=== PATIENT | female | born 1990 | race Caucasian/White ===

== ENCOUNTER 2023-03-25 03:28 | Day surgery (SDC) | payer OTHER, SELFPAY ==
--- NOTE | 2023-03-18 09:30 | PC.NURSE ---
Report to the Outpatient Waiting Room, entrance under the green pavilion located off [facility], at time 0600 on date 03/25/23. Planned Procedure Time: 0730. Time changes happen often and if your time is changed the preop area will call you the afternoon before. - You and your visitor will be asked to self-screen and do not enter if you have any COVID symptoms. - A mask is optional within the hospital at this time. Patients may have clear liquids (water, carbonated beverages, clear teas, apple juice) until 3 hours prior to surgery with a maximum of 20 ounces. 0430 - No food from midnight until time of surgery - Infants may have breast milk until 4 hours before surgery, formula 6 hours prior to surgery. - Children will be allowed to drink immediately following surgery. If applicable, please bring a bottle or sippy cup to assist with drinking. Juice, water, soda, and popsicles are readily available. For infants on formula, please bring formula the day of surgery. Pacifiers are allowed. Take the following medications with a SIP of water the morning of surgery: none DO NOT STOP ANY OF YOUR OTHER PRESCRIPTION MEDICATIONS PRIOR TO SURGERY ?EXCEPT THE FOLLOWING Medications to discontinue per physician vitamins & supplements, dexmethylphenidate, control, omeprazole Date to take last dose vitamins & supplements- 03/22/23, dexmethylphenidate, control, omeprazole- 03/24/23 Please no make-up, nail uzbek, hairspray, perfume, deodorant, or body powder the day of surgery. No jewelry (including any body piercings) or valuables the day of surgery, leave them at home. Please take a shower or bath the night before, or the morning of, surgery with an antibacterial soap. Wear comfortable, loose fitting clothing. Children are encouraged to wear pajamas. - Jewelry must be removed prior to entering the operating room. Rings and piercings that are not removed may be cut off. - The hospital will not accept responsibility for valuables. - Please leave all valuables, including medications, at home the day of surgery. If you are going home after surgery, a licensed courtesy bus driver must drive you home. - NO public transportation without another adult if you receive anesthesia. - We recommend that an adult stay with you for 24 hours following discharge. - We also recommend that you do not drive, make important decision, drink alcoholic beverages, or take any drugs that were not prescribed by your health care provider for at least 24 hours after your discharge time. For Pediatric surgeries, we recommend two adults accompany the child home. Follow any additional instructions given to you from your surgeon. If you or anyone in your household have experienced Covid symptoms in the past week, please notify your surgeon or the nurse liaison at the phone number below for possible testing. Telephone instructions given to Patient- Bethany Fowler and asked if any additional questions and then verbalized understanding. Patient advised to call surgeon office or pre surgery nurse liaison [phone] if any additional questions.
[2023-03-18 09:41] VITALS: BMI 26.2
[2023-03-25] VITALS (7 sets, daily range): BP systolic 100–132; BP diastolic 60–82; PULSE 56–75; RESP 12–20; TEMP 36.2–36.6; O2SAT 100
[2023-03-25] MEDS: LACTATED RINGERS 1,000 ML 30 ML IV CONT (06:35)
[2023-03-25] MEDS: ACETAMINOPHEN 500 MG TABLET 1000 MG PO (06:40)
[2023-03-25] MEDS: KETOROLAC 15 MG/ML VIAL (*BKC) IV PUSH (06:40)
[2023-03-25] MEDS: SCOPOLAMINE 1.5 MG PATCH TRANSDERM (06:42)
--- NOTE | 2023-03-25 06:44 | P.PNAN_ITS ---
Anes - Initial Pre Proc Eval Procedure: Operation Date: 03/25/23 07:30 Proposed Procedures p Laparoscopic Tubal Ligation with Fulguration - Ju Harris MD Date/Time: 03/25/23 06:44 Surgeon: Ju Harris MD Pre Op Diagnosis: desires female sterilization Patient Data Age: 33 Gender: F Height: 1.63 m Weight: 69.4 kg Allergies Allergy/AdvReac Type Severity Reaction Status Date / Time cat dander AdvReac Mild Itching Verified 03/25/23 06:20 pseudoephedrine AdvReac Unknown SYNCOPAL Verified 03/25/23 06:20 [From DayQuil Sinus EPISODE Pressure/Pain] Home Medications Medication Instructions Recorded Confirmed Type Green Tea Complex 1 tab-cap PO DAILY 03/18/23 03/18/23 History L norgest/E estradiol-E estrad 1 tablet PO DAILY 03/18/23 03/18/23 History 0.15 mg-30 mcg (84)/10 mcg(7) tabs,3mos (Jaimiess) ashwagandha extract 1 tab-cap PO DAILY 03/18/23 03/18/23 History dexmethylphenidate 20 mg 20 mg PO DAILY 03/18/23 03/18/23 History capsule,extended release [id number] omeprazole 40 mg capsule,delayed 40 mg PO DAILY 03/18/23 03/25/23 History release Patient hx anesthesia problems: none Family hx anesthesia problems: none Results Review: All pre-operative results and documents have been reviewed as part of the pre- operative evaluation. [facility] Past Medical History Medical History (Updated 03/25/23 @ 06:44 by Odell Cherry MD) ADHD Social History Social History Smoking status: Never smoker Alcohol intake: never Spiritual care concerns: No Anes - Eval Final PreProcedure Day of Procedure 03/25/23 06:44 Patient weight: overweight Heart: regular rate and rhythm Lungs: clear to auscultation Airway: Mallampati scale class II Neurological: alert and oriented Last oral intake: >/= 8 hours ASA classification: II Emergent: no Anesthetic plan: proceed Anesthesia type and monitoring: general ETT and standard monitoring Results Review: All pre-operative results and documents have been reviewed as part of the pre- operative evaluation. Informed Consent: The patient's anesthetic plan and its attendant risks and benefits were discussed with the patient/family/POA. Questions were solicited and answers provided to the satisfaction of the patient/family/POA.
--- NOTE | 2023-03-25 07:20 | WPDHPUPDATE1 ---
History and Physical Update Update Date/Time: 03/25/23 07:20 History and Physical has been reviewed, including an updated exam of the patient. There are NO changes in the patient's condition. Risks, benefits, and alternatives have been discussed and questions answered. Patient agrees to proceed with procedure.
--- NOTE | 2023-03-25 07:29 | PM.IMHP ---
H&P: HPI History of Present Illness Date/Time: 03/25/23 07:29 Chief Complaint: Female sterilization Narrative: this patient is a 33-year-old female who desires tubal ligation. We have agreed to perform laparoscopic bilateral tubal ligation. She understands risks, benefits, the. The procedure has been explained in detail. She understands injuries may occur that result in hospitalization, more surgery, and severe illness. She understands that there is risk of hemorrhage and infection. She denies any nausea, vomiting, fever, chills. She denies any chest pain or shortness of breath. Review of Systems Review of Systems: All systems reviewed & are unremarkable except as noted in HPI and below Constitutional: Constitutional: Denies chills, Denies fatigue, Denies fever(s) and Denies weakness Eyes: Eyes: Denies blurry vision, Denies change in vision, Denies loss of peripheral vision, Denies loss of vision, Denies other visual disturbances and Denies eye pain ENT: Denies vertigo, Denies dizziness, Denies hearing loss, Denies mouth pain, Denies nasal obstruction, Denies neck mass and Denies neck pain Cardiovascular: Cardiovascular: Denies chest pain, Denies diaphoresis, Denies syncope, Denies leg edema and Denies dyspnea Respiratory: Respiratory: Denies chest congestion, Denies cough, Denies hemoptysis, Denies dyspnea and Denies wheezing Gastrointestinal: Gastrointestinal: Denies abdominal pain, Denies constipation, Denies diarrhea, Denies nausea and Denies vomiting Genitourinary: Genitourinary: Denies hematuria, Denies change in libido, Denies nocturia, Denies genital lesions, Denies flank pain and Denies urinary urgency Musculoskeletal: Musculoskeletal: Denies abnormal gait, Denies back pain, Denies myalgias, Denies arthralgias, Denies joint swelling, Denies muscle weakness and Denies neck pain Integumentary/Breasts: Skin/Breast: Denies swelling, Denies breast pain, Denies breast mass, Denies dry skin, Denies nipple discharge, Denies unusual bruising and Denies jaundice Neurologic: Denies Neuro-related abnormal movements, Denies Abnormal speech present, Denies abnormal gait, Denies behavioral changes, Denies confusion, Denies vertigo, Denies dizziness, Denies syncope, Denies loss of vision, Denies memory loss, Denies convulsions and Denies weakness Psychiatric: Psychiatric: Denies abnormal sleep pattern, Denies behavioral changes, Denies change in libido, Denies confusion, Denies depression, Denies anhedonia and Denies memory loss Endocrine: Endocrine: Reports no additional endocrine complaints, Denies change in libido and Denies fatigue Hematologic/Lymphatic: Hematologic/Lymphatic: Reports no additional hematologic/lymphatic complaints Allergic/Immunologic: Allergic/Immunologic: Reports no additional allergic/immunologic complaints and Denies wheezing PMFSH Past Medical History Medical History (Updated 03/25/23 @ 07:31 by Ju Harris MD) ADHD Social History Social History Smoking status: Never smoker Alcohol intake: never Spiritual care concerns: No Meds Home Medications and Allergies Home Medications Medication Instructions Recorded Confirmed Type Green Tea Complex 1 tab-cap PO DAILY 03/18/23 03/18/23 History L norgest/E estradiol-E estrad 1 tablet PO DAILY 03/18/23 03/18/23 History 0.15 mg-30 mcg (84)/10 mcg(7) tabs,3mos (Jaimiess) ashwagandha extract 1 tab-cap PO DAILY 03/18/23 03/18/23 History dexmethylphenidate 20 mg 20 mg PO DAILY 03/18/23 03/18/23 History capsule,extended release [id number] omeprazole 40 mg capsule,delayed 40 mg PO DAILY 03/18/23 03/25/23 History release Allergies Allergy/AdvReac Type Severity Reaction Status Date / Time cat dander AdvReac Mild Itching Verified 03/25/23 06:20 pseudoephedrine AdvReac Unknown SYNCOPAL Verified 03/25/23 06:20 [From DayQuil Sinus EPISODE Pressure/Pain] Vital
--- NOTE | 2023-03-25 08:40 | P.OP_ITS ---
Procedure Note - Detailed Date of Procedure 03/25/23 Pre-op Diagnosis desires female sterilization Post-op Diagnosis Same Procedure Performed Laparoscopic bilateral tubal ligation Surgeon Ju Harris MD Digital Proofing And Platemaker none Anesthesia General Indications Unwanted fertility Findings Normal pelvic anatomy Description of Procedure The patient was taken the operating room. She has prepped draped in the dorsal lithotomy position after induction of general anesthesia. A 5 mm left upper quadrant incision was made with a scalpel on the abdominal skin. A 5 mm trocar was inserted intra-abdominal cavity. A pneumoperitoneum was achieved. This was done under direct visualization of the scope. An infraumbilical trocar was placed identical fashion. The fallopian tubes were grasped with bipolar cautery. They were completely cauterized. A 1.5 cm area of each fallopian tube was cauterized/desiccated. It was done bilaterally identical fashion. The pneumoperitoneum was reduced. The trocars removed. The skin was closed with subcuticular 4 Monocryl cover Dermabond. The patient tolerated the procedure well. She was taken to cover room stable condition. Sponge lap and needle counts were correct x2. Estimated Blood Loss 5 Drains No Packing No Pathology None sent Complications No immediate complications Condition Stable Disposition PACU
[2023-03-25] MEDS: oxyCODONE HCL (*CRX) 5 MG TAB IR PO (09:27)
--- NOTE | 2023-03-25 09:57 | SUR.PHASEII ---
RN forgot to stop fluids before discharging from the computer. There was 0 left to count.
== END 2023-03-25 09:55 | disposition home or self-care (01) ==
PROVIDERS: PCP Family Medicine Sports Medicine; Visit Provider Obstetrics & Gynecology
PROC: (CPT 58671; principal; 2023-03-25 07:30)
DX: Z30.2 Encounter for sterilization (principal); F90.9 Attention-deficit hyperactivity disorder, unspecified type
CPT/HCPCS: 58670; A9270; J1100; J1885; J2250; J2405; J2704; J3010; J7120

== ENCOUNTER 2024-07-02 01:26 | Emergency (ER) | payer OTHER, SELFPAY ==
[2024-07-02 01:27] VITALS: BP 129/79; PULSE 93; RESP 18; TEMP 36.4; O2SAT 100
--- NOTE | 2024-07-02 02:38 | PC.NURSE ---
Pt and spouse came up t triage deska dn state they are going to wait to go to urgent care in the morning. Pt left without being seen by provider.
--- OUTSIDE RECORDS SUMMARY | 2024-07-09 02:26 | XMS_ITS | Encounter Summary ---
Author Organization [facility] Address [address] [place] [address] Care Team Providers Care Wrapper Rewinder Name Role Phone Unavailable Primary Care Provider Unavailabl e Reason for Visit * Reason Comments URI Encounter Details Date Type Department Care Team (Late st Contact Info) Description 08/06/2017 11:40 AM CLINICAL DATA ASSISTANT Office Visit [facility] [address] [id number] [facility] [place] Influenza A (Primary Dx) Social History Tobacco Use Types Packs/Day Years Used Date Smoking Tobacco: Never Smokeless Tobacco: Never Sex and Gender Information Value Date Recorded Sex Assigned at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 Gender Identity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 Sexual Orientation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 documented as of this encounter Last Filed Vital Signs Vital Sign Reading Time Taken Comments Blood Pressure 122/80 08/06/2017 11:51 AM CLINICAL DATA ASSISTANT Pulse 112 08/06/2017 11:51 AM CLINICAL DATA ASSISTANT Temperature 37.7 ??C (99.8 ??F) 08/06/2017 11:[address] Respiratory Rate 16 08/06/2017 11:51 AM CLINICAL DATA ASSISTANT Oxygen Saturation 98% 08/06/2017 11:51 AM CLINICAL DATA ASSISTANT Inhaled Oxygen Concentration - - Weight 62.1 kg (137 lb) 08/06/2017 11:51 AM CLINICAL DATA ASSISTANT Height 162.6 cm (5' 4 ) 08/06/2017 11:51 AM CLINICAL DATA ASSISTANT Body Mass Index 23.52 08/06/2017 11:51 AM CLINICAL DATA ASSISTANT documented in this encounter Patient Instructions * Patient Instructions* Chester Kincaid APRN-MARI - 08/06/2017 12:08 PM CLINICAL DATA ASSISTANT Images from the original note were not included. Influenza REGULATORY MANAGER: Influenza (the flu) is an infection caused by the influenza virus. The flu is easily spread when aninfected person coughs, sneezes, or has close contact with others. You may be able to spread the flu to others for 1 week or longer after signs or symptoms appear. Common signs and symptoms include the following: ?? Fever and chills ?? Headaches, body aches, and muscle or joint pain ?? Cough, runny nose, and sore throat ?? Loss of appetite, nausea, vomiting, or diarrhea ?? Tiredness ?? Trouble breathing Call 911 for any of the following: ?? You have trouble breathing, and your lips look purple or blue. ?? You have a seizure. Seek care immediately if: ?? You are dizzy, or you are urinating less or not at all. ?? You have a headache with a stiff neck, and you feel tired or confused. ?? You have new pain or pressure in your chest. ?? Your symptoms, such as shortness of breath, vomiting, or diarrhea, get worse. ?? Your symptoms, such as fever and coughing, seem to get better, but then get worse. Contact your healthcare provider if: ?? You have new muscle pain or weakness. ?? You have questions or concerns about your condition or care. Treatment for influenza may include any of the following: ?? Acetaminophen decreases pain and fever. It is available without a doctor's order. Ask how much to take and how often to take it. Follow directions. Acetaminophen can cause liver damage if not taken correctly. ?? NSAIDs , such as ibuprofen, help decrease swelling, pain, and fever. This medicine is available with or without a doctor's order. NSAIDs can cause stomach bleeding or kidney problems in certain people. If you take blood thinner medicine, always ask your healthcare provider if NSAIDs are safe foryou. Always read the medicine label and follow directions. ?? Antivirals help fight a viral infection. Manage your symptoms: ?? Rest as much as you can to help you recover. ?? Drink liquids as directed to help prevent dehydration. Ask how much liquid to drink each day andwhich liquids are best for you. Prevent the spread of the flu: ?? Wash your hands often. Use soap and water. Wash your hands after you use the bathroom, change a child's diapers, or sneeze. Wash your hands before you prepare or eat food. Use gel hand cleanser that has 60% alcohol, when soap and water are not available. Do not touch your eyes, nose, or mouth unless you have washed your hands first. ?? Cover your mouth when you sneeze or cough. Cough into a tissue or the bend of your arm. If you use a tissue, throw it away immediately and wash your hands. ?? Clean shared items with a germ-killing distributor cleaner. Clean table surfaces, doorknobs, and light switches. Do not share towels, silverware, and dishes with people who are sick. Wash bed sheets, towels, silverware, and dishes with soap and water. ?? Wear a mask over your mouth and nose if you are sick. The face mask may help protect others frombecoming infected with the flu. Wear the mask when in common areas of your home or if you seek carewith a healthcare provider. ?? Stay away from others if you are sick. Stay at home until 24 hours after your fever and symptomsare gone. ?? Influenza vaccine helps prevent influenza (flu). Everyone older than 6 months should get a yearly influenza vaccine. Get the vaccine as soon as it is available, usually in March or April each year. Follow up with your healthcare provider as directed: Write down your questions so you remember to ask them during your visits. ?? 2017 [employer] Information is for End User's use only and may not be sold, redistributed or otherwise used for commercial purposes. All illustrations and images included in CareNotes?? are the copyrighted property of [employer] or [employer]. The above information is an in home aide only. It is not intended as medical advice for individual conditions or treatments. Talk to your doctor, nurse or pharmacist before following any medical regimen to see if it is safe and effective for you. ICAL DATA ASSISTANT documented in this encounter Progress Notes * Chester Kincaid APRN-CNP - 08/07/2017 10:16 AM CST Pt returned for work note. Note provided. ICAL DATA ASSISTANT * Chester Kincaid APRN-CNP - 08/06/2017 11:57 AM CST Subjective: Bethany Fowler is a 27 y.o. female who presents for evaluation: Chief Complaint Patient presents with ??? URI Primary Care Physician is No primary care provider on file.. Symptoms include: Pt started on Friday with scratchy throat then got worse as day went on, runny nose, fatigue, yesterday frequent stools, coughing, fever (has not taken temp), body aches, decreased appetite, nausea, Onset of symptoms was 2 days ago, Gradually worsened since that time. Fever started yesterday. She is drinking moderate amounts of fluids. Evaluation to date: none. Treatment to date: pt has taken ibuprofen and tylenol. Allergies Allergen Reactions ??? Dayquil [Day Time] Dizziness fainting Outpatient Prescriptions Marked as Taking for the 08/06/17 encounter (Office Visit) with Provider, [place] Boone Medication Sig ??? dexmethylphenidate (FOCALIN) 5 MG tablet Take 10 mg by mouth Every morning and lunchtime ??? Famotidine (PEPCID PO) ??? oseltamivir (TAMIFLU) 75 MG capsule Take 1 capsule by mouth once daily for 5 days Past Medical History: Diagnosis Date ??? ADHD Social History Social History ??? Marital status: Single Spouse name: N/A ??? Number of children: N/A ??? Years of education: N/A Occupational History ???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. Social History Main Topics ??? Smoking status: Never Smoker ??? Smokeless tobacco: Never Used ??? Alcohol use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 ??? Drug use: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 ??? Sexual activity: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 Other Topics Concern ???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 Social History Narrative ??? No narrative on file Medications reviewed. Review of Systems Pertinent items are noted in HPI Constitutional: Positive for fatigue, fevers, chills Eyes: Negative Ears, nose, mouth, and throat: scratchy throat, runny nose Respiratory: Positive for acute cough Cardiovascular: Negative Gastrointestinal: Positive for poor appetite, nausea Genitourinary:Negative Skin: Negative Musculoskeletal:Negative Neurological: Positive for headaches Objective: BP 122/80 (BP SITE: LEFT ARM, BP POSITION: SITTING, BP CUFF SIZE: Adult) Pulse 112 Temp 99.8 ??F (Oral) Resp 16 Ht 1.626 m (5' 4 ) Wt 62.1 kg (137 lb) SpO2 98% BMI 23.52 kg/m2 Skin: Physical Exam Exam General appearance: alert, cooperative, no distress, oriented to person, place, and time, wellappearing Head: normocephalic, without trauma Eyes: sclera and conjunctiva clear, EOMI and PERRLA, lids normal Ears: canals clear, tympanic membranes normal, hearing intact to voice Nose: nares open; no septal deviation is noted, nasal mucosa not inflamed, no maxillary tenderness Throat: no mucous membrane abnormalities, lips, mucosa, and tongue normal; teeth and gums normal Neck: range of motion is intact, no masses, Nodes: no cervical, adenopathy Lungs: breath sounds normal and symmetric; no rales or wheezes Heart: regular rhythm, normal S1 and S2, without murmurs, gallops or rubs Abdomen: soft without mass, non-tender, with normal bowel sounds Neurologic: mental status normal; alert and oriented X 3; Assessment: . Encounter Diagnoses Name Primary? Influenza A Yes Plan: Discussed dx and tx of URIs Discussed the importance of avoiding unnecessary abx therapy. Suggested symptomatic OTC remedies. RTC prn. Discussed with pt the possible risk and side effects of tamiflu, pt states understanding and requesting script Drink plenty of fluids and get plenty of rest If symptoms persist greater than 7-10 days or worsen at any time, follow up with a health care provider, clinic or emergency care Educational material given on influenza Work/School note offered Continue to follow up with No primary care provider on file. as directed. After Visit Summary reviewed with patient. The patient indicates understanding of these issues and agrees with the plan. Patient discharged to Home .Chester Kincaid APRN-MARI 08/06/2017 12:16 PM Orders Placed This Encounter ??? INFLUENZA A+B - POINT OF CARE (AMB) ??? oseltamivir (TAMIFLU) 75 MG capsule Sig: Take 1 capsule by mouth once daily for 5 days Dispense: 10 capsule Refill: 0 Recent Results (from the past 24 hour(s)) INFLUENZA A+B - POINT OF CARE (AMB) Collection Time: 08/06/17 11:58 AM Result Value Ref Range Influenza A Ag Positive (Abnormal) Negative Influenza B Ag Negative Negative Influenza Control present NEGATIVE - POSITIVE Influenza Lot# [id number] Influenza Expir Date 04 28 2019 ICAL DATA ASSISTANT documented in this encounter Plan of Treatment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 documented as of this encounter Procedures Procedure Name Priority Date/Time Associated Diagnosis Comments INFLUENZA A+B - POINT OF CARE (AMB) Routine 08/06/2017 11:58 AM CLINICAL DATA ASSISTANT Influenza A documented in this encounter Results * (ABNORMAL) INFLUENZA A+B - POINT OF CARE (AMB) (08/06/2017 11:58 AM CLINICAL DATA ASSISTANT) Influenza A Antigen Rapid Positive(A) Negative Influenza B Antigen Rapid Negative Negative Influenza Internal Control present NEGATIVE - POSITIVE Influenza Lot Number [id number] Influenza Expiration Date 04 28 2019 Other NASOPHARYNGEAL SWAB / Unknown 08/06/2017 11:58 AM CLINICAL DATA ASSISTANT [facility] - POINT OF CA RE ORDERABLES documented in this encounter Visit Diagnoses Diagnosis Influenza A- Primary documented in this encounter
--- OUTSIDE RECORDS SUMMARY | 2024-07-09 02:26 | XMS_ITS | Encounter Summary ---
Author Organization [facility] Address [address] [place] [address] Care Team Providers Care Commercial Real Estate Manager Name Role Phone Raymond Wolff MD Primary Care Provider Kathy Catherine MD Unavailable [phone] Doris Pruett MD Unavailable [phone] Mary Waters NP Unavailable [phone] Reason for Visit * Reason Comments Preventative Care Encounter Details Date Type Department Care Team (Late st Contact Info) Description 05/07/2024 11:00 AM CDT Office Visit [facility] [address] [phone] Raymond Wolff MD [address] [address] Preventative health care (Primary Dx); Class 1 obesity without serious comorbidity with body mass index (BMI) of 30.0 to 30.9 in adult, unspecified obesity type; Attention deficit hyperactivity disorder (ADHD), combined type; Gastroesophageal reflux disease without esophagitis; Screening for metabolic disorder; Screening for deficiency anemia; Screening for diabetes mellitus; Screening for viral disease Social History Tobacco Use Types Packs/Day Years Used Date Smoking Tobacco: Never Smokeless Tobacco: Never AUDIT-C Answer Date Recorded Q1: How often do you have a drink containing alc ohol? Monthly or less 11/12/2022 Q2: How many drinks containi ng alcohol do you have on a typical day when you are drinking? 1 or 2 11/12/2022 Q3: How often do you have si x or more drinks on one occasion? Never 11/12/2022 PHQ-2 Answer Date Recorded PHQ-2 Total Score (If total score is 3 or more points, staff should administer the PHQ-9) 0 05/07/2024 Personal Safety Answer Date Recorded Have you ever been in or are you currently in a harmful physical or emotional relationship or is someone making you feel afraid or unsafe? 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 N ot on file documented as of this encounter Last Filed Vital Signs Vital Sign Reading Time Taken Comments Blood Pressure 128/84 05/07/2024 10:52 AM CDT Pulse 80 05/07/2024 10:52 AM CDT Temperature 36.7 ??C (98.1 ??F) 05/07/2024 10:51 AM C DT Respiratory Rate - - Oxygen Saturation 99% 05/07/2024 10:52 AM CDT Inhaled Oxygen Concentration - - Weight 78.9 kg (174 lb) 05/07/2024 10:51 AM CDT Height 161 cm (5' 3.39 ) 05/07/2024 10:51 AM CDT Body Mass Index 30.45 05/07/2024 10:51 AM CDT documented in this encounter Ordered Prescriptions Prescription Sig Dispense Quantity Refills Last Filled Start Date End Date dexmethylphenidate XR (FOCALIN XR) 20 mg 24 hr capsuleIndications: Attention deficit hyperactivity disorder (ADHD), combined type Take 1 capsule (20 mg total) by mouth daily 30 capsule 05/07/2024 4 tirzepatide, weight loss, (Zepbound) 5 mg/0.5 mL pen injectorIndications :Class 1 obesity without serious comorbidity with body mass index (BMI) of 30.0 to 30.9 in adult, unspecified obesity type Inject 0.5 mL (5 mg total) under the skin every 7 days 2 mL 05/27/2024 4 tirzepatide, weight loss, (Zepbound) 2.5 mg/0.5 mL pen injectorIndications :Class 1 obesity without serious comorbidity with body mass index (BMI) of 30.0 to 30.9 in adult, unspecified obesity type Inject 0.5 mL (2.5 mg total) under the skin every 7 days 2 mL 05/07/2024 4 documented in this encounter Progress Notes * Raymond Wolff MD - 05/07/2024 11:00 AM CDT PREVENTATIVE VISIT/COMPLETE PHYSICAL EXAMINATION Subjective/Objective Patient ID: Bethany Fowler is a 34 y.o. female. CC: Well visit HPI Bethany Fowler was last seen 02/20/24. At that visit, we recommended establishing with weight management. Today she notes that she has been trying to lose weight. She has gained weight despite her efforts.She is walking her dog daily, she walks in and out of work, doing some arm workouts and drinking more water. She is making more food at home. She is tracking calories when she is cooking at home. Sheis around 1200 calories per day and does not go above 1300 calories. She is going to bed earlier tomake sure she gets enough sleep. She has cat allergies. She is trying to stick with her medication. She is taking xyzal and a nose spray (fluticasone) but she is not sure what it is. She feels like the treatment helps but she continues with symptoms. She knows shots are an option but she is not sure she wants to consider shots yet. She continues to take adderall XR daily and ends up taking this 6-7 times per week. This works wellfor her. She denies any side effects from this. Patient Active Problem List Diagnosis Date Noted ADHD 11/19/2023 Gastroesophageal reflux disease without esophagitis 11/19/2023 Allergy to cats 11/19/2023 Oropharyngeal dysphagia 09/27/2022 Past Medical History: Diagnosis Date ADHD (attention deficit hyperactivity disorder) dx by psychiatrist at age 10 Past Surgical History: Procedure Laterality Date DENTAL SURGERY Right front right tooth implant TUBAL LIGATION Bilateral 03/25/2023 Family History Problem Relation Age of Onset ADD / ADHD Mother Hyperlipidemia Father ADD / ADHD Sister Hypothyroidism Sister ADD / ADHD Sister Breast cancer Maternal Grandmother Vision loss Maternal Grandfather Breast cancer Mother's Sister Colon cancer Neg Hx Coronary artery disease Neg Hx Social History Tobacco Use Smoking status: Never Smokeless tobacco: Never Substance and Sexual Activity Drug use: Yes Types: Alcohol Comment: 1 drink per month Sexual activity: Yes Partners: Male control/protection: OCP, Tubal Ligation Comment: Taking simpesse to have less periods. 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, [employer] Exercise: walking, mild weights Owns dog Current Outpatient Medications: ASHWAGANDHA EXTRACT ORAL, Take by mouth, Disp: , Rfl: clindamycin (CLEOCIN T) 1 % gel, Apply topically 2 (two) times a day, Disp: 30 g, Rfl: 0 dexmethylphenidate XR (FOCALIN XR) 20 mg 24 hr capsule, Take 1 capsule (20 mg total) by mouth daily, Disp: 30 capsule, Rfl: 0 omeprazole (PriLOSEC) 20 mg capsule, Take 1 capsule (20 mg total) by mouth daily, Disp: 30 capsule,Rfl: 11 Simpesse 0.15 mg-30 mcg (84)/10 mcg (7) tablets,dose pack,3 month, Take 1 tablet by mouth daily, Disp: , Rfl: tretinoin (RETIN-A) 0.025 % cream, Apply topically nightly, Disp: 20 g, Rfl: 0 Allergies Allergen Reactions Vicks Dayquil Allergy Syncope Immunization History Administered Date(s) Administered COVID-19 mRNA (Sensus Experience) 0.3 mL (30 mcg) vaccine (12 years and up) 04/23/2024 Influenza, Trivalent, Cell Culture-based MDCK, Preservative Free, Antibiotic Free, Intramuscular 04/23/2024 [place] SARS-CoV-2 Monovalent Vaccination (12+ Yrs) PURPLE 08/01/2020, 08/18/2020 Td, adsorbed 04/26/2021 Review of Systems All other systems reviewed and are negative. Physical Exam BP 128/84 Pulse 80 Temp 36.7 ??C (98.1 ??F) (Temporal) Ht 161 cm (5' 3.39 ) Wt 78.9 kg (174lb) SpO2 99% BMI 30.45 kg/m?? Physical Exam Vitals reviewed. Constitutional: General: She is not in acute distress. Appearance: She is well-developed. She is not diaphoretic. HENT: Head: Normocephalic and atraumatic. Right Ear: External ear normal. Left Ear: External ear normal. Nose: Nose normal. Eyes: Conjunctiva/sclera: Conjunctivae normal. Pupils: Pupils are equal, round, and reactive to light. Neck: Thyroid: No thyromegaly. Cardiovascular: Rate and Rhythm: Normal rate and regular rhythm. Heart sounds: Normal heart sounds. No murmur heard. No friction rub. No gallop. Pulmonary: Effort: Pulmonary effort is normal. No respiratory distress. Breath sounds: Normal breath sounds. No wheezing or rales. Chest: Chest wall: No tenderness. Abdominal: General: Bowel sounds are normal. There is no distension. Palpations: Abdomen is soft. There is no mass. Tenderness: There is no abdominal tenderness. There is no guarding. Musculoskeletal: General: No swelling. Normal range of motion. Cervical back: Normal range of motion and neck supple. Lymphadenopathy: Cervical: No cervical adenopathy. Skin: General: Skin is warm and dry. Findings: No erythema or rash. Neurological: Mental Status: She is alert and oriented to person, place, and time. Cranial Nerves: No cranial nerve deficit. Sensory: No sensory deficit. Deep Tendon Reflexes: Reflexes normal. Psychiatric: Behavior: Behavior normal. Thought Content: Thought content normal. Judgment: Judgment normal. Patient Care Team: Raymond Wolff MD as PCP - General (Internal Medicine) HEALTH MAINTENANCE: Cervical Cancer Screening: discussed screening recommendations and up to date Vaccines: Influenza: discussed recommendations, up to date, and recommended annually Tdap: discussed recommendations and up to date HPV: discussed recommendations COVID: discussed recommendations Health Maintenance Topic Date Due Cervical Cancer Screening Never done Hepatitis C Screening Never done Varicella Vaccines (1 of 2 - 13+ 2-dose series) Never done Regular Well Visit/Exam 18-64 Never done Hepatitis B Screening Never done DTaP/Tdap/Td Vaccine (1 - Tdap) 04/27/2021 Depression Screening 04/26/2022 Covid-19 Vaccine Completed Influenza Vaccine Completed Pneumococcal vaccine <65 Aged Out HPV Vaccines Aged Out Lab/Radiology/Diagnostic Review: Lab Results Component Value Date CHOL 232 (H) 12/17/2023 HDL 72 12/17/2023 LDLCALC 148 (H) 12/17/2023 TRIG 62 12/17/2023 CHOLHDL 3 12/17/2023 Lab Results Component Value Date TSH 1.85 12/17/2023 Assessment/Plan Diagnoses and all orders for this visit: Preventative health care (Primary) Comments: discussed vaccinations, health screening and encouraged regular cardiovascular exercise. Orders: - Comprehensive metabolic panel; Future - CBC with auto differential; Future - Hemoglobin A1c; Future - Hepatitis B Surface Antigen Blood; Future - Hepatitis C antibody Blood; Future Class 1 obesity without serious comorbidity with body mass index (BMI) of 30.0 to 30.9 in adult, unspecified obesity type Comments: discussed treatment approaches and medications risks, benefits and side effects. continue lifestyleapproaches. start zebpound. Orders: - tirzepatide, weight loss, (Zepbound) 2.5 mg/0.5 mL pen injector; Inject 0.5 mL (2.5 mg total) under the skin every 7 days - tirzepatide, weight loss, (Zepbound) 5 mg/0.5 mL pen injector; Inject 0.5 mL (5 mg total) under the skin every 7 days Attention deficit hyperactivity disorder (ADHD), combined type Comments: doing well with current therapy, refilled. Orders: - dexmethylphenidate XR (FOCALIN XR) 20 mg 24 hr capsule; Take 1 capsule (20 mg total) by mouth daily Gastroesophageal reflux disease without esophagitis Comments: saw GI, told PPI fpc was ok by them. Discussed risks and benefits. Screening for metabolic disorder - Comprehensive metabolic panel; Future Screening for deficiency anemia - CBC with auto differential; Future Screening for diabetes mellitus - Hemoglobin A1c; Future Screening for viral disease - Hepatitis B Surface Antigen Blood; Future - Hepatitis C antibody Blood; Future Follow up in 6-7 weeks (weight) or sooner PRN Raymond Wolff MD documented in this encounter Plan of Treatment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 documented as of this encounter Results * Hepatitis C antibody Blood (05/07/2024 12:17 PM CDT) Hep C Ab Nonreactive Nonreactive Comment:Antibodies to HCV no t detected. Does NOT exclude the possibility of recent exposure to HCV. Current interpretive data was last revised on 22 Blood 05/07/2024 12:1 7 PM CDT 05/07/2024 12:50 PM CDT Result [facility] Raymond Wolff MD LAB MICROBIOLOGY - GEN ERAL ORDERABLES Final Result Performing Organization Address [facility] de Phone Number [facility] [place] [address] * Hepatitis B Surface Antigen Blood (05/07/2024 12:17 PM CDT) HepBsAg Nonreactive Nonreactive Blood 05/07/2024 12:1 7 PM CDT 05/07/2024 12:50 PM CDT Result [facility] Raymond Wolff MD LAB MICROBIOLOGY - GEN ERAL ORDERABLES Final Result Performing Organization Address [facility] de Phone Number [facility] [place] [address] * Hemoglobin A1c (05/07/2024 12:17 PM CDT) Pathologist [facility] Hgb A1C 5.2 4.0 - 5.6 % Estimated Average Glucose 103 mg/dL [facility] Comment: The ADA recommends reporting an estimated Average Glucose (eAG) with all Hemoglobin A1c results using the equation derived from a study of 507 normal and diabetic adults. ??Minority populations were underrepresented and children were not included. ?? (Diabetes Care 2020; 43(S1): S66-S76). ??The eAG is not equivalent to a fasting glucose. Blood 05/07/2024 12:1 7 PM CDT 05/07/2024 12:51 PM CDT Result [facility] Raymond Wolff MD LAB BLOOD ORDERABLES F inal Result Performing Organization Address [facility] Co de Phone Number [facility] [place] [address] * CBC with auto differential (05/07/2024 12:17 PM CDT) [facility] WBC 7.9 3.8 - 9.9 K/cumm Hgb 13.1 11.9 - 15.5 g/dL [facility] Hct 39.3 35.6 - 45.5 % [facility] Plt 311 150 - 400 K/cumm [facility] MPV 9.8 9.1 - 12.3 fL [facility] RBC 4.17 3.90 - 5.20 M/cumm [facility] MCV 94.2 81.3 - 96.4 fL [facility] MCH 31.4 27.1 - 33.3 pg [facility] MCHC 33.3 32.3 - 35.7 g/dL [facility] RDW CV 12.7 11.1 - 14.9 % [facility] RDW SD 43.9 35.7 - 48.1 fL [facility] NRBC abs 0.00 0.00 - 0.01 K/cumm [facility] Blood 05/07/2024 12:1 7 PM CDT 05/07/2024 12:50 PM CDT us Raymond Wolff MD LAB BLOOD ORDERABLES F inal Result [facility] Department [place] [address] * Comprehensive metabolic panel (05/07/2024 12:17 PM CDT) [facility] Sodium 140 135 - 145 mmol/L Potassium, pl 4.1 3.3 - 4.9 mmol/L [facility] Chloride 105 97 - 110 mmol/L [facility] CO2 27 22 - 32 mmol/L [facility] Anion gap 8 2 - 15 mmol/L [facility] BUN 10 6 - 25 mg/dL [facility] Creatinine 0.81 0.60 - 1.10 mg/dL [facility] Glucose 78 70 - 199 mg/dL [facility] Comment: Interpretive Data Fasting glucose >/= 126 mg/dl is diagnostic for diabetes. ?? Fasting is defined as no caloric intake for at least 8 hours. Fasting glucose between 100 mg/dl to 125 mg/dl is diagnostic of prediabetes. In a patient with classic symptoms of hyperglycemia or hyperglycemic crisis, a random glucose >/= 200 mg/dl is diagnostic for diabetes. In the absence of unequivocal hyperglycemia, results should be confirmed by repeat testing. The classification and Diagnosis of Diabetes Diabetes Care 2021; 46: S19-S40. Current interpretive data was last revised 2022. Calcium 9.2 8.5 - 10.3 mg/dL [facility] Bilirubin, total 0.4 0.1 - 1.2 mg/dL [facility] Protein, pl 7.6 6.5 - 8.5 g/dL [facility] Albumin 4.4 3.5 - 5.0 g/dL [facility] Alk phos 77 40 - 130 Units/L [facility] ALT 19 7 - 45 Units/L [facility] AST 26 10 - 45 Units/L [facility] Blood 05/07/2024 12:1 7 PM CDT 05/07/2024 12:50 PM CDT us Raymond Wolff MD LAB BLOOD ORDERABLES F inal Result [facility] Department [place] [address] documented in this encounter Visit Diagnoses Diagnosis Preventative health care- Primary Routine general medical examination at a health care facility Class 1 obesity without serious comorbidity with body mass index (BMI) of 30.0 to 30.9 in adult, unspecified obesity type Attention deficit hyperactivity disorder (ADHD), combined type Gastroesophageal reflux disease without esophagitis Esophageal reflux Screening for metabolic disorder Screening for deficiency anemia Screening for other and unspecified deficiency anemia Screening for diabetes mellitus Screening for viral disease Special screening examination for unspecified viral disease documented in this encounter Discontinued Medications Medication Sig Discontinue Reason Start Date End Da te dexmethylphenidate XR (FOCALIN XR) 20 mg 24 hr capsuleIndications:Attent ion deficit hyperactivity disorder (ADHD), combined type Take 1 capsule (20 mg total) by mouth daily Reorder 04/08/2024 05/07/2024 documented as of this encounter Care Teams Commercial Real Estate Manager Relationship Specialty Start Date End Date Raymond Wolff MD [address] [facility] [address] [place] [address] PCP - General Internal Medicine 11/21/23 Kathy Catherine MD [address] [place] [address] Consulting Physician Gastroenterology 05/07/24 Doris Pruett MD [address] [facility] [address] [place] [address] Consulting Physician Dermatology 05/07/24 Mary Waters NP [address] [place] [address] Nurse Practitioner Nurse Practitioner 05/07/24 documented as of this encounter
--- OUTSIDE RECORDS SUMMARY | 2024-07-09 02:26 | XMS_ITS | Encounter Summary ---
Author Organization [facility] Address [address] [place] [address] Care Team Providers Care Lay Out And Detail Drafter Name Role Phone Raymond Wolff MD Primary Care Provider Reason for Referral * Consultation (Routine) - Pending Review Specialty Diagnoses / Procedures Referred By Contac t Referred To Contact Weight Management Diagnoses Overweight Raymond Wolff MD [address] [address] Phone: tel: fax: [facility] (All Locations) Referral ID Status Reason Start Date Expiration Date Visits Requested Visits Authorized [id number] Pending Review Specialty Services Required 02/20/2024 03/21/2025 1 1 Question Answer Please select the performing region: [facility] (All Locations) [[id number]] # of visits: 1 Encounter Details Date Type Department Care Team (Late st Contact Info) Description 02/20/2024 9:45 AM CDT Office Visit [facility] [address] [place] [address] Raymond Wolff MD [address] [address] Overweight (Primary Dx); Fatigue, unspecified type Social History Tobacco Use Types Packs/Day Years Used Date Smoking Tobacco: Never Smokeless Tobacco: Never Tobacco Cessation:Counseling Given: Not Answered AUDIT-C Answer Date Recorded Q1: How often [...] points, staff should administer the PHQ-9) 0 04/26/2021 Personal Safety Answer Date Recorded Have you [...] AM CDT Sexual Orientation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 documented as of this encounter Last Filed Vital Signs Vital Sign Reading Time Taken Comments Blood Pressure 116/84 02/20/2024 10:38 AM CDT Pulse 76 02/20/2024 9:47 AM CDT Temperature 36.8 ??C (98.3 ??F) 02/20/2024 9:47 AM CD T Respiratory Rate - - Oxygen Saturation 99% 02/20/2024 9:47 AM CDT Inhaled Oxygen Concentration - - Weight 79.1 kg (174 lb 6.4 oz) 02/20/2024 9:47 A M CDT Height 162.6 cm (5' 4 ) 02/20/2024 9:47 AM CDT Body Mass Index 29.94 02/20/2024 9:47 AM CDT documented in this encounter Progress Notes * Raymond Wolff MD - 02/20/2024 9:45 AM CDT Subjective/Objective Patient ID: Bethany Fowler is a 34 y.o. female. Chief Complaint Questions about weight HPI Bethany Fowler was last seen 12/16/23 for telehealth visit for thyroid questions. Today she notes that she has always been cold and sleepy. She always get cold and finds that she gets sleepy around 7 pm. She finds that she is always cold. She does not use AC and finds that when itis 90+ degrees she is wearing long sleeves, no AC and trying to bring in the heat. This has been this way her entire life. She sweats normal amount when she is hot/active. She does not feel uncomfortable when it is hot for everyone else. She feel cold when it is 70 degrees. Her house is set at 70 degrees and she uses blankets all the time. She feels like after college she has noticed more tiredness. She finds that after eating dinner shetends to get tired. She can have this happen at home or out with friends. She tries to plan to go to bed at 10 pm but often falling asleep before then. She has not had issues with falling asleep spontaneously. She often starts to fall asleep around 7 pm but tries to stay awake up until 10 pm. She then get up at 5 am. She usually sleeps through the night typically. She can have disturbances nightterror . She will wake up from nightmare but still feel like she is in the dream temporarily. She used to sleep walk. She estimates that these night awakenings are maybe once per month. She wakes up in the Am feeling refreshed. She feels fine during the day expect if she goes to bed after 10 pm. Onweekends she tends to go to bed around 11-12 and wake up around 6-7. She has cats and they do not let her sleep in past that time. She does tend to nap on weekends, 1-2 times. She struggles less withsleep on weekends after dinner. She often skips breakfast and lunch. She will have a snack when she gets home. Dinner tends to be home cooked. She sometimes will have popsicle after dinner or another snack (sweets) or fruit. She isshooting for 1200 calories per day. She did weight loss program through [facility] last year and they recommended not going below this. She thinks she is at/just under 1200 calories about 100% of the time during the week. She is more like 9926-9825 calories on the weekends. She is more likely to eat breakfast and lunch on the weekends. She is using [employer]ave[employer] and uses a food scale she uses at home. She is struggling with weight loss. She is weighing herself at home. She has weighed herself twice per week. She saw that her weight is only going up. She is at her highest weight. She did the my wayto a healthy weight last year. She was given direction about making sure she gets enough protein. She continues to struggle with this now. She takes focalin on every week day but not always on the weekends. She estimates she probably takes it 80% of the time on the weekends. Current Outpatient Medications: ASHWAGANDHA EXTRACT ORAL, Take [...] Allergies Allergen Reactions Vicks Dayquil Allergy Syncope Review of Systems All other systems reviewed and are negative. BP 116/84 (BP Location: Left arm, Patient Position: Sitting) Pulse 76 Temp 36.8 ??C (98.3 ??F) (Temporal) Ht 162.6 cm (5' 4 ) Wt 79.1 kg (174 lb 6.4 oz) SpO2 99% BMI 29.94 kg/m?? Physical Exam Constitutional: General: She is not in acute distress. Appearance: Normal appearance. HENT: Head: Normocephalic and atraumatic. Nose: Nose normal. Eyes: Extraocular Movements: Extraocular movements intact. Pulmonary: Effort: Pulmonary effort is normal. Musculoskeletal: General: Normal range of motion. Cervical back: Normal range of motion. Neurological: General: No focal deficit present. Mental Status: She is alert and oriented to person, place, and time. Mental status is at baseline. Psychiatric: Mood and Affect: Mood normal. Behavior: Behavior normal. Thought Content: Thought content normal. Judgment: Judgment normal. Assessment/Plan Diagnoses and all orders for this visit: Overweight (Primary) - Ambulatory referral to Weight Management; Future Fatigue, unspecified type I think some of her issues may be from predominantly carbohydrate intake and concentrated in the evening only. Encouraged spreading intake throughout the day and increasing fat/protein to be around 50-60% of calorie intake. I hope this will boost metabolism and reduce any post prandial hypoglycemiafrom being insulin spikes and sensitivity. Lack of sleep time could be contributing (even sleep quality). Encouraged trying increasing sleep time for a week to see if this helps as well. She inquiredabout hormonal impact as well. I am not sure about her OCP and encouraged further discussion from RESPIRATORY CARE ASSISTANT. Reviewed thyroid levels and still think cortisol or other metabolic cause remains much less likel y. Discussed weight loss clinic as they is a long wait and if we do not have success that could be helpful for further metabolic evaluation and treatment. Discussed Focalin could be contributing to crash as well and to monitor how she feels on days without it. Report back in a few weeks Follow up TBD I spent 30 minutes with the patient during the visit and greater than 50% of that visit used for counseling and coordinating care. Time in 10:06 am, time out 10:49 am. I spent additional 10 minutes for documentation, chart review and preparation for the visit on same day of the visit. Raymond Wolff MD documented in this encounter Plan of Treatment Scheduled Referrals Name Type Priority Associated Diagnoses Order Schedule Ambulatory referral to Weight Management Outpatient Referral Routine Overweight Expected: 03/05/2024 (Approximate), Expires: 02/19/2025 documented as of this encounter Visit Diagnoses Diagnosis Overweight- Primary Fatigue, unspecified type documented in this encounter Care Teams Lay Out And Detail Drafter Relationship Specialty Start Date End Date Raymond Wolff MD [address] [address] PCP - General Internal Medicine 11/21/23 documented as of this encounter
--- OUTSIDE RECORDS SUMMARY | 2024-07-09 02:26 | XMS_ITS | Referral Summary ---
Author Organization [facility] [employer] Address [address] [place] [address] Care Team Providers Care Deputy County Attorney Name Role Phone Unavailable Primary Care Provider Unavailabl e Source Comments [facility] [employer],non-owned Affiliates and Associated Physician Practices is amultiple site organization consisting of ambulatory clinics and hospital sitesin [place], [place], [place] and [place]. This disclosure is being madepursuant to the Care Everywhere program and may not contain all information available regarding this patient. Last updated 18.[facility] [employer] Allergies Active Allergy Reactions Criticality Noted Date Comments Day Time Dizziness 08/06/2017 fainting Medications * Be aware that medications may not be up to date on this document. Alwaysverify current medications with the patient. Medication Sig Dispensed Refills Start Date End Date Status dexmethylphenidate (FOCALIN) 5 MG tablet Take 10 mg by mouth Every morning and lunchtime Active Famotidine (PEPCID PO) Active Social History Tobacco Use Types Packs/Day Years Used Date Smoking Tobacco: Never Smokeless Tobacco: Never Sex and Gender Information Value Date Recorded Sex Assigned at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 Gender Identity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 Sexual Orientation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 Last Filed Vital Signs Vital Sign Reading Time Taken Comments Blood Pressure 122/80 08/06/2017 11:51 AM PATROLLER Pulse 112 08/06/2017 11:51 AM PATROLLER Temperature 37.7 ??C (99.8 ??F) 08/06/2017 11:[address] Respiratory Rate 16 08/06/2017 11:51 AM PATROLLER Oxygen Saturation 98% 08/06/2017 11:51 AM PATROLLER Inhaled Oxygen Concentration - - Weight 62.1 kg (137 lb) 08/06/2017 11:51 AM PATROLLER Height 162.6 cm (5' 4 ) 08/06/2017 11:51 AM PATROLLER Body Mass Index 23.52 08/06/2017 11:51 AM PATROLLER Plan of Treatment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
--- OUTSIDE RECORDS SUMMARY | 2024-07-09 02:26 | XMS_ITS | Patient Health Summary ---
Author Organization [facility] Address [address] [place] [address] Care Team Providers Care Billposting Supervisor Name Role Phone Unavailable Primary Care Provider Unavailabl e Note from [facility],non-owned Affiliates and Associated Physician Practices is amultiple site organization consisting of ambulatory clinics and hospital sitesin [place], [place], [place] and [place]. This disclosure is being madepursuant to the Care Everywhere program and may not contain all information available regarding this patient. Last updated 18.[facility] Allergies * Day Time(Dizziness) Medications * Be aware that medications may not be up to date on this document. Alwaysverify current medications with the patient. * dexmethylphenidate (FOCALIN) 5 MG tablet Take 10 mg by mouth Every morning and lunchtime * Famotidine (PEPCID PO) Social History Tobacco Use Types Packs/Day Years Used Date Smoking Tobacco: Never Smokeless Tobacco: Never Sex and Gender Information Value Date Recorded Sex Assigned at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 Gender Identity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 Sexual Orientation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 Last Filed Vital Signs Vital Sign Reading Time Taken Comments Blood Pressure 122/80 08/06/2017 11:51 AM TELEPHONE MECHANIC Pulse 112 08/06/2017 11:51 AM TELEPHONE MECHANIC Temperature 37.7 ??C (99.8 ??F) 08/06/2017 11:[address] Respiratory Rate 16 08/06/2017 11:51 AM TELEPHONE MECHANIC Oxygen Saturation 98% 08/06/2017 11:51 AM TELEPHONE MECHANIC Inhaled Oxygen Concentration - - Weight 62.1 kg (137 lb) 08/06/2017 11:51 AM TELEPHONE MECHANIC Height 162.6 cm (5' 4 ) 08/06/2017 11:51 AM TELEPHONE MECHANIC Body Mass Index 23.52 08/06/2017 11:51 AM TELEPHONE MECHANIC Procedures * INFLUENZA A+B - POINT OF CARE (AMB)(Performed 08/06/2017) Performed for Influenza A Results * (ABNORMAL) INFLUENZA A+B - POINT OF CARE (AMB) (08/06/2017 11:58 AM TELEPHONE MECHANIC) Influenza A Antigen Rapid Positive(A) Negative Influenza B Antigen Rapid Negative Negative Influenza Internal Control present NEGATIVE - POSITIVE Influenza Lot Number [id number] Influenza Expiration Date 04 28 2019 Other NASOPHARYNGEAL SWAB / Unknown 08/06/2017 11:58 AM TELEPHONE MECHANIC Chester Kincaid SOUND ENGINEER AUDIO CONTROL-ASSOCIATE PROFESSOR OF THEOLOGY LAB - POINT OF [place] RE ORDERABLES
--- OUTSIDE RECORDS SUMMARY | 2024-07-09 02:26 | XMS_ITS | Referral Summary ---
Author Organization [facility] Virtual Care Address [address] [place] [phone] Phone Care Team Providers Care Business Office Assistant Name Role Phone Raymond Wolff MD Primary Care Provider Kathy Catherine MD Unavailable [phone] Doris Pruett MD Unavailable [phone] Mary Waters NP Unavailable [phone] Encounters Date Type Department Care Team Description 07/02/2024 10:30 AM E MAIL SYSTEM ADMINISTRATOR Telemedicine [facility] [address] [place] [phone] Raymond Wolff MD Nausea vomiting and diarrhea (Primary Dx); Gastroesophageal reflux disease without esophagitis 05/07/2024 1:10 PM CDT Lab [facility]) [address] [place] [phone] Preventative health care; Screening for viral disease; Screening for diabetes mellitus; Screening for deficiency anemia; Screening for metabolic disorder 05/07/2024 11:00 AM CDT Office Visit [place] [id number] [phone] Raymond Wolff MD Preventative health care (Primary Dx); Class 1 obesity without serious comorbidity with body mass index (BMI) of 30.0 to 30.9 in adult, unspecified obesity type; Attention deficit hyperactivity disorder (ADHD), combined type; Gastroesophageal reflux disease without esophagitis; Screening for metabolic disorder; Screening for deficiency anemia; Screening for diabetes mellitus; Screening for viral disease 04/23/[address] 5[address] [place] [address] Deb Cardenas Encounter for vaccination (Primary Dx) 04/23/[address] 5[address] [place] [address] Deb Cardenas from Last 3 Months Allergies Active Allergy Reactions Criticality Noted Date Comments Vicks Dayquil Allergy Syncope High 11/16/2020 Medications ASHESTUARDOA EXTRACT ORAL Take by mouth Active Simpesse 0.15 mg-30 mcg (84)/10 mcg (7) tablets,dose pack,3 month Take 1 tablet by mouth daily 09/12/19 24 Active clindamycin (CLEOCIN T) 1 % gel Apply topically 2 (two) times a day 30 g 01/30/20 24 Active tretinoin (RETIN-A) 0.025 % cream Apply topically nightly 20 g 01/30/20 24 Active dexmethylphenidat e XR (FOCALIN XR) 20 mg 24 hr capsuleIndication s:Attention deficit hyperactivity disorder (ADHD), combined type Take 1 capsule (20 mg total) by mouth daily 30 capsule 06/02/20 24 Active ondansetron ODT (ZOFRAN-ODT) 4 mg disintegrating tabletIndications :Nausea vomiting and diarrhea Take 1 tablet (4 mg total) by mouth every 8 (eight) hours as needed for nausea or vomiting 20 tablet 07/02/20 24 Active omeprazole (PriLOSEC) 20 mg capsuleIndication s:Gastroesophagea l reflux disease without esophagitis Take 1 capsule (20 mg total) by mouth daily 30 capsule 1 07/02/20 24 2024 Active tirzepatide, weight loss, (Zepbound) 5 mg/0.5 mL pen injectorIndicatio ns:Class 1 obesity without serious comorbidity with body mass index (BMI) of 30.0 to 30.9 in adult, unspecified obesity type Inject 0.5 mL (5 mg total) under the skin every 7 days 2 mL 07/05/20 Active tirzepatide, weight loss, (Zepbound) 2.5 mg/0.5 mL pen injectorIndicatio ns:Class 1 obesity without serious comorbidity with body mass index (BMI) of 30.0 to 30.9 in adult, unspecified obesity type Inject 0.5 mL (2.5 mg total) under the skin every 7 days 2 mL 05/10/20 24 2023 Discontinued tirzepatide, weight loss, (Zepbound) 5 mg/0.5 mL pen injectorIndicatio ns:Class 1 obesity without serious comorbidity with body mass index (BMI) of 30.0 to 30.9 in adult, unspecified obesity type Inject 0.5 mL (5 mg total) under the skin every 7 days 2 mL 05/31/20 24 2023 Discontinued(R eorder) omeprazole (PriLOSEC) 20 mg capsuleIndication s:Gastroesophagea l reflux disease without esophagitis Take 1 capsule (20 mg total) by mouth daily 30 capsule 11 05/31/20 24 2023 Discontinued(R eorder) omeprazole (PriLOSEC) 20 mg capsuleIndication s:Gastroesophagea l reflux disease without esophagitis Take 1 capsule (20 mg total) by mouth daily 30 capsule 11 06/28/20 24 2023 Discontinued(R eorder) Active Problems Problem Noted Date Diagnosed Date Class 1 obesity without seri ous comorbidity with body mass index (BMI) of 30.0 to 30.9 in adult 05/07/2024 ADHD 11/19/2023 Gastroesophageal reflux disease without esophagi tis 11/19/2023 Allergy to cats 11/19/2023 Oropharyngeal dysphagia 09/27/2022 Immunizations Name Administration Dates Next Due COVID-19 mRNA (Pluromed) 0.3 m L (30 mcg) vaccine (12 years and up) 04/23/2024 Influenza, Trivalent, Cell C ulture-based MDCK, Preservative Free, Antibiotic Free, Intramuscular 04/23/2024 Td, adsorbed 04/26/2021 Social History Tobacco Use Types Packs/Day Years [...] 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, 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 N ot on file Last Filed Vital Signs Vital Sign Reading Time Taken Comments Blood Pressure 128/84 05/07/2024 10:52 AM CDT Pulse 80 05/07/2024 10:52 AM CDT Temperature 36.7 ??C (98.1 ??F) 05/07/2024 10:51 AM C DT Respiratory Rate 19 11/12/2022 10:22 AM CDT Oxygen Saturation 99% 05/07/2024 10:52 AM CDT Inhaled Oxygen Concentration - - Weight 78.9 kg (174 lb) 05/07/2024 10:51 AM CDT Height 161 cm (5' 3.39 ) 05/07/2024 10:51 AM CDT Body Mass Index 30.45 05/07/2024 10:51 AM CDT Plan of Treatment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 Procedures Procedure Name Priority Date/Time Associated Diagnosis Comments EGFR Routine 05/07/2024 12:17 PM CDT Preventative health care Screening for metabolic disorder DIFFERENTIAL AUTO Routine 05/07/2024 12: 17 PM CDT Preventative health care Screening for deficiency anemia COMPREHENSIVE METABOLIC PANEL Routine 05/07/2024 12:17 PM CDT Preventative health care Screening for metabolic disorder CBC WITH AUTO DIFFERENTIAL Routine 05/07/2024 12:17 PM CDT Preventative health care Screening for deficiency anemia HEMOGLOBIN A1C Routine 05/07/2024 12:17 PM CDT Preventative health care Screening for diabetes mellitus HEPATITIS B SURFACE ANTIGEN Routine 05/07/2024 12:17 PM CDT Preventative health care Screening for viral disease HEPATITIS C ANTIBODY Routine 05/07/2024 12:17 PM CDT Preventative health care Screening for viral disease from Last 3 Months Results * eGFR (05/07/2024 12:17 PM CDT) eGFR >90 >=60 mL/min/1. 73 m2 Comment: Interpretive Data Reference Interval Normal ?>/= 90 mL/min/1.73m2 Mildly decreased* ? 60 - 89 mL/min/1.73m2 Mildly to moderately decreased ?45 - 59 mL/min/1.73m2 Moderately to severely decreased ??30 - 44 mL/min/1.73m2 Severely decreased ?15 - 29 mL/min/1.73m2 Kidney Failure ?< 15 ??mL/min/1.73m2 *Relative to young adult level Estimated glomerular filtration rate is determined by the 2020 CKD-EPI equation recommended by the National Kidney Foundation (A Unifying Approach to GFR Estimation: Recommendations of the NKF-ASK Task Force on Reassessing the Inclusion of Race in Diagnosing Kidney Disease, JASN 2020). The CKD-EPI equation should not be used for patients with unstable renal function and has not been validated in children and those over 70. Current interpretive data was last reviewed 2021. Blood 05/07/2024 12:1 7 PM CDT 05/07/2024 12:50 PM CDT us Raymnod Wolff MD LAB BLOOD ORDERABLES F inal Result [facility] [place] [address] * Differential, auto (05/07/2024 12:17 PM CDT) Neutrophil abs 4.1 1.5 - 6.5 K/cumm Imm gran abs 0.0 0.0 - 0.1 K/cumm [facility] Lymphocyte abs 3.0 0.8 - 3.3 K/cumm [facility] Monocyte abs 0.5 0.2 - 0.8 K/cumm [facility] Eosinophil abs 0.3 0.0 - 0.5 K/cumm [facility] Basophil abs 0.0 0.0 - 0.1 K/cumm [facility] Neutrophil pct 52.2 % [facility] Comment: Interpretive Data Percent cell count reference ranges are not reported, since discordance with absolute values may lead to misinterpretation of CBC data. Current Interpretive Data was last revised on 2017. Imm gran pct 0.1 % [facility] Comment: Interpretive Data Percent cell count reference ranges are not reported, since discordance with absolute values may lead to misinterpretation of CBC data. Current Interpretive Data was last revised on 2017. Lymphocyte pct 37.4 % [facility] Comment: Interpretive Data Percent cell count reference ranges are not reported, since discordance with absolute values may lead to misinterpretation of CBC data. Current Interpretive Data was last revised on 2017. Monocyte pct 5.7 % [facility] Comment: Interpretive Data Percent cell count reference ranges are not reported, since discordance with absolute values may lead to misinterpretation of CBC data. Current Interpretive Data was last revised on 2017. Eosinophil pct 4.2 % [facility] Comment: Interpretive Data Percent cell count reference ranges are not reported, since discordance with absolute values may lead to misinterpretation of CBC data. Current Interpretive Data was last revised on 2017. Basophil pct 0.4 % [facility] Comment: Interpretive Data Percent cell count reference ranges are not reported, since discordance with absolute values may lead to misinterpretation of CBC data. Current Interpretive Data was last revised on 2017. Blood 05/07/2024 12:1 7 PM CDT 05/07/2024 12:50 PM CDT Raymond Wolff MD LAB BLOOD ORDERABLES F inal Result [facility] [place] [employer] [place] [address] * CBC with auto differential (05/07/2024 12:17 PM CDT) [facility] WBC 7.9 3.8 - 9.9 K/cumm Hgb 13.1 11.9 - 15.5 g/dL [facility] Hct 39.3 35.6 - 45.5 % [facility] Plt 311 150 - 400 K/cumm [facility] MPV 9.8 9.1 - 12.3 fL [facility] RBC 4.17 3.90 - 5.20 M/cumm [facility] MCV 94.2 81.3 - 96.4 fL [facility] MCH 31.4 27.1 - 33.3 pg [facility] MCHC 33.3 32.3 - 35.7 g/dL [facility] RDW CV 12.7 11.1 - 14.9 % [facility] RDW SD 43.9 35.7 - 48.1 fL [facility] NRBC abs 0.00 0.00 - 0.01 K/cumm [facility] Blood 05/07/2024 12:1 7 PM CDT 05/07/2024 12:50 PM CDT Raymond Wolff MD LAB BLOOD ORDERABLES F inal Result Performing Organization Address City/[facility]/ZIP Co de Phone Number [facility] [place] [address] * Hepatitis C antibody Blood (05/07/2024 12:17 PM CDT) [facility] Hep C Ab Nonreactive Nonreactive Comment:Antibodies to HCV no t detected. Does NOT exclude the possibility of recent exposure to HCV. Current interpretive data was last revised on 22 Blood 05/07/2024 12:1 7 PM CDT 05/07/2024 12:50 PM CDT Raymond Wolff MD LAB MICROBIOLOGY - GEN [place] [address] * Hepatitis B Surface Antigen Blood (05/07/2024 12:17 PM CDT) [facility] HepBsAg Nonreactive Nonreactive Blood 05/07/2024 12:1 7 PM CDT 05/07/2024 12:50 PM CDT Raymond Wolff MD LAB MICROBIOLOGY - GEN ERAL ORDERABLES Final Result Performing Organization Address City/[facility] [place] [place] [address] * Hemoglobin A1c (05/07/2024 12:17 PM CDT) [facility] Hgb A1C 5.2 4.0 - 5.6 % Estimated Average Glucose 103 mg/dL [facility] Comment: The ADA recommends reporting an estimated Average Glucose (eAG) with all Hemoglobin A1c results using the equation derived from a study of 507 normal and diabetic adults. ??Minority populations were underrepresented and children were not included. ?? (Diabetes Care 2020; 43(S1): S66-S76). ??The eAG is not equivalent to a fasting glucose. Blood 05/07/2024 12:1 7 PM CDT 05/07/2024 12:51 PM CDT Raymond Wolff MD LAB BLOOD ORDERABLES F inal Result [facility] [address] [facility] [place] [address] * Comprehensive metabolic panel (05/07/2024 12:17 PM CDT) Sodium 140 135 - 145 mmol/L Potassium, pl 4.1 3.3 - 4.9 mmol/L [facility] Chloride 105 97 - 110 mmol/L [facility] CO2 27 22 - 32 mmol/L [facility] Anion gap 8 2 - 15 mmol/L [facility] BUN 10 6 - 25 mg/dL [facility] Creatinine 0.81 0.60 - 1.10 mg/dL [facility] Glucose 78 70 - 199 mg/dL [facility] Comment: Interpretive Data Fasting glucose >/= 126 [...] classification and Diagnosis of Diabetes Diabetes Care 202; 46: S19-S40. Current interpretive data was last revised 2022. Calcium 9.2 8.5 - 10.3 mg/dL [facility] Bilirubin, total 0.4 0.1 - 1.2 mg/dL [facility] Protein, pl 7.6 6.5 - 8.5 g/dL [facility] Albumin 4.4 3.5 - 5.0 g/dL [facility] Alk phos 77 40 - 130 Units/L [facility] ALT 19 7 - 45 Units/L [facility] AST 26 10 - 45 Units/L [facility] Blood 05/07/2024 12:1 7 PM CDT 05/07/2024 12:50 PM CDT us Raymond Wolff MD LAB BLOOD ORDERABLES F inal Result [facility] [place] [address] from Last 3 Months Insurance EMPLOYEES EMPLOYEES EMPLOYEES [employer] Advance Directives For more information, please contact: [phone] * Full Code (Latest Code Status on File) Date Activated Date Inactivated Comments 11/12/2022 8:39 AM 11/12/2022 2:53 PM Care Teams Business Office Assistant Relationship Specialty Start Date End Date Raymond Wolff MD [address] [facility] [address] [place] [address] PCP - General Internal Medicine 11/21/23 Kathy Catherine MD [address] [place] [address] Consulting Physician Gastroenterology 05/07/24 Doris Pruett MD [address] [facility] [address] [place] [address] Consulting Physician Dermatology 05/07/24 Mary Waters NP [address] [place] [address] Nurse Practitioner Nurse Practitioner 05/07/24
--- OUTSIDE RECORDS SUMMARY | 2024-07-09 02:26 | XMS_ITS | Clinical Summary ---
Author Organization [facility] Address [address] [facility] [place] [address] Care Team Providers Care Pellet Preparation Operator Name Role Phone Unavailable Primary Care Provider Unavailabl e Source Comments [facility],non-owned Affiliates and Associated Physician Practices is amultiple site organization consisting of ambulatory clinics and hospital sitesin [place], [place], [place] and [place]. This disclosure is being madepursuant to the Care Everywhere program and may not contain all information available regarding this patient. Last updated 18.[facility] Allergies Active Allergy Reactions Criticality Noted Date Comments Day Time Dizziness 08/06/2017 fainting Medications * Be aware that medications may not be up to date on this document. Alwaysverify current medications with the patient. Medication Sig Dispensed Refills Start Date End Date Status dexmethylphenidate (FOCALIN) 5 MG tablet Take 10 mg by mouth Every morning and lunchtime Active Famotidine (PEPCID PO) Active Family History Relation Name Status Comments Mother Alive Social History Tobacco Use Types Packs/Day Years Used Date Smoking Tobacco: Never Smokeless Tobacco: Never Sex and Gender Information Value Date Recorded Sex Assigned at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 Gender Identity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 Sexual Orientation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 Last Filed Vital Signs Vital Sign Reading Time Taken Comments Blood Pressure 122/80 08/06/2017 11:51 AM ENGINEER CONDUCTOR Pulse 112 08/06/2017 11:51 AM ENGINEER CONDUCTOR Temperature 37.7 ??C (99.8 ??F) 08/06/2017 11:[address] Respiratory Rate 16 08/06/2017 11:51 AM ENGINEER CONDUCTOR Oxygen Saturation 98% 08/06/2017 11:51 AM ENGINEER CONDUCTOR Inhaled Oxygen Concentration - - Weight 62.1 kg (137 lb) 08/06/2017 11:51 AM ENGINEER CONDUCTOR Height 162.6 cm (5' 4 ) 08/06/2017 11:51 AM ENGINEER CONDUCTOR Body Mass Index 23.52 08/06/2017 11:51 AM ENGINEER CONDUCTOR Plan of Treatment Health Maintenance Due Date Last Done Comments PAP SMEAR 1992 HIV SCREENING 01/15/2007 HEPATITIS C SCREENING 01/11/2010 DTAP/TDAP/TD VACCINES (1 - Tdap) 01/15/2011 HEPATITIS B VACCINE (1 of 3 - 19+ 3-dose series) 01/15/2011 DEPRESSION SCREENING 07/07/2023 COVID-19 VACCINE (1 - 2023-2 5 season) 2024 INFLUENZA VACCINE (#1) 2024 ZOSTER VACCINE (1 of 2) 01/15/2042 HIB VACCINE Aged Out No longer eligi ble based on patient's age to complete this topic HPV VACCINE Aged Out No longer eligi ble based on patient's age to complete this topic MENINGOCOCCAL VACCINE Aged Out No autumn crystal eligible based on patient's age to complete this topic PNEUMOCOCCAL VACCINE Aged Out No long er eligible based on patient's age to complete this topic
--- OUTSIDE RECORDS SUMMARY | 2024-07-09 02:26 | XMS_ITS | Encounter Summary ---
Author Organization [facility] Healthcare Address [address] [place] [address] Care Team Providers Care Freight Service Inspector Name Role Phone Raymond Wolff MD Primary Care Provider Encounter Details Date Type Department Care Team (Late st Contact Info) Description 12/17/2023 10:00 AM CDT Lab [facility] ([facility]) [address] [place] [phone] Screening for lipid disorders; Screening for thyroid disorder Social History Tobacco Use Types Packs/Day Years Used Date Smoking Tobacco: Never Cigarettes Smokeless Tobacco: Never AUDIT-C Answer Date Recorded [...] on file documented as of this encounter Plan of Treatment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 documented as of this encounter Procedures Procedure Name Priority Date/Time Associated Diagnosis Comments THYROID FUNCTION CASCADE Routine 12/17/2023 9:48 AM CDT Screening for thyroid disorder LIPID PANEL Routine 12/17/2023 9:48 AM CDT Screening for lipid disorders documented in this encounter Results * Thyroid Function [place] (12/17/2023 9:48 AM CDT) TSH 1.85 0.30 - 4.20 mcIUnit/mL Blood 12/17/2023 9:48 AM CDT 12/17/2023 9:55 AM CDT us Raymond Wolff MD LAB BLOOD ORDERABLES F inal Result [facility] [address] [facility] Department [place] [address] * (ABNORMAL) Lipid panel (12/17/2023 9:48 AM CDT) Cholesterol 232(H) 30 - 199 mg/dL Comment: Interpretive Data Ages < or = 19 years ??Acceptable: ? <170 mg/dL ??Borderline high: ??170-199 mg/dL ??High: ? >or= 200 mg/dL Ages > or = 20 years ??Desirable: ?<200 mg/dL ??Borderline high: ??200-239 mg/dL ??High: ? >or= 240 mg/dL Literature References: 1. Expert Panel on Integrated Guidelines for Cardiovascular Health and Risk Reduction in Children and Adolescents. Pediatrics 2011;128:S213 2. NCEP Expert Panel. Circulation 2004;110:227 Current Interpretive Data was last revised on 2018. Triglycerides 62 <=149 mg/dL [facility] Comment: Interpretive Data Ages < or = 9 years ??Acceptable: ? <75 mg/dL ??Borderline high: ??75-99 mg/dL ??High: ? >or= 100 mg/dL Ages 10 to 20 years ??Acceptable: ? <90 mg/dL ??Borderline high: ??90-129 mg/dL ??High: ? >or= 130 mg/dL Ages > or = 20 years ??Desirable: ?<150 mg/dL ??Borderline high: ??150-199 mg/dL ??High: ? 200-499 mg/dL ?Very high: ?? >or= 499 mg/dL Literature References: 1. Expert Panel on Integrated Guidelines for Cardiovascular Health and Risk Reduction in Children and Adolescents. Pediatrics 2011;128:S213 2. NCEP Expert Panel. Circulation 2004;110:227 Current Interpretive Data was last revised on 2018. HDL 72 >=40 mg/dL [facility] Comment: Interpretive Data Ages < or = 19 years ??Acceptable: ? >45 mg/dL ??Borderline low: ?? 40-45 mg/dL ??Low: ? <40 mg/dL Ages > or = 20 years ??Desirable: ?>or= 60 mg/dL ??Low: ? <40 mg/dL Literature References: 1. Expert Panel on Integrated Guidelines for Cardiovascular Health and Risk Reduction in Children and Adolescents. Pediatrics 2011;128:S213 2. NCEP Expert Panel. Circulation 2004;110:227 Current Interpretive Data was last revised on 2018. LDL, calculated 148(H) <=129 mg/dL [facility] Comment: Interpretive Data Ages < or = 19 years ??Acceptable: ? <110 mg/dL ??Borderline high: ??110-129 mg/dL ??High: ?>or= 130 mg/dL Ages > or = 20 years ??Optimal: ? <100 mg/dL ??Near optimal: ?100-129 mg/dL ??Borderline high: ?? 130-159 mg/dL ??High: ?>160 mg/dL Literature References: 1. Expert Panel on Integrated Guidelines for Cardiovascular Health and Risk Reduction in Children and Adolescents. Pediatrics 2011;128:S213 2. NCEP Expert Panel. Circulation 2004;110:227 Current Interpretive Data was last revised on 2018. Non-HDL Cholesterol 160 mg/dL [facility] Comment: Interpretive Data Ages < or = 19 years ??Acceptable: ?<120 mg/dL ??Borderline high: ??120-144 mg/dL ??High: ?>145 mg/dL Ages > or = 20 years ??When triglycerides are >200 mg/dL, Non-HDL cholesterol is a secondary target of ? therapy with treatment goals that are 30 mg/dL greater than the LDL cholesterol target. ? Literature References: 1. Expert Panel on Integrated Guidelines for Cardiovascular Health and Risk Reduction in Children and Adolescents. Pediatrics 2011;128:S213 2. NCEP Expert Panel. Circulation 2004;110:227 Current Interpretive Data was last revised on 2018. Chol/HDL ratio 3 [facility] Blood 12/17/2023 9:48 AM CDT 12/17/2023 9:55 AM CDT us Raymond Wolff MD LAB BLOOD ORDERABLES F inal Result [facility] [address] [facility] Department [place] [address] documented in this encounter Visit Diagnoses Diagnosis Screening for lipid disorders Screening for thyroid disorder documented in this encounter Care Teams Freight Service Inspector Relationship Specialty Start Date End Date Raymond Wolff MD [address] [address] PCP - General Internal Medicine 11/21/23 documented as of this encounter
--- OUTSIDE RECORDS SUMMARY | 2024-07-09 02:26 | XMS_ITS | Encounter Summary ---
Author Organization [facility] Address [address] [place] [address] Phone Care Team Providers Care Autocad Electrical Designer Name Role Phone Raymond Wolff MD Primary Care Provider Encounter Details Date Type Department Care Team (Late st Contact Info) Description 04/23/2024 Immunization [facility] [address] [facility] 5th [address] [place] [phone] Deb Cardenas Encounter for vaccination (Primary Dx) Social History Tobacco Use Types [...] on file documented as of this encounter Visit Diagnoses Diagnosis Encounter for vaccination- Primary documented in this encounter Orders Immunization/Injection Count Last Ordered Date First Ordered Date COVID-19 MRNA (PFIZER) 0.3 M L (30 MCG) VACCINE (12 YEARS AND UP) 1 04/23/2024 documented in this encounter Care Teams Autocad Electrical Designer Relationship Specialty Start Date End Date Raymond Wolff MD [address] [address] PCP - General Internal Medicine 11/21/23 documented as of this encounter
--- OUTSIDE RECORDS SUMMARY | 2024-07-09 02:26 | XMS_ITS | Data Portability ---
Author Organization [facility] Address [address] [place] [address] Care Team Providers Care Postal Service Mail Processor Name Role Phone MULTICARE SPECIALIST Primary Care Provider Assessment Encounter Date Assessment Date Assessment LastModified by Organization Details LastModified Time 12/17/2022 12/17/2022 Annual gynecological exam performed. Patient will come back in a year unless there are new symptoms. Not available 12/17/2022 16:52:10 Plan of Treatment Reminders Order Date Submit Date Provider Last Modified By Organization Details Last Modified Time Details Appointments None recorded. Lab None recorded. Referral None recorded. Procedures None recorded. Surgeries salpingecto my, laparoscopi c (SURG) 2022 023 [facility] [place] [address], [place], [address], 3 12:29:09 Imaging None recorded. Medication Orders Simpesse 0.15 mg-30 mcg (84)/10 mcg(7) tablets,3 month dose pack 2022 023 [facility] #[id number], [address], [place], [id number], 3 17:06:04 Simpesse 0.15 mg-30 mcg (84)/10 mcg(7) tablets,3 month dose pack 2023 024 [facility] #[id number], [address], [place], [id number], 4 17:16:31 Patient TargetsNo targets recorded. Patient InstructionsNo instructions recorded. Reason for Referral None Reported. Results Created Date Observation Date Name Description Value Unit Range Abnormal Flag Note LastModifiedBy Organization Detail LastModifiedTime 12/18/19 23 12/17/2022 IMAGE GUIDE D PAP AND HPV REGAR DLESS image guided Pap, HPV regardless of Pap result SEE RESULT S BELOW CASE REPOR T: Cytol ogy Gynec ologi rossy Repor t Case: [id number] Autho david floyd Provi margaret: Rui Meraz Colle cted: 12/17 1720 CYCLE COUNTER Order ing Locat ion: [place] [facility] Recei shahriar: 12/18 0719 First Scree n: Kaylyn Santos Speci men: Scree waqas Pap - Image d, Cervi x STATE MENT OF ADEQU ACY: Satis facto ry for evalu ation Trans forma tion zone compo nent prese nt FINAL DIAGN OSIS: Negat candice for Intra epith elial Lesio n or Curt strickland (NIL) . Elect kip us d by Kaylyn Santos on 2022 at 10:58 AM ----- ----- ----- ----- ----- ----- ----- ----- ----- ----- ----- ----- ----- ----- ----- ----- ----- ---- HPV RESUL TS: HPV mRNA E6/E7 : No HPV mRNA Detec onesimo NOTE: This high risk HPV mRNA assay detec ts fourt een high- risk HPV types (16, 18, 31, 33, 35, 39, 45, 51, 52, 56, 58, 59, 66, 68) witho ut diffe renti ation . COMME NT: This speci men was revie wed by a Cytot echno logis t and/o r Patho logis t (as indic ated in this repor t) after evalu ation using the Thinp rep Imagi ng Syste m. CLINI ROSSY INFOR MATIO N: Menst rual Statu s: LMP (if appli cable ): Clini rossy Histo ry/Pr eviou s Pap: Type of Neopl pasquale (if appli cable ): Signi fican t Clini rossy Findi ngs: Other Histo ry: Hormo brian (if appli cable ): PAP EDUCA JOEY L NOTE: The Pap Test is a scree waqas test with an inher ent false negat candice rate. Liqui d-bas ed sampl ing may decre ase, but will not elimi terry, false negat candice resul ts. A negat candice resul t does not precl ude the prese nce and/o r devel opmen t of disea se, since the prese nce of abnor mal cells in the sampl e depen ds on the locat ion of the lesio n and sampl ing techn ique. Kee nued regul ar scree waqas is the best metho d of cance r preve ntion . If repor onesimo cytol ogic findi ng do not corre late with physi rossy and/o r histo rical findi ngs, furth er inves tigat ion is recom derrell d, as tommy olson nted. Not Available [facility] (Lab) [address], [place], [address], 12/20/2022 12:00:54 Result Notes None recorded. Problems Name Problem SNOMED Code Status Onset Date Resolution Date Notes Provider Name and Address Organization Details Recorded Time Adult health examinat ion Completed 201403/16/2021 ROUTINE MEDICAL EXAM;Paresh rded Elsewhere : No [facility] E[facility] Chron ic: N Practic e ID: [id number] Bill able Time: 12:00:00 PM Ema Majano [place], [place] - [facility] 12:04:33 [facility] [id number] Completed 201503/16/2021 Vaginismu s;Recorde d Elsewhere : No [facility]ati [facility]: EHR Chron ic: N Practic e ID: [id number] Bill able Time: 12:45:00 PM Ema [facility] 12:04:41 Screenin g for malignan t neoplasm of cervix Completed 201603/16/2021 Screening for malignant neoplasms of the cervix;Re corded Elsewhere : No [facility]ati [facility]: EHR Chron ic: N Practic e ID: [id number] Bill able Time: 05:30:00 PM Ema [facility] 12:04:37 Pregnanc y test negative [id number] Completed 201603/16/2021 Encounter for test, result negative; Recorded Elsewhere : No [facility]ati [facility]: EHR Chron ic: N Practic e ID: [id number] Bill able Time: 05:30:00 PM Ema [facility] 12:04:[address] Concept Completed 201603/16/2021 Encntr for nurse gynecology exam (general) (routine) w/o abn findings; Recorded Elsewhere : No [facility]ati [facility]: [facility]: EHR Chron ic: N Practic e ID: [id number] Bill able Time: 05:30:00 PM Ema [facility] 12:04:38 Speciali zed medical examinat ion Completed 201303/16/2021 Gynecolog ical Examinati on;Record ed Elsewhere : No [facility]ati [facility]: EHR Chron ic: N Practic e ID: [id number] Bill able Time: 02:15:00 PM Ema [facility] 12:04:40 Problem Notes None recorded. Procedures Surgical History Date Name Laterality Status Provider Name and Address Organization Details Recorded Time 03/25/20 LAPAROSCOPIC TUBAL LIGATION WITH FULGURATION OF OVIDUCTS (SURG) completed Sylvia Deleon [facility] 03/26/2023 10:04:43 12/18/19 23 Date of Last Pap Smear completed Ashley Peg [facility] 03/22/2024 16:37:45 Tubal Ligation completed Melissa Ramos [facility] 04/07/2023 16:30:22 Imaging Results None recorded. Procedure Notes None recorded. Medical Equipment None Reported. Allergies No known drug allergies Medications Name Sig Start Date Stop Date Status Note LastModified by Organization Details LastModified Time compound drug active Not Available Not Available Not Available terbinafi ne HCl 1 % topical cream 03/14 completed Not Available Not Available Not Available fluconazo le 150 mg tablet TAKE 1 TABLET BY MOUTH DIRECTED 12/17 completed Not Available Not Available Not Available tretinoin 0.025 % topical cream APPLY A PEA SIZED AMOUNT TO FACE AND NECK NIGHTLY AT BEDTIME DIRECTED FOR ACNE active Not Available Not Available No t Available prednison e 20 mg tablet 12/17 completed Not Available Not Available Not Available omeprazol e 40 mg capsule,d elayed release TAKE 1 CAPSULE BY MOUTH EVERY DAY active Not Available Not Available No t Available dexmethyl phenidate 10 mg tablet TAKE 1 TABLET BY MOUTH TWICE DAILY 03/16 completed Not Available Not Available Not Available oxycodone -acetamin ophen 5 mg-325 mg tablet TAKE 1 TABLET BY MOUTH EVERY 4 HOURS NEEDED FOR PAIN 03/22 completed Not Available Not Available Not Available clindamyc in 1 % topical gel APPLY A THIN FILM TO FACE / NECK TWICE DAILY FOR ACNE active Not Available Not Available No t Available omeprazol e 20 mg capsule,d elayed release 03/22 completed Not Available Not Available Not Available dextroamp hetamine- amphetami ne ER 10 mg 24hr capsule,e xtend release active Not Available Not Available Not Available Focalin 2.5 mg tablet take 1 tablet by oral route 2 times every day at least 4 hours apart 04/14 completed Prescrib mamadou Song e: Yes Loca tion: [facility] M odify By: madhu hillman DateTime : 03/17/20 14 02:15:00 PM Not Available Not Available Not Available Microgest in 1.5/30 (21) 1.5 mg-30 mcg tablet take 1 tablet by oral route every day 10/30 completed Prescrib ed Elsewher e: No Locat ion: [facility] odify By: osvaldo bonilla DateTime : 03/23/20 15 12:00:00 PM Not Available Not Available Not Available nitrofura ntoin monohydra te/macroc rystals 100 mg capsule TAKE 1 CAPSULE BY MOUTH TWICE DAILY FOR 7 DAYS active Not Available Not Available No t Available dexmethyl phenidate ER 20 mg capsule,e xtended release biphasic5 0-50 TAKE 1 CAPSULE BY MOUTH EVERY DAY active Not Available Not Available No t Available dextroamp hetamine sulfate 04/14 completed Not Available Not Available Not Available Focalin 04/14 completed Not Available Not Available Not Available Quasense 0.15 mg-30 mcg (91) tablets,3 month dose pack take 1 tablet by oral route every day 10/31 completed Prescrib ed Elsewher e: No Locat ion: [facility] odify By: ovsaldo bonilla DateTime : 11/01/19 18 11:00:00 AM Not Available Not Available Not Available Quartette 0.15 mg-20 mcg/0.15 mg-25 mcg tablets,3 month dose pack take 1 tablet by oral route every day 10/30 completed Prescrib ed Elsewher e: No Locat ion: [facility] odify By: osvaldo bonilla DateTime : 09/21/19 08:11:33 AM Not Available Not Available Not Available Simpesse 0.15 mg-30 mcg (84)/10 mcg(7) tablets,3 month dose pack TAKE 1 TABLET BY MOUTH EVERY DAY 2023 active Not Available Not Available Not Avai lable Vitals Date Recorded Body height Body mass index (BMI) Body weight Provider Name and Address Organization Details Last Updated DateTime 12/17/2022 160.02 cm 28.2 kg/m2 13627.19 g Zamzam [facility] 12/17/2022 16:52:23 Date Recorded Systolic blood pressure Diastolic blood pressure Provider Name and Address Organization Details Last Updated DateTime 12/17/2022 122 mm[Hg] 78 mm[Hg] Mary Waters, [facility]- [address], [place], [address], [facility] 12/17/2022 17:17:31 Date Recorded Body height Body mass index (BMI) Body weight Systolic blood pressure Diastolic blood pressure Provider Name and Address Organization Details Last Updated DateTime 01/29/2023 160.02 cm 28.3 kg/m2 20180.78 g 146 mm[Hg] 87 mm[Hg] Melissa [facility] 3 16:44:31 Date Recorded Body height Body mass index (BMI) Body weight Systolic blood pressure Diastolic blood pressure Provider Name and Address Organization Details Last Updated DateTime 04/07/2023 160.02 cm 26.7 kg/m2 57758.45 g 115 mm[Hg] 83 mm[Hg] Melissa [facility] 3 16:30:15 Date Recorded Body height Body mass index (BMI) Body weight Systolic blood pressure Diastolic blood pressure Provider Name and Address Organization Details Last Updated DateTime 03/22/2024 160.02 cm 30.6 kg/m2 08145.48 g 117 mm[Hg] 87 mm[Hg] Ashley Peg [facility] 4 16:36:10 Social History Question Answer Notes LastModified by Organizat ion Details LastModified Time Tobacco Smoking Status Never Smoker Nighat Bertrandrianna obrien, [facility] 04/07/2023 15:57:13 Do You Have An Advance Directive? No Information n ot available 04/14/2021 What Is Your Level Of Alcohol Consumption? Occasional Information not available 03/16/2021 How Many Years Have You Consumed Alcohol? 9 Information not available 12/17/2022 Are You Blind Or Do You Have Difficulty Seeing? No Information n ot available 03/16/2021 What Is Your Level Of Caffeine Consumption? Moderate Information not available 04/14/2021 How Much Tobacco Do You Chew? None Information not available 04/14/2021 In The 14 Days Before Symptom Onset, Have You Had Close Contact With A Laboratory-confirm ed COVID-19 While That Case Was Ill? No Information n ot available 04/14/2021 In The 14 Days Before Symptom Onset, Have You Had Close Contact With A Person Who Is Under Investigation For COVID-19 While That Person Was Ill? No Information not available 04/14/2021 Have You Been To An Area Known To Be High Risk For COVID-19? No Information not available 04/14/2021 Are You Deaf Or Do You Have Serious Difficulty Hearing? No Information not available 03/16/2021 What Type Of Diet Are You Following? REGULAR Information n ot available 03/16/2021 What Is The Highest Grade Or Level Of School You Have Completed Or The Highest Degree You Have Received? 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 No Information not available 04/14/2021 Do You Use Protection During Sex? No Information not available 04/14/2021 Do You Use Your Seat Belt Or Car Seat Routinely? Yes Information not available 03/16/2021 Do You Have Smoke And Carbon Monoxide Detectors In Your Home? Yes Information not available 03/16/2021 How Much Tobacco Do You Smoke? No Information not available 04/14/2021 Do You Feel Stressed (tense, Restless, Nervous, Or Anxious, Or Unable To Sleep At Night)? [id number] Information not available 03/16/2021 Do You Use Any Illicit Or Recreational Drugs? No Information not available 03/16/2021 Do You Use Sunscreen Routinely? Yes Information not available 03/16/2021 Have You Used IV Drugs? No Information not available 04/14/2021 Sex: Unknown Functional Status Question Answer Note LastModified by Organizat ion Details LastModified Time Are you able to walk? YESWOREST Information not available 03/16/2021 What is your exercise level? Occasional Information not available 04/14/2021 Mental Status None recorded. Family History Relationship Description Onset Age of this Age Resolved Age Notes LastModified by Organization Details LastModified Time Maternal Grandmother Carcinoma in situ of breast [email or web address] Not available 2019 12:48:56 Medical History No medical history recorded. Gynecological History Statement/Question Response Flow Moderate Date of LMP 03/15/2024 On BCP's at Conception? N N Was last menstrual period normal Y STIs/STDs N Duration of Flow (days) 5 Current Control Method Tubal Ligat ion Frequency of Cycle (Q days) 90 Sexually Active? Y BCPs Age of first menstrual cycle 14 Date of Last Pap Smear 12/17/2022 Sexual Problems? N Desired Control Method Sterilizati on LMP Definite N Obstetrics History GPAL:G 0 P 0 0 0 0 Type Value Living 0 Total 0 Past Encounters Encounter ID Performer Location Encounter Start Date Encounter Closed Date Diagnosis/Indication Diagnosis SNOMED-CT Code Diagnosis ICD10 Code [id number] Mary Waters [facility] [address] [address] 03/14/2020 12:44:20 03/14/2020 13:20:01 Gynecologic examination 08652504 Z01.419 [id number] Mary Waters [facility] [address],[place] [address] 03/16/2021 15:33:44 03/16/2021 16:45:43 [id number] Mary Waters [facility] [address],[place] [address] 04/14/2021 09:17:29 04/14/2021 10:00:18 Gynecologic examination 34644166 Z01.419 Contracept ion care management 244234902 Z30.9 [id number] Mary Waters [facility] [address],[place] [address] 12/17/2022 16:38:36 12/17/2022 17:20:35 Gynecologic examination 84236026 Z01.419 Contracept ion care management 360409018 Z30.9 [id number] Dhaval Harris MD [facility] [address] [address] 01/29/2023 16:27:36 01/31/2023 14:41:06 Female sterilization 32262309 Z30.2 [id number] Dhaval Harris MD [facility] [address] [address] 04/07/2023 15:57:00 04/07/2023 16:57:54 Postoperative care 093067679 Z48.89 [id number] MAKENNA SEVILLA MD [facility] [address] [address] 03/22/2024 15:49:37 03/22/2024 17:34:19 Gynecologic examination 43409372 Z01.419 Contracept ion care management 257955474 Z30.9 Health Concerns Section Related Observation LastModified by Organization Detai ls LastModified Time None Recorded Concern Status LastModified by Organization Details LastModified Time None Recorded Advance Directives Directive N: Payers Encounter Date Sequence Insurance Name Policy Number Policy Schafer Covered Member ID Schafer Member ID Guarantor Name 12/17/2022 1 [facility] [id number] Bethany Fowler [id number] Bethany Fowler 01/29/2023 1 [facility] [id number] Bethany Fowler [id number] Bethany Fowler 04/07/2023 1 [facility] [id number] Bethany Fowler [id number] Bethany Fowler 03/22/2024 1 [facility] [id number] Bethany Fowler [id number] Bethany Fowler Notes Date Note Type Note Provider Name and Address Organization Details Recorded Time 12/17/2022 text/html Annual GYNReport ed bypatient.History:no gynecologic complaints Menstrual cycle:Normal menses Urinary symptoms:No hematuria; No incontinence Vulva:No genital lesion Vagina:Normal vaginal discharge Breast:No breast pain; No breast lump; No nipple discharge Current Contraception:Satisf ied with current contraception; Oral contraceptives Sexual complaints:No sexual complaints; No pain during intercourse; Normal libido Menopausal Symptoms:No menopausal symptoms; Normal vaginal lubrication Psychological symptoms:No depression; No anxiety; No PMDD Preventive measures:Encourage self breast examination; Encourage regular exercise; Encourage no tobacco use; Encourage regular mammograms starting age 40; Followed with yearly pap smears Mary Waters, [facility] [address], [place], [address], [facility] 12/17/2022 17:20:00 01/29/2023 text/html this patient is a 33-year-old female. This patient presents for female sterilization. The patient desires tubal ligation. She is certain that she no longer wants to be fertile. We discussed sterilization in detail. I described the procedure to the patient in detail. We discussed alternatives. The patient knows they are highly effective reversible options. She understands that the tubal ligation is permanent. We discussed failure rate. We discussed that we performed complete removal of the tubes in order to reduce the risk of ovarian cancer. She understands the failure rate is exceedingly low. The patient understands and is ready to proceed with laparoscopic bilateral Salpingectomy. Her surgery will be scheduled. The patient understands the procedure. The procedure was described to the patient in great detail. the patient also understands the risks. The risks were also explained in detail. She understands that injuries May occur during surgery. She understands these injuries can result in hospitalization, more surgery, and severe illness. She understands there is risk of hemorrhage and infection. Dhaval Harris MD [address], [place], [address], [facility] 01/30/2023 23:07:54 04/07/2023 text/html This patient is a 33-year-old female who presents for postop follow-up. She is 1 week postop from a laparoscopic bilateral salpingectomy. Her incisions are clean dry and intact. She has no complaints. She is recovering normally. She will follow up as needed. Dhaval Harris MD [address], [place], [address], [facility] 04/07/2023 16:56:42 03/22/2024 text/html Presents today f or her annual well-woman exam. She reports concerns of weight gain today. She would hormones tested due to weight gain despite calorie deficiency and exercise. Denies abnormal vaginal discharge. She is sexually active and denies dyspareunia. She is using tubal ligation for contraception, and she states that she is satisfied with this method. She has not noticed any changes or masses in her breasts. LMP/03/30. Periods are Q90 days (on extended cycle OCPs) and last 5 days. Flow is moderate, no intermenstrual spotting. MAKENNA SEVILLA MD [address], [place], [address], [facility] 03/22/2024 17:16:38 OBGyn Episode No OBEpisode recorded.
--- OUTSIDE RECORDS SUMMARY | 2024-07-09 02:26 | XMS_ITS | Encounter Summary ---
Author Organization [facility] Address [address] [place] [address] Care Team Providers Care Proposal Director Name Role Phone Unavailable Primary Care Provider Unavailabl e Reason for Visit * Reason Onset Date Comments Follow-up 08/08/2017 Encounter Details Date Type Department Care Team (Late st Contact Info) Description 08/08/2017 Telephone [facility] [address] [address] Ora Garsia Follow-up Social History Tobacco Use Types Packs/Day Years Used Date Smoking Tobacco: Never Smokeless Tobacco: Never Sex and Gender Information Value Date Recorded Sex Assigned at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 Gender Identity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 Sexual Orientation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 documented as of this encounter Plan of Treatment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 documented as of this encounter Visit Diagnoses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documented in this encounter
--- OUTSIDE RECORDS SUMMARY | 2024-07-09 02:26 | XMS_ITS | Encounter Summary ---
Author Organization [facility] Address [address] [place] [address] Phone Care Team Providers Care Short Piece Handler Name Role Phone Raymond Wolff MD Primary Care Provider Encounter Details Date Type Department Care Team (Late st Contact Info) Description 04/23/2024 Immunization [facility] Occupational Health [address] [facility] 5[address] [place] [address] Deb Cardenas Social History Tobacco Use Types Packs/Day Years [...] Diagnoses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documented in this encounter Orders Immunization/Injection Count Last Ordered Date First Ordered Date FLU VACCINE TRI MDCK (6 MOS +) PF - FLUCELVAX 1 04/23/2024 documented in this encounter Care Teams Short Piece Handler Relationship Specialty Start Date End Date Raymond Wolff MD [address] [address] PCP - General Internal Medicine 11/21/23 documented as of this encounter
--- OUTSIDE RECORDS SUMMARY | 2024-07-09 02:26 | XMS_ITS | Clinical Summary ---
Author Organization [facility] Virtual Care Address [address] [place] [id number] Phone Care Team Providers Care Commercial Lender Name Role Phone Raymond Wolff MD Primary Care Provider Kathy Catherine MD Unavailable [phone] Doris Pruett MD Unavailable [phone] Mary Waters NP Unavailable [phone] Allergies Active Allergy Reactions Criticality Noted Date Comments Vicks Dayquil Allergy Syncope High 11/16/2020 Medications ASHWAGANDHA EXTRACT ORAL Take by mouth Active Simpesse [...] needed for nausea or vomiting 20 tablet 12/27/20 24 Active omeprazole (PriLOSEC) 20 mg capsuleIndication [...] Allergy to cats 11/19/2023 Oropharyngeal dysphagia 09/27/2022 Encounters Date Type Department Care Team Description 07/02/2024 10:30 AM JAVA SQL DEVELOPER Telemedicine [address] [address] Raymond Wolff MD Nausea vomiting and diarrhea (Primary Dx); Gastroesophageal reflux disease without esophagitis 05/07/2024 1:10 PM CDT Lab [facility] ([facility]) [address] [place] [phone] Preventative health care; Screening for viral disease; Screening for diabetes mellitus; Screening for deficiency anemia; Screening for metabolic disorder 05/07/2024 11:00 AM CDT Office Visit [address] [address] Raymond Wolff MD Preventative health care (Primary Dx); Class 1 obesity without serious comorbidity with body mass index (BMI) of 30.0 to 30.9 in adult, unspecified obesity type; Attention deficit hyperactivity disorder (ADHD), combined type; Gastroesophageal reflux disease without esophagitis; Screening for metabolic disorder; Screening for deficiency anemia; Screening for diabetes mellitus; Screening for viral disease 04/23/[address] [place] [phone] Deb Cardenas Encounter for vaccination (Primary Dx) 04/23/[address] [place] [phone] Deb Cardenas from Last 3 Months Immunizations Name Administration Dates Next Due COVID-19 mRNA (PFIZER) 0.3 m L (30 mcg) vaccine (12 years and up) 04/23/2024 Influenza, Trivalent, Cell C ulture-based MDCK, Preservative Free, Antibiotic Free, Intramuscular 04/23/2024 Td, adsorbed 04/26/2021 Surgical History Surgery Date Site/Laterality Comments DENTAL SURGERY Right front right tooth implant TUBAL LIGATION 03/25/2023 Bilateral Medical History Medical History Date Comments ADHD (attention deficit hyperactivity disorder) dx by psychiatrist at age 10 [place] Family History Medical History Relation Name Comments Hyperlipidemia Father Retinitis pigmentosa Maternal Grandfather Chencho Villar ll Breast cancer Maternal Grandmother ADD / ADHD Mother Breast cancer Mother's Sister Alcohol abuse Paternal Grandfather Hyperlipidemia Paternal Grandfather No Known Problems Paternal Grandmother ADD / ADHD Sister 1 Hypothyroidism Sister 1 ADD / ADHD Sister 2 Colon cancer Neg Hx Coronary artery disease Neg Hx Relation Name Status Comments Father Alive Maternal Grandfather Chencho [place] Maternal Grandmother Alive Mother Alive Mother's Sister Alive Paternal Grandfather Paternal Grandmother Alive Sister 1 Alive Sister 2 Alive Social History Tobacco Use Types Packs/Day [...] 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, 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 N ot on file Obstetrics History Last Filed Vital Signs Vital Sign Reading [...] 05/07/2024 10:51 AM CDT Plan of Treatment Health Maintenance Due Date Last Done Comments Hepatitis B Screening 01/15/2010 DTaP/Tdap/Td Vaccine (1 - Tdap) 04/27/2021 04/26/2021 Depression Screening 05/07/2025 05/07/2024, 04/26/2021 Regular Well Visit/Exam 18-64 05/07/2025, 05/07/2024 Cervical Cancer Screening 12/18/2027 12/17/2022 Covid-19 Vaccine Completed 04/23/2024, 08/18/2020, 08/01/2020 Influenza Vaccine Completed 04/23/2024 Hepatitis C Screening Completed 05/07/2024 HPV Vaccines Aged Out No longer eligi ble based on patient's age to complete this topic Pneumococcal vaccine <65 Aged Out No longer eligible based on patient's age to complete this topic Procedures Procedure Name Priority Date/Time Associated Diagnosis [...] of Race in Diagnosing Kidney Disease, JASN 202). The CKD-EPI equation should not be used for patients with unstable renal function and has not been validated in children and those over 70. Current interpretive data was last reviewed 2021. Blood 05/07/2024 12:1 7 PM CDT 05/07/2024 12:50 PM CDT us Raymond Wolff MD LAB BLOOD ORDERABLES F inal Result [facility] Department of Laboratories [place], [place] [id number] * Differential, auto (05/07/2024 12:17 PM CDT) Neutrophil abs 4.1 1.5 - 6.5 K/cumm Imm gran abs 0.0 0.0 - 0.1 K/cumm [facility] Lymphocyte abs 3.0 0.8 - 3.3 K/cumm [facility] Monocyte abs 0.5 0.2 - 0.8 K/cumm [facility] Eosinophil abs 0.3 0.0 - 0.5 K/cumm [facility] Basophil abs 0.0 0.0 - 0.1 K/cumm [facility] Neutrophil pct 52.2 % [facility] Comment: Interpretive Data Percent cell count reference ranges are not reported, since discordance with absolute values may lead to misinterpretation of CBC data. Current Interpretive Data was last revised on 2017. Imm gran pct 0.1 % [facility] Comment: Interpretive Data Percent cell count reference ranges are not reported, since discordance with absolute values may lead to misinterpretation of CBC data. Current Interpretive Data was last revised on 2017. Lymphocyte pct 37.4 % [facility] Comment: Interpretive Data Percent cell count reference ranges are not reported, since discordance with absolute values may lead to misinterpretation of CBC data. Current Interpretive Data was last revised on 2017. Monocyte pct 5.7 % [facility] Comment: Interpretive Data Percent cell count reference ranges are not reported, since discordance with absolute values may lead to misinterpretation of CBC data. Current Interpretive Data was last revised on 2017. Eosinophil pct 4.2 % [facility] Comment: Interpretive Data Percent cell count reference ranges are not reported, since discordance with absolute values may lead to misinterpretation of CBC data. Current Interpretive Data was last revised on 2017. Basophil pct 0.4 % [facility] Comment: Interpretive Data Percent cell count reference ranges are not reported, since discordance with absolute values may lead to misinterpretation of CBC data. Current Interpretive Data was last revised on 2017. Blood 05/07/2024 12:1 7 PM CDT 05/07/2024 12:50 PM CDT us Raymond Wolff MD LAB BLOOD ORDERABLES F inal Result [facility] Department [place] [address] * CBC with auto differential (05/07/2024 12:17 PM CDT) [facility] WBC 7.9 3.8 - 9.9 K/cumm Hgb 13.1 11.9 - 15.5 g/dL [facility] Hct 39.3 35.6 - 45.5 % [facility] Plt 311 150 - 400 K/cumm [facility] MPV 9.8 9.1 - 12.3 fL [facility] RBC 4.17 3.90 - 5.20 M/cumm [facility] MCV 94.2 81.3 - 96.4 fL [facility] MCH 31.4 27.1 - 33.3 pg [facility] MCHC 33.3 32.3 - 35.7 g/dL [facility] RDW CV 12.7 11.1 - 14.9 % [facility] RDW SD 43.9 35.7 - 48.1 fL [facility] NRBC abs 0.00 0.00 - 0.01 K/cumm [facility] Blood 05/07/2024 12:1 7 PM CDT 05/07/2024 12:50 PM CDT Raymond Wolff MD LAB BLOOD ORDERABLES F inal Result [facility] Department [place] [address] * Hepatitis C antibody Blood (05/07/2024 12:17 PM CDT) [facility] Hep C Ab Nonreactive Nonreactive Comment:Antibodies to HCV no t detected. Does NOT exclude the possibility of recent exposure to HCV. Current interpretive data was last revised on 22 Blood 05/07/2024 12:1 7 PM CDT 05/07/2024 12:50 PM CDT Raymond Wolff MD LAB MICROBIOLOGY - GEN ERAL ORDERABLES Final Result [facility] [place] [address] * Hepatitis B Surface Antigen Blood (05/07/2024 12:17 PM CDT) [facility] HepBsAg Nonreactive Nonreactive Blood 05/07/2024 12:1 7 PM CDT 05/07/2024 12:50 PM CDT Raymond Wolff MD LAB MICROBIOLOGY - GEN ERAL ORDERABLES Final Result Performing Organization Address [facility] de Phone Number [facility] [place] [address] * Hemoglobin A1c (05/07/2024 12:17 PM CDT) [facility] Hgb A1C 5.2 4.0 - 5.6 % Estimated Average Glucose 103 mg/dL [facility] Comment: The ADA recommends reporting an estimated [...] ORDERABLES F inal Result Performing Organization Address [facility] Co de Phone Number [facility] [place] [address] * Comprehensive metabolic panel (05/07/2024 12:17 PM CDT) [facility] Sodium 140 135 - 145 mmol/L Potassium, pl 4.1 3.3 - 4.9 mmol/L [facility] Chloride 105 97 - 110 mmol/L [facility] CO2 27 22 - 32 mmol/L [facility] Anion gap 8 2 - 15 mmol/L [facility] BUN 10 6 - 25 mg/dL [facility] Creatinine 0.81 0.60 - 1.10 mg/dL [facility] Glucose 78 70 - 199 mg/dL [facility] Comment: Interpretive Data Fasting glucose >/= 126 [...] 2022. Calcium 9.2 8.5 - 10.3 mg/dL [facility] Bilirubin, total 0.4 0.1 - 1.2 mg/dL [facility] Protein, pl 7.6 6.5 - 8.5 g/dL [facility] Albumin 4.4 3.5 - 5.0 g/dL [facility] Alk phos 77 40 - 130 Units/L [facility] ALT 19 7 - 45 Units/L [facility] AST 26 10 - 45 Units/L [facility] Blood 05/07/2024 12:1 7 PM CDT 05/07/2024 12:50 PM CDT Raymond Wolff MD LAB BLOOD ORDERABLES F inal Result [facility] Department [place] [address] from Last 3 Months Insurance [facility] [employer] EMPLOYEES [facility] HMO/PPO Address: [place] [address] EMPLOYEES [employer] HMO/PPO Address: [place] [address] [employer]PLOYEES [facility] [facility] HMO/PPO Address: [place] [address] [employer] EMPLOYEES [facility] HMO/PPO Address: [place] [id number] [place] [address] Advance Directives For more information, please contact: [phone] * Full Code (Latest Code Status on File) Date Activated Date Inactivated Comments 11/12/2022 8:39 AM 11/12/2022 2:53 PM Care Teams Commercial Lender Relationship Specialty Start Date End Date Raymond Wolff MD [address] [facility] [address] [place] [address] PCP - General Internal Medicine 11/21/23 Kathy Catherine MD [address] [place] [address] Consulting Physician Gastroenterology 05/07/24 Doris Pruett MD [address] [place] [address] Consulting Physician Dermatology 05/07/24 Mary Waters NP [address] [place] [address] Nurse Practitioner Nurse Practitioner 05/07/24
--- OUTSIDE RECORDS SUMMARY | 2024-07-09 02:26 | XMS_ITS | Encounter Summary ---
Author Organization [facility] Healthcare Address [address] [place] [address] Care Team Providers Care Actuarial Science Professor Name Role Phone Raymond Wolff MD Primary Care Provider Kathy Catherine MD Unavailable [phone] Doris Pruett MD Unavailable [phone] Mary Waters NP Unavailable [phone] Encounter Details Date Type Department Care Team (Late st Contact Info) Description 05/07/2024 1:10 PM CDT Lab 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 Not on [...] Preventative health care Screening for deficiency anemia CBC WITH AUTO DIFFERENTIAL Routine 05/07/2024 12:17 PM CDT Preventative health care Screening for deficiency anemia HEPATITIS C ANTIBODY Routine 05/07/2024 12:17 PM CDT Preventative health care Screening for viral disease HEPATITIS B SURFACE ANTIGEN Routine 05/07/2024 12:17 PM CDT Preventative health care Screening for viral disease HEMOGLOBIN A1C Routine 05/07/2024 12:17 PM CDT Preventative health care Screening for diabetes mellitus COMPREHENSIVE METABOLIC PANEL Routine 05/07/2024 12:17 PM CDT Preventative health care Screening for metabolic disorder documented in this encounter Results * eGFR (05/07/2024 12:17 PM CDT) [...] MD LAB BLOOD ORDERABLES F inal Result [facility] Department [place] [address] * Differential, auto (05/07/2024 12:17 PM CDT) Pathologist [facility] Neutrophil abs 4.1 1.5 - 6.5 K/cumm Imm gran abs 0.0 0.0 - 0.1 K/cumm [facility] Lymphocyte abs 3.0 0.8 - 3.3 K/cumm [facility] Monocyte abs 0.5 0.2 - 0.8 K/cumm [facility] Eosinophil abs 0.3 0.0 - 0.5 K/cumm [facility] Basophil abs 0.0 0.0 - 0.1 K/cumm [facility] Neutrophil pct 52.2 % [facility] Comment: Interpretive Data Percent cell count reference ranges are not reported, since discordance with absolute values may lead to misinterpretation of CBC data. Current Interpretive Data was last revised on 2017. Imm gran pct 0.1 % [facility] Comment: Interpretive Data Percent cell count reference ranges are not reported, since discordance with absolute values may lead to misinterpretation of CBC data. Current Interpretive Data was last revised on 2017. Lymphocyte pct 37.4 % [facility] Comment: Interpretive Data Percent cell count reference ranges are not reported, since discordance with absolute values may lead to misinterpretation of CBC data. Current Interpretive Data was last revised on 2017. Monocyte pct 5.7 % [facility] Comment: Interpretive Data Percent cell count reference ranges are not reported, since discordance with absolute values may lead to misinterpretation of CBC data. Current Interpretive Data was last revised on 2017. Eosinophil pct 4.2 % [facility] Comment: Interpretive Data Percent cell count reference ranges are not reported, since discordance with absolute values may lead to misinterpretation of CBC data. Current Interpretive Data was last revised on 2017. Basophil pct 0.4 % [facility] Comment: Interpretive Data Percent cell count reference ranges are not reported, since discordance with absolute values may lead to misinterpretation of CBC data. Current Interpretive Data was last revised on 2017. Blood 05/07/2024 12:1 7 PM CDT 05/07/2024 12:50 PM CDT us Raymond Wolff MD LAB BLOOD ORDERABLES F inal Result [facility] Department [place] [address] * Comprehensive metabolic panel (05/07/2024 12:17 PM CDT) Sodium 140 135 - 145 mmol/L Potassium, pl 4.1 3.3 - 4.9 mmol/L [facility] Chloride 105 97 - 110 mmol/L [facility] CO2 27 22 - 32 mmol/L [facility] Anion gap 8 2 - 15 mmol/L [facility] BUN 10 6 - 25 mg/dL [facility] Creatinine 0.81 0.60 - 1.10 mg/dL [facility] Glucose 78 70 - 199 mg/dL [facility] Comment: Interpretive Data Fasting glucose >/= 126 [...] 2022. Calcium 9.2 8.5 - 10.3 mg/dL [facility] Bilirubin, total 0.4 0.1 - 1.2 mg/dL [facility] Protein, pl 7.6 6.5 - 8.5 g/dL [facility] Albumin 4.4 3.5 - 5.0 g/dL [facility] Alk phos 77 40 - 130 Units/L [facility] ALT 19 7 - 45 Units/L [facility] AST 26 10 - 45 Units/L [facility] Blood 05/07/2024 12:1 7 PM CDT 05/07/2024 12:50 PM CDT Raymond Wolff MD LAB BLOOD ORDERABLES F inal Result [facility] Department [place] [address] * CBC with auto differential (05/07/2024 12:17 PM CDT) [facility] WBC 7.9 3.8 - 9.9 K/cumm Hgb 13.1 11.9 - 15.5 g/dL [facility] Hct 39.3 35.6 - 45.5 % [facility] Plt 311 150 - 400 K/cumm [facility] MPV 9.8 9.1 - 12.3 fL [facility] RBC 4.17 3.90 - 5.20 M/cumm [facility] MCV 94.2 81.3 - 96.4 fL [facility] MCH 31.4 27.1 - 33.3 pg [facility] MCHC 33.3 32.3 - 35.7 g/dL [facility] RDW CV 12.7 11.1 - 14.9 % [facility] RDW SD 43.9 35.7 - 48.1 fL [facility] NRBC abs 0.00 0.00 - 0.01 K/cumm [facility] Blood 05/07/2024 12:1 7 PM CDT 05/07/2024 12:50 PM CDT Raymond Wolff MD LAB BLOOD ORDERABLES F inal Result Performing Organization Address [facility] de Phone Number [facility] [employer] [place] [address] * Hemoglobin A1c (05/07/2024 12:17 PM CDT) [facility] Hgb A1C 5.2 4.0 - 5.6 % Estimated Average Glucose 103 mg/dL [facility] Comment: The ADA recommends reporting an estimated [...] ORDERABLES F inal Result Performing Organization Address [facility] de Phone Number [facility] [place] [address] * Hepatitis B Surface Antigen Blood (05/07/2024 12:17 PM CDT) [facility] HepBsAg Nonreactive Nonreactive Blood 05/07/2024 12:1 7 PM CDT 05/07/2024 12:50 PM CDT us Raymond Wolff MD LAB MICROBIOLOGY - GEN ERAL ORDERABLES Final Result Performing Organization Address [facility] Co de Phone Number [facility] Department [place] [address] * Hepatitis C antibody Blood (05/07/2024 12:17 PM CDT) Hep C Ab Nonreactive Nonreactive Comment:Antibodies to HCV no t detected. Does NOT exclude the possibility of recent exposure to HCV. Current interpretive data was last revised on 22 Blood 05/07/2024 12:1 7 PM CDT 05/07/2024 12:50 PM CDT Raymond Wolff MD LAB MICROBIOLOGY - GEN ERAL ORDERABLES Final Result Performing Organization Address [facility] Co de Phone Number [facility] Department [place] [address] documented in this encounter Visit Diagnoses Diagnosis Preventative health care Routine general medical examination at a health care facility Screening for viral disease Special screening examination for unspecified viral disease Screening for diabetes mellitus Screening for deficiency anemia Screening for other and unspecified deficiency anemia Screening for metabolic disorder documented in this encounter Care Teams Actuarial Science Professor Relationship Specialty Start Date End Date Raymond Wolff MD [address] [facility] [address] [place] [address] PCP - General Internal Medicine 11/21/23 Kathy Catherine MD [address] [place] [address] Consulting Physician Gastroenterology 05/07/24 Doris Pruett MD [address] [facility] [address] [place] [address] Consulting Physician Dermatology 05/07/24 Mary Waters NP [address] [place] [address] Nurse Practitioner Nurse Practitioner 05/07/24 documented as of this encounter
--- OUTSIDE RECORDS SUMMARY | 2024-07-09 02:26 | XMS_ITS | Encounter Summary ---
Author Organization [facility] Address [address] [place] [address] Phone Care Team Providers Care Commercial Loan Analyst Name Role Phone Raymond Wolff MD Primary Care Provider Encounter Details Date Type Department Care Team (Late st Contact Info) Description 03/12/2024 1:00 PM CDT Office Visit [facility] Dermatology [address] [facility] [address] [place] [address] [place], Doris Young MD [address] [facility] [address] [place] [address] Folliculitis (Primary Dx); Dermal nevus; Lentigines Social History Tobacco Use Types Packs/Day Years [...] on file documented as of this encounter Patient Instructions * Patient Instructions* Olena Aguilera MD - 03/12/2024 1:00 PM CDT Today we discussed treatment for folliculitis (inflamed hair follicles) which are concentrated on your neck and back. We recommend benzoyl peroxide 10% wash. This is available from multiple brands, but just ensure theactive ingredient is benzoyl peroxide 10% . You can use it on your face, neck and back. Use it in the shower, leave it on for 3 minutes before rinsing off. It can be drying and can bleach towels. Use clindamycin gel on face, neck and back. We also noted benign skin lesions such as dermal nevi (benign moles), lentigines (sun freckles). Sun protection You need to protect your skin from the sun every day, even when it's cloudy. That's because the sun's damaging ultraviolet A (UVA) and ultraviolet B (UVB) rays go right through clouds. Too much sun can make your skin wrinkly and might even give you skin cancer. To protect yourself: Use sunscreen with a sun protection factor (SPF) 50 or above and reapply every 2 hours Sunscreens are not an alternative to clothing and shade, rather they offer additional protection. No sunscreen will provide 100% protection. Look for a sunscreen that protects you from both UVA and UVB rays. When a sunscreen protects against both, the bottle should say the sunscreen offers ???broad-spectrum?? sun protection If you have eczema or sensitive skin a mineral sunscreen would be ideal for your skin type (should include zinc oxide and titanium dioxide) Always make sure the bottle hasn't , as sunscreens loose efficacy when Additional sun protection can be achieved by wearing a rash guards, hat, sunglasses, and clothes that cover your arms and legs. You can make your own clothes sun protective with Sun Guard Laundry Treatment UV Protectant (for sale on [employer]), just with one laundry cycle with Sun Guard gives clothing sun protection for 20 future washes and does not change the way your clothes look or feel. Seek shade when the sun's rays are strongest, between 10 a.m. and 2 p.m. Do not use tanning beds Keep babies and young children out of direct sunlight. Children should use rash guards during outdoor activities. Check out: www.Transfer To - sun protective clothing and hats with built in UV protection documented in this encounter Progress Notes * Leena Camp MD - 03/12/2024 1:00 PM CDT [facility] Dermatology Bethany Fowler : 1990 LAURA: March 12, 2024 CC: spots on face, neck back HPI: Bethany Fowler is a 34 y.o. female with no history of skin cancer, history of acne (started tretinoin and topical clindamycin by PCP) who presents for a new patient visit for spots on face, neck and back. Bethany notes sensitivity to the sun, and even an event this summer in which she became so sunburned that her lips became swollen. She notes multiple brown spots on arms, shoulders, face, and asks if they are concerning for cancer. She also notes relatively new bumps on back and neck- inquires about removal vs. Treatment as they are itchy. She has recently started tretinoin 0.25% cream to face, and clindamycin 1% gel to face and neck, as prescribed by her PCP and she has not had any issues with dryness. Denies any other changing moles, rashes, non healing sores, or tender spots. Medications/Allergies/PMH: reviewed in chart VITALS: There were no vitals taken for this visit. PHYSICAL EXAM: GENERAL: Appears well. No acute distress. ORIENTATION: Alert MOOD/AFFECT: Normal affect. The patient's face, ears, scalp/hair, eyes/eyelids, lips, neck, chest, back, abdomen, bilateral upper extremities, digits/nails were examined and normal, unless specified below: *On the trunk, upper extremities, neck and face, 2-4mm brown homogenous macules and dome shaped papules *On the upper back, arms and face, brown, reticulated homogenous macules *On the upper back, neck and chest: scattered erythematous follicular papules *On the face: few erythematous papules ASSESSMENT AND PLAN: #Dermal nevi #Lentigines -Discussed the benign nature of these spots -No treatment indicated -Recommend follow-up if patient notes significant change of these spots -Reviewed warning signs of skin cancer including ABCDE's and the ugly duckling sign - and that patient should reach out with any changing moles, non-healing sores, tender spots. -Recommended photoprotection including sunscreen (SPF 30 or higher), sun protective clothing, hat -Discussed that removal of these lesions would result in a scar that may be noticeable #Folliculitis, chest, neck, back -Discussed etiology and that heat, sweating can exacerbate -START benzoyl peroxide 10% wash SER including dryness irritation, bleaching linens -CONTINUE clindamycin 1% gel daily as prescribed, but extend area to neck and back as well SER including irritation on application -Discussed that it takes time for acne treatments to prevent new spots, and to be consistent with regimen for at least 3 months to notice improvement -Encouraged non-comedogenic moisturizer, especially if notices dryness from treatment Follow-up: ANURADHA Aguilera MD Dermatology PGY5 March 12, 2024 Cosigned by Doris Pruett MD at 03/12/2024 2:47 PM CDT Associated attestation - Doris Pruett MD - 03/12/2024 2:47 PM CDT I have seen and examined the patient. I agree with the findings and plan of care as documented in the resident/fellow's note. documented in this encounter Plan of Treatment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 documented as of this encounter Visit Diagnoses Diagnosis Folliculitis- Primary Other specified disease of hair and hair follicles Dermal nevus Benign neoplasm of skin, site unspecified Lentigines documented in this encounter Care Teams Commercial Loan Analyst Relationship Specialty Start Date End Date Raymond Wolff MD [address] [address] PCP - General Internal Medicine 11/21/23 documented as of this encounter
--- OUTSIDE RECORDS SUMMARY | 2024-07-09 02:27 | XMS_ITS | Encounter Summary ---
Author Organization [facility] Address [address] [place] [address] Care Team Providers Care Casing Crew Name Role Phone Pedro Luis Arndt MD Primary Care Provider [phone] Encounter Details Date Type Department Care Team (Late st Contact Info) Description 11/19/2023 12:30 PM CDT Office Visit [facility] [address] [facility] [address] [place] [address] Raymond Wolff MD [address] [facility] [address] [place] [address] Attention deficit hyperactivity disorder (ADHD), combined type (Primary Dx); Gastroesophageal reflux disease without esophagitis Social History Tobacco Use Types Packs/Day Years Used Date Smoking Tobacco: Never Cigarettes Smokeless Tobacco: Never Tobacco Cessation:Counseling Given: Not [...] Sign Reading Time Taken Comments Blood Pressure 110/76 11/19/2023 12:58 PM CDT Pulse 80 11/19/2023 12:18 PM CDT Temperature 37.2 ??C (98.9 ??F) 11/19/2023 12:18 PM C DT Respiratory Rate - - Oxygen Saturation 99% 11/19/2023 12:18 PM CDT Inhaled Oxygen Concentration - - Weight 73.6 kg (162 lb 5 oz) 11/19/2023 12:18 PM CDT Height 162.6 cm (5' 4.02 ) 11/19/2023 12:18 PM C DT Body Mass Index 27.85 11/19/2023 12:18 PM CDT documented in this encounter Ordered Prescriptions Prescription Sig Dispense Quantity Refills Last Filled Start Date End Date omeprazole (PriLOSEC) 20 mg capsuleIndications :Gastroesophageal reflux disease without esophagitis Take 1 capsule (20 mg total) by mouth daily 30 capsule 11 11/19/2023 4 documented in this encounter Progress Notes * Raymond Wolff MD - 11/19/2023 12:30 PM CDT NEW PATIENT VISIT Subjective/Objective Patient ID: Bethany Fowler is a 33 y.o. female. CC: establish care, medications Previous PCP: Pedro Luis Arndt MD Last visit with prior PCP: 3 months ago (meds) HPI Today she notes that she was diagnosed with ADHD when she was young. She went to a therapist when she was around 9 years old. She was started on medication right away. She has been on her current medication for the last 5 years. She takes Focalin (20 mg XR). She takes this medication everyday, 7 days per week. She was told to take it every day. She finds that this works well for her. She has not h ad any issues with this; she has some appetite suppression but is not bothered by this. She has been seeing her doctor every 3 months for this and last in August. She notes that her last prescription was changed to 2 x 10 mg due to supply issues at the pharmacy. She has had some issues with nose bleed for the last two days. She had some left cheek pressure andshe tried using neti pot and a nose spray. She found that the bleeding has lingered. She has had some mild drip both forward and down her throat form this. She thinks that this is now resolved/resolving but it took awhile. She went to urgent care for acne issues. She was put on clindamycin and tretinoin by them but told to follow up with PCP. Patient Active Problem List Diagnosis Date Noted ADHD 11/19/2023 Gastroesophageal reflux disease without esophagitis 11/19/2023 Allergy to cats 11/19/2023 Oropharyngeal dysphagia 09/27/2022 Past Medical History: Diagnosis Date ADHD (attention deficit hyperactivity disorder) Past Surgical History: Procedure Laterality Date DENTAL SURGERY Right front right tooth implant TUBAL LIGATION Bilateral 03/25/2023 Family History Problem Relation Age of Onset No Known Problems Mother Hyperlipidemia Father No Known Problems Sister No Known Problems Sister Breast cancer Maternal Grandmother Vision loss Maternal Grandfather Breast cancer Mother's Sister Colon cancer Neg Hx Coronary artery disease Neg Hx Social History Tobacco Use Smoking status: Never Smokeless tobacco: Never Substance and Sexual Activity Drug use: Yes Types: Alcohol Sexual activity: Yes Partners: Male control/protection: OCP, Tubal Ligation Comment: Taking simpesse to have less periods. Current Outpatient Medications: clindamycin (CLEOCIN T) 1 % gel, APPLY A THIN FILM TO FACE / NECK TWICE DAILY FOR ACNE, Disp: , Rfl: Simpesse 0.15 mg-30 mcg (84)/10 mcg (7) tablets,dose pack,3 month, Take 1 tablet by mouth daily, Disp: , Rfl: tretinoin (RETIN-A) 0.025 % cream, APPLY A PEA SIZED AMOUNT TO FACE AND NECK NIGHTLY AT BEDTIME DIRECTED FOR ACNE, Disp: , Rfl: ASHWAGANDHA EXTRACT ORAL, Take by mouth, Disp: , Rfl: dexmethylphenidate XR (FOCALIN XR) 20 mg 24 hr capsule, Take by mouth daily, Disp: , Rfl: omeprazole (PriLOSEC) 20 mg capsule, Take 1 capsule (20 mg total) by mouth daily, Disp: 90 capsule,Rfl: 3 Allergies Allergen Reactions Vicks Dayquil Allergy Syncope Immunization History Administered Date(s) Administered Pfizer SARS-CoV-2 Monovalent Vaccination (12+ Yrs) PURPLE 08/01/2020, 08/18/2020 Td, adsorbed 04/26/2021 Review of Systems All other systems reviewed and are negative. Physical Exam BP 110/76 (BP Location: Left arm, Patient Position: Sitting) Pulse 80 Temp 37.2 ??C (98.9 ??F) (Temporal) Ht 162.6 cm (5' 4.02 ) Wt 73.6 kg (162 lb 5 oz) SpO2 99% BMI 27.85 kg/m?? Physical Exam Vitals reviewed. Constitutional: General: She is not in acute distress. Appearance: She is well-developed. She is not diaphoretic. HENT: Head: Normocephalic and atraumatic. Cardiovascular: Rate and Rhythm: Normal rate and regular rhythm. Heart sounds: Normal heart sounds. No murmur heard. No friction rub. No gallop. Pulmonary: Effort: Pulmonary effort is normal. No respiratory distress. Breath sounds: Normal breath sounds. No wheezing or rales. Musculoskeletal: Cervical back: Normal range of motion and neck supple. Skin: General: Skin is warm and dry. Findings: No rash. Neurological: Mental Status: She is alert and oriented to person, place, and time. Psychiatric: Behavior: Behavior normal. Assessment/Plan Diagnoses and all orders for this visit: Attention deficit hyperactivity disorder (ADHD), combined type (Primary) Comments: longstanding diagnosis and stable with current therapy. discussed our fill policies. we can take over medication Gastroesophageal reflux disease without esophagitis Comments: doing well with PPI, ok to continue Orders: - omeprazole (PriLOSEC) 20 mg capsule; Take 1 capsule (20 mg total) by mouth daily Follow up for PHE or sooner PRN Raymond Wolff MD documented in this encounter Plan of Treatment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 documented as of this encounter Visit Diagnoses Diagnosis Attention deficit hyperactivity disorder (ADHD), combined type- Primary Gastroesophageal reflux disease without esophagitis Esophageal reflux documented in this encounter Discontinued Medications Medication Sig Discontinue Reason Start Date End Da te green tea leaf extract (Green Tea) capsule Take by mouth 11/19/2023 omeprazole (PriLOSEC) 20 mg capsule Take 1 capsule (20 mg total) by mouth daily Reorder 03/28/2023 11/19/2023 documented as of this encounter Historical Medications * This list may reflect changes made after this encounter. Simpesse 0.15 mg-30 mcg (84)/10 mcg (7) tablets,dose pack,3 month Take 1 tablet by mouth daily 09/12/2023 tretinoin (RETIN-A) 0.025 % cream APPLY A PEA SIZED AMOUNT TO FACE AND NECK NIGHTLY AT BEDTIME DIRECTED FOR ACNE 10/23/2023 01/30/2024 clindamycin (CLEOCIN T) 1 % gel APPLY A THIN FILM TO FACE / NECK TWICE DAILY FOR ACNE 10/23/2023 01/30/2024 added in this encounter Care Teams Casing Crew Relationship Specialty Start Date End Date Pedro Luis Arndt MD [address] [place] [address] PCP - General Family Medicine 09/03/22 11/20/23 documented as of this encounter
--- OUTSIDE RECORDS SUMMARY | 2024-07-09 02:27 | XMS_ITS | Encounter Summary ---
Author Organization [facility] Healthcare Address [address] [place] [address] Care Team Providers Care Soil Conservationist Name Role Phone Pedro Luis Arndt MD Primary Care Provider [phone] Reason for Visit * Reason Comments Urinary Symptom For a week Encounter Details Date Type Department Care Team (Late st Contact Info) Description 10/11/2023 7:45 AM CDT Telemedicine [facility] Medical [facility] Virtual Care [address] [place] [address] Myesha Molina NP [address] [place] [address] Acute cystitis without hematuria (Primary Dx) Social History Tobacco Use Types [...] on file documented as of this encounter Ordered Prescriptions Prescription Sig Dispense Quantity Refills Last Filled Start Date End Date nitrofurantoin monohydrate (MACROBID) 100 mg capsule Take 1 capsule (100 mg total) by mouth 2 (two) times a day for 7 days 14 capsule 10/11/2023 4 documented in this encounter Progress Notes * Myesha Molina, UMER - 10/11/2023 7:45 AM CDT Images from the original note were not included. This was a telemedicine visit with Bethany Fowler alone which took place via real-time video connection with [facility]. During the visit, I was located at home and the patient was located at home in the state of [place]. The patient visit started at 0805 and ended at 0816. My total encounter time on 10/11/2023 was 11 minutes which was spent in the activities documented in the note. This includes time spent p rior to the visit and after the visit in direct care of the patient. This time does not include time spent in any separately reportable services. I have explained the option of participating in a telemedicine visit to the patient. After being given an opportunity to ask questions about and discuss this type of visit, the patient verbally consented to proceeding with the telemedicine visit. The patient understands that this service replaces an office visit and they may be billed and/or responsible for any applicable copayments. A guest was not included in this video visit. Subjective/Objective Patient ID: Bethany Fowler is a 33 y.o. female. Chief Complaint Urinary Symptom (For a week) Pt completed a virtual care visit with c/o UTI UTI This is a new problem. The current episode started in the past 7 days. The problem has been gradually worsening. The quality of the pain is described as aching. The pain is moderate. There has been no fever. Associated symptoms include frequency and urgency. Pertinent negatives include no chills, discharge, flank pain, hematuria, hesitancy, nausea, possible , sweats or vomiting. She has tried nothing for the symptoms. Review of Systems Constitutional: Negative for appetite change, chills, fatigue and fever. Respiratory: Negative for cough, chest tightness, shortness of breath and wheezing. Cardiovascular: Negative for chest pain, palpitations and leg swelling. Gastrointestinal: Negative for nausea and vomiting. Genitourinary: Positive for frequency and urgency. Negative for flank pain, hematuria and hesitancy. Neurological: Negative for dizziness, light-headedness and headaches. Psychiatric/Behavioral: Negative for agitation. Physical Exam Constitutional: General: She is not in acute distress. Appearance: Normal appearance. She is not ill-appearing. HENT: Head: Normocephalic and atraumatic. Nose: Nose normal. Eyes: Conjunctiva/sclera: Conjunctivae normal. Pulmonary: Effort: Pulmonary effort is normal. No respiratory distress. Neurological: Mental Status: She is alert and oriented to person, place, and time. Psychiatric: Behavior: Behavior normal. There were no vitals filed for this visit. Assessment/Plan Diagnoses and all orders for this visit: Acute cystitis without hematuria (Primary) Comments: Macrobid sent to the pharmacy Increase water intake Follow up with PCP if the symptoms persist Other orders - nitrofurantoin monohydrate (MACROBID) 100 mg capsule; Take 1 capsule (100 mg total) by mouth 2 (two) times a day for 7 days Disposition- Discussed medications dosages, usage & potential side effects. Risks and interactions reviewed with patient. Indications for testing reviewed. Patient has been instructed to follow up w PCP or go to ER for any signs or symptoms that are of concern or worsening. Patient verbalizes understanding. The patient was given the opportunity to ask all questions and to have all questions answered. Patient is in agreement with the plan of care Myesha Molina NP documented in this encounter Plan of Treatment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 documented as of this encounter Visit Diagnoses Diagnosis Acute cystitis without hematuria- Primary documented in this encounter Care Teams Soil Conservationist Relationship Specialty Start Date End Date Pedro Luis Arndt MD [address] [place] [address] PCP - General Family Medicine 09/03/22 11/20/23 documented as of this encounter
--- OUTSIDE RECORDS SUMMARY | 2024-07-09 02:27 | XMS_ITS | Encounter Summary ---
Author Organization [facility] Healthcare Address [address] [place] [address] Care Team Providers Care Fiber Optic Assembly Worker Name Role Phone Unavailable Primary Care Provider Unavailabl e Encounter Details Date Type Department Care Team (Late st Contact Info) Description 03/01/2020 Telephone [facility] [address] [facility] [address] (Third Floor) [place] [address] Melia Leonard NP [address] [place] [address] Social History Tobacco Use Types Packs/Day Years Used Date Smoking Tobacco: Never Assessed Comments Unknown Sex and Gender Information Value Date Recorded Sex Assigned at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 Legal Sex Female 3:45 PM CDT Gender Identity Female 10/29/2023 11:51 AM CDT Sexual Orientation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 documented as of this encounter Miscellaneous Notes * Telephone Encounter - Melia Leonard NP - 04/11/2020 3:15 PM CDT error documented in this encounter Plan of Treatment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 documented as of this encounter Visit Diagnoses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documented in this encounter
--- OUTSIDE RECORDS SUMMARY | 2024-07-09 02:27 | XMS_ITS | Encounter Summary ---
Author Organization [facility] Address [address] [place] [address] Care Team Providers Care Entry Level Sales Consultant Name Role Phone Raymond Wolff MD Primary Care Provider Encounter Details Date Type Department Care Team (Late st Contact Info) Description 11/21/2023 Orders Only [facility] [address] [facility] [address] [facility] [place] [id number] Raymond Wolff MD [address] [facility] [address] [place] [address] Attention deficit hyperactivity disorder (ADHD), combined type Social History Tobacco Use Types Packs/Day [...] mg total) by mouth daily 30 capsule 11/21/2023 documented in this encounter Plan of Treatment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 documented as of this encounter Visit Diagnoses Diagnosis Attention deficit hyperactivity disorder (ADHD), combined type documented in this encounter Discontinued Medications Medication Sig Discontinue Reason Start Date End Da te dexmethylphenidate XR (FOCALIN XR) 20 mg 24 hr capsuleIndications:Attent ion deficit hyperactivity disorder (ADHD), combined type Take 1 capsule (20 mg total) by mouth daily Reorder 11/21/2023 11/21/2023 documented as of this encounter Care Teams Entry Level Sales Consultant Relationship Specialty Start Date End Date Raymond Wolff MD [address] [address] PCP - General Internal Medicine 11/21/23 documented as of this encounter
--- OUTSIDE RECORDS SUMMARY | 2024-07-09 02:27 | XMS_ITS | Encounter Summary ---
Author Organization [facility] Address [address] [address] Care Team Providers Care Production Line Solderer Name Role Phone No, Physician Primary Care Provider [phone] Encounter Details Date Type Department Care Team (Late st Contact Info) Description 11/08/2021 Telephone [facility] Outpatient Center [address] [address] Tamiko Elmore MA Social History Tobacco Use Types Packs/Day Years Used Date Smoking Tobacco: Never Smokeless Tobacco: Never PHQ-2 Answer Date Recorded PHQ-2 Total Score (If total score is 3 or more points, staff should administer the PHQ-9) 0 04/26/2021 Comments Unknown Sex and Gender Information Value Date Recorded Sex Assigned at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 Legal Sex Female 3:45 PM CDT Gender Identity Female 10/29/2023 11:51 AM CDT Sexual Orientation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 documented as of this encounter Miscellaneous Notes * Telephone Encounter - Tamiko Elmore MA - 11/08/2021 4:43 PM CDT Pt returned call for results. She verbalized understanding * Telephone Encounter - Tamiko Elmore MA - 11/08/2021 4:42 PM CDT ----- Message from Marsha Conklin NP sent at 11/08/2021 1:36 PM CDT ----- Please notify patient of negative COVID-19 test. If patient was symptomatic, patient should continue to self isolate until at least 5 days have passed since symptom onset and they have been fever free without the use of fever reducing medications for at least 24 hours. documented in this encounter Plan of Treatment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 documented as of this encounter Visit Diagnoses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documented in this encounter Care Teams Production Line Solderer Relationship Specialty Start Date End Date No, Physician PCP - General 04/26/21 09/02/22 documented as of this encounter
--- OUTSIDE RECORDS SUMMARY | 2024-07-09 02:27 | XMS_ITS | Encounter Summary ---
Author Organization [facility] Healthcare Address [address] [place] [address] Care Team Providers Care Tooling Specialist Name Role Phone Pedro Luis Arndt MD Primary Care Provider [phone] Reason for Referral * Diagnostic Imaging (Routine) - Closed Specialty Diagnoses / Procedures Referred By Nette cruz Referred To Contact Diagnoses Oropharyngeal dysphagia Procedures [place] Modified Barium Swallow W Video Kathy Catherine MD [address] [address] Phone: tel: fax: [address] [phone] Referral ID Status Reason Start Date Expiration Date Visits Re quested Visits Authorized [id number] Closed 11/25/2022 12/25/2023 1 1 Reason for Visit * Diagnostic Imaging (Routine) - Closed Specialty Diagnoses / Procedures Referred By Nette cruz Referred To Contact Diagnoses Oropharyngeal dysphagia Procedures FL Modified Barium Swallow W Video Kathy Catherine MD [address] [place] [address] Phone: tel: fax: [address] [phone] Referral ID Status Reason Start Date Expiration Date Visits Re quested Visits Authorized [id number] Closed 11/25/2022 12/25/2023 1 1 Encounter Details Date Type Department Care Team (Latest Contact Info) Description 12/23/2022 12:56 PM CDT - 12/23/2022 11:59 PM CDT Hospital Encounter [facility] [address] [place] [address] Oropharyngeal dysphagia Discharge Disposition: Discharge to home or self care Social History Tobacco Use Types Packs/Day Years [...] on file documented as of this encounter Medications at Time of Discharge dexmethylphenida te XR (FOCALIN XR) 20 mg 24 hr capsule Take by mouth daily 04/16/2021 4 omeprazole (PriLOSEC) 20 mg capsule Take 1 capsule (20 mg total) by mouth 2 (two) times a day before breakfast and dinner 60 capsule 1 11/25/2022 3 documented as of this encounter Discharge Disposition Disposition Code Departure Means Destination Discharge to home or self care documented in this encounter Miscellaneous Notes * Result Encounter Note - Kathy Catherine MD - 12/23/2022 11:59 PM CDT Your swallowing study is normal Ms. Fowler. documented in this encounter Plan of Treatment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 documented as of this encounter Procedures Procedure Name Priority Date/Time Associated Diagnosis Comments FL MODIFIED BARIUM SWALLOW W VIDEO Schedule Routine, Read Routine (OP Routine) 12/23/2022 1:13 PM CDT Oropharyngeal dysphagia documented in this encounter Results * FL Modified Barium Swallow W Video (12/23/2022 1:13 PM CDT) Anatomical Region Laterality Modality Head and Neck N/A Radio Fluoroscop y 12/23/2022 5:03 PM CDT Impressions 12/23/2022 5:03 PM CDT The swallowing mechanism is normal; see above comments. Please refer to the Speech Pathology procedure note for safe swallow recommendations as well as additional information regarding the oral-pharyngeal swallow function, plan of care, and recommended follow up. Dictated by: Kobi Castillo MD The radiology attending physician has personally reviewed this study, and had reviewed and/or edited this written report and agrees with it. Electronically signed by: Von Chan M.D. Narrative 12/23/2022 5:03 PM CDT EXAMINATION: MODIFIED BARIUM SWALLOW HISTORY: Dysphagia. TECHNIQUE: This procedure was completed in conjunction with a Speech Language Pathologist. The patient was given barium of multiple different consistencies to swallow. Video fluoroscopy was employed during the exam. FINDINGS: Oral-pharyngeal swallow function is normal. Penetration: No Aspiration: No Residue:No Other comments: None Procedure Note Von Chan MD - 12/23/2022 EXAMINATION: MODIFIED BARIUM SWALLOW HISTORY: Dysphagia. TECHNIQUE: This procedure was completed in conjunction with a Speech Language Pathologist. The patient was given barium of multiple different consistencies to swallow. Video fluoroscopy was employed during the exam. FINDINGS: Oral-pharyngeal swallow function is normal. Penetration: No Aspiration: No Residue:No Other comments: None IMPRESSION: The swallowing mechanism is normal; see above comments. Please refer to the Speech Pathology procedure note for safe swallow recommendations as well as additional information regarding the oral-pharyngeal swallow function, plan of care, and recommended follow up. Dictated by: Kobi Castillo MD The radiology attending physician has personally reviewed this study, and had reviewed and/or edited this written report and agrees with it. Electronically signed by: Von Chan M.D. Kathy Catherine MD IMG FLUOROSCOPY PROCEDURES Fin al Result documented in this encounter Visit Diagnoses Diagnosis Oropharyngeal dysphagia Dysphagia, oropharyngeal phase documented in this encounter Administered Medications Inactive Administered Medications - up to 3 most recent administrations Medication Order MAR Action Action Date Dose Rate Site barium sulfate (VARIBAR PUDDING) 40 % (w/v), 30% (w/w) pudding oral, Once in imaging, contrast, Starting on Fri12/23/22 at 1313, For 1 dose, Pre-Op/Floor Contrast Given 12/23/2022 12:50 PM CDT 10 mL barium sulfate (VARIBAR THIN LIQUID) 81 % (w/w) thin liquid oral, Once in imaging, contrast, Starting on Fri12/23/22 at 1313, For 1 dose, Pre-Op/Floor Contrast Given 12/23/2022 1:10 PM CDT 30 mL documented in this encounter Care Teams Tooling Specialist Relationship Specialty Start Date End Date Pedro Luis Arndt MD [address] [place] [address] PCP - General Family Medicine 09/03/22 11/20/23 documented as of this encounter
--- OUTSIDE RECORDS SUMMARY | 2024-07-09 02:27 | XMS_ITS | Encounter Summary ---
Author Organization [facility] Address [address] [place] [address] Care Team Providers Care Cable Splicing Technician Name Role Phone No, Physician Primary Care Provider [phone] Reason for Visit * Reason Comments Mouth Lesions Encounter Details Date Type Department Care Team (Late st Contact Info) Description 04/26/2021 10:30 AM CDT Office Visit [facility] Primary Care at [facility] [id number] [place] [address] Karina Florentino, INVESTIGATION MANAGER [address] [address] Aphthous ulcer of mouth (Primary Dx); Need for vaccine for DT (diphtheria-tetanus) Social History Tobacco Use Types Packs/Day Years [...] Sign Reading Time Taken Comments Blood Pressure 122/76 04/26/2021 10:33 AM CDT Pulse 100 04/26/2021 10:33 AM CDT Temperature 36.8 ??C (98.2 ??F) 04/26/2021 1 0:33 AM CDT Respiratory Rate - - Oxygen Saturation 98% 04/26/2021 10: 33 AM CDT Inhaled Oxygen Concentration - - Weight 67.9 kg (149 lb 12.8 oz) 021 10:33 AM CDT Height 164 cm (5' 4.57 ) 04/26/2021 10: 33 AM CDT Body Mass Index 25.26 04/26/2021 10:33 AM CDT documented in this encounter Patient Instructions * Patient Instructions* Karina Florentino, INVESTIGATION MANAGER - 04/26/2021 10:30 AM CDT Prednisone daily for 5 days Magic mouthwash every 4 hours as needed for pain (Swish and Spit) If no improvement in 4-5 days follow up with PCP Patient Education Gingivostomatitis NEWS AGENT: Gingivostomatitis (GS) is a condition that causes painful sores on the lips, tongue, gums, and inside the mouth. GS is caused by the herpes simplex virus. The virus spreads easily from person to person through saliva or shared objects. The sores usually heal within 2 weeks with treatment. Common signs and symptoms of GS: ?? Sores, ulcers, or blisters in your mouth ?? Irritated gums ?? Sore throat ?? Fever, headache, fatigue ?? Nausea, vomiting, or swollen lymph glands Seek care immediately if: ?? You have severe pain. Contact your healthcare provider if: ?? Your fever or other symptoms return after treatment. ?? You are urinating less than usual. ?? Your mouth sores are draining pus or blood. ?? You have questions or concerns about your condition or care. Treatment may include any of the following: ?? [...] the medicine label and follow directions. ?? Numbing medicine helps decrease pain from your mouth sores. This medicine is usually a liquid that you swish in your mouth and then spit out. ?? Antiviral medicine helps treat a viral infection. Manage your symptoms: ?? Moore your teeth at least 2 times each day. Floss at least 1 time each day. If you wear dentures, make sure they fit properly. ?? Drink liquids as directed to prevent dehydration. It is important to drink liquids even though your mouth is sore. Ask how much liquid to drink each day and which liquids are best for you. ?? Eat a variety of healthy foods. You may need to eat bland foods until your pain gets better. Healthy foods include fruits, vegetables, whole-grain breads, low-fat dairy products, beans, lean meats, and fish. Do not eat spicy, dry, hard, or acidic foods, such as oranges. ?? Do not smoke. Nicotine and other chemicals in cigarettes and cigars can cause mouth and lung damage. Ask your healthcare provider for information if you currently smoke and need help to quit. E-cigarettes or smokeless tobacco still contain nicotine. Talk to your healthcare provider before you use these products. Follow up with your healthcare provider as directed: Write down your questions so you remember to ask them during your visits. ?? 2017 [employer] Information is for End User's use only and may not be sold, redistributed or otherwise used for commercial purposes. All illustrations and images included in CareNotes?? are the copyrighted property of [employer], [employer]. or [employer]. The above information is an dental aide only. It is not intended as medical advice for individual conditions or treatments. Talk to your doctor, nurse or pharmacist before following any medical regimen to see if it is safe and effective for you. documented in this encounter Ordered Prescriptions Prescription Sig Dispense Quantity Refills Last Filled Start Date End Date predniSONE (DELTASONE) 20 mg tablet Take 2 tablets (40 mg) by mouth daily for 5 days 10 tablet 04/26/2021 al & mag hydroxide with simethicone-diphen hydramine-lidocain e (MAGIC MOUTHWASH) suspension 1-1-1 Swish and swallow 10 mL every 4 (four) hours as needed (for aphthous ulcers in mouth) 300 mL 04/26/2021 3 documented in this encounter Progress Notes * Karina Florentino, INVESTIGATION MANAGER - 04/26/2021 10:30 AM CDT Subjective/Objective Patient ID: Bethany Fowler is a 31 y.o. female. Chief Complaint Mouth Lesions History of canker sores. Thought one started 5 days ago underneath tongure. Then on Friday started feeling the swollen taste buds with another sore, along with one on inner upper and one lower lip that started today. Difficulty eating. Tried usually canker covers while eating and drinking as well as heal, did not help. Used some Benzocaine and canker soar gel with no help. Due for tetanus shot and would like to get it done because pricked finger on a nail the first of the month and when checked records last tetanus was in 2006. Mouth Lesions The onset was gradual. The problem has been gradually worsening. Associated symptoms include congestion and mouth sores. Pertinent negatives include no fever, no eye itching, no photophobia, no constipation, no nausea, no vomiting, no ear discharge, no ear pain, no headaches, no rhinorrhea, no sorethroat, no swollen glands, no cough and no eye discharge. Review of Systems Constitutional: Negative for fever. HENT: Positive for congestion and mouth sores. Negative for ear discharge, ear pain, rhinorrhea andsore throat. Eyes: Negative for photophobia, discharge and itching. Respiratory: Negative for cough and shortness of breath. Cardiovascular: Negative for chest pain. Gastrointestinal: Negative for constipation, nausea and vomiting. Neurological: Negative for headaches. All other systems reviewed and are negative. Physical Exam Vitals reviewed. Constitutional: General: She is not in acute distress. Appearance: Normal appearance. She is not ill-appearing. HENT: Head: Normocephalic. Salivary Glands: Right salivary gland is not diffusely enlarged or tender. Left salivary gland is not diffusely enlarged or tender. Nose: Nose normal. Mouth/Throat: Lips: [place]. Mouth: Mucous membranes are moist. Oral lesions present. Dentition: Gum lesions present. Pharynx: Oropharynx is clear. Comments: Multiple pea-sized white ulcers noted under tongue on the right, on lower gum line on right, and on right inner cheek. No drainage noted. No lesions noted on tongue, pharynx, palate, or left side of mouth. Cardiovascular: Rate and Rhythm: Normal rate and regular rhythm. Heart sounds: Normal heart sounds. Pulmonary: Effort: Pulmonary effort is normal. Breath sounds: Normal breath sounds. Lymphadenopathy: Cervical: No cervical adenopathy. Skin: General: Skin is warm and dry. Capillary Refill: Capillary refill takes less than 2 seconds. Neurological: Mental Status: She is alert and oriented to person, place, and time. Psychiatric: Mood and Affect: Mood normal. Behavior: Behavior normal. BP 122/76 (BP Location: Right arm) Pulse 100 Temp 36.8 ??C (98.2 ??F) Ht 164 cm (5' 4.57 ) Wt 67.9 kg (149 lb 12.8 oz) SpO2 98% BMI 25.26 kg/m?? Assessment/Plan No results found for this or any previous visit (from the past 2 hour(s)). Diagnoses and all orders for this visit: Aphthous ulcer of mouth (Primary) Need for vaccine for DT (diphtheria-tetanus) Other orders - al & mag hydroxide with dpurqjxgqya-zqtnjuegwnkomqa-ruxkhautx (MAGIC MOUTHWASH) suspension 1-1-1; Swish and swallow 10 mL every 4 (four) hours as needed (for aphthous ulcers in mouth) - predniSONE (DELTASONE) 20 mg tablet; Take 2 tablets (40 mg) by mouth daily for 5 days - Td vaccine greater than or equal to 7yo with preservative IM Patient with multiple aphthous ulcers in mouth. Given history of ulcerations and amount of ulcers this visit, will give burst of Prednisone for treatment. Also, will prescribe Magic Mouthwash for pain. Advised to swish and spit every four hours for pain. Also advised to drink plenty of cold fluids and soft foods. Avoid spicy or hot items. If no improvement in 4-5 days, patient to follow up with her PCP. Patient's recent finger prick has healed with no remaining sign of prick. Given her tetanus is out of date, TD vaccine administered to bring patient up to date and current on vaccination. Disposition- Discussed medications dosages, usage & potential [...] is in agreement with the plan of care. Karina Florentino NP documented in this encounter Plan of Treatment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 documented as of this encounter Visit Diagnoses Diagnosis Aphthous ulcer of mouth- Primary Need for vaccine for DT (diphtheria-tetanus) Need for prophylactic vaccination with tetanus-diphtheria (Td) documented in this encounter Historical Medications * This list may reflect changes made after this encounter. Simpesse 0.15 mg-30 mcg (84)/10 mcg (7) tablets,dose pack,3 month Take 1 tablet by mouth daily 03/16/2021 11/12/2022 fluconazole (DIFLUCAN) 150 mg tablet 04/25/2021 11/12/2022 dexmethylphenidat e XR (FOCALIN XR) 20 mg 24 hr capsule Take by mouth daily 04/16/2021 11/21/2023 added in this encounter Orders Immunization/Injection Count Last Ordered Date First Ordered Date TD VACCINE GREATER THAN OR E QUAL TO 7YO WITH PRESERVATIVE IM 1 04/26/2021 documented in this encounter Care Teams Cable Splicing Technician Relationship Specialty Start Date End Date No, Physician PCP - General 04/26/21 09/02/22 documented as of this encounter
--- OUTSIDE RECORDS SUMMARY | 2024-07-09 02:27 | XMS_ITS | Encounter Summary ---
Author Organization [facility] Healthcare Address [address] [place] [address] Care Team Providers Care Astronaut Mission Specialist Name Role Phone Pedro Luis Arndt MD Primary Care Provider [phone] Reason for Visit * Reason Comments BUSINESS ADMINISTRATION PROFESSOR Initial Evaluation [facility]SS * Diagnostic Imaging (Routine) - Closed Specialty Diagnoses / Procedures Referred By Nette cruz Referred To Contact Diagnoses Oropharyngeal dysphagia Procedures [place] Modified Barium Swallow W Video Kathy Catherine MD [address] [place] [address] Phone: tel: fax: [address] [phone] Referral ID Status Reason Start Date Expiration Date Visits Re quested Visits Authorized [id number] Closed 11/25/2022 12/25/2023 1 1 Encounter Details Date Type Department Care Team (Late st Contact Info) Description 12/23/2022 1:00 PM CDT Therapy [facility] [address] [place] [phone] Oropharyngeal dysphagia (Primary Dx) Social History Tobacco Use Types [...] on file documented as of this encounter Progress Notes * Yamel Rice, BUSINESS ADMINISTRATION PROFESSOR - 12/23/2022 1:00 PM CDT [facility] Speech-Language Pathology: Outpatient Modified Barium Swallow Study HPI/PMH Pt is a 32yoF presenting today for an outpatient Modified Barium Swallow Study. No pertinent medical hx noted. Pt with c/o globus sensation and feeling as if she needs to belch, but unable to do so when eating restaurant foods. Current Diet: Regular diet and thin liquid General Information Bethany Fowler 12/23/22 General Observations: Pt sitting fully upright in the radiology chair, alert, and agreeable to MBS with ST. Pain: 0 Patient Stated Goal/Comments: to figure out if something is wrong with her swallow. Fur Ironer Used: NOT APPLICABLE Clinical Impression & Professional Recommendations Solids Regular solids Liquids Thin liquids Modifications Sit fully upright Medication Administration as tolerated Assistance N/A Overall Clinical Impression/Additional Information: Oral Phase Deficits: WFL Pharyngeal Phase Deficits: Suspect reduced duration of UES opening, though not affecting bolus flowor swallow function Deficits result in: No instances of penetration or aspiration noted across trials/consistencies. Pt's swallow WFL. Recommend a Regular diet and Thin liquids. No further skilled ST warranted. Assessment Details & Results Purpose and Procedure of Modified Barium Swallow Study: Modified Barium Swallow Study completed to assess oropharyngeal swallow function and safety/efficiency of the swallow so that diet recommendations can be made. This test is completed in conjunction with Radiology. Results of this test are indicative of performance at the time of the exam. Standard procedure is in lateral view at 90 degrees. Consistencies Administered: thin, puree, and solid Respiratory Support: No Significant Impairment- Respiratory support is adequate for speech & swallowing Administered consistencies contain barium product. Thin Liquids: Penetration Aspiration Scale-Thin:Penetration-Aspiration Scale: 1- Material does not enter the airway Purees: Penetration Aspiration Scale-Puree:Penetration-Aspiration Scale: 1- Material does not enter the airway Solids: Penetration Aspiration Scale-Solids:Penetration-Aspiration Scale: 1- Material does not enter the airway MBSImP Results: Lip Closure: 0- No labial escape Tongue Control and Bolus Hold: 0- Cohesive bolus between tongue to palatal seal Bolus Preparation/Mastication: 0- Timely and efficient chewing and mashing Bolus Transport/Lingual Motion: 0- Brisk tongue motion Oral Residue: 0- Complete oral clearance Initiation of Pharyngeal Swallow: 0- Bolus head at posterior angle of ramus Soft Palate: 0- No bolus between soft palate and pharyngeal wall Laryngeal Elevation: 0- Complete superior movement of thyroid cartilage with complete approximationof arytenoids to epiglottic petiole Anterior Hyoid Excursion: 0- Complete anterior movement Epiglottic Movement: 0- Complete inversion Laryngeal Vestibular Closure: 0- Complete; no air/contrast in the laryngeal vestibule Pharyngeal Stripping Wave: 0- Present and complete Pharyngeal Contraction (AP view only): Not assessed; no AP view Pharyngoesophageal Segment Openin- Partial distension/partial duration; partial obstruction of flow Tongue Base Retraction: 0- No contrast between tongue base and posterior pharyngeal wall Pharyngeal Residue: 0- Complete pharyngeal clearance Esophageal Clearance (upright position): Not assessed, no AP view Dysphagia Outcome and Severity Scale: Level 7: Normal in all situations Levels 1 & 2 on the SAMANTHA indicate need for nonoral nutrition. Treatment Treatment was not provided this date. Treatment was not warranted this date. Plan Further Recommendations/Referrals: N/A TIME IN: 1303 TIME OUT:1330 Discharge Summary Statement If this is the last swallow therapy visit, this serves as the discharge summary. documented in this encounter Plan of Treatment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 documented as of this encounter Visit Diagnoses Diagnosis Oropharyngeal dysphagia- Primary Dysphagia, oropharyngeal phase documented in this encounter Care Teams Astronaut Mission Specialist Relationship Specialty Start Date End Date Pedro Luis Arndt MD [address] [place] [address] PCP - General Family Medicine 09/03/22 11/20/23 documented as of this encounter
--- OUTSIDE RECORDS SUMMARY | 2024-07-09 02:27 | XMS_ITS | Encounter Summary ---
Author Organization [facility] Healthcare Address [address] [place] [address] Care Team Providers Care Textile Chemist Name Role Phone Pedro Luis Arndt MD Primary Care Provider [phone] Reason for Visit * Auth/Cert (Routine) Specialty Diagnoses / Procedures Referred By Contac t Referred To Contact Diagnoses Oropharyngeal dysphagia Oropharyngeal dysphagia [R13.12] Procedures [place] ESOPHAGOGASTRODUODENOSCOPY TRANSORAL DIAGNOSTIC ESOPHAGOGASTRODUODENOSCOPY Referral ID Status Reason Start Date Expiration Date Visits Re quested Visits Authorized [id number] 1 1 Encounter Details Date Type Department Care Team (Late st Contact Info) Description 11/12/2022 9:44 AM CDT Anesthesia Event [facility] [place] [address] [facility] [address] [place] [address] Nataly Arriaza MD [address] [facility] [address] [place] [address] Anesthesia Record Procedure Summary Procedure Name Responsible Anesthesiologist Anesthesia Start Time Anesthesia Stop Time ESOPHAGOGASTRODUODENOSCOPY BIOPSY (Left: Esophagus) Nataly Arriaza MD 11/12/22 0944 11/12/22 100 3 Events Date Time Event Comment 11/12/2022 0915 0944 An Start 0944 An Start Data 0944 In Room 0944 An Data Art 0949 Start Supplemental O2 0949 Patient Positioned Laterally 0949 Bite Block Placed 0949 An Induction The patient was reevaluated immediately before moderate or deep sedation use and before anesthesia induction. 0951 Anesthesia Ready 0952 Proc Start 0958 Proc Fin 0959 an stop data 1000 Out of Room 1003 Handoff to RN I completed my handoff to the receiving nurse during which we: 1. Patient identified 2. Responsible provider identified 3. Pertinent medical history reviewed 4. Procedure type and surgical course discussed 5. Intraoperative anesthetic management and any significant issues discussed 6. Expectations and concerns for postop period discussed 7. Questions solicited from receiving nurse 8. Patient disposition at the time of handoff: PACU,phase II 1003 An Stop 1008 Release from care Meds Name Total midazolam PF 2 mg lidocaine (cardiac) syringe 2 % 70 mg propofol 100 mg propofol 97.61 mg sodium chloride 0.9% infusion 400 mL * Agents Name O2% N2O O2 * Blood No blood administrations on file. Lines, Drains, and Airways Type Details Placement Removal Peripheral IV Placement Date: 03/29; Placement Time: 904; Catheter Size: 22 G; Orientation: Posterior, Right; Location: Wrist; Site Prep: Chlorhexidine; Technique: Anatomical landmarks; Inserted by: ROBERT Obregon; Insertion Attempts: 1; Patient Tolerance: Tolerated well; Removal Date: 11/12/22; Removal Time: 10211/12/22 09 by Mindi Shaffer RN 11/12/22 102 by Danelle Leija RN documented in this encounter Social History Tobacco Use Types Packs/Day Years [...] on file documented as of this encounter OR Notes * Anesthesia Postprocedure Evaluation - Teresa Vazquez MLT - 11/12/2022 10:07 AM CDT Patient: Bethany Fowler Procedure Summary Date: 11/12/22 Room / Location: [facility] ROOM 3 / [facility] Anesthesia Start: 943 Anesthesia Stop: 1002 Procedure: ESOPHAGOGASTRODUODENOSCOPY BIOPSY (Left: Esophagus) Diagnosis: Oropharyngeal dysphagia (Oropharyngeal dysphagia [R13.12]) Providers: Kathy Catherine MD Responsible Provider: Nataly Arriaza MD Anesthesia Type: MAC ASA Status: 1 Anesthesia Type: MAC Last vitals BP 126/85 (BP Location: Left arm, Patient Position: Lying) Pulse 69 Temp 36 ??C (96.8 ??F) (Temporal) Resp 20 SpO2 100% Anesthesia Post Evaluation Patient location during evaluation: PACU Patient participation: complete - patient participated Level of consciousness: fully awake Pain score: 0 Pain management: adequate Airway patency: adequate Evidence of recall: no Cardiovascular status: acceptable and hemodynamically stable Respiratory status: acceptable and room air Hydration status: acceptable Pt is: normothermic Nausea/Vomiting status: none Comments: Teresa Zhao am scribing for, and in the presence of Dr. Arriaza. . No notable events documented. Cosigned by Nataly Arriaza MD at 11/12/2022 10:12 AM CDT * Anesthesia Preprocedure Evaluation - Teresa Vazquez MLT - 11/12/2022 9:06 AM CDT Images from the original note were not included. Anesthesia Evaluation Bethany Fowler is a 32 y.o. female Procedure(s): ESOPHAGOGASTRODUODENOSCOPY Pre-Op Diagnosis Codes: * Oropharyngeal dysphagia [R13.12] Patient Active Problem List Diagnosis ??? Oropharyngeal dysphagia Past Medical History: Diagnosis Date ??? ADHD (attention deficit hyperactivity disorder) Past Surgical History: Procedure Laterality Date ??? DENTAL SURGERY Right front right tooth implant OB History No obstetric history on file. Allergies Allergen Reactions ??? Vicks Dayquil Allergy Syncope ??? Drpsxnzpr-Ty-Jy-Acetaminophen Dizziness fainting Taking? Last Dose Start Date End Date Provider al & mag hydroxide with ynsxsvlywzd-ljgbzgzrlzofauw-zzfzxcuzp (MAGIC MOUTHWASH) suspension 1-1-1 Unknown 04/26/21 -- Karina Florentino NP Swish and swallow 10 mL every 4 (four) hours as needed (for aphthous ulcers in mouth) Patient not taking: Reported on 09/27/2022 dexmethylphenidate XR (FOCALIN XR) 20 mg 24 hr capsule 11/12/2022 04/16/21 -- ProviderMaxx MD fluconazole (DIFLUCAN) 150 mg tablet Unknown 04/25/21 -- Maxx Farias MD omeprazole (PriLOSEC) 20 mg capsule 11/12/2022 -- -- ProviderMaxx MD [place] 0.15 mg-30 mcg (84)/10 mcg (7) tablets,dose pack,3 month Unknown 03/16/21 -- ProviderMaxx MD Current Facility-Administered Medications: ??? sodium chloride 0.9% flush 0.5-20 mL, 0.5-20 mL, intra-catheter, Q8H KOKO ??? sodium chloride 0.9% flush 0.5-20 mL, 0.5-20 mL, intra-catheter, PRN ??? sodium chloride 0.9% infusion, 30 mL/hr, intravenous, Continuous, Last Rate: 30 mL/hr at 11/12/22 0906, 30 mL/hr at 11/12/22 09 Social History Tobacco Use Smoking Status Never Smokeless Tobacco Never Vaping Use Vaping Status Never Used Alcohol Use: Not At Risk (11/12/2022) AUDIT-C ??? Frequency of Alcohol Consumption: Monthly or less ??? Average Number of Drinks: 1 or 2 ??? Frequency of Binge Drinking: Never Substance and Sexual Activity Drug Use Yes ??? Types: Alcohol Family History Problem Relation Age of Onset ??? Hyperlipidemia Father Vitals: 11/12/22 0852 BP: 138/87 Pulse: 84 Resp: 18 Temp: 36.1 ??C (97 ??F) SpO2: 98% PT: No results found for requested labs within last 30 days. INR: No results found for requested labs within last 30 days. APTT: No results found for requested labs within last 30 days. Hgb A1C: No results found for requested labs within last 30 days. CBC RBC: No results found for requested labs within last 30 days. RDW: No results found for requested labs within last 30 days. MCHC: No results found for requested labs within last 30 days. MCH: No results found for requested labs within last 30 days. MCV: No results found for requested labs within last 30 days. Hct: No results found for requested labs within last 30 days. Hgb: No results found for requested labs within last 30 days. WBC: No results found for requested labs within last 30 days. MPV: No results found for requested labs within last 30 days. Platelets: No results found for requested labs within last 30 days. RDW CV: No results found for requested labs within last 30 days. RDW Sd: No results found for requested labs within last 30 days. BMP Glucose: No results found for requested labs within last 30 days. Calcium: No results found for requested labs within last 30 days. Sodium: No results found for requested labs within last 30 days. Potassium: No results found for requested labs within last 30 days. CO2: No results found for requested labs within last 30 days. Chloride: No results found for requested labs within last 30 days. BUN: No results found for requested labs within last 30 days. Creatinine: No results found for requested labs within last 30 days. DOS Physical Exam Medical history, medications, and allergies reviewed. Attestation: This PAT evaluation 11/12/2022. Airway Exam: Mallampati: I Cervical ROM: FROM TM distance: normal Cardiovascular Exam: Rate: regular Rhythm: regular Pulmonary Exam: LCTA, bilat EENT Exam: trachea midline Dental Exam: Implants and otherwise appears intact Skin Exam: Skin is warm. Current state: Patient's current state is cooperative. Additional comments: No interval change in medical condition. Anesthesia Plan ASA 1 My patient is approved for the Anesthesia Controlled Medication protocol when under care of a SOFTWARE TRAINER Planned anesthesia: MAC Induction: Induction: intravenous. Postoperative Plan: Patient's planned disposition post procedure is Outpatient. Informed Consent: Discussed plan with SOFTWARE TRAINER. Anesthesia plan and risks discussed with patient. Plan and Consent Comments: NPO status confirmed Teresa Zhao am scribing for, and in the presence of Dr. Arriaza. . Consent and Attending signature: I and/or my designee have discussed the anesthesia plan, benefits, possible alternatives, parental presence at time of induction (if indicated), and clinically relevant risks that may include dental injury, unintentional awareness, and/or other complications. The patient and/or parent/legal guardian understand, and agree to proceed. All questions answered. Cosigned by Nataly Arriaza MD at 11/12/2022 9:15 AM CDT documented in this encounter Plan of Treatment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 documented as of this encounter Visit Diagnoses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documented in this encounter Administered Medications Inactive Administered Medications - up to 3 most recent administrations Medication Order MAR Action Action Date Dose Rate Site lidocaine (cardiac) (XYLOCAINE) preservative free injection intravenous, As needed, Starting on Fri11/12/22 at 0949, Anesthesia Intra-op, Indications: Ventricular ArrhythmiasIndications:V entricular Arrhythmias Given 11/12/2022 9:49 AM CDT 70 mg midazolam (VERSED) 2 mg/2 mL preservative free injection intravenous, Administer over 2 Minutes, As needed, Starting on Fri11/12/22 at 0949, Anesthesia Intra-op Given 11/12/2022 9:49 AM CDT 2 mg propofoL (DIPRIVAN) 10 mg/mL IV intravenous, As needed, Starting on Fri11/12/22 at 0949, Anesthesia Intra-op Given 11/12/2022 9:49 AM CDT 100 mg propofoL (DIPRIVAN) 10 mg/mL IV intravenous, Continuous PRN, Starting on Fri11/12/22 at 0949, Anesthesia Intra-op New Bag 11/12/2022 9:49 AM CDT 150 mcg/kg/min 65.07 mL/hr sodium chloride 0.9% infusion 30 mL/hr, intravenous, Continuous, Starting on Fri11/12/22 at 0915, Pre-Procedure (GI) Restarted 11/12/2022 9:58 AM CDT Rate/Dose Verify 11/12/2022 9:44 AM CDT 30 mL/h r New Bag 11/12/2022 9:06 AM CDT 30 mL/hr 30 mL/hr documented in this encounter Care Teams Textile Chemist Relationship Specialty Start Date End Date Pedro Luis Arndt MD [address] [place] [address] PCP - General Family Medicine 09/03/22 11/20/23 documented as of this encounter
--- OUTSIDE RECORDS SUMMARY | 2024-07-09 02:27 | XMS_ITS | Encounter Summary ---
Author Organization [facility] Healthcare Address [address] [place] [address] Care Team Providers Care Medical Affairs Manager Name Role Phone Pedro Luis Arndt MD Primary Care Provider [phone] Reason for Visit * Auth/Cert (Routine) Specialty Diagnoses / Procedures Referred By Contac t Referred To Contact Diagnoses Oropharyngeal dysphagia Oropharyngeal dysphagia [R13.12] Procedures MS ESOPHAGOGASTRODUODENOSCOPY TRANSORAL DIAGNOSTIC ESOPHAGOGASTRODUODENOSCOPY Referral ID Status Reason Start Date Expiration Date Visits Re quested Visits Authorized [id number] 1 1 Encounter Details Date Type Department Care Team (Latest Contact Info) Description 11/12/2022 9:30 AM CDT - 11/12/2022 10:00 AM CDT Surgery [facility] Digestive Disease [place] [address] [place] [address] Kathy Catherine MD [address] [facility] [address] [place] [address] ESOPHAGOGASTRODUODENOSCOPY BIOPSY Surgery Details Date/Time Status Location OR Service Patient Class Case Class Case Type Trauma Case? 11/12/2022 9:30 AM Posted [facility] ENDOSCOPY GI 03 Gastroenterology Outpatient Elective Panel 1 Procedure LRB Anes Op Region Wound Class Comments ESOPHAGOGASTRODUODENOSCOPY BIOPSY Left Monitor Anesthesia Care Esophagus N/A Surgeon Surgeon Role Service Panel Kathy Catherine MD Primary Gastroenterology 1 documented in this encounter Social History Tobacco [...] Sign Reading Time Taken Comments Blood Pressure 138/87 11/12/2022 8:52 AM CDT Pulse 84 11/12/2022 8:52 AM CDT Temperature 36.1 ??C (97 ??F) 11/12/2022 8:52 AM CDT Respiratory Rate 18 11/12/2022 8:52 AM CDT Oxygen Saturation 98% 11/12/2022 8:52 AM CDT Inhaled Oxygen Concentration - - Weight 72.3 kg (159 lb 6.4 oz) 11/12/2022 8:52 A M CDT Height 162.6 cm (5' 4 ) 11/12/2022 8:52 AM CDT Body Mass Index 27.36 11/12/2022 8:52 AM CDT documented in this encounter Medications at Time of Discharge dexmethylphenidat e XR (FOCALIN XR) 20 mg 24 hr capsule Take by mouth daily 04/16/2021 11/21/2023 omeprazole (PriLOSEC) 20 mg capsule Take 1 capsule (20 mg total) by mouth daily 11/25/2022 documented as of this encounter Discharge Disposition Disposition Code Departure Means Destination Comment s Discharge to home or self care documented in this encounter H&P Notes * Kathy Catherine MD - 11/12/2022 9:46 AM CDT Pre Endoscopy History and Physical Myra Fowler is a 32 y.o. female who is here for Procedure(s): ESOPHAGOGASTRODUODENOSCOPY The indication(s) for the procedure(s): inability to burp, sensation of sticking in her throat. Past Medical History: Diagnosis Date ADHD (attention deficit hyperactivity disorder) Past Surgical History: Procedure Laterality Date DENTAL SURGERY Right front right tooth implant Social History Tobacco Use Smoking status: Never Smokeless tobacco: Never Substance and Sexual Activity Drug use: Yes Types: Alcohol Sexual activity: Defer Alcohol Use: Not At Risk (11/12/2022) AUDIT-C Frequency of Alcohol Consumption: Monthly or less Average Number of Drinks: 1 or 2 Frequency of Binge Drinking: Never Family History Problem Relation Age of Onset Hyperlipidemia Father Allergies Allergen Reactions Vicks Dayquil Allergy Syncope Jwgtfkldz-Px-Sl-Acetaminophen Dizziness fainting Prior to Admission medications Medication Sig Start Date End Date Taking? Authorizing Provider dexmethylphenidate XR (FOCALIN XR) 20 mg 24 hr capsule Take by mouth daily 04/16/21 Yes Maxx Farias MD omeprazole (PriLOSEC) 20 mg capsule Take 1 capsule (20 mg total) by mouth daily Yes ProviderMaxx MD al & mag hydroxide with bzbewiyyywq-zhbugbrpqjrrzkr-idyaslugy (MAGIC MOUTHWASH) suspension 1-1-1 Swish and swallow 10 mL every 4 (four) hours as needed (for aphthous ulcers in mouth) Patient not taking: Reported on 09/27/2022 04/26/21 Karina Florentino, UMER fluconazole (DIFLUCAN) 150 mg tablet 04/25/21 ProviderMaxx MD Simpesse 0.15 mg-30 mcg (84)/10 mcg (7) tablets,dose pack,3 month Take 1 tablet by mouth daily Patient not taking: Reported on 09/27/2022 03/16/21 Maxx Farias MD Review of Systems A pertinent, focused review of systems was completed and negative, except as noted above. OBJECTIVE: Vitals: Vitals: 11/12/22 0852 BP: 138/87 Pulse: 84 Resp: 18 Temp: 36.1 ??C (97 ??F) TempSrc: Skin SpO2: 98% Weight: 72.3 kg (159 lb 6.4 oz) Height: 162.6 cm (5' 4 ) Physical Exam: Airway: No significant abnormality. Cardiac: No significant abnormality. Pulmonary: No significant abnormality. Neurological: No significant abnormality. Gastrointestinal: No significant abnormality. ASA Score: per Anesthesia Sedation/Anesthesia Plan: per Anesthesia The risks and complications of the procedure have been explained to the patient. Informed consent was signed. Impression and plan: Will proceed with the planned procedure for the reasons stated above. documented in this encounter Procedure Notes * Kathy Catherine MD - 11/12/2022 9:46 AM CDTAssociated Order(s): EGD GI ENDOSCOPY NORTH Patient Name: Myra Fowler Procedure Date: 11/12/2022 9:46 AM Date of : 1990 Admit Type: Outpatient Age: 32 Gender: Female Attending MD: Kathy Catherine M.D. Room: [facility] ENDOSCOPY ROOM 3 Note Status: Finalized Procedure: Upper GI endoscopy Indications: Dysphagia Referring MD: Kathy Catherine M.D. Providers: Kathy Catherine M.D. Medicines: Monitored Anesthesia Care Complications: No immediate complications. Estimated Blood Loss: Estimated blood loss: none. Procedure: Pre-Anesthesia Assessment: - ASA Grade Assessment: I - A normal, healthy patient. The benefits, risks, and alternatives to the procedure and sedation were discussed and informed consent was obtained. The scope was passed under direct vision. The GIF H190 [id number] endoscope was introduced through the mouth, and advanced to the second part of duodenum. The upper GI endoscopy was accomplished without difficulty. The patient tolerated the procedure well. PHOTOS COULD NOT BE CAPTURED DUE TO PROVATION MALFUNCTION Findings: No gross lesions were noted in the entire esophagus. Biopsies were obtained from the proximal and distal esophagus with cold forceps for histology of suspected eosinophilic esophagitis. Esophagogastric landmarks were identified: the gastroesophageal junction was found at 40 cm from the incisors. Islands of esophageal inlet patch mucosa were present from 17 to 20 cm. No other visible abnormalities were present. No gross lesions were noted in the entire examined stomach. No gross lesions were noted in the duodenal bulb and in the second portion of the duodenum. Impression: - No gross lesions in the entire esophagus. Biopsied. - Esophagogastric landmarks identified. - [place]-colored mucosa. - No gross lesions in the entire stomach. - No gross lesions in the duodenal bulb and in the second portion of the duodenum. Recommendation: - Patient has a contact number available for emergencies. The signs and symptoms of potential delayed complications were discussed with the patient. Return to normal activities tomorrow. Written discharge instructions were provided to the patient. - Resume previous diet. - Continue present medications. - Await pathology results. - Video swallow study in case path unremarkable Electronically signed by Kathy Catherine MD Kathy Catherine M.D. 11/12/2022 10:01:06 AM . Number of Addenda: 0 Note Initiated On: 11/12/2022 9:46 AM Recognized by the [employer] for promoting quality in endoscopy documented in this encounter Miscellaneous Notes * Result Encounter Note - Kathy Catherine MD - 11/12/2022 10:47 AM CDT Biopsies consistent with reflux related changes. Would recommend omeprazole 20 mg po bid for 3 months, and follow up in clinic. Also, video swallow study with speech. (Will order) documented in this encounter Plan of Treatment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 documented as of this encounter Procedures Procedure Name Priority Date/Time Associated Diagnosis Comments SURGICAL PATHOLOGY Routine 11/12/2022 9:53 AM CDT Oropharyngeal dysphagia EGD 11/12/2022 9:46 AM CDT ESOPHAGOGASTRODUODENOSCOPY BIOPSY 11/12/2022 9:44 AM CDT Oropharyngeal dysphagia POCT HCG, URINE Routine 11/12/2022 8:47 AM CDT documented in this encounter Results * Surgical pathology (11/12/2022 9:53 AM CDT) Tissue (Esophageal biopsy) 11/12/2022 9:53 AM CDT Tissue (Esophageal biopsy) 11/12/2022 9:54 AM CDT Narrative PATHOLOGY [facility] - 11/14/2022 12:05 PM CDT EPIC results best viewed via link to PDF [facility] [place] [address] Note to Patients: This report may contain a detailed description of human tissue sent by a health care provider to the laboratory for pathologic evaluation. The content of this report is essential for diagnosis and may provide important critical findings. This information may be unfamiliar to patients to review without a medical professional present. It is advised that the patient review this report in the presence of a health care provider who can answer questions and explain the details. SURGICAL PATHOLOGY REPORT FINAL Patient Name: ?? MYRA FOWLERErlin Gender: ??F : ??1990 (Age: 32) Address: ??[address] [place], [place] ??[address] [facility] #: ??[id number] Taken:11/12/2022 Received:11/12/2022 Reported: 11/14/2022 Patient Type: [facility] SDS ?? Service: Gastro Location: Physician(s): ??Kathy Catherine M.D. Pedro Luis Arndt M.D. Diagnosis: A. ??Esophagus, distal, biopsy: ? - Squamous mucosa with chronic esophagitis and reactive epithelial changes, consistent with gastroesophageal reflux ? - Rare eosinophils (up to 1 per high power field) ? - Negative for goblet cells ?? B. ??Esophageal, proximal, biopsy: ? - Squamous mucosa with reactive epithelial changes and rare eosinophils (focally up to 3 per high power field) lixk/11/14/2022 12:05 By this signature, I attest that the above diagnosis is based upon my personal examination of the slides(and/or other material indicated in the diagnosis). Danielle Badillo M.D., Ph.D. Report Electronically Reviewed and Signed Out By ??Danielle Badillo M.D., Ph.D. 11/14/2022 12:05:29 Microscopic Description and Comment: Microscopic examination substantiates the above cited diagnosis. History: The patient is a 32-year-old woman presenting with oropharyngeal dysphagia. ??Operative procedure: ??Upper endoscopy and biopsy. Specimen(s) Received: A: Distal esophageal cold biopsies B: Proximal esophageal cold biopsies Gross Description: Received in two formalin jars labeled with the patient's identifiers. A. ??Labeled distal esophageal core biopsies and consists of three white-jang fragments of soft tissue measuring 0.3 to 0.5 cm in greatest dimension. ?? Labeled A1. Jar 0. B. ??Labeled proximal esophageal core biopsies and consists of multiple white- jang fragments of soft tissue with an aggregate measurement of 0.7 x 0.5 x 0.1 cm. ?? Labeled B1. Jar 0. ?? elsw/11/12/2022 13:27 PA(s): Marta Gaviria By this signature, I attest that the above diagnosis is based upon my personal examination of the slides(and/or other material). Addenda/Procedures The performance characteristics of some immunohistochemical stains, fluorescence in-situ hybridization tests and immunophenotyping by flow cytometry cited in this report (if any) were determined by the Surgical Pathology and Flow Cytometry Departments at [facility] as part of an ongoing quality control lead program and in compliance with federally mandated regulations drawn from the Clinical Laboratory Improvement Act of 1988 (CLIA '88). ??Some of these tests rely on the use of analyte specific reagents and are subject to specific labeling requirements by the US Food and Drug Administration. ??Such diagnostic tests may only be performed in a facility that is certified by the Department of Health and Human Services as a high complexity laboratory under CLIA '88. ??The FDA has determined that such clearance or approval is not necessary. ??This test is used for clinical purposes. ??It should not be regarded as investigational or for research. ??Nevertheless, federal rules concerning the medical use of analyte specific reagents require that the following disclaimer be attached to the report: This test was developed and its performance characteristics determined by the Surgical Pathology and Flow Cytometry Departments of [facility]. ??It has not been cleared or approved by the U. S. Food and Drug Administration. IMAGES AND SCANNED DOCUMENTS, IF INCLUDED, ONLY VIEWABLE IN PDF VERSION OF REPORT Kathy Catherine MD LAB PATHOLOGY ORDERABLES Final Result PATHOLOGY [facility] [address] Floor [place], [place] [phone] * EGD (11/12/2022 9:46 AM CDT) Anatomical Region Laterality Modality Other Narrative Procedure Note Kathy Catherine MD - 11/12/2022 9:46 AM CDT GI ENDOSCOPY [facility] Patient Name: Myra Fowler Procedure Date: 11/12/2022 9:46 AM Date of : 1990 Admit Type: Outpatient Age: 32 Gender: Female Attending MD: Kathy Catherine M.D. Room: [facility] ENDOSCOPY ROOM 3 Note Status: Finalized Procedure: Upper GI endoscopy Indications: Dysphagia Referring MD: Kathy Catherine M.D. Providers: Kathy Catherine M.D. Medicines: Monitored Anesthesia Care Complications: No immediate complications. Estimated Blood Loss: Estimated blood loss: none. Procedure: Pre-Anesthesia Assessment: - ASA Grade Assessment: I - A normal, healthypatient. The benefits, risks, and alternatives to theprocedure and sedation were discussed and informed consentwas obtained. The scope was passed under direct vision. The GIF H190 [id number] endoscope was introducedthrough the mouth, and advanced to the second part of duodenum. The upper GI endoscopy was accomplished without difficulty. The patient tolerated the procedure well. PHOTOS COULD NOT BE CAPTURED DUE TO PROVATION MALFUNCTION Findings: No gross lesions were noted in the entire esophagus. Biopsies were obtained from the proximal and distal esophagus with cold forceps for histology of suspected eosinophilic esophagitis. Esophagogastric landmarks were identified: the gastroesophagealjunction was found at 40 cm from the incisors. Islands of esophageal inlet patch mucosa were present from 17 to 20cm. No other visible abnormalities were present. No gross lesions were noted in the entire examined stomach. No gross lesions were noted in the duodenal bulb and in the second portion of the duodenum. Impression: - No gross lesions in the entire esophagus.Biopsied. - Esophagogastric landmarks identified. - [place]-colored mucosa. - No gross lesions in the entire stomach. - No gross lesions in the duodenal bulb and in the second portion of the duodenum. Recommendation: - Patient has a contact number available for emergencies. The signs and symptoms of potential delayed complications were discussed with thepatient. Return to normal activities tomorrow. Written discharge instructions were provided to thepatient. - Resume previous diet. - Continue present medications. - Await pathology results. - Video swallow study in case path unremarkable Electronically signed by Kathy Catherine MD Kathy Catherine M.D. 11/12/2022 10:01:06 AM . Number of Addenda: 0 Note Initiated On: 11/12/2022 9:46 AM Recognized by the [employer] for promoting quality in endoscopy Kathy Catherine MD ENDOSCOPY PROCEDURES Final Res ult * POCT hCG, urine (11/12/2022 8:47 AM CDT) HCG, ur, POC Negative Lot Number [id number] QC Backgroud Clear Acceptable QC Control Line Acceptable Urine 11/12/2022 8:47 AM CDT Kathy Catherine MD POINT OF CARE TEST ORDERABLES Final Result documented in this encounter Visit Diagnoses Diagnosis Oropharyngeal dysphagia- Primary Dysphagia, oropharyngeal phase Oropharyngeal dysphagia Dysphagia, oropharyngeal phase documented in this encounter Admitting Diagnoses Diagnosis Oropharyngeal dysphagia Dysphagia, oropharyngeal phase documented in this encounter Administered Medications Inactive Administered Medications - up to 3 most recent administrations Medication Order MAR Action Action Date Dose Rate Site sodium chloride 0.9% flush 0.5-20 mL 0.5-20 mL, intra-catheter, Every 8 hours scheduled, First dose on Fri11/12/22 at 0915, Pre-Procedure (GI), Flush volume based on line type and size. sodium chloride 0.9% flush 0.5-20 mL 0.5-20 mL, intra-catheter, As needed, line care, Starting on Fri11/12/22 at 0839, Pre-Procedure (GI), Flush volume based on line type and size. Flush before and after each use. sodium chloride 0.9% infusion 30 mL/hr, intravenous, Continuous, Starting on Fri11/12/22 at 0915, Pre-Procedure (GI) Restarted 11/12/2022 9:58 AM CDT Rate/Dose Verify 11/12/2022 9:44 AM CDT 30 mL/h r New Bag 11/12/2022 9:06 AM CDT 30 mL/hr 30 mL/hr documented in this encounter Discontinued Medications Medication Sig Discontinue Reason Start Date End Da te fluconazole (DIFLUCAN) 150 mg tablet Stop Taking at Discharge 04/25/2021 11/12/2022 Simpesse 0.15 mg-30 mcg (84)/10 mcg (7) tablets,dose pack,3 month Take 1 tablet by mouth daily Stop Taking at Discharge 03/16/2021 11/12/2022 al & mag hydroxide with simethicone-diphenhydr amine-lidocaine (MAGIC MOUTHWASH) suspension 1-1-1 Swish and swallow 10 mL every 4 (four) hours as needed (for aphthous ulcers in mouth) Stop Taking at Discharge 04/26/2021 11/12/2022 documented as of this encounter Active and Recently Administered Medications Times are shown in CDT. Scheduled Medication Order 11/10/2022 11/11/2022 11/12/2022 sodium chloride 0.9% flush 0.5-20 mL 0.5-20 mL, intra-catheter, Every 8 hours scheduled, First dose on Fri11/12/22 at 0915, Pre-Procedure (GI), Flush volume based on line type and size. 0915 (Due) Continuous Medication Order 11/10/2022 11/11/2022 11/12/2022 sodium chloride 0.9% infusion 30 mL/hr, intravenous, Continuous, Starting on Fri11/12/22 at 0915, Pre-Procedure (GI) 0906 (New Bag - Prov ider: Mindi Shaffer RN)0944 (Rate/Dose Verify - Provider: Luis Brunson CRNA)0957 (Paused - Provider: Luis Brunson CRNA - Comment: Switch to gravity)0958 (Restarted - Provider: Luis Brunson CRNA)1022 (Stopped - Provider: Danelle Sharp RN) PRN Medication Order 11/10/2022 11/11/2022 11/12/2022 sodium chloride 0.9% flush 0.5-20 mL 0.5-20 mL, intra-catheter, As needed, line care, Starting on Fri11/12/22 at 0839, Pre-Procedure (GI), Flush volume based on line type and size. Flush before and after each use. documented in this encounter Orders Medications Ordered That Emre ht Not Have Been Administered Count Last Ordered Date First Ordered Date sodium chloride 0.9% flush 0.5-20 mL 2 03/2023 Discharge Count Last Ordered Date First Orde red Date DISCHARGE PATIENT 1 11/12/2022 documented in this encounter Care Teams Medical Affairs Manager Relationship Specialty Start Date End Date Pedro Luis Arndt MD [address] [place] [address] PCP - General Family Medicine 09/03/22 11/20/23 documented as of this encounter
--- OUTSIDE RECORDS SUMMARY | 2024-07-09 02:27 | XMS_ITS | Encounter Summary ---
Author Organization [facility] Healthcare Address [address] [place] [address] Care Team Providers Care Spike Maker Name Role Phone Pedro Luis Arndt MD Primary Care Provider [phone] Encounter Details Date Type Department Care Team (Late st Contact Info) Description 11/07/2022 Telephone [facility] Digestive Disease [place] [id number] [address] [address] Marilin Schmitt RN Social History Tobacco Use Types Packs/Day Years [...] encounter Miscellaneous Notes * Telephone Encounter - Marilin Schmitt RN - 11/07/2022 9:07 AM CDT GI PROCEDURE PRE CALL 3 day call Discussed with: Patient [x] Spoke with patient and confirmed procedure, physician, location, date, arrival time [] No answer. Left voicemail asking patient to return call to [facility]. GENERAL INSTRUCTIONS [x] Bring medication list, photo ID, and insurance card [] Review general procedure process. The Endo nurse will review your medical history, place an IV, and you will meet anesthesia team. We will monitor you after the procedure until it is safe for you to go home. Please plan to spend at least four hours here for the entire process. [x] Confirm patient has a furniture delivery driver or responsible adult. Since you will be receiving sedation, you will not be able to drive or leave without someone who can monitor you. You must have a ride arranged to and from the hospital with a responsible adult. If you will be going home by way of a transport service a responsible adult will need to be with you. The nurse will call to confirm your transportation and if they are unable to confirm your procedure will be cancelled. Notes/Issues: Spoke with Bethany on the phone for her second reminder. She still planning on coming for her EGD on 11/[address] Catherine at [facility] to arrive at 8:30 am. Her sister will be her furniture delivery driver. Shehas instructions and understands what to do. documented in this encounter Plan of Treatment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 documented as of this encounter Visit Diagnoses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documented in this encounter Care Teams Spike Maker Relationship Specialty Start Date End Date Pedro Luis Arndt MD [address] [place] [address] PCP - General Family Medicine 09/03/22 11/20/23 documented as of this encounter
--- OUTSIDE RECORDS SUMMARY | 2024-07-09 02:27 | XMS_ITS | Encounter Summary ---
Author Organization [facility] Address [address] [place] [address] Phone Care Team Providers Care Machine Tool Builder Name Role Phone Pedro Luis Arndt MD Primary Care Provider [phone] Encounter Details Date Type Department Care Team (Latest Contact Info) Description 03/28/2023 9:30 AM CDT Office Visit [facility] Gastroenterology [address] 12th [place] [address] [place] [address] Kathy Catherine MD [address] [place], [place] [id number] Oropharyngeal dysphagia (Primary Dx); Nausea Social History Tobacco Use Types Packs/Day Years [...] Sign Reading Time Taken Comments Blood Pressure 119/82 03/28/2023 9:20 AM CDT Pulse 80 03/28/2023 9:20 AM CDT Temperature 36.2 ??C (97.2 ??F) 03/28/2023 9:20 AM CD T Respiratory Rate - - Oxygen Saturation - - Inhaled Oxygen Concentration - - Weight 71.9 kg (158 lb 9.6 oz) 03/28/2023 9:20 A M CDT Height 162.6 cm (5' 4 ) 03/28/2023 9:20 AM CDT Body Mass Index 27.22 03/28/2023 9:20 AM CDT documented in this encounter Patient Instructions * Patient Instructions* Kathy Catherine MD - 03/28/2023 9:30 AM CDT Fundoplication surgery documented in this encounter Ordered Prescriptions Prescription Sig Dispense Quantity Refills Last Filled Start Date End Date omeprazole (PriLOSEC) 20 mg capsule Take 1 capsule (20 mg total) by mouth daily 90 capsule 3 03/28/2023 4 documented in this encounter Progress Notes * Kathy Catherine MD - 03/28/2023 9:30 AM CDT [facility] Clinic Address: [address] [place] [address], [address] , [place] [address] Mailing Address: [facility] Yary Motley [facility], [place] [address], [place] [id number] Return Visit NAME: Bethany Fowler : 1990 DOS: 03/28/2023 Reason for visit: follow up visit Primary Care Physician: Pedro Luis Arndt MD Subjective Chief complaint: doing ok overall HPI Ms. Fowler is a 33 y.o. female with no significant past medical history who presents for evaluation for lump in her throat and inaility to burp and sensation that she needs to get food out, only when she eats restaurant food. No predisposition to bread or rice Occurs sometimes with rice Abdominal bloating and increased flatulence. Bowel movements are normal Concerned if she has RCPD Symptoms started with high school, omeprazole helped in the beginning but symptoms have recurred starting a year ago, and PPI has not helped EGD with biopsies 11/26 normal Speech evaluation has been normal Patient Active Problem List Diagnosis Oropharyngeal dysphagia Past Medical History: Diagnosis Date ADHD (attention deficit hyperactivity disorder) Past Surgical History: Procedure Laterality Date DENTAL SURGERY Right front right tooth implant Current Outpatient Medications: ASHWAGANDHA EXTRACT ORAL, Take by mouth, Disp: , Rfl: dexmethylphenidate XR (FOCALIN XR) 20 mg 24 hr capsule, Take by mouth daily, Disp: , Rfl: green tea leaf extract (Green Tea) capsule, Take by mouth, Disp: , Rfl: omeprazole (PriLOSEC) 20 mg capsule, Take 1 capsule (20 mg total) by mouth daily, Disp: 90 capsule,Rfl: 3 Allergies Allergen Reactions Vicks Dayquil Allergy Syncope Hkqaxfwkd-Gv-Aa-Acetaminophen Dizziness fainting Family History Problem Relation Age of Onset Hyperlipidemia Father Social History Tobacco Use Smoking Status Never Smokeless Tobacco Never Alcohol Use: Not At Risk (11/12/2022) AUDIT-C Frequency of Alcohol Consumption: Monthly or less Average Number of Drinks: 1 or 2 Frequency of Binge Drinking: Never Substance and Sexual Activity Drug Use Yes Types: Alcohol ROS As outlined in HPI. All other systems negative. Objective Vital Signs BP 119/82 Pulse 80 Temp 36.2 ??C (97.2 ??F) Ht 162.6 cm (5' 4 ) Wt 71.9 kg (158 lb 9.6 oz) BMI 27.22 kg/m?? Physical exam GENERAL: Well-appearing, in no acute distress. HEENT: Sclerae anicteric. EXTREMITIES: No clubbing, cyanosis or edema, or evident deformity SKIN: No rash or jaundice. NEUROLOGIC: Grossly nonfocal on simple observation with normal insight, memory, affect, and orientation, and no focal weakness evident Results: Imaging Video swallow study 12/27 IMPRESSION: The swallowing mechanism is normal; see above comments. Endoscopy EGD 11/26 Findings: No gross lesions were noted in [...] esophagus. Biopsied. - Esophagogastric landmarks identified. - [place]-colored mucosa. - No gross lesions in the [...] Video swallow study in case path unremarkable Diagnosis: A. Esophagus, distal, biopsy: - Squamous mucosa with chronic esophagitis and reactive epithelial changes, consistent with gastroesophageal reflux - Rare eosinophils (up to 1 per high power field) - Negative for goblet cells Assessment/Plan 32 yo female with lump in throat, inability to burp 1. Oropharyngeal dysphagia - normal workup so far - discussed neuromodulators, would like to hold off for now 2. Nausea - improved with PPI - omeprazole po daily Orders No orders of the defined types were placed in this encounter. Kathy Catherine MD [facility] Carrieroracle analyst [place] [address] [place] [address] medical receptionist medical assistant Academic office Rtc 6 months documented in this encounter Plan of Treatment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 documented as of this encounter Visit Diagnoses Diagnosis Oropharyngeal dysphagia- Primary Dysphagia, oropharyngeal phase Nausea Nausea alone documented in this encounter Discontinued Medications Medication Sig Discontinue Reason Start Date End Da te omeprazole (PriLOSEC) 20 mg capsule Take 1 capsule (20 mg total) by mouth 2 (two) times a day before breakfast and dinner Reorder 11/25/2022 03/28/2023 documented as of this encounter Historical Medications * This list may reflect changes made after this encounter. ASHWAGANDHA EXTRACT ORAL Take by mouth green tea leaf extract (Green Tea) capsule Take by mouth 11/19/2023 added in this encounter Care Teams Machine Tool Builder Relationship Specialty Start Date End Date Pedro Luis Arndt MD [address] [place] [address] PCP - General Family Medicine 09/03/22 11/20/23 documented as of this encounter
--- OUTSIDE RECORDS SUMMARY | 2024-07-09 02:27 | XMS_ITS | Encounter Summary ---
Author Organization [facility] Healthcare Address [address] [place] [address] Care Team Providers Care Cushion Filler Name Role Phone No, Physician Primary Care Provider [phone] Encounter Details Date Type Department Care Team (Latest Contact Info) Description 11/04/2021 2:06 PM CDT - 11/04/2021 11:59 PM CDT Hospital Encounter [address] [address] Exposure to COVID-19 virus Discharge Disposition: Discharge to home or self [...] this encounter Medications at Time of Discharge al & mag hydroxide with simethicone-diph enhydramine-lido jose (MAGIC MOUTHWASH) suspension 1-1-1 Swish and swallow 10 mL every 4 (four) hours as needed (for aphthous ulcers in mouth) 300 mL 04/26/2021 11/12/2022 dexmethylphenida te XR (FOCALIN XR) 20 mg 24 hr capsule Take by mouth daily 04/16/2021 11/21/2023 fluconazole (DIFLUCAN) 150 mg tablet 04/25/2021 11/12/2022 Simpesse 0.15 mg-30 mcg (84)/10 mcg (7) tablets,dose pack,3 month Take 1 tablet by mouth daily 03/16/2021 11/12/2022 documented as of this encounter Discharge Disposition Disposition Code Departure Means Destination Discharge to home or self care documented in this encounter Miscellaneous Notes * Result Encounter Note - Chester Kincaid NP - 11/05/2021 7:51 PM CDT Please notify patient of negative covid-19 results. If symptoms persist past 10- 14 days or worsen at anytime follow up with the [facility] or your Primary Care Provider. * Result Encounter Note - Marsha Conklin NP - 11/04/2021 11:59 PM CDT Please notify patient of negative COVID-19 test. If patient was symptomatic, patient should continue to self isolate until at least 5 days have passed since symptom onset and they have been fever free without the use of fever reducing medications for at least 24 hours. * Result Encounter Note - Tamiko Elmore MA - 11/04/2021 11:59 PM CDT LVM for pt to return call for results. documented in this encounter Plan of Treatment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 documented as of this encounter Procedures Procedure Name Priority Date/Time Associated Diagnosis Comments COVID-19 CORONAVIRUS RNA Routine 11/04/2021 2:38 AM CDT Exposure to COVID-19 virus documented in this encounter Results * COVID-19 Coronavirus RNA Nasopharyngeal (11/04/2021 2:38 AM CDT) COVID-19 RNA Not Detected [facility] Comment: Collection date/time has been modified to: 02:38:00. ??Previous collection date/time: 02:38:00. Interpretive Data Synonyms for this test include: PCR and NAAT . ??Testing performed by the [facility] Molecular Infectious Disease Laboratory. The 2018-Novel Coronavirus Assay (COVID-19) Real Time RT-PCR assay is for in vitro diagnostic use under FDA emergency use authorization only. A negative RT-PCR result does not preclude infection with COVID-19 and should not be used as the sole basis for treatment or other patient management decisions. ??Additional sample types have been validated according to CLIA regulations. ?? Current Interpretive Data was last revised on August 10, 2020. Nasopharyngeal 11/04/2021 2: 38 AM CDT 11/05/2021 3:02 AM CDT Narrative [facility] - 11/07/2021 12:16 PM CDT Is the patient experiencing any symptoms consistent with COVID (eg. Fever, cough, shortness of breath)?->No What is the reason for testing?->Post-exposure testing required by a public health agency??asymptomatic (Batched) Marsha Conklin NP LAB MICROBIOLOGY - GENERAL ORD ERABLES Edited Result - Final [facility] Department [place] [address] documented in this encounter Visit Diagnoses Diagnosis Exposure to COVID-19 virus documented in this encounter Care Teams Cushion Filler Relationship Specialty Start Date End Date No, Physician PCP - General 04/26/21 09/02/22 documented as of this encounter
--- OUTSIDE RECORDS SUMMARY | 2024-07-09 02:27 | XMS_ITS | Encounter Summary ---
Author Organization [facility] Address [address] [place] [address] Phone Care Team Providers Care Planer Off Bearer Name Role Phone Pedro Luis Arndt MD Primary Care Provider [phone] Reason for Visit * Consultation (Routine) - Closed Specialty Diagnoses / Procedures Referred By Nette cruz Referred To Contact Gastroenterology Diagnoses Abdominal pain Nausea GERD without esophagitis Referral, Self [facility] (All Locations) Referral ID Status Reason Start Date Expiration Date V isits Requested Visits Authorized [id number] Closed Specialty Services Required 09/03/2022 10/03/2023 1 1 Encounter Details Date Type Department Care Team (Latest Contact Info) Description 09/27/2022 9:00 AM CDT Office Visit [facility] Gastroenterology [address] 12th [place] [address] [place] [address] Kathy Catherine MD [address] [place] [address] Oropharyngeal dysphagia (Primary Dx); Nausea Social History Tobacco Use Types Packs/Day Years Used Date Smoking Tobacco: Never Smokeless Tobacco: Never Tobacco Cessation:Counseling Given: Not Answered PHQ-2 Answer Date Recorded PHQ-2 Total Score [...] Sign Reading Time Taken Comments Blood Pressure 119/77 09/27/2022 8:53 AM CDT Pulse 74 09/27/2022 8:53 AM CDT Temperature 36.4 ??C (97.5 ??F) 09/27/2022 8:53 AM CD T Respiratory Rate - - Oxygen Saturation - - Inhaled Oxygen Concentration - - Weight 74.4 kg (164 lb) 09/27/2022 8:53 AM CDT Height 163.8 cm (5' 4.5 ) 09/27/2022 8:53 AM CDT Body Mass Index 27.72 09/27/2022 8:53 AM CDT documented in this encounter Progress Notes * Kathy Catherine MD - 09/27/2022 9:00 AM CDT Images from the original note were not included. [facility]OLOGY Clinic Address: [address] [place] [address], [address] [place] [address] Mailing Address: [facility] Y[address], [place] [address] [place] [address] Consult Note NAME: Bethany Fowler : 1990 DOS: 09/27/2022 Reason for referral: dysphagia Consult requested by: Referral, Self Primary Care Physician: Pedro Luis Arndt MD Subjective Chief complaint: dysphagia HPI Ms. Fowler is a 32 y.o. female with no significant past medical [...] year ago, and PPI has not helped Patient Active Problem List Diagnosis Oropharyngeal dysphagia No past medical history on file. No past surgical history on file. Current Outpatient Medications: dexmethylphenidate XR (FOCALIN XR) 20 mg 24 hr capsule, Take by mouth daily, Disp: , Rfl: omeprazole (PriLOSEC) 20 mg capsule, Take 20 mg by mouth daily, Disp: , Rfl: al & mag hydroxide with wrbxmlqwxfx-snvfipunhjrsntu-vdawqnyix (MAGIC MOUTHWASH) suspension 1-1-1, Swish and swallow 10 mL every 4 (four) hours as needed (for aphthous ulcers in mouth) (Patient not taking: Reported on 09/27/2022), Disp: 300 mL, Rfl: 0 fluconazole (DIFLUCAN) 150 mg tablet, , Disp: , Rfl: Simpesse 0.15 mg-30 mcg (84)/10 mcg (7) tablets,dose pack,3 month, Take 1 tablet by mouth daily (Patient not taking: Reported on 09/27/2022), Disp: , Rfl: Allergies Allergen Reactions Vicks Dayquil Allergy Syncope Celdsfhzl-Qo-Hn-Acetaminophen Dizziness fainting No family history on file. Social History Tobacco Use Smoking status: Never Smokeless tobacco: Never Substance and Sexual Activity Drug use: None Sexual activity: None Alcohol Use: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 ROS As outlined in HPI. All other systems negative. Objective Vital Signs BP 119/77 Pulse 74 Temp 36.4 ??C (97.5 ??F) Ht 163.8 cm (5' 4.5 ) Wt 74.4 kg (164 lb) BMI27.72 kg/m?? Physical Exam GENERAL: Well-appearing, in no acute distress. HEENT: NC/AT/OLGA LIDIA NECK: Supple without lymphadenopathy. LUNGS: Clear to auscultation bilaterally. CARDIOVASCULAR: Regular rate and rhythm with no murmur. ABDOMEN: soft, non-tender; bowel sounds normal; no masses, no organomegaly EXTREMITIES: No clubbing, cyanosis or edema SKIN: No rash or jaundice. NEUROLOGIC: Grossly nonfocal on simple observation with normal insight, memory, affect, and orientation, and no focal weakness evident Results: Labs No recent lab tests Imaging none Endoscopy none Assessment/Plan 32 yo female with lump in throat, inability to burp and abdominal bloating 1. Nausea 2. Oropharyngeal dysphagia - Case Request GI: ESOPHAGOGASTRODUODENOSCOPY - will consider video swallow study to rule out RCPD in case egs unremarkable, r/o EOE Orders No orders of the defined types were placed in this encounter. Return to clinic in 6 months Kathy Catherine MD Tapemanjewel bearing driller [facility] [place] [address] [place] [address] acute care certified nursing assistant Academic office documented in this encounter Plan of Treatment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 documented as of this encounter Visit Diagnoses Diagnosis Oropharyngeal dysphagia- Primary Dysphagia, oropharyngeal phase Nausea Nausea alone documented in this encounter Historical Medications * This list may reflect changes made after this encounter. omeprazole (PriLOSEC) 20 mg capsule Take 1 capsule (20 mg total) by mouth daily 11/25/2022 added in this encounter Orders Outpatient Referral Count Last Ordered Date Fir st Ordered Date AMB REFERRAL TO GASTROENTEROLOGY 1 09/28/19 23 Case Request Count Last Ordered Date First Orde red Date CASE REQUEST GI 1 09/27/2022 documented in this encounter Care Teams Planer Off Bearer Relationship Specialty Start Date End Date Pedro Luis Arndt MD [address] [place] [address] PCP - General Family Medicine 09/03/22 11/20/23 documented as of this encounter
--- OUTSIDE RECORDS SUMMARY | 2024-07-09 02:27 | XMS_ITS | Encounter Summary ---
Author Organization [facility] Healthcare Address [address] [place] [address] Care Team Providers Care Fuel Agent Name Role Phone Unavailable Primary Care Provider Unavailabl e Reason for Visit * Reason Onset Date Comments COVID-19 EVALUATION 11/16/2020 Encounter Details Date Type Department Care Team (Late st Contact Info) Description 11/16/2020 Telephone [facility] [place] [id number] (Third Floor) [place] [address] Kizzy Geiger, RN COVID-19 EVALUATION Social History Tobacco Use Types Packs/Day Years Used Date Smoking Tobacco: Never Assessed Comments Unknown Sex and Gender Information Value Date Recorded Sex Assigned at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 Legal Sex Female 3:45 PM CDT Gender Identity Female 10/29/2023 11:51 AM CDT Sexual Orientation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 documented as of this encounter Miscellaneous Notes * Telephone Encounter - Kizzy Geiger RN - 11/16/2020 10:09 AM CDT Employee COVID-19 Screening 03/01/2020 11/16/2020 Vaccine related call? - No Email: [email or web address] Employee/Student ID# [id number] Are you an employee or student? Employee Employee Employer: [employer] Does your work require you to go into patient care areas (hospital or clinic)? 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 On-site On-site Have you been tested for Covid-19 previously? No Yes Have you ever had a positive COVID-19 swab or saliva test? - No What was the date of your most recent negative test? - (No Data) What was the date of your most recent negative test? - Last year-February 2020 specific datenot given Have you been vaccinated against COVID-19? - Yes Who provided the vaccine: - [facility] Covid Vaccine Who Provided - Pfizer Date of first vaccine dose: - 08/01/2020 Date of second vaccine dose: - 08/18/2020 Have you had a known, specific COVID exposure within the last 14 days? Yes No Did the exposure take place at work / on campus? No - Date of exposure: 02/26/2020 - Name of the COVID-19 positive person to whom you were exposed: Friend - Was the person to whom you were exposed wearing a mask/face covering? Yes - Date of the COVID-19 test for the person to whom you were exposed: 02/29/2020 - Test result of the person to whom you were exposed: Positive - What PPE was employee wearing? Mask - Description of exposure: Hanging out with a friend and went to lunch so we did take our masks off. Not symptomatic at the time. Became symptomatic 02/29/20 - Employee Symptoms: No Yes Date of employee symptom onset: - 11/16/2020 Description of Symptoms: - Other Other Symptoms: - nausea and dizziness, hot flash, short of breath with nausea, Did you have symptoms at work? - Yes Date symptoms started: - 11/16/2020 Date last worked: - 11/16/2020 Date Last Work Comment - currently at work Do you currently live with, or have ongoing contact with, someone known or suspected to have COVID-19? No No Exposure Risk (See Exposure Guide): Medium No known or low risk exposure Assessment: Asymptomatic, non-occupational exposure Symptomatic, unknown exposure Plan: (G) Stay home without testing (A) Stay home and test for symptoms Notes: - Patient is choosing to go to an outside facility for testing. Entered a test in the systemin case there are issues or a delay in testing results. Provided [facility] [place] number [phone] for her to report her testing results. Script A0 (Stay home and test) for symptomatic, exposed HCW, symptomatic, unexposed Non-HCW or Vaccinated Non-HCW Given your symptoms, you should not come to work and will be referred for testing for COVID. ??? Patient is choosing to go to outside testing facility. ??? While you are awaiting testing and results, you must remain off work. ??? While waiting for results, home quarantine guidance still applies. You should isolate yourself at home, avoid contact with any household members as much as possible, and stay in your home withoutleaving except for medical care. If your symptoms worsen, please call back or call 911 - let your providers, ER or EMS know that you are being tested for COVID-19. ??? Once your results are back, you will receive further instruction from Occupational Health. Don't return to work until you hear from [facility]. Occupational Health will notify you and your education managers when you can return to work. ??? Should your test result positive, [facility] will work with you to identify any close contacts you may have had at work. [facility] will then alert your work contacts directly; you do not have to. Your glycerin supervisor should consult with [facility] if they have any questions and before any communication with coworkers about a positive test. [facility] will help ensure that coworkers potentially at risk are notified and given appropriate advice without unnecessary disclosure of personal health information. ??? We will send you an email with self-quarantine instructions (see [facility] Guidance for At-Home Isolation: Employees). ??? You must follow any additional isolation or quarantine instructions provided to you from federal, state or local public health authorities. ??? You should let your glycerin supervisor know that you will not be coming to work. Although the Call Center will email your glycerin supervisor to confirm that you have been instructed not to come to work, it is still your responsibility to notify your glycerin supervisor as you would for any other work absence. You should receive an email from the call center with these instructions. The email will come from [email or web address]; if you do not receive it, please check to see if your email hotel server has automatically routed it to [email or web address]. documented in this encounter Plan of Treatment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 documented as of this encounter Visit Diagnoses Diagnosis Nausea- Primary Nausea alone documented in this encounter Additional Health Concerns Infection Onset Date Last Indicated Resolved Time COVID: Suspected 11/16/2020 11/16/2020 11/30/2020 3:05 AM CDT documented as of this encounter
--- OUTSIDE RECORDS SUMMARY | 2024-07-09 02:27 | XMS_ITS | Encounter Summary ---
Author Organization [facility] Address [address] [place] [address] Care Team Providers Care Senior Clinical Data Analyst Name Role Phone Raymond Wolff MD Primary Care Provider Encounter Details Date Type Department Care Team (Late st Contact Info) Description 12/16/2023 4:00 PM CDT Telemedicine [facility] [address] [place] [id number] Raymond Wolff MD [address] [facility] [address] [place] [address] Fatigue, unspecified type (Primary Dx); Screening for thyroid disorder; Screening for lipid disorders Social History Tobacco Use Types Packs/Day Years [...] as of this encounter Progress Notes * Raymond Wolff MD - 12/16/2023 4:00 PM CDT Telehealth/Telemedicine-VISIT This was a tele-medicine visit which took place via Real-time video connection (LeanData, Zoom or similar). Bethany Fowler is a 33 y.o. female reached out to discuss: thyroid concerns Visit involved the Patient My location at the time of the visit: [place], [place] Patient's location at the time of the visit: [place] Time the session started: 4:29 PM HPI Bethany Fowler was last seen 11/19/23. Today she notes that she wanted to update some blood work. She is worried about her thyroid as her sister has thyroid issues and she has similar symptoms to her sister. She has fatigue, weight gain and feeling cold all the time. She also has noticed that her nails are more brittle. She was also worried about her cholesterol. She notes that it was borderline in the past and she feels like she is eating healthy and has forever. Review of Systems All other systems reviewed and are negative. Physical Exam Constitutional: General: She is not [...] Diagnoses and all orders for this visit: Fatigue, unspecified type (Primary) Comments: worried about thyroid issues. we will check this level. Screening for thyroid disorder - Thyroid Function Mikado; Future Screening for lipid disorders - Lipid panel; Future Time the session ended: 4:43 PM The patient has been informed that the visit may not be secure and acknowledged the information. I have explained the option of participating in a telephone or video visit during the COVID-19 public health emergency to the patient. After being given an opportunity to ask questions about and discuss this type of visit, the patient verbally consented to proceeding with the telephone / video visit. The patient understands that this service replaces an office visit and they may be billed and/or responsible for any applicable copayments. Raymond Wolff MD documented in this encounter Plan of Treatment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 documented as of this encounter Results * (ABNORMAL) Lipid panel (12/17/2023 9:48 AM CDT) [facility] [address] Cholesterol 232(H) 30 - 199 mg/dL Comment: [...] on 2018. Triglycerides 62 <=149 mg/dL [facility] Comment: Interpretive Data Ages < or = [...] revised on 2018. HDL 72 >=40 mg/dL [facility] Comment: Interpretive Data Ages < or = [...] 2018. LDL, calculated 148(H) <=129 mg/dL [facility] Comment: Interpretive Data Ages < or = [...] revised on 2018. Non-HDL Cholesterol 160 mg/dL [facility] Comment: Interpretive Data Ages < or [...] last revised on 2018. Chol/HDL ratio 3 [facility] Blood 12/17/2023 9:48 AM CDT 12/17/2023 9:55 AM CDT Raymond Wolff MD LAB BLOOD ORDERABLES F inal Result Performing Organization Address City/[facility] Co de Phone Number [facility] [place] [address] * Thyroid Function Mikado (12/17/2023 9:48 AM CDT) TSH 1.85 0.30 - 4.20 mcIUnit/mL Blood 12/17/2023 9:48 AM CDT 12/17/2023 9:55 AM CDT us Raymond Wolff MD LAB BLOOD ORDERABLES F inal Result Performing Organization Address City/[facility] Co de Phone Number [facility] [place] [address] documented in this encounter Visit Diagnoses Diagnosis Fatigue, unspecified type- Primary Screening for thyroid disorder Screening for lipid disorders documented in this encounter Care Teams Senior Clinical Data Analyst Relationship Specialty Start Date End Date Raymond Wolff MD [address] [address] PCP - General Internal Medicine 11/21/23 documented as of this encounter
--- OUTSIDE RECORDS SUMMARY | 2024-07-09 02:27 | XMS_ITS | Encounter Summary ---
Author Organization [facility] Healthcare Address [address] [place] [address] Care Team Providers Care Glass Belt Sander Name Role Phone Pedro Luis Arndt MD Primary Care Provider Encounter Details Date Type Department Care Team (Late st Contact Info) Description 11/05/2022 Telephone [facility] Digestive Disease [place] [address] [address] [address] Marilin Schmitt, ROBERT Social History Tobacco Use Types Packs/Day Years [...] Telephone Encounter - Marilin Schmitt RN - 11/05/2022 11:50 AM CDT GI PROCEDURE PRE CALL 7 day call Discussed with: Patient [x] Spoke with patient and confirmed procedure, physician, location, date, arrival time [] No answer. Left voicemail asking patient to return call to [facility]. GENERAL INSTRUCTIONS [x] Bring medication list, photo ID, and insurance card [x] Review general procedure process. The Endo nurse will review your medical history, place an IV,and you will meet anesthesia team. We will monitor you after the procedure until it is safe for youto go home. Please plan to spend at least four hours here for the entire process. 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 Since you will [...] cancelled. Notes/Issues: Spoke with Bethany on the phone. She confirmed she will be coming for her EGD with Dr Catherine at [facility] to arrive at 8:30 am. Her sister will be her marine engine driver. She knows not to eat or drink anything after 12 midnight. She would like another reminder call. documented in this encounter Plan of Treatment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 documented as of this encounter Visit Diagnoses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documented in this encounter Care Teams Glass Belt Sander Relationship Specialty Start Date End Date Pedro Luis Arndt MD [address] [place] [address] PCP - General Family Medicine 09/03/22 11/20/23 documented as of this encounter
--- OUTSIDE RECORDS SUMMARY | 2024-07-09 02:27 | XMS_ITS | Encounter Summary ---
Author Organization [facility] Healthcare Address [address] [place] [address] Care Team Providers Care Green Building Energy Engineer Name Role Phone Unavailable Primary Care Provider Unavailabl e Encounter Details Date Type Department Care Team (Late st Contact Info) Description 03/01/2020 Telephone [facility] [address] [place] [address] [address] (Third Floor) [place] [address] Naima Dockery, CIRCUIT RIDER [address] [place] [address] Social History Tobacco Use Types Packs/Day Years Used Date Smoking Tobacco: Never Assessed Comments Unknown Sex and Gender Information Value Date Recorded Sex Assigned at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 Legal Sex Female 3:45 PM CDT Gender Identity Female 10/29/2023 11:51 AM CDT Sexual Orientation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 documented as of this encounter Miscellaneous Notes * Telephone Encounter - Naima Dockery RN - 03/01/2020 3:45 PM CDT Employee COVID-19 Screening 03/01/2020 Email: [email or web address] Employee/Student ID# [id number] Are you an employee or student? Employee Employer: [employer] Does your work require you to go into patient care areas (hospital or clinic)? No Employee Facility: [facility] (All Locations) Does your job primarily involve providing care for bone marrow transplant patients? 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 On-site Have you been tested for Covid-19 previously? No Have you had a known, specific COVID exposure? Yes Did the exposure take place at work / on campus? No Date of exposure: 02/26/2020 Name of the COVID-19 positive person to whom you were exposed: Friend Was the person to whom you were exposed wearing a mask/face covering? Yes Date of the COVID-19 test for the person to whom you were exposed: 02/29/2020 Test result of the person to whom you were exposed: Positive What PPE was employee wearing? Mask Description of exposure: Hanging out with a friend and went to lunch so we did take our masks off. Not symptomatic at the time. Became symptomatic 02/29/20 Employee Symptoms: No Do you currently live with, or have ongoing contact with, someone known or suspected to have COVID-19? No Exposure Risk (See Exposure Guide): Medium Assessment: Asymptomatic, non-occupational exposure Plan: (G) Stay home without testing Script G (Stay home without testing; for high/medium risk contacts in NON- healthcare personnel) Because you have a high or medium risk exposure to a known COVID-19 case, you will be excluded fromwork for 14 days. ?? If you develop fever or other symptoms such as sore throat, cough, shortness of breath, body aches, congestion, and/or loss of taste or smell not consistent with any chronic symptoms you may have,please call us back for reassessment. ?? At the end of your 14 day work exclusion you must contact [facility] Occupational Health before returning to work. Email: [email or web address] ?? You should isolate yourself at home, avoid contact with any household members as much as possible, and stay in your home without leaving except for medical care. ?? You should perform active symptom monitoring: ?? You must record your temperature and any symptoms you may have twice a day (morning and evening)using the COVID-19 Symptom Log at: [email or web address]. If you donot have Internet access, use the form we will mail to you. ?? If you develop a temperature of 100??F or higher, OR if you develop sore throat, cough, shortness of breath, body aches, congestion, or loss of taste or smell that is not consistent with any chronic symptoms you may have, please call us back for reassessment. ?? You should let your supervisor publications know that you will not be coming to work. Although the Call Center will email your supervisor publications to confirm that you have been instructed not to come to work, it is still your responsibility to notify your supervisor publications as you would for any other work absence. documented in this encounter Plan of Treatment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 documented as of this encounter Visit Diagnoses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documented in this encounter
--- OUTSIDE RECORDS SUMMARY | 2024-07-09 02:27 | XMS_ITS | Encounter Summary ---
Author Organization [facility] Address [address] [place] [address] Phone Care Team Providers Care Modular Set Crew Member Name Role Phone Pedro Luis Arndt MD Primary Care Provider [phone] Reason for Referral * Diagnostic Imaging (Routine) - Closed Specialty Diagnoses / Procedures Referred By Nette cruz Referred To Contact Diagnoses Oropharyngeal dysphagia Procedures [place] Modified Barium Swallow W Video Kathy Catherine MD [address] [place] [address] Phone: tel: fax: [address] [address] Referral ID Status Reason Start Date Expiration Date Visits Re quested Visits Authorized [id number] Closed 11/25/2022 12/25/2023 1 1 Encounter Details Date Type Department Care Team (Late st Contact Info) Description 11/25/2022 Orders Only [facility] Gastroenterology [address] [facility] Medicine 12th [place] [address] [place] [address] Kathy Catherine MD [address] [place] [address] Oropharyngeal dysphagia (Primary Dx) Social History Tobacco [...] dinner 60 capsule 1 11/25/2022 3 documented in this encounter Plan of Treatment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 documented as of this encounter Results * FL Modified Barium [...] Dysphagia, oropharyngeal phase documented in this encounter Discontinued Medications Medication Sig Discontinue Reason Start Date End Da te omeprazole (PriLOSEC) 20 mg capsule Take 1 capsule (20 mg total) by mouth daily 11/25/2022 documented as of this encounter Care Teams Modular Set Crew Member Relationship Specialty Start Date End Date Pedro Luis Arndt MD [address] [place] [address] PCP - General Family Medicine 09/03/22 11/20/23 documented as of this encounter
--- OUTSIDE RECORDS SUMMARY | 2024-07-09 02:27 | XMS_ITS | Encounter Summary ---
Author Organization [facility] Healthcare Address [address] [place] [address] Care Team Providers Care Brass Buffer Name Role Phone Pedro Luis Arndt MD Primary Care Provider [phone] Reason for Visit * Auth/Cert (Routine) Specialty Diagnoses / Procedures Referred By Contac t Referred To Contact Diagnoses Oropharyngeal dysphagia Oropharyngeal dysphagia [R13.12] Procedures SD ESOPHAGOGASTRODUODENOSCOPY TRANSORAL DIAGNOSTIC ESOPHAGOGASTRODUODENOSCOPY Referral ID Status Reason Start Date Expiration Date Visits Re quested Visits Authorized [id number] 1 1 Encounter Details Date Type Department Care Team (Latest Contact Info) Description 11/12/2022 8:23 AM CDT - 11/12/2022 10:47 AM CDT Hospital Encounter [facility] Digestive Disease [place] [address] [facility] [address] [place] [address] Kathy Catherine MD [address] [facility] [address] [place] [address] Oropharyngeal dysphagia Discharge Disposition: Discharge to home [...] Sign Reading Time Taken Comments Blood Pressure 94/70 11/12/2022 10:22 AM CDT Pulse 73 11/12/2022 10:22 AM CDT Temperature 36 ??C (96.8 ??F) 11/12/2022 10:02 AM CDT Respiratory Rate 19 11/12/2022 10:22 AM CDT Oxygen Saturation 99% 11/12/2022 10:22 AM CDT Inhaled Oxygen Concentration - - [...] Allergies Allergen Reactions Vicks Dayquil Allergy Syncope Ysciwngal-Mf-Mo-Acetaminophen Dizziness fainting Prior to Admission medications Medication Sig Start Date End Date Taking? Authorizing Provider dexmethylphenidate XR (FOCALIN XR) 20 mg 24 hr capsule Take by mouth daily 04/16/21 Yes Maxx Farias MD omeprazole (PriLOSEC) 20 mg capsule Take 1 capsule (20 mg total) by mouth daily Yes Maxx Farias MD al & mag hydroxide with hnrhojupsql-aikhraqhopvndbq-drrwgirzz (MAGIC MOUTHWASH) suspension 1-1-1 Swish and swallow 10 mL every 4 (four) hours as needed (for aphthous ulcers in mouth) Patient not taking: Reported on 09/27/2022 04/26/21 Karina Florentino, SURVEILLANCE INVESTIGATOR fluconazole (DIFLUCAN) 150 mg tablet 04/25/21 Maxx Farias MD Simpesse 0.15 mg-30 mcg (84)/10 mcg (7) tablets,dose pack,3 month Take 1 tablet by mouth daily Patient not taking: Reported on 09/27/2022 03/16/21 ProviderMaxx MD Review of Systems A pertinent, focused [...] Female Attending MD: Kathy Catherine M.D. Room: [facility] RO[facility] 3 Note Status: Finalized [...] esophagus. Biopsied. - Esophagogastric landmarks identified. - [place]-colored mucosa. - No gross lesions in the [...] On: 11/12/2022 9:46 AM Recognized by the [place] [employer] for promoting quality [...] biopsy) 11/12/2022 9:54 AM CDT Narrative PATHOLOGY [facility] - 11/14/2022 12:05 PM CDT EPIC results best viewed via link to PDF [facility] [place] [address] Note to Patients: This report may contain [...] PATHOLOGY REPORT FINAL Patient Name: ?? MYRA FOWLER Gender: ??F : ??1990 (Age: 32) Address: ??[address] [place] [address] ??[id number] Hospital #: ??[id number] Taken:11/12/2022 Received:11/12/2022 Reported: 11/14/2022 Patient Type: [facility] SDS ?? Service: Gastro Location: Physician(s): ??Kathy [...] Surgical Pathology and Flow Cytometry Departments at [facility] as part of an ongoing quality assurance supervisor trim program and in compliance with federally mandated [...] Surgical Pathology and Flow Cytometry Departments of [facility]. ??It has not been cleared or approved by the U. S. Food and Drug Administration. IMAGES AND SCANNED DOCUMENTS, IF INCLUDED, ONLY VIEWABLE IN PDF VERSION OF REPORT Kathy Catherine MD LAB PATHOLOGY ORDERABLES Final Result PATHOLOGY [facility] 3rd Floor [place], [place] [phone] * EGD (11/12/2022 9:46 AM CDT) Anatomical Region Laterality Modality Other Narrative Procedure Note Kathy Catherine MD - 11/12/2022 9:46 AM CDT [facility] Patient Name: Myra Fowler Procedure Date: 11/12/2022 9:46 AM Date of : 1990 Admit Type: Outpatient Age: 32 Gender: Female Attending MD: Kathy Catherine M.D. Room: [facility] 3 Note Status: Finalized [...] vision. The GIF [id number] endoscope was introducedthrough the mouth, and advanced [...] entire esophagus.Biopsied. - Esophagogastric landmarks identified. - [place]-colored mucosa. - No gross lesions in the [...] On: 11/12/2022 9:46 AM Recognized by the [place] [employer] for promoting quality [...] 11/12/2022 documented in this encounter Care Teams Brass Buffer Relationship Specialty Start Date End Date Pedro Luis Arndt MD [address] [place] [address] PCP - General Family Medicine 09/03/22 11/20/23 documented as of this encounter
--- OUTSIDE RECORDS SUMMARY | 2024-07-09 02:27 | XMS_ITS | Encounter Summary ---
Author Organization [facility] Address [address] [place] [address] Care Team Providers Care Template Inspector Name Role Phone Raymond Wolff MD Primary Care Provider Encounter Details Date Type Department Care Team (Late st Contact Info) Description 11/21/2023 Telephone [facility] [address] [address] Pedro Luis Arndt MD [facility] [place] [address] Social History Tobacco Use Types Packs/Day Years [...] 30 capsule 11/21/2023 documented in this encounter Miscellaneous Notes * Telephone Encounter - Sang Parra RMA - 11/21/2023 11:10 AM CDT Patient requesting refill documented in this encounter Plan of Treatment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 documented as of this encounter Visit Diagnoses Diagnosis Attention deficit hyperactivity disorder (ADHD), combined type- Primary documented in this encounter Discontinued Medications Medication Sig Discontinue Reason Start Date End Da te dexmethylphenidate XR (FOCALIN XR) 20 mg 24 hr capsule Take by mouth daily Reorder 04/16/2021 11/21/2023 documented as of this encounter Care Teams Template Inspector Relationship Specialty Start Date End Date Raymond Wolff MD [address] [address] PCP - General Internal Medicine 11/21/23 documented as of this encounter
--- OUTSIDE RECORDS SUMMARY | 2024-07-09 02:27 | XMS_ITS | Encounter Summary ---
Author Organization [facility] Healthcare Address [address] [place] [address] Care Team Providers Care Aircraft Skin Burnisher Name Role Phone No, Physician Primary Care Provider [phone] Reason for Visit * Reason Onset Date Comments COVID-19 EVALUATION 11/04/2021 Encounter Details Date Type Department Care Team (Late st Contact Info) Description 11/04/2021 Telephone [facility] Occupatiuonal Health [address] [place] [address] Room 3420 (Third Floor) [place] [address] Nataliya Bardales RN COVID-19 EVALUATION Social History Tobacco Use [...] encounter Miscellaneous Notes * Telephone Encounter - Nataliya Badrales RN - 11/04/2021 11:57 AM CDT Employee COVID-19 Screening 03/01/2020 11/16/2020 03/29/2021 11/04/2021 Vaccine related call? - No No No Email: [email or web address] Employee/Student ID# [id number] Are you an employee or student? Employee Employee Employee Employee Employer: [employer] Employer Comment - - [employer] - Does your work require you to go into patient care areas (hospital or clinic)? No No No No Employee Facility: [facility] (All Locations) [facility] (All Locations) [facility] (All Locations) [facility] (All Locations) Does your job primarily involve providing care for bone marrow transplant patients? 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 On-site On-site On-site On-site Have you been tested for Covid-19 previously? No Yes Yes - Have you ever had a positive COVID-19 swab or saliva test? - No No - What was the date of your most recent negative test? - (No Data) 11/16/2020 - What was the date of your most recent negative test? - Last year-February 2020 specific datenot given- - Have you been vaccinated against Covid-19? - Yes Yes Yes Who provided the vaccine: - [facility] Covid Vaccine Who Provided - Pfizer - - Date of first vaccine dose: - 08/01/2020 08/01/2020 - Date of First Covid Vaccine - - pfizer - Date of second vaccine dose: - 08/18/2020 08/18/2020 - Have you had a known, specific Covid exposure within the last 14 days? Yes No Yes Yes Did the exposure take place at work / on campus? No - No No Date of exposure: 02/26/2020 - 03/24/2021 11/04/2021 Name of the COVID-19 positive person to whom you were exposed: Friend - Father significant other Was the person to whom you were exposed wearing a mask/face covering? Yes - No No Date of the COVID-19 test for the person to whom you were exposed: 02/29/2020 - 03/28/2021 11/04/2021 Date of Patient Test Comment - - symptoms began on 03/27/21 - Test result of the person to whom you were exposed: Positive - Positive Positive What PPE was employee wearing? Mask - None None Description of exposure: Hanging out with a friend and went to lunch so we did take our masks off. Not symptomatic at the time. Became symptomatic 02/29/20 - exposure less than 6 feet more than 15 minutes HH contact Employee Symptoms: No Yes No No Employee Symptoms Comment - - - EE states mild sinus congestion consistent w/chronic seasonal allergies Date of employee symptom onset: - 11/16/2020 - - Description of Symptoms: - Other - - Other Symptoms: - nausea and dizziness, hot flash, short of breath with nausea, - - Did you have symptoms at work? - Yes - - Date symptoms started: - 11/16/2020 - - Date last worked: - 11/16/2020 - - Date Last Work Comment - currently at work - - Do you currently live with, or have ongoing contact with, someone known or suspected to have Covid-19? No No No Yes Exposure Risk (See Exposure Guide): Medium No known or low risk exposure Known significant exposureOngoing household contact Assessment: Asymptomatic, non-occupational exposure Symptomatic, unknown exposure Symptomatic, unknown exposure Asymptomatic, non-occupational exposure Plan: (G) Stay home without testing (A) Stay home and test for symptoms (I) Asymptomatic, Exposed but Vaccinated - Notes: - Patient is choosing to go to an outside facility for testing. Entered a test in the systemin case there are issues or a delay in testing results. Provided [facility] number [phone] for her to report her testing results. Patient is getting tested at @2:40 at [facility] deferrs testing at /[facility] at this time. Provided [facility] number to call results: [phone] - Script J (post-exposure script) for asymptomatic employees Post-exposure testing is recommended for employees without a recent history of COVID-19 infection (within past 90 days) and a known significant or household COVID-19 exposures. To reduce the risk of false negatives, testing should be done 3-7 days post- exposure. If you have not tested positive for COVID within the past 90 days, please go to the employee testing site at on (date that is 3-7 days post-exposure) for testing Most employees who are asymptomatic can continue to work after a COVID-19 exposure, but guidance varies based on vaccination status and work setting. We will email you and your supervisor screen making a table with guidance on work exclusion. It is up to you and your supervisor screen making to adhere to this guidance. The email will come from [email or web address]; if you do not receive it, please check to see if your email banquet food server has automatically routed it to [employer]. documented in this encounter Plan of Treatment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 documented as of this encounter Visit Diagnoses Diagnosis Exposure to confirmed case of COVID-19- Primary documented in this encounter Care Teams Aircraft Skin Burnisher Relationship Specialty Start Date End Date No, Physician PCP - General 04/26/21 09/02/22 documented as of this encounter
--- OUTSIDE RECORDS SUMMARY | 2024-07-09 02:27 | XMS_ITS | Encounter Summary ---
Author Organization [facility] Healthcare Address [address] [place] [address] Care Team Providers Care Extension Clerk Name Role Phone Pedro Luis Arndt MD Primary Care Provider Encounter Details Date Type Department Care Team (Late st Contact Info) Description 10/23/2023 Patient Self-Triage [facility] HealthCare/ Physicians [facility] [place] [address] Mychart, Generic Provider [address] [place], [place] [id number] Social History Tobacco Use Types Packs/Day Years [...] on filedocumented in this encounter Care Teams Extension Clerk Relationship Specialty Start Date End Date Pedro Luis Arndt MD [address] [place] [address] PCP - General Family Medicine 09/03/22 11/20/23 documented as of this encounter
--- OUTSIDE RECORDS SUMMARY | 2024-07-09 02:27 | XMS_ITS | Encounter Summary ---
Author Organization [facility] Address [address] [place] [address] Care Team Providers Care Bleach Boiler Puller Name Role Phone No, Physician Primary Care Provider [phone] Reason for Visit * Reason Comments COVID-19 EVALUATION Employee testing due to covid exposure Encounter Details Date Type Department Care Team (Latest Contact Info) Description 11/04/2021 2:00 PM CDT Clinical Support [facility] Outpatient Center [address] [address] Exposure to COVID-19 virus (Primary Dx) Social History Tobacco Use Types [...] as of this encounter Progress Notes * Nella Harris MA - 11/04/2021 2:00 PM CDT Employee testing post covid exposure documented in this encounter Plan of Treatment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 documented as of this encounter Results * COVID-19 Coronavirus RNA Nasopharyngeal (11/04/2021 2:38 AM CDT) COVID-19 RNA Not Detected [facility] Comment: Collection date/time has been modified to: 02:38:00. ??Previous collection date/time: 02:38:00. Interpretive Data Synonyms for this test include: PCR and NAAT . ??Testing performed by the [facility] Molecular Infectious Disease Laboratory. The 2019-Novel Coronavirus Assay (COVID-19) Real Time RT-PCR assay [...] CDT 11/05/2021 3:02 AM CDT Narrative [facility] - 11/07/2021 12:16 PM CDT Is the patient experiencing any symptoms consistent with COVID (eg. Fever, cough, shortness of breath)?->No What is the reason for testing?->Post-exposure testing required by a public health agency??asymptomatic (Batched) Marsha Conklin NP LAB MICROBIOLOGY - GENERAL ORD ERABLES Edited Result - Final [facility] Department [place] [address] documented in this encounter Visit Diagnoses Diagnosis Exposure to COVID-19 virus- Primary Exposure to COVID-19 virus documented in this encounter Care Teams Bleach Boiler Puller Relationship Specialty Start Date End Date No, Physician PCP - General 04/26/21 09/02/22 documented as of this encounter
--- OUTSIDE RECORDS SUMMARY | 2024-07-09 02:27 | XMS_ITS | Encounter Summary ---
Author Organization [facility] Healthcare Address [address] [place] [address] Care Team Providers Care Locomotive Mechanic Apprentice Name Role Phone Unavailable Primary Care Provider Unavailabl e Reason for Visit * Reason Onset Date Comments COVID-19 EVALUATION 03/29/2021 Encounter Details Date Type Department Care Team (Late st Contact Info) Description 03/29/2021 Telephone [facility] [address] Room [facility] (Third Floor) [place] [address] Kizzy Geiger, RN COVID-19 EVALUATION Social History [...] Telephone Encounter - Kizzy Geiger RN - 03/29/2021 10:12 AM CDT Employee COVID-19 Screening 03/01/2020 11/16/2020 03/29/2021 Vaccine related call? - No No Email: [email or web address] Employee/Student ID# [id number] Are you an employee or student? Employee Employee Employee Employer: [employer] Employer Comment - - MICHAEL Does your work require you to go into patient care areas (hospital or clinic)? 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 On-site On-site On-site Have you been tested for Covid-19 previously? No Yes Yes Have you ever had a positive COVID-19 swab or saliva test? - No No What was the date of your most recent negative test? - (No Data) 11/16/2020 What was the date of your most recent negative test? - Last year-February 2020 specific datenot given- Have you been vaccinated against COVID-19? - Yes Yes Who provided the vaccine: - [facility] Covid Vaccine Who Provided - Pfizer - Date of first vaccine dose: - 08/01/2020 08/01/2020 Date of First Covid Vaccine - - pfizer Date of second vaccine dose: - 08/18/2020 08/18/2020 Have you had a known, specific COVID exposure within the last 14 days? Yes No Yes Did the exposure take place at work / on campus? No - No Date of exposure: 02/26/2020 - 03/24/2021 Name of the COVID-19 positive person to whom you were exposed: Friend - Father Was the person to whom you were exposed wearing a mask/face covering? Yes - No Date of the COVID-19 test for the person to whom you were exposed: 02/29/2020 - 03/28/2021 Date of Patient Test Comment - - symptoms began on 03/27/21 Test result of the person to whom you were exposed: Positive - Positive What PPE was employee wearing? Mask - None Description of exposure: Hanging out with a friend and went to lunch so we did take our masks off. Not symptomatic at the time. Became symptomatic 02/29/20 - exposure less than 6 feet more than 15 minutes Employee Symptoms: No Yes No Date of employee symptom onset: - 11/16/2020 - Description of Symptoms: - Other - Other Symptoms: - nausea and dizziness, hot flash, short of breath with nausea, - Did you have symptoms at work? - Yes - Date symptoms started: - 11/16/2020 - Date last worked: - 11/16/2020 - Date Last Work Comment - currently at work - Do you currently live with, or have ongoing contact with, someone known or suspected to have COVID-19? No No No Exposure Risk (See Exposure Guide): Medium No known or low risk exposure Known significant exposure Assessment: Asymptomatic, non-occupational exposure Symptomatic, unknown exposure Symptomatic, unknown exposure Plan: (G) Stay home without testing (A) Stay home and test for symptoms (I) Asymptomatic, Exposed but Vaccinated Notes: - Patient is choosing to go to an outside facility for testing. Entered a test in the systemin case there are issues or a delay in testing results. Provided [facility] number [phone] for her to report her testing results. Patient is getting tested at @2:40 at [facility] deferrs testing at /[facility] at this time. Provided [facility] number to call results: [phone] Script I Asymptomatic, Exposed but vaccinated (testing optional) Since you have had a significant COVID exposure, but are vaccinated and asymptomatic, you may continue to work and COVID testing is optional. If you wish to be tested, to reduce the risk of false negatives, testing should be done 3-7 days post-exposure. i. Although you have a significant exposure to a known COVID-19 case, because you were fully vaccinated at the time of your exposure (i.e. had received your second vaccine dose between 14 days previously) at the time of your exposure, you are NOT required to quarantine or adhere to additional work restrictions so long as you remain asymptomatic. ii. You should monitor yourself for symptoms and may continue to work following your usual practices, which should include social distancing and mask wearing in shared work spaces, without any additional precautions. i. If you develop fever or other symptoms such as sore throat, cough, shortness of breath, body aches, and/or congestion not consistent with any chronic symptoms you may have, please call us back forreassessment. You should receive an email from the call center with these instructions. The email will come from [email or web address]; if you do not receive it, please check to see if your email senior sql server database developer has automatically routed it to [email or web address] documented in this encounter Plan of Treatment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 documented as of this encounter Visit Diagnoses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documented in this encounter
--- OUTSIDE RECORDS SUMMARY | 2024-07-09 06:32 | XMS_ITS | Clinical Summary ---
Author Organization [facility] [employer] Address [address] [facility] [address] Care Team Providers Care Facilities Administrator Name Role Phone Unavailable Primary Care Provider Unavailabl e Source Comments [facility] [employer],non-owned Affiliates and Associated Physician Practices is amultiple site organization consisting of ambulatory clinics and hospital sitesin [place], [place], [place] and [place]. This disclosure is being madepursuant to the Care Everywhere program and may not contain all information available regarding this patient. Last updated 18.[facility] [employer] Allergies Active Allergy Reactions Criticality Noted Date [...] Comments Blood Pressure 122/80 08/06/2017 11:51 AM POLICE MAGISTRATE Pulse 112 08/06/2017 11:51 AM POLICE MAGISTRATE Temperature 37.7 ??C (99.8 ??F) 08/06/2017 11:[address] Respiratory Rate 16 08/06/2017 11:51 AM POLICE MAGISTRATE Oxygen Saturation 98% 08/06/2017 11:51 AM POLICE MAGISTRATE Inhaled Oxygen Concentration - - Weight 62.1 kg (137 lb) 08/06/2017 11:51 AM POLICE MAGISTRATE Height 162.6 cm (5' 4 ) 08/06/2017 11:51 AM POLICE MAGISTRATE Body Mass Index 23.52 08/06/2017 11:51 AM POLICE MAGISTRATE Plan of Treatment Health Maintenance Due Date [...]
--- OUTSIDE RECORDS SUMMARY | 2024-07-09 06:33 | XMS_ITS | Encounter Summary ---
Author Organization [facility] Address [address] [place] [address] Care Team Providers Care Podiatric Foot And Ankle Specialist Name Role Phone Raymond Wolff MD Primary Care Provider Encounter Details Date Type Department Care Team (Late st Contact Info) Description 12/16/2023 4:00 PM CDT Telemedicine [facility] [address] [place] [id number] Raymnod Wolff MD [address] [facility] [address] [place] [address] Fatigue, unspecified type (Primary Dx); Screening for [...] which took place via Real-time video connection (TM, Zoom or similar). Bethany Fowler is a 33 y.o. female reached out to discuss: thyroid concerns Visit involved the Patient My location at the time of the visit: [place], [place] Patient's location at the time of the visit: [place] Time the session started: 4:29 PM HPI [...] Screening for thyroid disorder - Thyroid Function [place]; Future Screening for lipid disorders - Lipid [...] (ABNORMAL) Lipid panel (12/17/2023 9:48 AM CDT) [facility] Cholesterol 232(H) 30 - 199 mg/dL Comment: [...] on 2018. Triglycerides 62 <=149 mg/dL [facility] Comment: Interpretive Data Ages < or = [...] on 2018. HDL 72 >=40 mg/dL [facility] Comment: Interpretive Data Ages < or = [...] 2018. LDL, calculated 148(H) <=129 mg/dL [facility] Comment: Interpretive Data Ages < or = [...] revised on 2018. Non-HDL Cholesterol 160 mg/dL [facility] Comment: Interpretive Data Ages < or [...] last revised on 2018. Chol/HDL ratio 3 [facility] Blood 12/17/2023 9:48 AM CDT 12/17/2023 9:55 AM CDT Raymond Wolff MD LAB BLOOD ORDERABLES F inal Result Performing Organization Address City/[facility] Co de Phone Number [facility] [place] [address] * Thyroid Function [place] (12/17/2023 9:48 AM CDT) TSH 1.85 0.30 - 4.20 mcIUnit/mL Blood 12/17/2023 9:48 AM CDT 12/17/2023 9:55 AM CDT us Raymond Wolff MD LAB BLOOD ORDERABLES F inal Result Performing Organization Address City/[facility] Co de Phone Number [facility] [place] [address] documented in this encounter Visit Diagnoses Diagnosis Fatigue, unspecified type- Primary Screening for thyroid disorder Screening for lipid disorders documented in this encounter Care Teams Podiatric Foot And Ankle Specialist Relationship Specialty Start Date End Date Raymond Wolff MD [address] [address] PCP - General Internal Medicine 11/21/23 documented as of this encounter
--- OUTSIDE RECORDS SUMMARY | 2024-07-09 06:33 | XMS_ITS | Encounter Summary ---
Author Organization [facility] Healthcare Address [address] [place] [address] Care Team Providers Care Fundraising Director Name Role Phone Pedro Luis Arndt MD Primary Care Provider [phone] Reason for Visit * Reason Comments CIGARETTE AND FILTER CHIEF INSPECTOR Initial Evaluation [facility] * Diagnostic Imaging (Routine) - Closed Specialty Diagnoses / Procedures Referred By Nette cruz Referred To Contact Diagnoses Oropharyngeal dysphagia Procedures FL Modified Barium Swallow W Video Kathy Catherine MD [address] [place] [address] Phone: tel: fax: [address] [address] Referral ID Status Reason Start Date Expiration Date Visits Re quested Visits Authorized [id number] Closed 11/25/2022 12/25/2023 1 1 Encounter Details Date Type Department Care Team (Late st Contact Info) Description 12/23/2022 1:00 PM CDT Therapy [facility] Speech Therapy [address] [place] [address] Oropharyngeal dysphagia (Primary Dx) Social History [...] this encounter Progress Notes * Yamel Rice, CIGARETTE AND FILTER CHIEF INSPECTOR - 12/23/2022 1:[address] [facility] Speech-Language Pathology: Outpatient Modified Barium Swallow [...] if something is wrong with her swallow. Base Filler Used: NOT APPLICABLE Clinical Impression & Professional [...] phase documented in this encounter Care Teams Fundraising Director Relationship Specialty Start Date End Date Pedro Luis Arndt MD [address] [place] [address] PCP - General Family Medicine 09/03/22 11/20/23 documented as of this encounter
--- OUTSIDE RECORDS SUMMARY | 2024-07-09 06:33 | XMS_ITS | Encounter Summary ---
Author Organization [facility] Medical Group Address [address] [place] [address] Care Team Providers Care Casting Finisher Name Role Phone No, Physician Primary Care Provider [phone] Reason for Visit * Reason Comments COVID-19 EVALUATION Employee testing due to covid exposure Encounter Details Date Type Department Care Team (Latest Contact Info) Description 11/04/2021 2:00 PM CDT Clinical Support [facility] Outpatient Center [address] [address] Exposure to COVID-19 virus (Primary [...] AM CDT) COVID-19 RNA Not Detected [facility] Comment: Collection date/time has been modified to: 02:38:00. ??Previous collection date/time: 02:38:00. Interpretive Data Synonyms for this test include: PCR and NAAT . ??Testing performed by the [facility] Molecular Infectious Disease Laboratory. The 2019-Novel [...] CDT 11/05/2021 3:02 AM CDT Narrative [facility] - 11/07/2021 12:16 PM CDT Is the patient experiencing any symptoms consistent with COVID (eg. Fever, cough, shortness of breath)?->No What is the reason for testing?->Post-exposure testing required by a public health agency??asymptomatic (Batched) Marsha Conklin NP LAB MICROBIOLOGY - GENERAL ORD ERABLES Edited Result - Final [facility] Department [place] [address] documented in this encounter Visit Diagnoses Diagnosis Exposure to COVID-19 virus- Primary Exposure to COVID-19 virus documented in this encounter Care Teams Casting Finisher Relationship Specialty Start Date End Date No, Physician PCP - General 04/26/21 09/02/22 documented as of this encounter
--- OUTSIDE RECORDS SUMMARY | 2024-07-09 06:33 | XMS_ITS | Encounter Summary ---
Author Organization [facility] Healthcare Address [address] [place] [address] Care Team Providers Care Color Drum Worker Name Role Phone Pedro Luis Arndt MD Primary Care Provider [phone] Reason for Visit * Auth/Cert (Routine) Specialty Diagnoses / Procedures Referred By Contac t Referred To Contact Diagnoses Oropharyngeal dysphagia Oropharyngeal dysphagia [R13.12] Procedures CO ESOPHAGOGASTRODUODENOSCOPY TRANSORAL DIAGNOSTIC ESOPHAGOGASTRODUODENOSCOPY Referral ID Status Reason Start Date Expiration Date Visits Re quested Visits Authorized [id number] 1 1 Encounter Details Date Type Department Care Team (Latest Contact Info) Description 11/12/2022 9:30 AM CDT - 11/12/2022 10:00 AM CDT Surgery [facility] Digestive Disease [place] [address] [facility] [address] [place] [address] Kathy Catherine MD [address] [facility] [address] [place] [address] ESOPHAGOGASTRODUODENOSCOPY BIOPSY Surgery Details Date/Time Status Location OR Service Patient Class Case Class Case Type Trauma Case? 11/12/2022 9:30 AM Posted [facility] ENDOSCOPY GI 03 Gastroenterology Outpatient Elective [...] Allergies Allergen Reactions Vicks Dayquil Allergy Syncope Oolfywpmh-Rc-Em-Acetaminophen Dizziness fainting Prior to Admission medications Medication Sig Start Date End Date Taking? Authorizing Provider dexmethylphenidate XR (FOCALIN XR) 20 mg 24 hr capsule Take by mouth daily 04/16/21 Yes Maxx Farias MD omeprazole (PriLOSEC) 20 mg capsule Take 1 capsule (20 mg total) by mouth daily Yes ProviderMaxx MD al & mag hydroxide with wciqowdpudj-falvnnesssxlcgk-jfybxqsvh (MAGIC MOUTHWASH) suspension 1-1-1 Swish and swallow [...] Female Attending MD: Kathy Catherine M.D. Room: [facility] ENDOSCOPY ROOM 3 Note Status: Finalized [...] esophagus. Biopsied. - Esophagogastric landmarks identified. - [place]-colored mucosa. - No gross lesions in the [...] On: 11/12/2022 9:46 AM Recognized by the [place] [employer]oscopy for promoting quality [...] biopsy) 11/12/2022 9:54 AM CDT Narrative PATHOLOGY [facility] - 11/14/2022 12:05 PM CDT EPIC results best viewed via link to PDF [facility] [place] [address] Note to Patients: This report may contain [...] ??1990 (Age: 32) Address: ??[address] [place], [place] ??[address] [facility] #: ??[id number] Taken:11/12/2022 Received:11/12/2022 Reported: 11/14/2022 Patient Type: [facility] [...] Surgical Pathology and Flow Cytometry Departments at [facility] as part of an ongoing quality assurance coordinator program and in compliance with federally mandated [...] Surgical Pathology and Flow Cytometry Departments of [facility]. ??It has not been cleared or approved by the U. S. Food and Drug Administration. IMAGES AND SCANNED DOCUMENTS, IF INCLUDED, ONLY VIEWABLE IN PDF VERSION OF REPORT Kathy Catherine MD LAB PATHOLOGY ORDERABLES Final Result PATHOLOGY [facility] 3rd Floor [place], [place] [phone] * EGD (11/12/2022 9:46 AM CDT) Anatomical Region Laterality Modality Other Narrative Procedure Note Kathy Catherine MD - 11/12/2022 9:46 AM CDT [facility] ENDOSCOPY [facility] Patient Name: Myra Fowler Procedure Date: 11/12/2022 9:46 AM Date of : 1990 Admit Type: Outpatient Age: 32 Gender: Female Attending MD: Kathy Catherine M.D. Room: [facility] ENDOSCOPY ROOM 3 Note Status: Finalized [...] passed under direct vision. The GIF [id number] endoscope was introducedthrough the mouth, and advanced [...] entire esophagus.Biopsied. - Esophagogastric landmarks identified. - [place]-colored mucosa. - No gross lesions in the [...] On: 11/12/2022 9:46 AM Recognized by the [employer] Gastrointestinal [employer]oscopy for promoting quality [...] 11/12/2022 documented in this encounter Care Teams Color Drum Worker Relationship Specialty Start Date End Date Pedro Luis Arndt MD [address] [place] [address] PCP - General Family Medicine 09/03/22 11/20/23 documented as of this encounter
--- OUTSIDE RECORDS SUMMARY | 2024-07-09 06:33 | XMS_ITS | Referral Summary ---
Author Organization [facility] Virtual Care Address [address] [place] [address] Phone Care Team Providers Care Seating Upholsterer Name Role Phone Raymond Wolff MD Primary Care Provider Kathy Catherine MD Unavailable [phone] Doris Pruett MD Unavailable [phone] Mary Waters NP Unavailable [phone] Encounters Date Type Department Care Team Description 07/02/2024 10:30 AM PIGMENT PRESSER Tele[facility] [address] [place] [phone] Raymond Wolff MD Nausea vomiting and diarrhea (Primary Dx); Gastroesophageal reflux disease without esophagitis 05/07/2024 1:10 PM CDT Lab [facility] ([facility]) [address] [place] [phone] Preventative health care; Screening for viral disease; Screening for diabetes mellitus; Screening for deficiency anemia; Screening for metabolic disorder 05/07/2024 11:00 AM CDT Office Visit [place] [id number] [address] Rayomnd Wolff MD Preventative health care (Primary Dx); Class 1 obesity without serious comorbidity with body mass index (BMI) of 30.0 to 30.9 in adult, unspecified obesity type; Attention deficit hyperactivity disorder (ADHD), combined type; Gastroesophageal reflux disease without esophagitis; Screening for metabolic disorder; Screening for deficiency anemia; Screening for diabetes mellitus; Screening for viral disease 04/23/[address] 5th [address] [place] [address] Deb Cardenas Encounter for vaccination (Primary Dx) 04/23/[address] 5[address] [place] [address] Deb Cardenas from Last 3 Months Allergies [...] Name Administration Dates Next Due COVID-19 mRNA ([employer]) 0.3 m L (30 mcg) vaccine (12 [...] 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, 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 Not on [...] MD LAB BLOOD ORDERABLES F inal Result [facility] [place] [address] * Differential, auto (05/07/2024 12:17 PM CDT) Neutrophil abs 4.1 1.5 - 6.5 K/cumm Imm gran abs 0.0 0.0 - 0.1 K/cumm [facility] Lymphocyte abs 3.0 0.8 - 3.3 K/cumm [facility] Monocyte abs 0.5 0.2 - 0.8 K/cumm [facility] Eosinophil abs 0.3 0.0 - 0.5 K/cumm [facility] Basophil abs 0.0 0.0 - 0.1 K/cumm [facility] Neutrophil pct 52.2 % [facility] Comment: Interpretive Data Percent cell count reference ranges are not reported, since discordance with absolute values may lead to misinterpretation of CBC data. Current Interpretive Data was last revised on 2017. Imm gran pct 0.1 % [facility] Comment: Interpretive Data Percent cell count reference ranges are not reported, since discordance with absolute values may lead to misinterpretation of CBC data. Current Interpretive Data was last revised on 2017. Lymphocyte pct 37.4 % [facility] Comment: Interpretive Data Percent cell count reference ranges are not reported, since discordance with absolute values may lead to misinterpretation of CBC data. Current Interpretive Data was last revised on 2017. Monocyte pct 5.7 % [facility] Comment: Interpretive Data Percent cell count reference ranges are not reported, since discordance with absolute values may lead to misinterpretation of CBC data. Current Interpretive Data was last revised on 2017. Eosinophil pct 4.2 % [facility] Comment: Interpretive Data Percent cell count reference ranges are not reported, since discordance with absolute values may lead to misinterpretation of CBC data. Current Interpretive Data was last revised on 2017. Basophil pct 0.4 % [facility] Comment: Interpretive Data Percent cell count reference ranges are not reported, since discordance with absolute values may lead to misinterpretation of CBC data. Current Interpretive Data was last revised on 2017. Blood 05/07/2024 12:1 7 PM CDT 05/07/2024 12:50 PM CDT Raymond Wolff MD LAB BLOOD ORDERABLES F inal Result [facility] [place] [address] * CBC with auto differential (05/07/2024 12:17 PM CDT) [facility] WBC 7.9 3.8 - 9.9 K/cumm Hgb 13.1 11.9 - 15.5 g/dL [facility] Hct 39.3 35.6 - 45.5 % [facility] Plt 311 150 - 400 K/cumm [facility] MPV 9.8 9.1 - 12.3 fL [facility] RBC 4.17 3.90 - 5.20 M/cumm [facility] MCV 94.2 81.3 - 96.4 fL [facility] MCH 31.4 27.1 - 33.3 pg [facility] MCHC 33.3 32.3 - 35.7 g/dL [facility] RDW CV 12.7 11.1 - 14.9 % [facility] RDW SD 43.9 35.7 - 48.1 fL [facility] NRBC abs 0.00 0.00 - 0.01 K/cumm [facility] Blood 05/07/2024 12:1 7 PM CDT 05/07/2024 12:50 PM CDT Raymond Wolff MD LAB BLOOD ORDERABLES F inal Result Performing Organization Address City/[facility]/ZIP Co de Phone Number [facility] [address] * Hepatitis C antibody Blood (05/07/2024 12:17 PM CDT) [facility] Hep C Ab Nonreactive Nonreactive Comment:Antibodies to HCV no t detected. Does NOT exclude the possibility of recent exposure to HCV. Current interpretive data was last revised on 22 Blood 05/07/2024 12:1 7 PM CDT 05/07/2024 12:50 PM CDT Raymond Wolff MD LAB MICROBIOLOGY - GEN [place] [address] * Hepatitis B Surface Antigen Blood (05/07/2024 12:17 PM CDT) [facility] HepBsAg Nonreactive Nonreactive Blood 05/07/2024 12:1 7 PM CDT 05/07/2024 12:50 PM CDT Raymond Wolff MD LAB MICROBIOLOGY - GEN ERAL ORDERABLES Final Result Performing Organization Address City/[facility] [place] [address] * Hemoglobin A1c (05/07/2024 12:17 PM CDT) [facility] Hgb A1C 5.2 4.0 - 5.6 % Estimated Average Glucose 103 mg/dL [facility] Comment: The ADA recommends reporting an estimated [...] MD LAB BLOOD ORDERABLES F inal Result [facility] [place] [address] * Comprehensive metabolic panel (05/07/2024 12:17 PM CDT) Sodium 140 135 - 145 mmol/L Potassium, pl 4.1 3.3 - 4.9 mmol/L [facility] Chloride 105 97 - 110 mmol/L [facility] CO2 27 22 - 32 mmol/L [facility] Anion gap 8 2 - 15 mmol/L [facility] BUN 10 6 - 25 mg/dL [facility] Creatinine 0.81 0.60 - 1.10 mg/dL [facility] Glucose 78 70 - 199 mg/dL [facility] Comment: Interpretive Data Fasting glucose >/= 126 [...] 2022. Calcium 9.2 8.5 - 10.3 mg/dL [facility] Bilirubin, total 0.4 0.1 - 1.2 mg/dL [facility] Protein, pl 7.6 6.5 - 8.5 g/dL [facility] Albumin 4.4 3.5 - 5.0 g/dL [facility] Alk phos 77 40 - 130 Units/L [facility] ALT 19 7 - 45 Units/L [facility] AST 26 10 - 45 Units/L [facility] Blood 05/07/2024 12:1 7 PM CDT 05/07/2024 12:50 PM CDT us Raymond Wolff MD LAB BLOOD ORDERABLES F inal Result [facility] [place] [address] from Last 3 Months Insurance EMPLOYEES EMPLOYEES EMPLOYEES [employer] EM[employer] Advance Directives For more information, please contact: [phone] * Full Code (Latest Code Status on File) Date Activated Date Inactivated Comments 11/12/2022 8:39 AM 11/12/2022 2:53 PM Care Teams Seating Upholsterer Relationship Specialty Start Date End Date Raymond Wolff MD [address] [facility] [address] [place] [address] PCP - General Internal Medicine 11/21/23 Kathy Catherine MD [address] [place] [address] Consulting Physician Gastroenterology 05/07/24 Doris Pruett MD [address] [facility] [address] [place] [address] Consulting Physician Dermatology 05/07/24 Mary Waters NP [address] [place] [address] Nurse Practitioner Nurse Practitioner 05/07/24
--- OUTSIDE RECORDS SUMMARY | 2024-07-09 06:33 | XMS_ITS | Encounter Summary ---
Author Organization [facility] Healthcare Address [address] [place] [address] Care Team Providers Care Grainer Machine Name Role Phone Pedro Luis Arndt MD Primary Care Provider [phone] Encounter Details Date Type Department Care Team (Late st Contact Info) Description 11/05/2022 Telephone [facility] Digestive Disease [place] [address] [address] Marilin Schmitt, ROBERT Social History Tobacco Use [...] voicemail asking patient to return call to [facility]. GENERAL INSTRUCTIONS [x] Bring [...] entire process. [x] Confirm patient has a bicycle taxi driver or responsible adult. Since you will [...] for her EGD with Dr Catherine at [facility] to arrive at 8:30 am. Her sister will be her bicycle taxi driver. She knows not to eat or drink anything after 12 midnight. She would like another reminder call. documented in this encounter Plan of Treatment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 documented as of this encounter Visit Diagnoses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documented in this encounter Care Teams Grainer Machine Relationship Specialty Start Date End Date Pedro Luis Arndt MD [address] [place] [address] PCP - General Family Medicine 09/03/22 11/20/23 documented as of this encounter
--- OUTSIDE RECORDS SUMMARY | 2024-07-09 06:33 | XMS_ITS | Encounter Summary ---
Author Organization [facility] Healthcare Address [address] [place] [address] Care Team Providers Care Dogger Name Role Phone Raymond Wolff MD Primary Care Provider Kathy Catherine MD Unavailable [phone] Doris Pruett MD Unavailable [phone] Mary Waters NP Unavailable [phone] Encounter Details Date Type Department Care Team (Late st Contact Info) Description 05/07/2024 1:10 PM CDT Lab 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 on [...] ORDERABLES F inal Result [facility] Department [place] [address] * Differential, auto (05/07/2024 12:17 PM CDT) Pathologist [facility] Neutrophil abs 4.1 1.5 - 6.5 K/cumm [...] ORDERABLES F inal Result [facility] [place] [address] * Comprehensive metabolic panel (05/07/2024 12:17 PM [...] ORDERABLES F inal Result [facility] Department [place] [address] * CBC with auto differential (05/07/2024 12:17 PM CDT) [facility] WBC 7.9 3.8 - 9.9 K/cumm [...] ORDERABLES F inal Result Performing Organization Address [facility] de Phone Number [facility] [place] [address] * Hemoglobin A1c (05/07/2024 12:17 PM CDT) [facility] Hgb A1C 5.2 4.0 - 5.6 [...] ORDERABLES F inal Result Performing Organization Address [facility] de Phone Number [facility] [place] [address] * Hepatitis B Surface Antigen Blood (05/07/2024 12:17 PM CDT) [facility] HepBsAg Nonreactive Nonreactive Blood 05/07/2024 12:1 7 PM CDT 05/07/2024 12:50 PM CDT us Raymond Wolff MD LAB MICROBIOLOGY - GEN ERAL ORDERABLES Final Result Performing Organization Address City/[facility] Co de Phone Number [facility] Department [place] [address] * Hepatitis C antibody Blood (05/07/2024 12:17 PM CDT) Hep C Ab Nonreactive Nonreactive Comment:Antibodies to HCV no t detected. Does NOT exclude the possibility of recent exposure to HCV. Current interpretive data was last revised on 22 Blood 05/07/2024 12:1 7 PM CDT 05/07/2024 12:50 PM CDT Raymond Wolff MD LAB MICROBIOLOGY - GEN ERAL ORDERABLES Final Result Performing Organization Address [facility] Co de Phone Number [facility] Department [place] [address] documented in this encounter Visit Diagnoses Diagnosis Preventative health care Routine general medical examination at a health care facility Screening for viral disease Special screening examination for unspecified viral disease Screening for diabetes mellitus Screening for deficiency anemia Screening for other and unspecified deficiency anemia Screening for metabolic disorder documented in this encounter Care Teams Dogger Relationship Specialty Start Date End Date Raymond Wolff MD [address] [facility] [address] [place] [address] PCP - General Internal Medicine 11/21/23 Kathy Catherine MD [address] [place] [address] Consulting Physician Gastroenterology 05/07/24 Doris Pruett MD [address] [facility] [address] [place] [address] Consulting Physician Dermatology 05/07/24 Mary Waters NP [address] [place] [address] Nurse Practitioner Nurse Practitioner 05/07/24 documented as of this encounter
--- OUTSIDE RECORDS SUMMARY | 2024-07-09 06:33 | XMS_ITS | Encounter Summary ---
Author Organization [facility] Address [address] [place] [address] Phone Care Team Providers Care Director Of Housing And Energy Services Name Role Phone Raymond Wolff MD Primary Care Provider Encounter Details Date Type Department Care Team (Late st Contact Info) Description 04/23/2024 Immunization [facility] Occupational Health [address] [facility] 5th Floor [address] [place] [address] Deb Cardenas Encounter for vaccination (Primary Dx) [...] 04/23/2024 documented in this encounter Care Teams Director Of Housing And Energy Services Relationship Specialty Start Date End Date Raymond Wolff MD [address] [address] PCP - General Internal Medicine 11/21/23 documented as of this encounter
--- OUTSIDE RECORDS SUMMARY | 2024-07-09 06:33 | XMS_ITS | Referral Summary ---
Author Organization [facility] Address [address] [facility] [place] [address] Care Team Providers Care Rolloff Truck Driver Name Role Phone Unavailable Primary Care Provider Unavailabl e Source Comments [facility],non-owned Affiliates and Associated Physician Practices is amultiple site organization consisting of ambulatory clinics and hospital sitesin [place], [place], [place] and [place]. This disclosure is being madepursuant to the Care Everywhere program and may not contain all information available regarding this patient. Last updated 18.[facility] Allergies Active Allergy Reactions Criticality Noted Date [...] Comments Blood Pressure 122/80 08/06/2017 11:51 AM PLASTICS PRODUCTION MACHINE OPERATOR Pulse 112 08/06/2017 11:51 AM PLASTICS PRODUCTION MACHINE OPERATOR Temperature 37.7 ??C (99.8 ??F) 08/06/2017 11:[address] Respiratory Rate 16 08/06/2017 11:51 AM PLASTICS PRODUCTION MACHINE OPERATOR Oxygen Saturation 98% 08/06/2017 11:51 AM PLASTICS PRODUCTION MACHINE OPERATOR Inhaled Oxygen Concentration - - Weight 62.1 kg (137 lb) 08/06/2017 11:51 AM PLASTICS PRODUCTION MACHINE OPERATOR Height 162.6 cm (5' 4 ) 08/06/2017 11:51 AM PLASTICS PRODUCTION MACHINE OPERATOR Body Mass Index 23.52 08/06/2017 11:51 AM PLASTICS PRODUCTION MACHINE OPERATOR Plan of Treatment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
--- OUTSIDE RECORDS SUMMARY | 2024-07-09 06:33 | XMS_ITS | Encounter Summary ---
Author Organization [facility] Address [address] [place] [address] Phone Care Team Providers Care Yard Hand Name Role Phone Pedro Luis Arndt MD Primary Care Provider [phone] Reason for Visit * Consultation (Routine) - Closed Specialty Diagnoses / Procedures Referred By Nette cruz Referred To Contact Gastroenterology Diagnoses Abdominal pain Nausea GERD without esophagitis Referral, Self [facility] (All Locations) Referral ID Status Reason Start Date Expiration Date V isits Requested Visits Authorized [id number] Closed Specialty Services Required 09/03/2022 10/03/2023 1 1 Encounter Details Date Type Department Care Team (Latest Contact Info) Description 09/27/2022 9:00 AM CDT Office Visit [facility] Gastroenterology [address] [facility] Advanced Medicine 12th [place] [address] [place] [address] Kathy Catherine MD [address] [place] [address] Oropharyngeal dysphagia (Primary Dx); Nausea Social History [...] OF MEDICINE DIVISION OF GASTROENTEROLOGY Clinic Address: [address] [place] [address], [address] [place] [address] Mailing Address: [facility] [address], [place] [address] [place] [address] Consult Note NAME: Bethany Fowler : 1990 [...] , Rfl: al & mag hydroxide with iwfviqdywmh-omshcmmayhaeogg-pwhynolpb (MAGIC MOUTHWASH) suspension 1-1-1, Swish and swallow [...] Allergies Allergen Reactions Vicks Dayquil Allergy Syncope Wnzwzbhvj-Bq-Rk-Acetaminophen Dizziness fainting No family history on file. [...] clinic in 6 months Kathy Catherine MD Commercial Loan Collection Officermeeting specialist [place] [address] [place] [address] information technology assistant Academic office documented in this encounter [...] 09/27/2022 documented in this encounter Care Teams Yard Hand Relationship Specialty Start Date End Date Pedro Luis Arndt MD [address] [place] [address] PCP - General Family Medicine 09/03/22 11/20/23 documented as of this encounter
--- OUTSIDE RECORDS SUMMARY | 2024-07-09 06:33 | XMS_ITS | Encounter Summary ---
Author Organization [facility] Healthcare Address [address] [place] [address] Care Team Providers Care Assistant Professor Of Physics Name Role Phone Unavailable Primary Care Provider Unavailabl e Encounter Details Date Type Department Care Team (Late st Contact Info) Description 03/01/[address] [facility] [address] [facility] [address] (Third Floor) [place] [address] Melia Leonard NP [address] [place] [address] Social History Tobacco Use Types Packs/Day Years [...]
--- OUTSIDE RECORDS SUMMARY | 2024-07-09 06:33 | XMS_ITS | Encounter Summary ---
Author Organization [facility] Address [address] [place] [address] Phone Care Team Providers Care Measurement Department Chief Clerk Name Role Phone Pedro Luis Arndt MD Primary Care Provider Reason for Referral * Diagnostic Imaging (Routine) - Closed Specialty Diagnoses / Procedures Referred By Nette cruz Referred To Contact Diagnoses Oropharyngeal dysphagia Procedures FL Modified Barium Swallow W Video Kathy Catherine MD [address] [place] [address] Phone: tel: fax: [address] [address] Referral ID Status Reason Start Date Expiration Date Visits Re quested Visits Authorized [id number] Closed 11/25/2022 12/25/2023 1 1 Encounter Details Date Type Department Care Team (Late st Contact Info) Description 11/25/2022 Orders Only [facility] Gastroenterology [address] [facility] Medicine 12th [place] [address] [place] [address] Kathy Catherine MD [address] [place] [address] Oropharyngeal dysphagia (Primary Dx) Social [...] documented as of this encounter Care Teams Measurement Department Chief Clerk Relationship Specialty Start Date End Date Pedro Luis Arndt MD [address] [place] [address] PCP - General Family Medicine 09/03/22 11/20/23 documented as of this encounter
--- OUTSIDE RECORDS SUMMARY | 2024-07-09 06:33 | XMS_ITS | Encounter Summary ---
Author Organization [facility] Address [address] [facility] [address] [place] [address] Care Team Providers Care Poleyard Supervisor Name Role Phone No, Physician Primary Care Provider Reason for Visit * Reason Comments Mouth Lesions Encounter Details Date Type Department Care Team (Late st Contact Info) Description 04/26/2021 10:30 AM CDT Office Visit [facility] Primary Care at [facility] [address] [place] [address] Karina Florentino, BRICK GRADER [address] [address] Aphthous ulcer of mouth (Primary [...] Patient Instructions * Patient Instructions* Karina Florentino, BRICK GRADER - 04/26/2021 10:30 AM CDT Prednisone daily for 5 days Magic mouthwash every 4 hours as needed for pain (Swish and Spit) If no improvement in 4-5 days follow up with PCP Patient Education Gingivostomatitis AUDIT ANALYST: Gingivostomatitis (GS) is a condition that causes [...] a viral infection. Manage your symptoms: ?? [place] your teeth at least 2 times each [...] ask them during your visits. ?? 2017 [employer] Information is for End User's use only and may not be sold, redistributed or otherwise used for commercial purposes. All illustrations and images included in CareNotes?? are the copyrighted property of [employer], [facility]. or [employer]. The above information is an gericare aide only. It is not intended as [...] this encounter Progress Notes * Karina Florentino, BRICK GRADER - 04/26/2021 10:30 AM CDT Subjective/Objective Patient [...] or tender. Nose: Nose normal. Mouth/Throat: Lips: [place]. Mouth: Mucous membranes are moist. Oral lesions [...] orders - al & mag hydroxide with tfjsumyjdai-iuhdibyqkqhzmla-akrtmhham (MAGIC MOUTHWASH) suspension 1-1-1; Swish and swallow [...] 04/26/2021 documented in this encounter Care Teams Poleyard Supervisor Relationship Specialty Start Date End Date No, Physician PCP - General 04/26/21 09/02/22 documented as of this encounter
--- OUTSIDE RECORDS SUMMARY | 2024-07-09 06:33 | XMS_ITS | Encounter Summary ---
Author Organization [facility] Address [address] [address] Care Team Providers Care Cna Caregiver Name Role Phone No, Physician Primary Care Provider Encounter Details Date Type Department Care Team (Late st Contact Info) Description 11/08/2021 Telephone [facility] Out[facility] [address] [address] Tamiko Elmore MA Social History [...] on filedocumented in this encounter Care Teams Cna Caregiver Relationship Specialty Start Date End Date No, Physician PCP - General 04/26/21 09/02/22 documented as of this encounter
--- OUTSIDE RECORDS SUMMARY | 2024-07-09 06:33 | XMS_ITS | Encounter Summary ---
Author Organization [facility] Healthcare Address [address] [place] [address] Care Team Providers Care Etcher Electrolytic Name Role Phone No, Physician Primary Care Provider [phone] Reason for Visit * Reason Onset Date Comments COVID-19 EVALUATION 11/04/2021 Encounter Details Date Type Department Care Team (Late st Contact Info) Description 11/04/2021 Telephone [facility] Occupati[facility]onal [facility] [address] [place] [address] Room 3420 (Third Floor) [place] [address] Nataliya Bardales RN COVID-19 EVALUATION Social History [...] Miscellaneous Notes * Telephone Encounter - Nataliya Bardales RN - 11/04/2021 11:57 AM CDT Employee COVID-19 Screening 03/01/2020 11/16/2020 03/29/2021 11/04/2021 Vaccine related call? - No No No Email: [email or web address] Employee/Student ID# [id number] Are you an employee or student? Employee Employee Employee Employee Employer: [employer] Employer Comment - - [employer] - Does your work require you to go into patient care areas (hospital or clinic)? 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 [...] Yes Yes Who provided the vaccine: - [facility] Covid Vaccine Who Provided - Pfizer [...] or a delay in testing results. Provided [facility] number [phone] for her to report her testing results. Patient is getting tested at @2:40 at [facility] deferrs testing at /[facility] at this time. Provided [facility] number to call results: [phone] - Script J (post-exposure script) for asymptomatic [...] setting. We will email you and your process area supervisor a table with guidance on work exclusion. It is up to you and your process area supervisor to adhere to this guidance. The email will come from [email or web address]; if you do not receive it, please check to see if your email gravity meter observer has automatically routed it to [employer]. documented in this encounter Plan of Treatment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 documented as of this encounter Visit Diagnoses Diagnosis Exposure to confirmed case of COVID-19- Primary documented in this encounter Care Teams Etcher Electrolytic Relationship Specialty Start Date End Date No, Physician PCP - General 04/26/21 09/02/22 documented as of this encounter
--- OUTSIDE RECORDS SUMMARY | 2024-07-09 06:33 | XMS_ITS | Encounter Summary ---
Author Organization [facility] Healthcare Address [address] [place] [address] Care Team Providers Care Bilingual Operator Name Role Phone Pedro Luis Arndt MD Primary Care Provider [phone] Reason for Visit * Auth/Cert (Routine) Specialty Diagnoses / Procedures Referred By Contac t Referred To Contact Diagnoses Oropharyngeal dysphagia Oropharyngeal dysphagia [R13.12] Procedures VT ESOPHAGOGASTRODUODENOSCOPY TRANSORAL DIAGNOSTIC ESOPHAGOGASTRODUODENOSCOPY Referral ID Status Reason Start Date Expiration Date Visits Re quested Visits Authorized [id number] 1 1 Encounter Details Date Type Department Care Team (Late st Contact Info) Description 11/12/2022 9:44 AM CDT Anesthesia Event [facility] Digestive Disease [place] [address] [facility] [address] [place] [address] Nataly Arriaza MD [address] [facility] [address] [place] [address] Anesthesia Record Procedure Summary Procedure Name Responsible [...] Procedure Summary Date: 11/12/22 Room / Location: [facility] ROOM 3 / [facility] Anesthesia Start: 943 Anesthesia Stop: 1002 [...] Reactions ??? Vicks Dayquil Allergy Syncope ??? Xmredfnrm-Vo-Xc-Acetaminophen Dizziness fainting Taking? Last Dose Start Date End Date Provider al & mag hydroxide with guiciikpfau-rsnbdcsiexklssd-btbiwksgt (MAGIC MOUTHWASH) suspension 1-1-1 Unknown 04/26/21 -- [...] Medication protocol when under care of a INSTRUMENT ASSEMBLY SUPERVISOR Planned anesthesia: MAC Induction: Induction: intravenous. Postoperative Plan: Patient's planned disposition post procedure is Outpatient. Informed Consent: Discussed plan with INSTRUMENT ASSEMBLY SUPERVISOR. Anesthesia plan and risks discussed with patient. [...] mL/hr documented in this encounter Care Teams Bilingual Operator Relationship Specialty Start Date End Date Pedro Luis Arndt MD [address] [place] [address] PCP - General Family Medicine 09/03/22 11/20/23 documented as of this encounter
--- OUTSIDE RECORDS SUMMARY | 2024-07-09 06:33 | XMS_ITS | Encounter Summary ---
Author Organization [facility] Address [address] [place] [address] Care Team Providers Care Channel Lip Stiffener Insoles Name Role Phone Raymond Wolff MD Primary Care Provider Kathy Catherine MD Unavailable [phone] Doris Pruett MD Unavailable [phone] Mary Waters NP Unavailable [phone] Reason for Visit * Reason Comments Preventative Care Encounter Details Date Type Department Care Team (Late st Contact Info) Description 05/07/2024 11:00 AM CDT Office Visit [facility] [address] [phone] Raymond Wolff MD [address] [address] Preventative health care (Primary Dx); Class 1 [...] 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 Discussed risks and [...] PM CDT 05/07/2024 12:50 PM CDT Result [facility] Raymond Wolff MD LAB MICROBIOLOGY - GEN ERAL ORDERABLES Final Result Performing Organization Address [facility] de Phone Number [facility] [place] [address] * Hepatitis B Surface Antigen Blood (05/07/2024 12:17 PM CDT) HepBsAg Nonreactive Nonreactive Blood 05/07/2024 12:1 7 PM CDT 05/07/2024 12:50 PM CDT Result [facility] Raymond Wolff MD LAB MICROBIOLOGY - GEN ERAL ORDERABLES Final Result Performing Organization Address [facility] de Phone Number [facility] [place] [address] * Hemoglobin A1c (05/07/2024 12:17 PM CDT) Pathologist [facility] Hgb A1C 5.2 4.0 - 5.6 % Estimated Average Glucose 103 mg/dL [facility] Comment: The ADA recommends reporting an estimated Average Glucose (eAG) with all Hemoglobin A1c results using the equation derived from a study of 507 normal and diabetic adults. ??Minority populations were underrepresented and children were not included. ?? (Diabetes Care 2020; 43(S1): S66-S76). ??The eAG is not equivalent to a fasting glucose. Blood 05/07/2024 12:1 7 PM CDT 05/07/2024 12:51 PM CDT Result [facility] Raymond Wolff MD LAB BLOOD ORDERABLES F inal Result Performing Organization Address [facility] Co de Phone Number [facility] [place] [address] * CBC with auto differential (05/07/2024 12:17 PM CDT) [facility] WBC 7.9 3.8 - 9.9 K/cumm Hgb 13.1 11.9 - 15.5 g/dL [facility] Hct 39.3 35.6 - 45.5 % [facility] Plt 311 150 - 400 K/cumm [facility] MPV 9.8 9.1 - 12.3 fL [facility] RBC 4.17 3.90 - 5.20 M/cumm [facility] MCV 94.2 81.3 - 96.4 fL [facility] MCH 31.4 27.1 - 33.3 pg [facility] MCHC 33.3 32.3 - 35.7 g/dL [facility] RDW CV 12.7 11.1 - 14.9 % [facility] RDW SD 43.9 35.7 - 48.1 fL [facility] NRBC abs 0.00 0.00 - 0.01 K/cumm [facility] Blood 05/07/2024 12:1 7 PM CDT 05/07/2024 12:50 PM CDT us Raymond Wolff MD LAB BLOOD ORDERABLES F inal Result [facility] Department [place] [address] * Comprehensive metabolic panel (05/07/2024 12:17 PM CDT) [facility] Sodium 140 135 - 145 mmol/L Potassium, pl 4.1 3.3 - 4.9 mmol/L [facility] Chloride 105 97 - 110 mmol/L [facility] CO2 27 22 - 32 mmol/L [facility] Anion gap 8 2 - 15 mmol/L [facility] BUN 10 6 - 25 mg/dL [facility] Creatinine 0.81 0.60 - 1.10 mg/dL [facility] Glucose 78 70 - 199 mg/dL [facility] Comment: Interpretive Data Fasting glucose >/= 126 [...] Calcium 9.2 8.5 - 10.3 mg/dL [facility] Bilirubin, total 0.4 0.1 - 1.2 mg/dL [facility] Protein, pl 7.6 6.5 - 8.5 g/dL [facility] Albumin 4.4 3.5 - 5.0 g/dL [facility] Alk phos 77 40 - 130 Units/L [facility] ALT 19 7 - 45 Units/L [facility] AST 26 10 - 45 Units/L [facility] Blood 05/07/2024 12:1 7 PM CDT 05/07/2024 12:50 PM CDT us Raymond Wolff MD LAB BLOOD ORDERABLES F inal Result [facility] Department [place] [address] documented in this encounter Visit Diagnoses Diagnosis [...] documented as of this encounter Care Teams Channel Lip Stiffener Insoles Relationship Specialty Start Date End Date Raymond Wolff MD [address] [facility] [address] [place] [address] PCP - General Internal Medicine 11/21/23 Kathy Catherine MD [address] [place] [address] Consulting Physician Gastroenterology 05/07/24 Doris Pruett MD [address] [facility] [address] [place] [address] Consulting Physician Dermatology 05/07/24 Mary Waters NP [address] [place] [address] Nurse Practitioner Nurse Practitioner 05/07/24 documented as of this encounter
--- OUTSIDE RECORDS SUMMARY | 2024-07-09 06:33 | XMS_ITS | Encounter Summary ---
Author Organization [facility] Healthcare Address [address] [place] [address] Care Team Providers Care Compliance Engineer Products Name Role Phone Unavailable Primary Care Provider Unavailabl e Encounter Details Date Type Department Care Team (Late st Contact Info) Description 03/01/2020 Telephone [facility] [address] [place] [address] Room 3420 (Third Floor) [place] [address] Naima Dockery, WOOD LATHE OPERATOR [address] [place] [address] Social History Tobacco Use Types Packs/Day Years [...] PM CDT Employee COVID-19 Screening 03/01/2020 Email: [email or web address] Employee/Student ID# [id number] Are you an employee or student? Employee Employer: [employer] Does your work require you to go into patient care areas (hospital or clinic)? 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 [...] 14 day work exclusion you must contact [facility] Occupational Health before returning to work. Email: [email or web address] ?? You should isolate yourself at home, avoid contact with any household members as much as possible, and stay in your home without leaving except for medical care. ?? You should perform active symptom monitoring: ?? You must record your temperature and any symptoms you may have twice a day (morning and evening)using the COVID-19 Symptom Log at: [email or web address]. If you donot have Internet access, use [...] for reassessment. ?? You should let your public relations account supervisor know that you will not be coming to work. Although the Call Center will email your public relations account supervisor to confirm that you have been instructed not to come to work, it is still your responsibility to notify your public relations account supervisor as you would for any other work absence. documented in this encounter Plan of Treatment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 documented as of this encounter Visit Diagnoses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documented in this encounter
--- OUTSIDE RECORDS SUMMARY | 2024-07-09 06:33 | XMS_ITS | Encounter Summary ---
Author Organization [facility] Address [address] [place] [address] Care Team Providers Care Hydrodynamicist Name Role Phone Pedro Luis Arndt MD Primary Care Provider [phone] Encounter Details Date Type Department Care Team (Late st Contact Info) Description 11/19/2023 12:30 PM CDT Office Visit [facility] [address] [facility] [address] [place] [address] Raymond Wolff MD [address] [facility] [address] [place] [address] Attention deficit hyperactivity disorder (ADHD), combined type [...] 01/30/2024 added in this encounter Care Teams Hydrodynamicist Relationship Specialty Start Date End Date Pedro Luis Arndt MD [address] [place] [address] PCP - General Family Medicine 09/03/22 11/20/23 documented as of this encounter
--- OUTSIDE RECORDS SUMMARY | 2024-07-09 06:33 | XMS_ITS | Encounter Summary ---
Author Organization [facility] Address [address] [place] [address] Care Team Providers Care Clinical Office Technician Name Role Phone Raymond Wolff MD Primary Care Provider Reason for Referral * Consultation (Routine) - Pending Review Specialty Diagnoses / Procedures Referred By Contac t Referred To Contact Weight Management Diagnoses Overweight Raymond Wolff MD [address] [address] Phone: tel: fax: [facility] (All Locations) Referral ID Status Reason Start Date Expiration Date Visits Requested Visits Authorized [id number] Pending Review Specialty Services Required 02/20/2024 03/21/2025 1 1 Question Answer Please select the performing region: [facility] (All Locations) [167] # of visits: 1 Encounter Details Date Type Department Care Team (Late st Contact Info) Description 02/20/2024 9:45 AM CDT Office [facility] [address] [place] [address] Raymond Wolff MD [address] [address] Overweight (Primary Dx); Fatigue, unspecified [...] day. She did weight loss program through [facility] last year and they recommended not going below this. She thinks she is at/just under 1200 calories about 100% of the time during the week. She is more like 7834-8498 calories on the weekends. She is more likely to eat breakfast and lunch on the weekends. She is using [employer] and uses a food scale she uses [...] her OCP and encouraged further discussion from PHOTOGRAPHIC AIDE. Reviewed thyroid levels and still think cortisol [...] type documented in this encounter Care Teams Clinical Office Technician Relationship Specialty Start Date End Date Raymond Wolff MD [address] [address] PCP - General Internal Medicine 11/21/23 documented as of this encounter
--- OUTSIDE RECORDS SUMMARY | 2024-07-09 06:33 | XMS_ITS | Encounter Summary ---
Author Organization [facility] Healthcare Address [address] [place] [address] Care Team Providers Care Converter Operator Name Role Phone Raymond Wolff MD Primary Care Provider Encounter Details Date Type Department Care Team (Late st Contact Info) Description 12/17/2023 10:00 AM CDT Lab [facility] Advanced Medicine [facility] Advanced Medicine ([facility]) [address] [place] [phone] Screening for lipid disorders; Screening for thyroid [...] in this encounter Results * Thyroid Function [place] (12/17/2023 9:48 AM CDT) TSH 1.85 0.30 - 4.20 mcIUnit/mL Blood 12/17/2023 9:48 AM CDT 12/17/2023 9:55 AM CDT us Raymond Wolff MD LAB BLOOD ORDERABLES F inal Result [facility] [address] [facility] Department [place] [address] * (ABNORMAL) Lipid panel (12/17/2023 9:48 AM [...] revised on 2018. HDL 72 >=40 mg/dL [facility] Comment: Interpretive Data Ages < or [...] 2018. LDL, calculated 148(H) <=129 mg/dL [facility] Comment: Interpretive Data Ages < or [...] last revised on 2018. Chol/HDL ratio 3 [facility] Blood 12/17/2023 9:48 AM CDT 12/17/2023 9:55 AM CDT us Raymond Wolff MD LAB BLOOD ORDERABLES F inal Result [facility] Department [place] [address] documented in this encounter Visit Diagnoses Diagnosis Screening for lipid disorders Screening for thyroid disorder documented in this encounter Care Teams Converter Operator Relationship Specialty Start Date End Date Raymond Wolff MD [address] [address] PCP - General Internal Medicine 11/21/23 documented as of this encounter
--- OUTSIDE RECORDS SUMMARY | 2024-07-09 06:33 | XMS_ITS | Encounter Summary ---
Author Organization [facility] Address [address] [place] [address] Phone Care Team Providers Care Drafter Civil (Cad) Name Role Phone Pedro Luis Arndt MD Primary Care Provider [phone] Encounter Details Date Type Department Care Team (Latest Contact Info) Description 03/28/2023 9:30 AM CDT Office Visit [facility] Gastroenterology [address] [facility] 12th [place] [address] [place] [address] Kathy Catherine MD [address] [place], [place] [id number] Oropharyngeal dysphagia (Primary Dx); Nausea Social History [...] OF MEDICINE DIVISION OF GASTROENTEROLOGY Clinic Address: [address] [place] [address], [address] , [place] [address] Mailing Address: [facility] Yary Motley [facility], [place] [address], [place] [id number] Return Visit NAME: Bethany Fowler : 1990 [...] Allergies Allergen Reactions Vicks Dayquil Allergy Syncope Xxcisvczj-Pv-Aq-Acetaminophen Dizziness fainting Family History Problem Relation Age [...] esophagus. Biopsied. - Esophagogastric landmarks identified. - [place]-colored mucosa. - No gross lesions in the [...] placed in this encounter. Kathy Catherine MD Production Analystprofessor of archaeology [place] [address] [place] [address] drug safety assistant Academic office Rtc 6 months documented [...] 11/19/2023 added in this encounter Care Teams Drafter Civil (Cad) Relationship Specialty Start Date End Date Pedro Luis Arndt MD [address] [place] [address] PCP - General Family Medicine 09/03/22 11/20/23 documented as of this encounter
--- OUTSIDE RECORDS SUMMARY | 2024-07-09 06:33 | XMS_ITS | Encounter Summary ---
Author Organization [facility] Address [address] [place] [address] Phone Care Team Providers Care Caustic Plant Worker Name Role Phone Raymond Wolff MD Primary Care Provider Encounter Details Date Type Department Care Team (Late st Contact Info) Description 03/12/2024 1:00 PM CDT Office Visit [facility] Dermatology [address] [facility] [address] [place] [address] [place], Doris Young MD [address] [facility] [address] [place] [address] Folliculitis (Primary Dx); Dermal nevus; [...] Laundry Treatment UV Protectant (for sale on [employer]), just with one laundry cycle with Sun [...] rash guards during outdoor activities. Check out: www.[employer] - sun protective clothing and hats with built in UV protection documented in this encounter Progress Notes * Leena Camp MD - 03/12/2024 1:00 PM CDT [facility] Dermatology Bethany Fowler : 1990 LAURA: March [...] Lentigines documented in this encounter Care Teams Caustic Plant Worker Relationship Specialty Start Date End Date Raymond Wolff MD [address] [address] PCP - General Internal Medicine 11/21/23 documented as of this encounter
--- OUTSIDE RECORDS SUMMARY | 2024-07-09 06:33 | XMS_ITS | Encounter Summary ---
Author Organization [facility] Healthcare Address [address] [place] [address] Care Team Providers Care Rn Correctional Name Role Phone Pedro Luis Arndt MD Primary Care Provider [phone] Reason for Visit * Reason Comments Urinary Symptom For a week Encounter Details Date Type Department Care Team (Late st Contact Info) Description 10/11/2023 7:45 AM CDT Telemedicine [facility] Medical Group Virtual Care [address] [place] [phone] Myesha Molina NP [address] [place] [address] Acute cystitis without hematuria (Primary Dx) Social [...] took place via real-time video connection with [facility]. During the visit, I was located at home and the patient was located at home in the state of [place]. The patient visit started at 0805 and [...] Primary documented in this encounter Care Teams Rn Correctional Relationship Specialty Start Date End Date Pedro Luis Arndt MD [address] [place] [address] PCP - General Family Medicine 09/03/22 11/20/23 documented as of this encounter
--- OUTSIDE RECORDS SUMMARY | 2024-07-09 06:33 | XMS_ITS | Encounter Summary ---
Author Organization [facility] Healthcare Address [address] [place] [address] Care Team Providers Care Supervisor Beehive Kiln Name Role Phone Pedro Luis Arndt MD Primary Care Provider [phone] Reason for Visit * Auth/Cert (Routine) Specialty Diagnoses / Procedures Referred By Contac t Referred To Contact Diagnoses Oropharyngeal dysphagia Oropharyngeal dysphagia [R13.12] Procedures [place] ESOPHAGOGASTRODUODENOSCOPY TRANSORAL DIAGNOSTIC ESOPHAGOGASTRODUODENOSCOPY Referral ID Status Reason Start Date Expiration Date Visits Re quested Visits Authorized [id number] 1 1 Encounter Details Date Type Department Care Team (Latest Contact Info) Description 11/12/2022 8:23 AM CDT - 11/12/2022 10:47 AM CDT Hospital Encounter [facility] [place] [address] [facility] [address] [place] [address] Kathy Catherine MD [address] [place] [facility] [address] [place] [address] Oropharyngeal dysphagia Discharge Disposition: Discharge to home [...] Allergies Allergen Reactions Vicks Dayquil Allergy Syncope Vlrhthnkg-Gm-Ml-Acetaminophen Dizziness fainting Prior to Admission medications Medication Sig Start Date End Date Taking? Authorizing Provider dexmethylphenidate XR (FOCALIN XR) 20 mg 24 hr capsule Take by mouth daily 04/16/21 Yes Maxx Farias MD omeprazole (PriLOSEC) 20 mg capsule Take 1 capsule (20 mg total) by mouth daily Yes Maxx Farias MD al & mag hydroxide with pfkwolyuees-rwebmhbtmvgyeew-mzyvmzfwn (MAGIC MOUTHWASH) suspension 1-1-1 Swish and swallow 10 mL every 4 (four) hours as needed (for aphthous ulcers in mouth) Patient not taking: Reported on 09/27/2022 04/26/21 Karina Florentino, FAMILY SUPPORT WORKER fluconazole (DIFLUCAN) 150 mg tablet 04/25/21 Maxx [...] Female Attending MD: Kathy Catherine M.D. Room: [facility] ENDOSCOPY ROOM 3 Note Status: Finalized Procedure: [...] esophagus. Biopsied. - Esophagogastric landmarks identified. - [place]-colored mucosa. - No gross lesions in the [...] On: 11/12/2022 9:46 AM Recognized by the [employer] [employer] for promoting quality [...] biopsy) 11/12/2022 9:54 AM CDT Narrative PATHOLOGY [facility] - 11/14/2022 12:05 PM CDT EPIC results best viewed via link to PDF [facility] [place] [address] Note to Patients: This report may contain [...] Gender: ??F : ??1990 (Age: 32) Address: ??[address] [place] [address] ??[phone] Hospital #: ??[id number] Taken:11/12/2022 Received:11/12/2022 Reported: 11/14/2022 Patient Type: [facility] SDS ?? Service: Gastro Location: Physician(s): ??Kathy [...] Surgical Pathology and Flow Cytometry Departments at [facility] as part of an ongoing air quality consultant program and in compliance with federally mandated [...] Surgical Pathology and Flow Cytometry Departments of [facility]. ??It has not been cleared or approved by the U. S. Food and Drug Administration. IMAGES AND SCANNED DOCUMENTS, IF INCLUDED, ONLY VIEWABLE IN PDF VERSION OF REPORT Kathy Catherine MD LAB PATHOLOGY ORDERABLES Final Result PATHOLOGY [facility] 3rd Floor [place], [place] [phone] * EGD (11/12/2022 9:46 AM CDT) Anatomical Region Laterality Modality Other Narrative Procedure Note Kathy Catherine MD - 11/12/2022 9:46 AM CDT [facility]OS[facility] Patient Name: Myra Fowler Procedure Date: 11/12/2022 9:46 AM Date of : 1990 Admit Type: Outpatient Age: 32 Gender: Female Attending MD: Kathy Catherine M.D. Room: [facility] ENDOSCOPY ROOM 3 Note Status: Finalized Procedure: [...] entire esophagus.Biopsied. - Esophagogastric landmarks identified. - [place]-colored mucosa. - No gross lesions in the [...] On: 11/12/2022 9:46 AM Recognized by the [place] for promoting quality [...] 11/12/2022 documented in this encounter Care Teams Supervisor Beehive Kiln Relationship Specialty Start Date End Date Pedro Luis Arndt MD [address] [place] [address] PCP - General Family Medicine 09/03/22 11/20/23 documented as of this encounter
--- OUTSIDE RECORDS SUMMARY | 2024-07-09 06:33 | XMS_ITS | Patient Health Summary ---
Author Organization [facility] Address [address] [place] [address] Care Team Providers Care School Janitor Name Role Phone Unavailable Primary Care Provider Unavailabl e Note from [facility],non-owned Affiliates and Associated Physician Practices is amultiple site organization consisting of ambulatory clinics and hospital sitesin [place], [place], [place] and [place]. This disclosure is being madepursuant to the Care Everywhere program and may not contain all information available regarding this patient. Last updated 18.[facility] Allergies * Day Time(Dizziness) Medications * Be [...] Comments Blood Pressure 122/80 08/06/2017 11:51 AM SENIOR MECHANICAL PROJECT MANAGER Pulse 112 08/06/2017 11:51 AM SENIOR MECHANICAL PROJECT MANAGER Temperature 37.7 ??C (99.8 ??F) 08/06/2017 11:[address] Respiratory Rate 16 08/06/2017 11:51 AM SENIOR MECHANICAL PROJECT MANAGER Oxygen Saturation 98% 08/06/2017 11:51 AM SENIOR MECHANICAL PROJECT MANAGER Inhaled Oxygen Concentration - - Weight 62.1 kg (137 lb) 08/06/2017 11:51 AM SENIOR MECHANICAL PROJECT MANAGER Height 162.6 cm (5' 4 ) 08/06/2017 11:51 AM SENIOR MECHANICAL PROJECT MANAGER Body Mass Index 23.52 08/06/2017 11:51 AM SENIOR MECHANICAL PROJECT MANAGER Procedures * INFLUENZA A+B - POINT OF CARE (AMB)(Performed 08/06/2017) Performed for Influenza A Results * (ABNORMAL) INFLUENZA A+B - POINT OF CARE (AMB) (08/06/2017 11:58 AM SENIOR MECHANICAL PROJECT MANAGER) Influenza A Antigen Rapid Positive(A) Negative Influenza B Antigen Rapid Negative Negative Influenza Internal Control present NEGATIVE - POSITIVE Influenza Lot Number [id number] Influenza Expiration Date 04 28 2019 Other NASOPHARYNGEAL SWAB / Unknown 08/06/2017 11:58 AM SENIOR MECHANICAL PROJECT MANAGER Chester Kincaid DEAN OF ADMISSIONS-CRUSHER LOADER OPERATOR LAB - POINT OF [place] RE ORDERABLES
--- OUTSIDE RECORDS SUMMARY | 2024-07-09 06:33 | XMS_ITS | Encounter Summary ---
Author Organization [facility] Healthcare Address [address] [place] [address] Care Team Providers Care Office Rental Clerk Name Role Phone Pedro Luis Arndt MD Primary Care Provider [phone] Reason for Referral * Diagnostic Imaging (Routine) - Closed Specialty Diagnoses / Procedures Referred By Nette cruz Referred To Contact Diagnoses Oropharyngeal dysphagia Procedures [place] Modified Barium Swallow W Video Kathy Catherine MD [address] [address] Phone: tel: fax: [address] [address] Referral ID Status Reason Start Date Expiration Date Visits Re quested Visits Authorized [id number] Closed 11/25/2022 12/25/2023 1 1 Reason for Visit * Diagnostic Imaging (Routine) - Closed Specialty Diagnoses / Procedures Referred By Nette cruz Referred To Contact Diagnoses Oropharyngeal dysphagia Procedures [place] Modified Barium Swallow W Video Kathy Catherine MD [address] [place] [address] Phone: tel: fax: [address] [phone] Referral ID Status Reason Start Date Expiration Date Visits Re quested Visits Authorized [id number] Closed 11/25/2022 12/25/2023 1 1 Encounter Details Date Type Department Care Team (Latest Contact Info) Description 12/23/2022 12:56 PM CDT - 12/23/2022 11:59 PM CDT Hospital Encounter [facility] Radiology [address] [place] [address] Oropharyngeal dysphagia Discharge Disposition: Discharge to home [...] mL documented in this encounter Care Teams Office Rental Clerk Relationship Specialty Start Date End Date Pedro Luis rAndt MD [address] [place] [address] PCP - General Family Medicine 09/03/22 11/20/23 documented as of this encounter
--- OUTSIDE RECORDS SUMMARY | 2024-07-09 06:33 | XMS_ITS | Encounter Summary ---
Author Organization [facility] Healthcare Address [address] [place] [address] Care Team Providers Care Switch Operators Supervisor Name Role Phone Unavailable Primary Care Provider Unavailabl e Reason for Visit * Reason Onset Date Comments COVID-19 EVALUATION 11/16/2020 Encounter Details Date Type Department Care Team (Late st Contact Info) Description 11/16/2020 Telephone [facility] [place] [id number] (Third Floor) [place] [address] Kizzy Geiger, RN COVID-19 EVALUATION Social History [...] 11/16/2020 Vaccine related call? - No Email: [email or web address] Employee/Student ID# [id number] Are you an employee or student? Employee Employee Employer: [employer] Does your work require you to go into patient care areas (hospital or clinic)? No No Employee Facility: [facility] (All Locations) [facility] (All Locations) Does your job primarily involve providing care for bone marrow transplant patients? 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 [...] - Yes Who provided the vaccine: - [facility] Covid Vaccine Who Provided - Pfizer Date [...] a delay in testing results. Provided [employer] [place] number [phone] for her to report her testing results. [...] Occupational Health will notify you and your manager application development when you can return to work. ??? Should your test result positive, [place] will work with you to identify any close contacts you may have had at work. [place] will then alert your work contacts directly; you do not have to. Your supervisor cap and hat production should consult with [place] if they have any questions and before any communication with coworkers about a positive test. [place] will help ensure that coworkers potentially at risk are notified and given appropriate advice without unnecessary disclosure of personal health information. ??? We will send you an email with self-quarantine instructions (see [facility] Guidance for At-Home Isolation: Employees). ??? You must follow any additional isolation or quarantine instructions provided to you from federal, state or local public health authorities. ??? You should let your supervisor cap and hat production know that you will not be coming to work. Although the Call Center will email your supervisor cap and hat production to confirm that you have been instructed not to come to work, it is still your responsibility to notify your supervisor cap and hat production as you would for any other work absence. You should receive an email from the call center with these instructions. The email will come from [email or web address]; if you do not receive it, please check to see if your email enlisted [email or web address] [email or web address] has automatically routed it to [email or web address]. documented in this encounter Plan of Treatment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 documented as of this encounter Visit Diagnoses Diagnosis Nausea- Primary Nausea alone documented in this encounter Additional Health Concerns Infection Onset Date Last Indicated Resolved Time COVID: Suspected 11/16/2020 11/16/2020 11/30/2020 3:05 AM CDT documented as of this encounter
--- OUTSIDE RECORDS SUMMARY | 2024-07-09 06:33 | XMS_ITS | Clinical Summary ---
Author Organization [facility] Virtual Care Address [address] [place] [address] Phone Care Team Providers Care Field Assistant Name Role Phone Raymond Wolff MD Primary Care Provider Kathy Catherine MD Unavailable [phone] Doris Pruett MD Unavailable [phone] Mary Waters NP Unavailable [phone] Allergies Active Allergy Reactions Criticality Noted Date [...] Department Care Team Description 07/02/2024 10:30 AM [employer]BER Telemedicine [address] [address] Raymond Wolff MD Nausea vomiting and diarrhea (Primary Dx); Gastroesophageal reflux disease without esophagitis 05/07/2024 1:10 PM CDT Lab [facility] ([facility]) [address] [place] [phone] Preventative health care; Screening for viral disease; Screening for diabetes mellitus; Screening for deficiency anemia; Screening for metabolic disorder 05/07/2024 11:00 AM CDT Office Visit [address] [address] Raymond Wolff MD Preventative health care (Primary Dx); Class 1 obesity without serious comorbidity with body mass index (BMI) of 30.0 to 30.9 in adult, unspecified obesity type; Attention deficit hyperactivity disorder (ADHD), combined type; Gastroesophageal reflux disease without esophagitis; Screening for metabolic disorder; Screening for deficiency anemia; Screening for diabetes mellitus; Screening for viral disease 04/23/[address] 5th [address] [place] [phone] Deb Cardenas Encounter for vaccination (Primary Dx) 04/23/[address] 5[address] [place] [phone] Deb Cardenas from Last 3 Months Immunizations [...] 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, 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 Not on [...] LAB BLOOD ORDERABLES F inal Result [facility] Department of Laboratories [place], [place] [id number] * Differential, auto (05/07/2024 12:17 PM CDT) Neutrophil abs 4.1 1.5 - 6.5 K/cumm Imm gran abs 0.0 0.0 - 0.1 K/cumm [facility] Lymphocyte abs 3.0 0.8 - 3.3 K/cumm [facility] Monocyte abs 0.5 0.2 - 0.8 K/cumm [facility] Eosinophil abs 0.3 0.0 - 0.5 K/cumm [facility] Basophil abs 0.0 0.0 - 0.1 K/cumm [facility] Neutrophil pct 52.2 % [facility] Comment: Interpretive Data Percent cell count reference ranges are not reported, since discordance with absolute values may lead to misinterpretation of CBC data. Current Interpretive Data was last revised on 2017. Imm gran pct 0.1 % [facility] Comment: Interpretive Data Percent cell count reference ranges are not reported, since discordance with absolute values may lead to misinterpretation of CBC data. Current Interpretive Data was last revised on 2017. Lymphocyte pct 37.4 % [facility] Comment: Interpretive Data Percent cell count reference ranges are not reported, since discordance with absolute values may lead to misinterpretation of CBC data. Current Interpretive Data was last revised on 2017. Monocyte pct 5.7 % [facility] Comment: Interpretive Data Percent cell count reference ranges are not reported, since discordance with absolute values may lead to misinterpretation of CBC data. Current Interpretive Data was last revised on 2017. Eosinophil pct 4.2 % [facility] Comment: Interpretive Data Percent cell count reference ranges are not reported, since discordance with absolute values may lead to misinterpretation of CBC data. Current Interpretive Data was last revised on 2017. Basophil pct 0.4 % [facility] Comment: Interpretive Data Percent cell count reference ranges are not reported, since discordance with absolute values may lead to misinterpretation of CBC data. Current Interpretive Data was last revised on 2017. Blood 05/07/2024 12:1 7 PM CDT 05/07/2024 12:50 PM CDT us Raymond Wolff MD LAB BLOOD ORDERABLES F inal Result [facility] Department [place] [address] * CBC with auto differential (05/07/2024 12:17 PM CDT) [facility] WBC 7.9 3.8 - 9.9 K/cumm Hgb 13.1 11.9 - 15.5 g/dL [facility] Hct 39.3 35.6 - 45.5 % [facility] Plt 311 150 - 400 K/cumm [facility] MPV 9.8 9.1 - 12.3 fL [facility] RBC 4.17 3.90 - 5.20 M/cumm [facility] MCV 94.2 81.3 - 96.4 fL [facility] MCH 31.4 27.1 - 33.3 pg [facility] MCHC 33.3 32.3 - 35.7 g/dL [facility] RDW CV 12.7 11.1 - 14.9 % [facility] RDW SD 43.9 35.7 - 48.1 fL [facility] NRBC abs 0.00 0.00 - 0.01 K/cumm [facility] Blood 05/07/2024 12:1 7 PM CDT 05/07/2024 12:50 PM CDT Raymond Wolff MD LAB BLOOD ORDERABLES F inal Result [facility] Department [place] [address] * Hepatitis C antibody Blood (05/07/2024 12:17 PM CDT) [facility] Hep C Ab Nonreactive Nonreactive Comment:Antibodies to HCV no t detected. Does NOT exclude the possibility of recent exposure to HCV. Current interpretive data was last revised on 22 Blood 05/07/2024 12:1 7 PM CDT 05/07/2024 12:50 PM CDT Raymond Wolff MD LAB MICROBIOLOGY - GEN ERAL ORDERABLES Final Result [facility] [place] [address] * Hepatitis B Surface Antigen Blood (05/07/2024 12:17 PM CDT) [facility] HepBsAg Nonreactive Nonreactive Blood 05/07/2024 12:1 7 PM CDT 05/07/2024 12:50 PM CDT Raymond Wolff MD LAB MICROBIOLOGY - GEN ERAL ORDERABLES Final Result Performing Organization Address [facility] de Phone Number [facility] [place] [place] [address] * Hemoglobin A1c (05/07/2024 12:17 PM CDT) [facility] Hgb A1C 5.2 4.0 - 5.6 % Estimated Average Glucose 103 mg/dL [facility] Comment: The ADA recommends reporting an estimated [...] ORDERABLES F inal Result Performing Organization Address [facility] Co de Phone Number [facility] [place] [address] * Comprehensive metabolic panel (05/07/2024 12:17 PM CDT) [facility] Sodium 140 135 - 145 mmol/L Potassium, pl 4.1 3.3 - 4.9 mmol/L [facility] Chloride 105 97 - 110 mmol/L [facility] CO2 27 22 - 32 mmol/L [facility] Anion gap 8 2 - 15 mmol/L [facility] BUN 10 6 - 25 mg/dL [facility] Creatinine 0.81 0.60 - 1.10 mg/dL [facility] Glucose 78 70 - 199 mg/dL [facility] Comment: Interpretive Data Fasting glucose >/= 126 [...] 2022. Calcium 9.2 8.5 - 10.3 mg/dL [facility] Bilirubin, total 0.4 0.1 - 1.2 mg/dL [facility] Protein, pl 7.6 6.5 - 8.5 g/dL [facility] Albumin 4.4 3.5 - 5.0 g/dL [facility] Alk phos 77 40 - 130 Units/L [facility] ALT 19 7 - 45 Units/L [facility] AST 26 10 - 45 Units/L [facility] Blood 05/07/2024 12:1 7 PM CDT 05/07/2024 12:50 PM CDT Raymond Wolff MD LAB BLOOD ORDERABLES F inal Result [facility] [place] [address] from Last 3 Months Insurance [facility] [employer]YEES EMPLOYEES [employer] Advance Directives For more information, please contact: [phone] * Full Code (Latest Code Status on File) Date Activated Date Inactivated Comments 11/12/2022 8:39 AM 11/12/2022 2:53 PM Care Teams Field Assistant Relationship Specialty Start Date End Date Raymond Wolff MD [address] [facility] [address] [place] [address] PCP - General Internal Medicine 11/21/23 Kathy Catherine MD [address] [place] [address] Consulting Physician Gastroenterology 05/07/24 Doris Pruett MD [address] [place] [address] Consulting Physician Dermatology 05/07/24 Mary Waters NP [address] [place] [address] Nurse Practitioner Nurse Practitioner 05/07/24
--- OUTSIDE RECORDS SUMMARY | 2024-07-09 06:33 | XMS_ITS | Encounter Summary ---
Author Organization [facility] Address [address] [place] [address] Care Team Providers Care Insole Reinforcer Name Role Phone Unavailable Primary Care Provider Unavailabl e Reason for Visit * Reason Comments URI Encounter Details Date Type Department Care Team (Late st Contact Info) Description 08/06/2017 11:40 AM PLASTICS SCIENTIST Office Visit [facility] [address] [address] [facility] [place] Influenza A (Primary Dx) Social History Tobacco [...] Blood Pressure 122/80 08/06/2017 11:51 AM PLASTICS SCIENTIST Pulse 112 08/06/2017 11:51 AM PLASTICS SCIENTIST Temperature 37.7 ??C (99.8 ??F) 08/06/2017 11:[address] Respiratory Rate 16 08/06/2017 11:51 AM PLASTICS SCIENTIST Oxygen Saturation 98% 08/06/2017 11:51 AM PLASTICS SCIENTIST Inhaled Oxygen Concentration - - Weight 62.1 kg (137 lb) 08/06/2017 11:51 AM PLASTICS SCIENTIST Height 162.6 cm (5' 4 ) 08/06/2017 11:51 AM PLASTICS SCIENTIST Body Mass Index 23.52 08/06/2017 11:51 AM PLASTICS SCIENTIST documented in this encounter Patient Instructions * Patient Instructions* Chester Kincaid APRN-MARI - 08/06/2017 12:08 PM PLASTICS SCIENTIST Images from the original note were not included. Influenza BIRD SITTER: Influenza (the flu) is an infection caused [...] ?? Clean shared items with a germ-killing stock sheets cleaner inspector. Clean table surfaces, doorknobs, and light switches. [...] ask them during your visits. ?? 2017 [employer] Information is for End User's use only and may not be sold, redistributed or otherwise used for commercial purposes. All illustrations and images included in CareNotes?? are the copyrighted property of [employer] or [employer]. The above information is an exceptional student education aide only. It is not intended as medical advice for individual conditions or treatments. Talk to your doctor, nurse or pharmacist before following any medical regimen to see if it is safe and effective for you. TICS SCIENTIST documented in this encounter Progress Notes * Chester Kincaid APRN-CNP - 08/07/2017 10:16 AM CST Pt returned for work note. Note provided. TICS SCIENTIST * Chester Kincaid APRN-CNP - 08/06/2017 11:57 [...] Control present NEGATIVE - POSITIVE Influenza Lot# [id number] Influenza Expir Date 04 28 2019 TICS SCIENTIST documented in this encounter Plan of Treatment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 documented as of this encounter Procedures Procedure Name Priority Date/Time Associated Diagnosis Comments INFLUENZA A+B - POINT OF CARE (AMB) Routine 08/06/2017 11:58 AM PLASTICS SCIENTIST Influenza A documented in this encounter Results * (ABNORMAL) INFLUENZA A+B - POINT OF CARE (AMB) (08/06/2017 11:58 AM PLASTICS SCIENTIST) Influenza A Antigen Rapid Positive(A) Negative Influenza B Antigen Rapid Negative Negative Influenza Internal Control present NEGATIVE - POSITIVE Influenza Lot Number [id number] Influenza Expiration Date 04 28 2019 Other NASOPHARYNGEAL SWAB / Unknown 08/06/2017 11:58 AM PLASTICS SCIENTIST Chester [facility] - POINT OF CA RE ORDERABLES documented in this encounter Visit Diagnoses Diagnosis Influenza A- Primary documented in this encounter
--- OUTSIDE RECORDS SUMMARY | 2024-07-09 06:33 | XMS_ITS | Encounter Summary ---
Author Organization [facility] Healthcare Address [address] [place] [address] Care Team Providers Care Marine Equipment Research Engineer Name Role Phone Unavailable Primary Care Provider Unavailabl e Reason for Visit * Reason Onset Date Comments COVID-19 EVALUATION 03/29/2021 Encounter Details Date Type Department Care Team (Late st Contact Info) Description 03/29/2021 Telephone [facility] [address] Room [id number] (Third Floor) [place] [address] Kizzy Geiger, RN COVID-19 EVALUATION Social History [...] Vaccine related call? - No No Email: [email or web address] Employee/Student ID# [id number] Are you an employee or student? Employee Employee Employee Employer: [employer] Employer Comment - - MICHAEL Does your work require you to go into patient care areas (hospital or clinic)? No No No Employee Facility: [facility] (All Locations) [facility] (All Locations) [facility] (All Locations) Does your job primarily involve providing care for bone marrow transplant patients? 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 [...] Yes Yes Who provided the vaccine: - [facility] Covid Vaccine Who Provided - Pfizer - [...] or a delay in testing results. Provided [facility] number [phone] for her to report her testing results. Patient is getting tested at @2:40 at [facility] deferrs testing at /[facility] at this time. Provided [facility] number to call results: [phone] Script I Asymptomatic, Exposed but vaccinated (testing [...] these instructions. The email will come from [email or web address] [email or web address]; if you do not receive it, please check to see if your email server programmer has automatically routed it to [email or web address] documented in this encounter Plan of Treatment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 documented as of this encounter Visit Diagnoses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documented in this encounter
--- OUTSIDE RECORDS SUMMARY | 2024-07-09 06:33 | XMS_ITS | Encounter Summary ---
Author Organization [facility] Address [address] [place] [address] Care Team Providers Care Room Inspector Name Role Phone Raymond Wolff MD Primary Care Provider Encounter Details Date Type Department Care Team (Late st Contact Info) Description 11/21/2023 Telephone [facility] [address] [address] Pedro Luis Arndt MD [facility] [place] [address] Social History Tobacco Use Types Packs/Day Years [...] documented as of this encounter Care Teams Room Inspector Relationship Specialty Start Date End Date Raymond Wolff MD [address] [address] PCP - General Internal Medicine 11/21/23 documented as of this encounter
--- OUTSIDE RECORDS SUMMARY | 2024-07-09 06:33 | XMS_ITS | Encounter Summary ---
Author Organization [facility] Address [address] [place] [address] Care Team Providers Care Environmental Protection Geologist Name Role Phone Ryamond Wolff MD Primary Care Provider Encounter Details Date Type Department Care Team (Late st Contact Info) Description 11/21/2023 Orders Only [facility] [address] [facility] [address] [facility] [place] [id number] Raymond Wolff MD [address] [facility] [address] [place] [address] Attention deficit hyperactivity disorder (ADHD), combined type [...] documented as of this encounter Care Teams Environmental Protection Geologist Relationship Specialty Start Date End Date Raymond Wolff MD [address] [address] PCP - General Internal Medicine 11/21/23 documented as of this encounter
--- OUTSIDE RECORDS SUMMARY | 2024-07-09 06:33 | XMS_ITS | Encounter Summary ---
Author Organization [facility] Address [address] [facility] [place] [address] Care Team Providers Care Screen Cleaner Name Role Phone Unavailable Primary Care Provider Unavailabl e Reason for Visit * Reason Onset Date Comments Follow-up 08/08/2017 Encounter Details Date Type Department Care Team (Late st Contact Info) Description 08/08/2017 Telephone [facility] [address] [address] Ora Garsia Follow-up Social History [...]
--- OUTSIDE RECORDS SUMMARY | 2024-07-09 06:33 | XMS_ITS | Encounter Summary ---
Author Organization [facility] Healthcare Address [address] [place] [address] Care Team Providers Care Reinforcing Steel Placer Name Role Phone Pedro Luis Arndt MD Primary Care Provider [phone] Encounter Details Date Type Department Care Team (Late st Contact Info) Description 11/07/2022 Telephone [facility] [place] [address] [address] Marilin Schmitt RN Social History Tobacco Use [...] voicemail asking patient to return call to [facility]. GENERAL INSTRUCTIONS [x] Bring medication [...] entire process. [x] Confirm patient has a tractor driver teamster or responsible adult. Since you will be [...] EGD on 11/[address] Catherine at [facility] to arrive at 8:30 am. Her sister will be her tractor driver teamster. Shehas instructions and understands what to do. documented in this encounter Plan of Treatment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 documented as of this encounter Visit Diagnoses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documented in this encounter Care Teams Reinforcing Steel Placer Relationship Specialty Start Date End Date Pedro Luis Arndt MD [address] [place] [address] PCP - General Family Medicine 09/03/22 11/20/23 documented as of this encounter
--- OUTSIDE RECORDS SUMMARY | 2024-07-09 06:33 | XMS_ITS | Encounter Summary ---
Author Organization [facility] [place] [facility] Address [address] [place] [address] Phone Care Team Providers Care Color Grinder Name Role Phone Raymond Wolff MD Primary Care Provider Encounter Details Date Type Department Care Team (Late st Contact Info) Description 04/23/2024 Immunization [facility]ational [facility] [address] [facility] 5th Floor [address] [place] [address] Deb Cardenas Social History Tobacco Use Types [...] 04/23/2024 documented in this encounter Care Teams Color Grinder Relationship Specialty Start Date End Date Raymond Wolff MD [address] [address] PCP - General Internal Medicine 11/21/23 documented as of this encounter
--- OUTSIDE RECORDS SUMMARY | 2024-07-09 06:33 | XMS_ITS | Encounter Summary ---
Author Organization [facility] Healthcare Address [address] [place] [address] Care Team Providers Care Order Worker Name Role Phone Pedro Luis Arndt MD Primary Care Provider [phone] Encounter Details Date Type Department Care Team (Late st Contact Info) Description 10/23/2023 Patient Self-Triage [facility] Health[facility]/ Physicians [facility] [place] [address] Mychart, Generic Provider [address] [place], [place] [id number] Social History Tobacco Use Types Packs/Day Years [...] on filedocumented in this encounter Care Teams Order Worker Relationship Specialty Start Date End Date Pedro Luis Arndt MD [address] [place] [address] PCP - General Family Medicine 09/03/22 11/20/23 documented as of this encounter
--- OUTSIDE RECORDS SUMMARY | 2024-07-09 06:33 | XMS_ITS | Encounter Summary ---
Author Organization [facility] Healthcare Address [address] [place] [address] Care Team Providers Care Felter Tennis Balls Name Role Phone No, Physician Primary Care Provider [phone] Encounter Details Date Type Department Care Team (Latest Contact Info) Description 11/04/2021 2:06 PM CDT - 11/04/2021 11:59 PM CDT Hospital Encounter [address] [address] Exposure to COVID-19 virus Discharge Disposition: Discharge [...] AM CDT) COVID-19 RNA Not Detected [facility] Comment: Collection date/time has been modified to: 02:38:00. ??Previous collection date/time: 02:38:00. Interpretive Data Synonyms for this test include: PCR and NAAT . ??Testing performed by the [facility]. The 2018-Novel Coronavirus [...] CDT 11/05/2021 3:02 AM CDT Narrative [facility] - 11/07/2021 12:16 PM CDT Is the patient experiencing any symptoms consistent with COVID (eg. Fever, cough, shortness of breath)?->No What is the reason for testing?->Post-exposure testing required by a public health agency??asymptomatic (Batched) Marsha Conklin NP LAB MICROBIOLOGY - GENERAL ORD ERABLES Edited Result - Final [facility] Department [place] [address] documented in this encounter Visit Diagnoses Diagnosis Exposure to COVID-19 virus documented in this encounter Care Teams Felter Tennis Balls Relationship Specialty Start Date End Date No, Physician PCP - General 04/26/21 09/02/22 documented as of this encounter
== END 2024-07-02 02:38 | disposition left against medical advice (07) ==
PROVIDERS: PCP Family Medicine Sports Medicine
DX: K52.9 Noninfective gastroenteritis and colitis, unspecified (principal); N39.0 Urinary tract infection, site not specified; F90.9 Attention-deficit hyperactivity disorder, unspecified type
CPT/HCPCS: 99199

== ENCOUNTER 2024-07-11 05:49 | Emergency (ER) | payer OTHER, SELFPAY ==
[2024-07-11] VITALS (11 sets, daily range): BP systolic 116–123; BP diastolic 75–87; PULSE 104; RESP 20; TEMP 36.7; O2SAT 99–100
--- NOTE | ~2024-07-11 | CT_ITS ---
EXAMINATION: CT abdomen pelvis w con DATE: 07/11/2024 07:28 INDICATION: Abdominal pain, diarrhea, leukocytosis TECHNIQUE: Computed tomography (CT) of the abdomen and pelvis was performed with 100 CC Omnipaque 350 intravenous contrast. Automated exposure control and iterative reconstruction technique were employe d. Exam dose: 437.99 mGy-cm total exam DLP. COMPARISON: None. FINDINGS: The lung bases are clear. Normal heart size. No pericardial or pleural effusion. Approximately 1.7 cm hypoattenuating lesion in the posterior aspect of the right hepatic lobe, with s uggestion of some interrupted peripheral puddling contrast material, likely a hemangioma. Similar kevon roximately 12 x 14 mm lesion in the posterior left hepatic medial segment. Several very small nonspecific hypoattenuating right hepatic lesions are noted as well, too small to definitively characterize, most likely small cysts or other benign process. Normal splenic size. No pancreatic mass lesion, calcification or ductal dilatation. The gallbladder is contracted. No bile duct dilatation. Normal morphology of the adrenal glands. No renal mass lesion or urinary tract calculus or hydroureteronephrosis. 5 urinary bladder is unremar kable. Normal uterus. Small fluid collection at the posterior cul-de-sac, which may be physiologic. Normal caliber of the abdominal organs. No intraperitoneal or retroperitoneal or pelvic mass lesion o r adenopathy or ascites. Normal appendix. Mild sigmoid colon diverticulosis; no CT evidence of diverticulitis. Included skeletal structures are unremarkable. No suspicious osteolytic or osteoblastic lesions. IMPRESSION: Probable hepatic hemangiomas Normal appendix Mild sigmoid colon diverticulosis; no evidence of diverticulitis No bowel obstruction or free air Reviewed, dictated and finalized at [facility]. Reviewed, dictated and finalized at location [facility]. EYOR ATTENDANT
--- NOTE | ~2024-07-11 | XR_ITS ---
XR chest 1V portable DATE: 07/11/2024 07:03 INDICATION: Shortness of breath TECHNIQUE: Portable upright AP chest on 07/11/2024 at 0657 hours COMPARISON: None FINDINGS: Normal heart size. No hilar or mediastinal enlargement. No pulmonary infiltrate or consolidation, pleural effusion or pulmonary vascular congestion or pneumo thorax is detected. Included skeletal structures are unremarkable. IMPRESSION: No active cardiopulmonary disease Reviewed, dictated and finalized at location A. 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
[2024-07-11 06:13] LABS: Basophils Percent Auto 0.2 % (0.2-1.2); Eosinophils Absolute Auto 0.3 K/mm3 (0-0.3); Eosinophils Percent Auto 1.8 % (0-4.4); Hematocrit 39.6 % (37.0-47.0); Hemoglobin 14.2 g/dL (12.0-15.0); Immature Granulocyte Absolute 0.06 K/mm3 (0.00-0.031); Immature Granulocyte Percent A 0.4 % (0-0.5); Lymphocytes Absolute Auto 1.31 K/mm3 (0.9-3.2); Lymphocytes Percent Auto 7.7 % (18.3-44.2); Mean Corpuscular HGB Conc 35.9 g/dl (32-36); Mean Corpuscular Hemoglobin 32.4 pg (26-34); Mean Corpuscular Volume 90.4 fl (80-100); Mean Platelet Volume 9.7 fl (7.4-10.4); Monocytes Absolute Auto 0.7 K/mm3 (0.1-0.6); Monocytes Percent Auto 3.9 % (2.6-8.5); Neutrophils Absolute Auto 14.6 K/mm3 (1.3-6.7); Platelet Count Result 282 k/mm3 (150-375); Red Blood Count 4.38 M/mm3 (4.2-5.4); Red Cell Distribution Width 12.8 % (11.5-14.5)
[2024-07-11 06:28] LABS: Alanine Aminotransferase 54 U/L (6-35); Albumin Level 4.3 g/dL (3.5-5.1); Alkaline Phosphatase 74 U/L (38-126); Anion Gap 7 mmol/L (4-12); Aspartate Amino Transferase 29 U/L (14-36); Bilirubin,Total 0.8 mg/dL (0.2-1.3); Blood Urea Nitrogen 9 mg/dL (7-17); Calcium 9.1 mg/dL (8.4-10.2); Carbon Dioxide 19 mmol/L (22-30); Chloride 109 mmol/L (98-107); Estimated CRCL calculation 97 ml/min; Estimated Glomerular Filt Rate > 60; Glucose 139 mg/dL (65-110); Lipase 89 U/L (23-300); Potassium 3.7 mmol/L (3.4-5.0); Sodium 135 mmol/L (137-145)
[2024-07-11 06:35] LABS: Add Urine Microscopic? YES; Appearance Urine Clear (Clear); Bacteria Urine 1+ /hpf; Bilirubin Urine Negative (Negative); Blood Urine Negative (Negative); Color Urine Yellow (Yellow); Glucose Urine UA Negative (Negative); Ketones Urine Trace mg/dL (Negative); Leukocyte Esterase Ur 1+ LEU/UL (Negative); Nitrate Urine Negative (Negative); Non Pathogenic Casts 0-2; Protein Urine Negative (Negative); RBC Urine 0-2 /hpf (0-2); Specific Grav Ur 1.004 (1.001-1.035); Squamous Epithelial Cell Urine Occasional /hpf (Few); Urobilinogen Urine 0.2 mg/dL (<2.0); pH Urine 6.5 (5.0-9.0)
--- NOTE | 2024-07-11 06:49 | ED.GENADULT ---
HPI - General Adult General Chief complaint: Nausea/Vomiting/Diarrhea <Ruddy Ardon MD - Last Filed: 07/11/24 06:50> Stated complaint: nausea, dizziness, here two weeks ago <Ruddy Ardon MD - Last Filed: 07/11/24 06:50> Time Seen by Provider: 07/11/24 06:43 <Ruddy Ardon MD - Last Filed: 07/11/24 06:50> History of Present Illness HPI narrative: Patient 34-year-old female who presents emergency department with chief complaint of abdominal pain nausea shortness of breath and diarrhea. The patient reports that she is currently on is a found and did a dose on of last week the patient reports that she was seen in the emergency department about 2 weeks ago but there was a long wait and she did not stay for a provider assessment. The patient states that she has been feeling short of breath and reports that she keeps having diarrhea and reports that she has heartburn patient reports surgical history significant for tubal ligation <Ruddy Ardno MD - Last Filed: 07/11/24 06:50> Patient 34-year-old female who presents emergency department with chief complaint of abdominal pain nausea shortness of breath and diarrhea. The patient reports that she is currently on zepbound and did a dose on of last week the patient reports that she was seen in the emergency department about 2 weeks ago but there was a long wait and she did not stay for a provider assessment. The patient states that she has been feeling short of breath and reports that she keeps having diarrhea and reports that she has heartburn patient reports surgical history significant for tubal ligation <Marcin Childers MD - Last Filed: 07/16/24 20:35> Related Data Home medications: Home Medications ?Medication ?Instructions ?Recorded ?Confirmed ?Last Taken ?Type Green Tea Complex 1 tab-cap PO DAILY 03/18/23 03/18/23 03/18/23 History L norgest/E estradiol-E estrad 1 tablet PO DAILY 03/18/23 03/18/23 03/24/23 History 0.15 mg-30 mcg (84)/10 mcg(7) tabs,3mos (Jaimiess) genesisdha extract 1 tab-cap PO DAILY 03/18/23 03/18/23 03/22/23 History dexmethylphenidate 20 mg 20 mg PO DAILY 03/18/23 03/18/23 03/24/23 History capsule,extended release [id number] omeprazole 40 mg capsule,delayed 40 mg PO DAILY 03/18/23 03/25/23 Unknown History release <Ruddy Ardon MD - Last Filed: 07/11/24 06:50> Allergies/adverse reactions: Allergies Allergy/AdvReac Type Severity Reaction Status Date / Time cat dander AdvReac Mild Itching Verified 03/25/23 06:20 pseudoephedrine (From AdvReac Unknown SYNCOPAL Verified 03/25/23 06:20 DayQuil Sinus Pressure/Pain) EPISODE <Ruddy Ardon MD - Last Filed: 07/11/24 06:50> Review of Systems Review of Systems: A 10 system review of systems was completed on the patient and is negative except for what is stated in the HPI. Nursing and ancillary documentation was reviewed. <Ruddy Ardon MD - Last Filed: 07/11/24 06:50> PMFSH Past Medical History Medical History: Medical History ADHD <Ruddy Ardon MD - Last Filed: 07/11/24 06:50> Social History Social History: Social History Smoking status: Never smoker Alcohol intake: never Spiritual care concerns: No <Ruddy Ardon MD - Last Filed: 07/11/24 06:50> Exam Narrative: GENERAL: Well-appearing, well-nourished, and in no acute distress. HEAD: Normocephalic, atraumatic. EYES: PERRLA and EOMI. ENT: Nares clear, no rhinorrhea or epistaxis. Mucous membranes dry. NECK: Supple. CHEST: Clear to auscultation. No respiratory distress. HEART: Regular rate and rhythm. No murmur heard. Normal peripheral pulses. ABDOMEN: Soft, nontender, nondistended, normal active bowel sounds. EXTREMITIES: Normal range of motion. No edema. SKIN: Warm, dry, no rash. NEURO: No focal deficits. Alert and oriented x3. PSYCH: Normal mood and affect. <Ruddy Ardon MD - Last Filed: 07/11/24 06:50> Course Course Emergency Course: Resting comfortably, informed of results. CT reviewed. Elevated WBC count from vomiting. Abdomen soft. UA will be tx. Appropriate for d/c home. <Marcin Childers MD - Last Filed: 07/16/24 20:35> Vital Signs Vital signs: Vital Signs Temperature 98.1 F 07/11/24 05:57 Pulse Rate 104 H 07/11/24 05:57 Respiratory Rate 20 07/11/24 05:57 Blood Pressure 123/87 07/11/24 05:57 Pulse Oximetry 07/11/24 05:57 Oxygen Delivery Room Air 07/11/24 05:57 Temperature 98.1 F 07/11/24 05:57 Pulse Rate 104 H 07/11/24 05:57 Respiratory Rate 20 07/11/24 05:57 Blood Pressure 116/87 07/11/24 07:01 Pulse Oximetry 07/11/24 07:45 Oxygen Delivery Room Air 07/11/24 05:57 <Ruddy Ardon MD - Last Filed: 07/11/24 06:50> Vital Signs Temperature 98.1 F 07/11/24 05:57 Pulse Rate 104 H 07/11/24 05:57 Respiratory Rate 20 07/11/24 05:57 Blood Pressure 123/87 07/11/24 05:57 Pulse Oximetry 07/11/24 05:57 Oxygen Delivery Room Air 07/11/24 05:57 Temperature 98.1 F 07/11/24 05:57 Pulse Rate 104 H 07/11/24 05:57 Respiratory Rate 07/11/24 05:57 Blood Pressure 116/87 07/11/24 07:01 Pulse Oximetry 07/11/24 07:45 Oxygen Delivery Room Air 07/11/24 05:57 <Marcin Childers MD - Last Filed: 07/16/24 20:35> Medical Decision Making Vital Signs Vital Signs: Vital Signs Temperature 98.1 F 07/11/24 05:57 Pulse Rate 104 H 07/11/24 05:57 Respiratory Rate 20 07/11/24 05:57 Blood Pressure 123/87 07/11/24 05:57 Pulse Oximetry 100 07/11/24 05:57 Oxygen Delivery Room Air 07/11/24 05:57 Temperature 98.1 F 07/11/24 05:57 Pulse Rate 104 H 07/11/24 05:57 Respiratory Rate 20 07/11/24 05:57 Blood Pressure 116/87 07/11/24 07:01 Pulse Oximetry 100 07/11/24 07:45 Oxygen Delivery Room Air 07/11/24 05:57 <Ruddy Ardon MD - Last Filed: 07/11/24 06:50> Vital Signs Temperature 98.1 F 07/11/24 05:57 Pulse Rate 104 H 07/11/24 05:57 Respiratory Rate 20 07/11/24 05:57 Blood Pressure 123/87 07/11/24 05:57 Pulse Oximetry 100 07/11/24 05:57 Oxygen Delivery Room Air 07/11/24 05:57 Temperature 98.1 F 07/11/24 05:57 Pulse Rate 104 H 07/11/24 05:57 Respiratory Rate 20 07/11/24 05:57 Blood Pressure 116/87 07/11/24 07:01 Pulse Oximetry 100 07/11/24 07:45 Oxygen Delivery Room Air 07/11/24 05:57 <Marcin Childers MD - Last Filed: 07/16/24 20:35> Lab Data Result diagrams: 07/11/24 06:04 07/11/24 06:04 <Ruddy Ardon MD - Last Filed: 07/11/24 06:50> Labs: Lab Results 07/11/24 07/11/24 07/11/24 Range/Units 06:04 06:19 06:52 WBC 17.0 H (4.5-10.0) K/mm3 RBC 4.38 (4.2-5.4) M/mm3 Hgb 14.2 (12.0-15.0) g/dL Hct 39.6 (37.0-47.0) % MCV 90.4 (80-100) fl MCH 32.4 (26-34) pg MCHC 35.9 (32-36) g/dl RDW 12.8 (11.5-14.5) % Plt Count 282 (150-375) k/mm3 MPV 9.7 (7.4-10.4) fl Immature Gran % (Auto) 0.4 (0-0.5) % Neut % (Auto) 86.0 H (45.5-73.1) % Lymph % (Auto) 7.7 L (18.3-44.2) % [place] % (Auto) 3.9 (2.6-8.5) % Eos % (Auto) 1.8 (0-4.4) % Baso % (Auto) 0.2 (0.2-1.2) % Lymph # (Auto) 1.31 (0.9-3.2) K/mm3 [place] # (Auto) 0.7 H (0.1-0.6) K/mm3 Eos # (Auto) 0.3 (0-0.3) K/mm3 Baso # (Auto) 0.0 (0.0-0.1) K/mm3 Abs Immat Gran (auto) 0.06 H (0.00-0.031) K/mm3 Absolute Neuts (auto) 14.6 H (1.3-6.7) K/mm3 Absolute Nucleated RBC 0.000 (0.0-0.012) K/mm3 Nucleated RBC % 0.0 (0.0-0.2) % Sodium 135 L (137-145) mmol/L Potassium 3.7 (3.4-5.0) mmol/L Chloride 109 H (98-107) mmol/L Carbon Dioxide 19 L (22-30) mmol/L Anion Gap 7 (4-12) mmol/L BUN 9 (7-17) mg/dL Creatinine 0.70 (0.7-1.0) mg/dL Estim Creat Clear Calc 97 ml/min Estimated GFR > 60 (59 - ) Glucose 139 H (65-110) mg/dL Lactic Acid 2.0 (0.7-2.0) mmol/L Calcium 9.1 (8.4-10.2) mg/dL Magnesium 1.8 (1.6-2.3) mg/dL Total Bilirubin 0.8 (0.2-1.3) mg/dL AST 29 (14-36) U/L ALT 54 H (6-35) U/L Alkaline Phosphatase 74 (38-126) U/L Total Protein 7.0 (6.3-8.2) g/dL Albumin 4.3 (3.5-5.1) g/dL Lipase 89 (23-300) U/L Urine Color Yellow (Yellow) Urine Appearance Clear (Clear) Urine pH 6.5 (5.0-9.0) Ur Specific [place] 1.004 (1.001-1.035) Urine Protein Negative (Negative) mg/dL Urine Glucose (UA) Negative (Negative) mg/dL Urine Ketones Trace H (Negative) mg/dL Ur Blood (Man) Negative (Negative) Urine Nitrate Negative (Negative) Urine Bilirubin Negative (Negative) Urine Urobilinogen 0.2 (<2.0) mg/dL Leukocyte Esterase Rfl 1+ H (Negative) DIANA/UL Urine RBC 0-2 (0-2) /hpf Urine WBC 11-20 H (0-3) /hpf Ur Squamous Epith Cells Occasional (Few) /hpf Urine Bacteria 1+ H /hpf Urine Casts 0-2 POC Urine HCG, Qual (Negative) Influenza A (RT-PCR) Negative (Negative) Influenza B (RT-PCR) Negative (Negative) RSV (RT-PCR) Negative (Negative) SARS-CoV-2 RNA (RT-PCR) Negative (Negative) 07/11/24 Range/Units 07:11 WBC (4.5-10.0) K/mm3 RBC (4.2-5.4) M/mm3 Hgb (12.0-15.0) g/dL Hct (37.0-47.0) % MCV (80-100) fl MCH (26-34) pg MCHC (32-36) g/dl RDW (11.5-14.5) % Plt Count (150-375) k/mm3 MPV (7.4-10.4) fl Immature Gran % (Auto) (0-0.5) % Neut % (Auto) (45.5-73.1) % Lymph % (Auto) (18.3-44.2) % [place] % (Auto) (2.6-8.5) % Eos % (Auto) (0-4.4) % Baso % (Auto) (0.2-1.2) % Lymph # (Auto) (0.9-3.2) K/mm3 [place] # (Auto) (0.1-0.6) K/mm3 Eos # (Auto) (0-0.3) K/mm3 Baso # (Auto) (0.0-0.1) K/mm3 Abs Immat Gran (auto) (0.00-0.031) K/mm3 Absolute Neuts (auto) (1.3-6.7) K/mm3 Absolute Nucleated RBC (0.0-0.012) K/mm3 Nucleated RBC % (0.0-0.2) % Sodium (137-145) mmol/L Potassium (3.4-5.0) mmol/L Chloride (98-107) mmol/L Carbon Dioxide (22-30) mmol/L Anion Gap (4-12) mmol/L BUN (7-17) mg/dL Creatinine (0.7-1.0) mg/dL Estim Creat Clear Calc ml/min Estimated GFR (59 - ) Glucose (65-110) mg/dL Lactic Acid (0.7-2.0) mmol/L Calcium (8.4-10.2) mg/dL Magnesium (1.6-2.3) mg/dL Total Bilirubin (0.2-1.3) mg/dL AST (14-36) U/L ALT (6-35) U/L Alkaline Phosphatase (38-126) U/L Total Protein (6.3-8.2) g/dL Albumin (3.5-5.1) g/dL Lipase (23-300) U/L Urine Color (Yellow) Urine Appearance (Clear) Urine pH (5.0-9.0) Ur Specific [facility] [place] (1.001-1.035) Urine Protein (Negative) mg/dL Urine Glucose (UA) (Negative) mg/dL Urine Ketones (Negative) mg/dL Ur Blood (Man) (Negative) Urine Nitrate (Negative) Urine Bilirubin (Negative) Urine Urobilinogen (<2.0) mg/dL Leukocyte Esterase Rfl (Negative) DIANA/UL Urine RBC (0-2) /hpf Urine WBC (0-3) /hpf Ur Squamous Epith Cells (Few) /hpf Urine Bacteria /hpf Urine Casts POC Urine HCG, Qual Negative (Negative) Influenza A (RT-PCR) (Negative) Influenza B (RT-PCR) (Negative) RSV (RT-PCR) (Negative) SARS-CoV-2 RNA (RT-PCR) (Negative) <Ruddy Ardon MD - Last Filed: 07/11/24 06:50> Lab Results 07/11/24 07/11/24 07/11/24 Range/Units 06:04 06:19 06:52 WBC 17.0 H (4.5-10.0) K/mm3 RBC 4.38 (4.2-5.4) M/mm3 Hgb 14.2 (12.0-15.0) g/dL Hct 39.6 (37.0-47.0) % MCV 90.4 (80-100) fl MCH 32.4 (26-34) pg MCHC 35.9 (32-36) g/dl RDW 12.8 (11.5-14.5) % Plt Count 282 (150-375) k/mm3 MPV 9.7 (7.4-10.4) fl Immature Gran % (Auto) 0.4 (0-0.5) % Neut % (Auto) 86.0 H (45.5-73.1) % Lymph % (Auto) 7.7 L (18.3-44.2) % [place] % (Auto) 3.9 (2.6-8.5) % Eos % (Auto) 1.8 (0-4.4) % Baso % (Auto) 0.2 (0.2-1.2) % Lymph # (Auto) 1.31 (0.9-3.2) K/mm3 [place] # (Auto) 0.7 H (0.1-0.6) K/mm3 Eos # (Auto) 0.3 (0-0.3) K/mm3 Baso # (Auto) 0.0 (0.0-0.1) K/mm3 Abs Immat Gran (auto) 0.06 H (0.00-0.031) K/mm3 Absolute Neuts (auto) 14.6 H (1.3-6.7) K/mm3 Absolute Nucleated RBC 0.000 (0.0-0.012) K/mm3 Nucleated RBC % 0.0 (0.0-0.2) % Sodium 135 L (137-145) mmol/L Potassium 3.7 (3.4-5.0) mmol/L Chloride 109 H (98-107) mmol/L Carbon Dioxide 19 L (22-30) mmol/L Anion Gap 7 (4-12) mmol/L BUN 9 (7-17) mg/dL Creatinine 0.70 (0.7-1.0) mg/dL Estim Creat Clear Calc 97 ml/min Estimated GFR > 60 (59 - ) Glucose 139 H (65-110) mg/dL Lactic Acid 2.0 (0.7-2.0) mmol/L Calcium 9.1 (8.4-10.2) mg/dL Magnesium 1.8 (1.6-2.3) mg/dL Total Bilirubin 0.8 (0.2-1.3) mg/dL AST 29 (14-36) U/L ALT 54 H (6-35) U/L Alkaline Phosphatase 74 (38-126) U/L Total Protein 7.0 (6.3-8.2) g/dL Albumin 4.3 (3.5-5.1) g/dL Lipase 89 (23-300) U/L Urine Color Yellow (Yellow) Urine Appearance Clear (Clear) Urine pH 6.5 (5.0-9.0) Ur Specific [facility] 1.004 (1.001-1.035) Urine Protein Negative (Negative) mg/dL Urine Glucose (UA) Negative (Negative) mg/dL Urine Ketones Trace H (Negative) mg/dL Ur Blood (Man) Negative (Negative) Urine Nitrate Negative (Negative) Urine Bilirubin Negative (Negative) Urine Urobilinogen 0.2 (<2.0) mg/dL Leukocyte Esterase Rfl 1+ H (Negative) DIANA/UL Urine RBC 0-2 (0-2) /hpf Urine WBC 11-20 H (0-3) /hpf Ur Squamous Epith Cells Occasional (Few) /hpf Urine Bacteria 1+ H /hpf Urine Casts 0-2 POC Urine HCG, Qual (Negative) Influenza A (RT-PCR) Negative (Negative) Influenza B (RT-PCR) Negative (Negative) RSV (RT-PCR) Negative (Negative) SARS-CoV-2 RNA (RT-PCR) Negative (Negative) 07/11/24 Range/Units 07:11 WBC (4.5-10.0) K/mm3 RBC (4.2-5.4) M/mm3 Hgb (12.0-15.0) g/dL Hct (37.0-47.0) % MCV (80-100) fl MCH (26-34) pg MCHC (32-36) g/dl RDW (11.5-14.5) % Plt Count (150-375) k/mm3 MPV (7.4-10.4) fl Immature Gran % (Auto) (0-0.5) % Neut % (Auto) (45.5-73.1) % Lymph % (Auto) (18.3-44.2) % [place] % (Auto) (2.6-8.5) % Eos % (Auto) (0-4.4) % Baso % (Auto) (0.2-1.2) % Lymph # (Auto) (0.9-3.2) K/mm3 [place] # (Auto) (0.1-0.6) K/mm3 Eos # (Auto) (0-0.3) K/mm3 Baso # (Auto) (0.0-0.1) K/mm3 Abs Immat Gran (auto) (0.00-0.031) K/mm3 Absolute Neuts (auto) (1.3-6.7) K/mm3 Absolute Nucleated RBC (0.0-0.012) K/mm3 Nucleated RBC % (0.0-0.2) % Sodium (137-145) mmol/L Potassium (3.4-5.0) mmol/L Chloride (98-107) mmol/L Carbon Dioxide (22-30) mmol/L Anion Gap (4-12) mmol/L BUN (7-17) mg/dL Creatinine (0.7-1.0) mg/dL Estim Creat Clear Calc ml/min Estimated GFR (59 - ) Glucose (65-110) mg/dL Lactic Acid (0.7-2.0) mmol/L Calcium (8.4-10.2) mg/dL Magnesium (1.6-2.3) mg/dL Total Bilirubin (0.2-1.3) mg/dL AST (14-36) U/L ALT (6-35) U/L Alkaline Phosphatase (38-126) U/L Total Protein (6.3-8.2) g/dL Albumin (3.5-5.1) g/dL Lipase (23-300) U/L Urine Color (Yellow) Urine Appearance (Clear) Urine pH (5.0-9.0) Ur Specific [facility] (1.001-1.035) Urine Protein (Negative) mg/dL Urine Glucose (UA) (Negative) mg/dL Urine Ketones (Negative) mg/dL Ur Blood (Man) (Negative) Urine Nitrate (Negative) Urine Bilirubin (Negative) Urine Urobilinogen (<2.0) mg/dL Leukocyte Esterase Rfl (Negative) DIANA/UL Urine RBC (0-2) /hpf Urine WBC (0-3) /hpf Ur Squamous Epith Cells (Few) /hpf Urine Bacteria /hpf Urine Casts POC Urine HCG, Qual Negative (Negative) Influenza A (RT-PCR) (Negative) Influenza B (RT-PCR) (Negative) RSV (RT-PCR) (Negative) SARS-CoV-2 RNA (RT-PCR) (Negative) <Marcin Childers MD - Last Filed: 07/16/24 20:35> Discharge Plan Discharge Clinical Impression: Gastroenteritis, UTI (urinary tract infection) <Ruddy Ardon MD - Last Filed: 07/11/24 06:50> Patient Disposition: Home, Self-Care <Ruddy Ardon MD - Last Filed: 07/11/24 06:50> Condition: Stable <Ruddy Ardon MD - Last Filed: 07/11/24 06:50> Instructions: Antibiotic Form, Urinary Tract Infection in Women (ED), Gastroenteritis (ED) <Ruddy Ardon MD - Last Filed: 07/11/24 06:50> Additional Instructions: Return to the emergency department if you develop severe abdominal pain, severe nausea and vomiting to the point where you are unable to keep down fluids, if you develop chest pain or difficulty breathing, blood in your stool, dizziness or fainting, or if you develop any other new or concerning symptoms as these could be signs of more serious medical illness. Try to stay well hydrated. <Ruddy Ardon MD - Last Filed: 07/11/24 06:50> Patient Language: [place] Islander <Ruddy Ardon MD - Last Filed: 07/11/24 06:50> Prescriptions: New nitrofurantoin monohyd/m-cryst [Macrobid] 100 mg capsule 100 mg PO Q12H 5 Days Qty: 10 0RF Rx Instructions: must administer with a meal/food ondansetron 4 mg tablet,disintegrating 4 mg PO Q6H PRN (Reason: nausea and vomiting) Qty: 10 0RF dicyclomine 20 mg tablet 20 mg PO QID Qty: 20 0RF No Action omeprazole 40 mg capsule,delayed release(DR/EC) 40 mg PO DAILY dexmethylphenidate 20 mg capsule,ER biphasic 50-50 20 mg PO DAILY L norgest/e.estradiol-e.estrad [Jaimiess] 0.15 mg-30 mcg (84)/10 mcg (7) tablets,dose pack,3 month 1 tablet PO DAILY Green Tea Complex 1 tab-cap PO DAILY ashwagandha extract 1 tab-cap PO DAILY oxycodone-acetaminophen 5-325 mg tablet 1 tablet PO Q4H PRN (Reason: pain) Qty: 10 0RF <Ruddy Ardon MD - Last Filed: 07/11/24 06:50> Follow-up/Referrals: Yris,Pedro Luis Villa MD [Non-Staff] - 1 Week <Ruddy Ardon MD - Last Filed: 07/11/24 06:50> Sign Out Sign Out Data: Patient Sign Out occurred on 07/11/24 at 07:32. Patient's care was discussed, and care was transferred from Ruddy Ardon MD to Marcin Childers MD. <Ruddy Ardon MD - Last Filed: 07/11/24 06:50>
[2024-07-11] MEDS: PANTOPRAZOLE SODIUM IV 40 MG VIAL IV PUSH (07:01)
[2024-07-11] MEDS: SODIUM CHLORIDE 0.9% IV 1,000 ML 999 ML IV CONT ×2 (07:01)
[2024-07-11] MEDS: ONDANSETRON INJ 4 MG/2 ML VIAL IV PUSH (07:01)
[2024-07-11 07:04] LABS: Magnesium 1.8 mg/dL (1.6-2.3)
[2024-07-11 07:13] LABS: BEDSIDEPREGUCG Negative (Negative)
[2024-07-11 07:37] LABS: Influenza A QL RT-PCR Negative (Negative); Influenza B QL RT-PCR Negative (Negative); RSV RNA, RT-PCR Negative (Negative); SARS-CoV-2 RNA PCR Negative (Negative)
[2024-07-11] MEDS: PROMETHAZINE HCL 25 MG/ML AMPUL 12.5 MG IV PUSH (09:01)
[2024-07-11] MEDS: DICYCLOMINE HCL INJ 20 MG/2 ML VIAL IM (09:01)
--- OUTSIDE RECORDS SUMMARY | 2024-07-18 03:03 | XMS_ITS | Encounter Summary ---
Author Organization [facility] Address [address] [place] [address] Care Team Providers Care Brick Handler Name Role Phone Unavailable Primary Care Provider Unavailabl e Reason for Visit * Reason Comments URI Encounter Details Date Type Department Care Team (Late st Contact Info) Description 08/06/2017 11:40 AM FACILITY SECURITY OFFICER Office Visit [facility] [address] [id number] [facility] [place] Influenza A (Primary Dx) Social History Tobacco Use Types Packs/Day Years Used Date Smoking Tobacco: Never Smokeless Tobacco: Never Sex and Gender Information Value Date Recorded Sex Assigned at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 Gender Identity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 Sexual Orientation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 documented as of this encounter Last Filed Vital Signs Vital Sign Reading Time Taken Comments Blood Pressure 122/80 08/06/2017 11:51 AM FACILITY SECURITY OFFICER Pulse 112 08/06/2017 11:51 AM FACILITY SECURITY OFFICER Temperature 37.7 ??C (99.8 ??F) 08/06/2017 11:[address] Respiratory Rate 16 08/06/2017 11:51 AM FACILITY SECURITY OFFICER Oxygen Saturation 98% 08/06/2017 11:51 AM FACILITY SECURITY OFFICER Inhaled Oxygen Concentration - - Weight 62.1 kg (137 lb) 08/06/2017 11:51 AM FACILITY SECURITY OFFICER Height 162.6 cm (5' 4 ) 08/06/2017 11:51 AM FACILITY SECURITY OFFICER Body Mass Index 23.52 08/06/2017 11:51 AM FACILITY SECURITY OFFICER documented in this encounter Patient Instructions * Patient Instructions* Chester Kincaid APRN-MARI - 08/06/2017 12:08 PM FACILITY SECURITY OFFICER Images from the original note were not included. Influenza ENVIRONMENTAL INSPECTOR: Influenza (the flu) is an infection caused [...] ?? Clean shared items with a germ-killing lingo cleaner. Clean table surfaces, doorknobs, and light [...] ask them during your visits. ?? 2017 [employer] Information is for End User's use only and may not be sold, redistributed or otherwise used for commercial purposes. All illustrations and images included in CareNotes?? are the copyrighted property of [employer] or [employer]. The above information is an vocational aide only. It is not intended as medical advice for individual conditions or treatments. Talk to your doctor, nurse or pharmacist before following any medical regimen to see if it is safe and effective for you. LITY SECURITY OFFICER documented in this encounter Progress Notes * Chester Kincaid APRN-CNP - 08/07/2017 10:16 AM CST Pt returned for work note. Note provided. LITY SECURITY OFFICER * Chester Kincaid APRN-CNP - 08/06/2017 11:57 [...] Control present NEGATIVE - POSITIVE Influenza Lot# [id number] Influenza Expir Date 04 28 2019 LITY SECURITY OFFICER documented in this encounter Plan of Treatment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 documented as of this encounter Procedures Procedure Name Priority Date/Time Associated Diagnosis Comments INFLUENZA A+B - POINT OF CARE (AMB) Routine 08/06/2017 11:58 AM FACILITY SECURITY OFFICER Influenza A documented in this encounter Results * (ABNORMAL) INFLUENZA A+B - POINT OF CARE (AMB) (08/06/2017 11:58 AM FACILITY SECURITY OFFICER) Influenza A Antigen Rapid Positive(A) Negative Influenza B Antigen Rapid Negative Negative Influenza Internal Control present NEGATIVE - POSITIVE Influenza Lot Number [id number] Influenza Expiration Date 04 28 2019 Other NASOPHARYNGEAL SWAB / Unknown 08/06/2017 11:58 AM FACILITY SECURITY OFFICER [facility] - POINT OF CA RE ORDERABLES documented in this encounter Visit Diagnoses Diagnosis Influenza A- Primary documented in this encounter
--- OUTSIDE RECORDS SUMMARY | 2024-07-18 03:03 | XMS_ITS | Referral Summary ---
Author Organization [facility] Address [address] [place] [address] Care Team Providers Care Steam Turbine Assembler Name Role Phone Unavailable Primary Care Provider Unavailabl e Source Comments [facility],non-owned Affiliates and Associated Physician Practices is amultiple site organization consisting of ambulatory clinics and hospital sitesin [place], [place], [place] and [place]. This disclosure is being madepursuant to the Care Everywhere program and may not contain all information available regarding this patient. Last updated 18.[facility] Allergies Active Allergy Reactions Criticality Noted Date [...] Comments Blood Pressure 122/80 08/06/2017 11:51 AM BURGLAR ALARM OPERATOR Pulse 112 08/06/2017 11:51 AM BURGLAR ALARM OPERATOR Temperature 37.7 ??C (99.8 ??F) 08/06/2017 11:[address] Respiratory Rate 16 08/06/2017 11:51 AM [employer] Oxygen Saturation 98% 08/06/2017 11:51 AM [employer] Inhaled Oxygen Concentration - - Weight 62.1 kg (137 lb) 08/06/2017 11:51 AM [employer] Height 162.6 cm (5' 4 ) 08/06/2017 11:51 AM [employer] Body Mass Index 23.52 08/06/2017 11:51 AM [employer] Plan of Treatment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
--- OUTSIDE RECORDS SUMMARY | 2024-07-18 03:03 | XMS_ITS | Encounter Summary ---
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 [address] [address] Ora Garsia Follow-up Social History [...]
--- OUTSIDE RECORDS SUMMARY | 2024-07-18 03:03 | XMS_ITS | Data Portability ---
Author Organization [facility] Address [address] [place] [address] Care Team Providers Care Manager Underwriting Name Role Phone M[employer]ICARE SPECIALIST Primary Care [...] salpingecto my, laparoscopi c (SURG) 2022 023 [facility] [place] [address], [address], 3 12:29:09 Imaging None recorded. Medication Orders Simpesse 0.15 mg-30 mcg (84)/10 mcg(7) tablets,3 month dose pack 2022 023 [id number], [address], [place], [id number], 3 17:06:04 Simpesse 0.15 mg-30 mcg (84)/10 mcg(7) tablets,3 month dose pack 2023 024 [facility], [address], [place], [id number], 4 17:16:31 Patient TargetsNo targets recorded. 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 Not Available [facility] (Lab) [address], [place], [address], 12/20/2022 12:00:54 Result Notes None recorded. Problems Name Problem SNOMED Code Status Onset Date Resolution Date Notes Provider Name and Address Organization Details Recorded Time Adult health examinat ion Completed 201403/16/2021 ROUTINE MEDICAL EXAM;Paresh rded Elsewhere : No Locati on: [facility] So urce: EHR Chron ic: N Practic e ID: [id number] Bill able Time: 12:00:00 PM Ema Majano [place], [place] - [facility] 12:04:33 [facility] [id number] Completed 201503/16/2021 Vaginismu s;Recorde d Elsewhere : No Locati on: [facility] So urce: EHR Chron ic: N Practic e ID: [id number] Bill able Time: 12:45:00 PM Ema [facility] 12:04:41 Screenin g for malignan t neoplasm of cervix Completed 201603/16/2021 Screening for malignant neoplasms of the cervix;Re corded Elsewhere : No Locati on: [facility] So urce: EHR Chron ic: N Practic e ID: [id number] Bill able Time: 05:30:00 PM Ema [facility] 12:04:37 Pregnanc y test negative [id number] Completed 201603/16/2021 Encounter for test, result negative; Recorded Elsewhere : No Locati on: [facility] So urce: EHR Chron ic: N Practic e ID: [id number] Bill able Time: 05:30:00 PM Ema [facility] 12:04:[address] Concept Completed 201603/16/2021 Encntr for porcelain turner exam (general) (routine) w/o abn findings; Recorded Elsewhere : No Locati on: [facility] So urce: EHR Chron ic: N Practic e ID: [id number] Bill able Time: 05:30:00 PM Ema [facility] 12:04:38 Speciali zed medical examinat ion Completed 201303/16/2021 Gynecolog ical Examinati on;Record ed Elsewhere : No Locati on: [facility] So urce: EHR Chron ic: N Practic e ID: [id number] Bill able Time: 02:15:00 PM Ema [facility] 12:04:40 Problem Notes None recorded. Procedures Surgical History Date Name Laterality Status Provider Name and Address Organization Details Recorded Time 03/25/20 LAPAROSCOPIC TUBAL LIGATION WITH FULGURATION OF OVIDUCTS (SURG) completed Sylvia Deleon [facility] 03/26/2023 10:04:43 12/18/19 23 Date of Last Pap Smear completed Ashlye Peg [facility] 03/22/2024 16:37:45 Tubal Ligation completed Melissa Ramos [facility] 04/07/2023 16:30:22 Imaging Results None recorded. [...] mamadou Song e: Yes Loca tion: [facility] M odify By: madhu hillman DateTime : 03/17/20 14 02:15:00 PM Not Available Not Available Not Available Microgest in 1.5/30 (21) 1.5 mg-30 mcg tablet take 1 tablet by oral route every day 10/30 completed Prescrib ed Elsewher e: No Locat ion: [facility] odify By: osvaldo bonilla DateTime : [...] Prescrib ed Elsewher e: No Locat ion: [facility] odify By: osvaldo bonilla DateTime : 11/01/19 18 11:00:00 AM Not Available Not Available Not Available Quartette 0.15 mg-20 mcg/0.15 mg-25 mcg tablets,3 month dose pack take 1 tablet by oral route every day 10/30 completed Prescrib ed Elsewher e: No Locat ion: [facility] odify By: osvaldo bonilla DateTime : [...] Updated DateTime 12/17/2022 160.02 cm 28.2 kg/m2 11242.19 g Zamzam HEARN - [facility] 12/17/2022 16:52:23 Date Recorded Systolic blood pressure Diastolic blood pressure Provider Name and Address Organization Details Last Updated DateTime 12/17/2022 122 mm[Hg] 78 mm[Hg] Mary Waters, [facility]- [address], [place], [address], [facility] 12/17/2022 17:17:31 Date Recorded Body height Body mass index (BMI) Body weight Systolic blood pressure Diastolic blood pressure Provider Name and Address Organization Details Last Updated DateTime 01/29/2023 160.02 cm 28.3 kg/m2 09404.78 g 146 mm[Hg] 87 mm[Hg] Melissa [facility] 3 16:44:31 Date Recorded Body height Body mass index (BMI) Body weight Systolic blood pressure Diastolic blood pressure Provider Name and Address Organization Details Last Updated DateTime 04/07/2023 160.02 cm 26.7 kg/m2 77195.45 g 115 mm[Hg] 83 mm[Hg] Melissa [facility] 3 16:30:15 Date Recorded Body height Body mass index (BMI) Body weight Systolic blood pressure Diastolic blood pressure Provider Name and Address Organization Details Last Updated DateTime 03/22/2024 160.02 cm 30.6 kg/m2 99778.48 g 117 mm[Hg] 87 mm[Hg] Ashley Peg [facility] 4 16:36:10 Social History Question Answer Notes LastModified by Organizat ion Details LastModified Time Tobacco Smoking Status Never Smoker Nighat Bertrandrianna obrien, [facility] 04/07/2023 15:57:13 Do You Have An [...] Or The Highest Degree You Have Received? 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 [id number] Information not available 03/16/2021 Do You Use [...] Diagnosis/Indication Diagnosis SNOMED-CT Code Diagnosis ICD10 Code Diagnosis Note [id number] [facility] [address] [address] 03/14/2020 12:44:20 03/14/2020 13:20:01 Gynecologic examination 71313278 Z01.419 Take Calcium with Vitamin D 1200mg daily if not receiving in daily diet. It is strongly advised to have an annual flu shot and up can obtain at most pharmacies . If you have not had a TDap shot in the last 10 years you should obtain one as well. Discussed with patient & provided with informatio n regarding Gardisil vaccine to prevent the 4 strains for HPV that cause cervical cancer if under age 26. Encourage safe sexual practices, to use condoms and limit partners if not already in a monogamous relationsh ip. Do monthly self breast exams. Have mammogram yearly or every other year depending on family history. BRCA testing is now available for patients with strong genetic history of female cancer. If interested contact the office. Engage in daily exercise of low impact aerobic exercise 45-60 minutes 4-5 times weekly. Avoid tobacco and illicit drugs as well as using moderation with alcohol intake less than 1-2 8 oz beverages daily. This lifestyle behavior pattern will lead to less health conditions and longer life span. If BMI greater than 25 weight watchers or dietary consult advised. Patient received above instructio ns, and questions have been answered. If you have any questions please call or respond to this email. Patient was made aware of the patient portal and may obtain a paper copy of today's plan if desired. Monogamous relationsh ip Normal pap Hx Declines std screen Defer pap this year per asccp guidelines unless otherwise indicated. [id number] Mary Waters , [facility] [address],[place] [address] 03/16/2021 15:33:44 03/16/2021 16:45:43 [id number] Mary Waters , [facility] [address],[facility] [address] 04/14/2021 09:17:29 04/14/2021 10:00:18 Gynecologic examination 12807237 Z01.419 Take Calcium with Vitamin D 1200mg daily if not receiving in daily diet. It is strongly advised to have an annual flu shot and up can obtain at most pharmacies . If you have not had a TDap shot in the last 10 years you should obtain one as well. Discussed with patient & provided with informatio n regarding Gardisil vaccine to prevent the 4 strains for HPV that cause cervical cancer if under age 26. Encourage safe sexual practices, to use condoms and limit partners if not already in a monogamous relationsh ip. Do monthly self breast exams. Have mammogram yearly or every other year depending on family history. BRCA testing is now available for patients with strong genetic history of female cancer. If interested contact the office. Engage in daily exercise of low impact aerobic exercise 45-60 minutes 4-5 times weekly. Avoid tobacco and illicit drugs as well as using moderation with alcohol intake less than 1-2 8 oz beverages daily. This lifestyle behavior pattern will lead to less health conditions and longer life span. If BMI greater than 25 weight watchers or dietary consult advised. Patient received above instructio ns, and questions have been answered. If you have any questions please call or respond to this email. Patient was made aware of the patient portal and may obtain a paper copy of today's plan if desired. Monogamous relationsh ip Normal pap Hx Declines std screen Defer pap this year per asccp guidelines unless otherwise indicated. [facility] ion care management [id number] Z30.9 [id number] Mary Waters [facility] [address] [address] 12/17/2022 16:38:36 12/17/2022 17:20:35 Gynecologic examination 13580754 Z01.419 Take Calcium with Vitamin D 1200mg daily if not receiving in daily diet. It is strongly advised to have an annual flu shot and up can obtain at most pharmacies . If you have not had a TDap shot in the last 10 years you should obtain one as well. Discussed with patient & provided with informatio n regarding Gardisil vaccine to prevent the 4 strains for HPV that cause cervical cancer if under age 26. Encourage safe sexual practices, to use condoms and limit partners if not already in a monogamous relationsh ip. Do monthly self breast exams. Have mammogram yearly or every other year depending on family history. BRCA testing is now available for patients with strong genetic history of female cancer. If interested contact the office. Engage in daily exercise of low impact aerobic exercise 45-60 minutes 4-5 times weekly. Avoid tobacco and illicit drugs as well as using moderation with alcohol intake less than 1-2 8 oz beverages daily. This lifestyle behavior pattern will lead to less health conditions and longer life span. If BMI greater than 25 weight watchers or dietary consult advised. Patient received above instructio ns, and questions have been answered. If you have any questions please call or respond to this email. Patient was made aware of the patient portal and may obtain a paper copy of today's plan if desired. Pap/hpv sent STD Screen declined Genetic Screen discussed Colon Screen PCP Dexa Screen na Routine Labs PCP Contracept ion care management [id number] Z30.9 Happy on current OCPRF sent x 1yr [id number] Dhaval Harris MD [facility] [address] [address] 01/29/2023 16:27:36 01/31/2023 14:41:06 Female sterilization 00928256 Z30.2 . this patient is a 33-year-ol d female who desires female sterilizat ion. We agreed to perform laparoscop ic bilateral salpingect nathan. She understand s the risks, benefits, and alternativ es. She has completed the informed consent process is ready to proceed. [id number] Dhaval Harris MD [facility] [address] [address] 04/07/2023 15:57:00 04/07/2023 16:57:54 Postoperative care 526107996 Z48.89 This patient is a 33-year-ol d female who presents for postop follow-up. She is 1 week postop from a laparoscop ic bilateral salpingect nathan. Her incisions are clean dry and intact. She has no complaints . She is recovering normally. She will follow up as needed. [id number] MAKENNA SEVILLA MD [facility] [address] [address] 03/22/2024 15:49:37 03/22/2024 17:34:19 Gynecologic examination [id number] Z01.419 Well woman care- Cervical cancer screening: Pap smear not indicated (next 2027)- Breast cancer screening: mammogram not indicated- Colon cancer screening: does not qualify- STD testing: declined- hereditary cancer screening: does not qualify for testing [facility] management [id number] Z30.9 - ok to continue extended cycle OCPs, no contraindi cations- also discussed skipping placebo week vs IUD placement for amenorrhea if desired- do not recommend hormonal testing while on OCPs due to unreliable results Health Concerns Section Related Observation LastModified by Organization Detai ls LastModified Time None Recorded Concern Status LastModified by Organization Details LastModified Time None Recorded Advance Directives Directive N: Payers Encounter Date Sequence Insurance Name Policy Number Policy Schafer Covered Member ID Schafer Member ID Guarantor Name 12/17/2022 1 [facility] [id number] Bethany Fowler [id number] Bethany Fowler 01/29/2023 1 [facility] [id number] Bethany Fowler [id number] Bethany Fowler 04/07/2023 1 [facility] [id number] Bethany Fowler [id number] Bethany Fowler 03/22/2024 1 [facility] [id number] Bethany Fowler [id number] Bethany Fowler Notes Date Note Type Note [...] 42; Followed with yearly pap smears Mary Waters [facility] [address], [place], [address], [facility] 12/17/2022 17:20:00 01/29/2023 text/html this patient [...] hemorrhage and infection. Dhaval Harris MD [address], [place], [address], [facility] 01/30/2023 23:07:54 04/07/2023 text/html This patient is a 33-year-old female who presents for postop follow-up. She is 1 week postop from a laparoscopic bilateral salpingectomy. Her incisions are clean dry and intact. She has no complaints. She is recovering normally. She will follow up as needed. Dhaval Harris MD [address], [place], [address], [facility] 04/07/2023 16:56:42 03/22/2024 text/html Presents today [...] any changes or masses in her breasts. LMP9/03/30. Periods are Q90 days (on extended cycle OCPs) and last 5 days. Flow is moderate, no intermenstrual spotting. MAKENNA SEVILLA MD [address], [place], [address], [facility] 03/22/2024 17:16:38 OBGyn Episode No OBEpisode recorded.
--- OUTSIDE RECORDS SUMMARY | 2024-07-18 03:03 | XMS_ITS | Patient Health Summary ---
Author Organization [facility] Address [address] [place] [address] Care Team Providers Care Car Sealer Name Role Phone Unavailable Primary Care Provider Unavailabl e Note from [facility],non-owned Affiliates and Associated Physician Practices is amultiple site organization consisting of ambulatory clinics and hospital sitesin [place], [place], [place] and [place]. This disclosure is being madepursuant to the Care Everywhere program and may not contain all information available regarding this patient. Last updated 18.[facility] Allergies * Day Time(Dizziness) Medications * Be [...] Comments Blood Pressure 122/80 08/06/2017 11:51 AM CSR TECHNICIAN Pulse 112 08/06/2017 11:51 AM CSR TECHNICIAN Temperature 37.7 ??C (99.8 ??F) 08/06/2017 11:[address] Respiratory Rate 16 08/06/2017 11:51 AM CSR TECHNICIAN Oxygen Saturation 98% 08/06/2017 11:51 AM CSR TECHNICIAN Inhaled Oxygen Concentration - - Weight 62.1 kg (137 lb) 08/06/2017 11:51 AM CSR TECHNICIAN Height 162.6 cm (5' 4 ) 08/06/2017 11:51 AM CSR TECHNICIAN Body Mass Index 23.52 08/06/2017 11:51 AM CSR TECHNICIAN Procedures * INFLUENZA A+B - POINT OF CARE (AMB)(Performed 08/06/2017) Performed for Influenza A Results * (ABNORMAL) INFLUENZA A+B - POINT OF CARE (AMB) (08/06/2017 11:58 AM CSR TECHNICIAN) Influenza A Antigen Rapid Positive(A) Negative Influenza B Antigen Rapid Negative Negative Influenza Internal Control present NEGATIVE - POSITIVE Influenza Lot Number [id number] Influenza Expiration Date 04 28 2019 Other NASOPHARYNGEAL SWAB / Unknown 08/06/2017 11:58 AM CSR TECHNICIAN Chester Kincaid PSYCHIATRIC SPECIALIST-NURSE ORTHOPEDIC LAB - POINT OF CA RE ORDERABLES
--- OUTSIDE RECORDS SUMMARY | 2024-07-18 03:03 | XMS_ITS | Clinical Summary ---
Author Organization [facility] Virtual Care Address [address] [place] [phone] Phone Care Team Providers Care Room Service Attendant Name Role Phone Raymond Wolff MD Primary Care Provider Kathy Catherine MD Unavailable [phone] Doris Pruett MD Unavailable [phone] Mary Waters NP Unavailable [phone] Allergies Active Allergy Reactions Criticality Noted Date [...] Department Care Team Description 07/02/2024 10:30 AM VIDEO SOFTWARE ENGINEER Telemedicine [address] [address] Raymond Wolff MD Nausea vomiting and diarrhea (Primary Dx); Gastroesophageal reflux disease without esophagitis 05/07/2024 1:10 PM CDT Lab [facility] ([facility]) [address] [place] [phone] Preventative health care; Screening for viral disease; Screening for diabetes mellitus; Screening for deficiency anemia; Screening for metabolic disorder 05/07/2024 11:00 AM CDT Office Visit [address] [address] Raymond Wolff MD Preventative health care (Primary Dx); Class 1 obesity without serious comorbidity with body mass index (BMI) of 30.0 to 30.9 in adult, unspecified obesity type; Attention deficit hyperactivity disorder (ADHD), combined type; Gastroesophageal reflux disease without esophagitis; Screening for metabolic disorder; Screening for deficiency anemia; Screening for diabetes mellitus; Screening for viral disease 04/23/[address] 5th [address] [place] [address] Deb Cardenas Encounter for vaccination (Primary Dx) 04/23/[address] 5[address] [place] [phone] Deb Cardenas from Last 3 Months Immunizations [...] 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, 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 Not on [...] LAB BLOOD ORDERABLES F inal Result [facility] One [facility] Department of Laboratories [place], [place] [id number] * Differential, auto (05/07/2024 12:17 PM CDT) Neutrophil abs 4.1 1.5 - 6.5 K/cumm Imm gran abs 0.0 0.0 - 0.1 K/cumm [facility] Lymphocyte abs 3.0 0.8 - 3.3 K/cumm [facility] Monocyte abs 0.5 0.2 - 0.8 K/cumm [facility] Eosinophil abs 0.3 0.0 - 0.5 K/cumm [facility] Basophil abs 0.0 0.0 - 0.1 K/cumm [facility] Neutrophil pct 52.2 % [facility] Comment: Interpretive Data Percent cell count reference ranges are not reported, since discordance with absolute values may lead to misinterpretation of CBC data. Current Interpretive Data was last revised on 2017. Imm gran pct 0.1 % [facility] Comment: Interpretive Data Percent cell count reference ranges are not reported, since discordance with absolute values may lead to misinterpretation of CBC data. Current Interpretive Data was last revised on 2017. Lymphocyte pct 37.4 % [facility] Comment: Interpretive Data Percent cell count reference ranges are not reported, since discordance with absolute values may lead to misinterpretation of CBC data. Current Interpretive Data was last revised on 2017. Monocyte pct 5.7 % [facility] Comment: Interpretive Data Percent cell count reference ranges are not reported, since discordance with absolute values may lead to misinterpretation of CBC data. Current Interpretive Data was last revised on 2017. Eosinophil pct 4.2 % [facility] Comment: Interpretive Data Percent cell count reference ranges are not reported, since discordance with absolute values may lead to misinterpretation of CBC data. Current Interpretive Data was last revised on 2017. Basophil pct 0.4 % [facility] Comment: Interpretive Data Percent cell count reference ranges are not reported, since discordance with absolute values may lead to misinterpretation of CBC data. Current Interpretive Data was last revised on 2017. Blood 05/07/2024 12:1 7 PM CDT 05/07/2024 12:50 PM CDT us Raymond Wolff MD LAB BLOOD ORDERABLES F inal Result [facility] One [facility] Department [place] [address] * CBC with auto differential (05/07/2024 12:17 PM CDT) [facility] WBC 7.9 3.8 - 9.9 K/cumm Hgb 13.1 11.9 - 15.5 g/dL [facility] Hct 39.3 35.6 - 45.5 % [facility] Plt 311 150 - 400 K/cumm [facility] MPV 9.8 9.1 - 12.3 fL [facility] RBC 4.17 3.90 - 5.20 M/cumm [facility] MCV 94.2 81.3 - 96.4 fL [facility] MCH 31.4 27.1 - 33.3 pg [facility] MCHC 33.3 32.3 - 35.7 g/dL [facility] RDW CV 12.7 11.1 - 14.9 % [facility] RDW SD 43.9 35.7 - 48.1 fL [facility] NRBC abs 0.00 0.00 - 0.01 K/cumm [facility] Blood 05/07/2024 12:1 7 PM CDT 05/07/2024 12:50 PM CDT Raymond Wolff MD LAB BLOOD ORDERABLES F inal Result [facility] Department [place] [address] * Hepatitis C antibody Blood (05/07/2024 12:17 PM CDT) [facility] Hep C Ab Nonreactive Nonreactive Comment:Antibodies to HCV no t detected. Does NOT exclude the possibility of recent exposure to HCV. Current interpretive data was last revised on 22 Blood 05/07/2024 12:1 7 PM CDT 05/07/2024 12:50 PM CDT Raymond Wolff MD LAB MICROBIOLOGY - GEN ERAL ORDERABLES Final Result [facility] [place] [address] * Hepatitis B Surface Antigen Blood (05/07/2024 12:17 PM CDT) [facility] HepBsAg Nonreactive Nonreactive Blood 05/07/2024 12:1 7 PM CDT 05/07/2024 12:50 PM CDT Raymond Wolff MD LAB MICROBIOLOGY - GEN ERAL ORDERABLES Final Result Performing Organization Address [facility] de Phone Number [facility] [place] [address] * Hemoglobin A1c (05/07/2024 12:17 PM CDT) [facility] Hgb A1C 5.2 4.0 - 5.6 % Estimated Average Glucose 103 mg/dL [facility] Comment: The ADA recommends reporting an estimated [...] inal Result Performing Organization Address [facility] Co de Phone Number [facility] [place] [address] * Comprehensive metabolic panel (05/07/2024 12:17 PM CDT) [facility] Sodium 140 135 - 145 mmol/L Potassium, pl 4.1 3.3 - 4.9 mmol/L [facility] Chloride 105 97 - 110 mmol/L [facility] CO2 27 22 - 32 mmol/L [facility] Anion gap 8 2 - 15 mmol/L [facility] BUN 10 6 - 25 mg/dL [facility] Creatinine 0.81 0.60 - 1.10 mg/dL [facility] Glucose 78 70 - 199 mg/dL [facility] Comment: Interpretive Data Fasting glucose >/= 126 [...] 2022. Calcium 9.2 8.5 - 10.3 mg/dL [facility] Bilirubin, total 0.4 0.1 - 1.2 mg/dL [facility] Protein, pl 7.6 6.5 - 8.5 g/dL [facility] Albumin 4.4 3.5 - 5.0 g/dL [facility] Alk phos 77 40 - 130 Units/L [facility] ALT 19 7 - 45 Units/L [facility] AST 26 10 - 45 Units/L [facility] Blood 05/07/2024 12:1 7 PM CDT 05/07/2024 12:50 PM CDT Raymond Wolff MD LAB BLOOD ORDERABLES F inal Result [facility] One [facility] [place] [address] from Last 3 Months Insurance [facility] EMPLOYEES EMPLOYEES EMPLOYEES [employer]OYEES Advance Directives For more information, please contact: [phone] * Full Code (Latest Code Status on File) Date Activated Date Inactivated Comments 11/12/2022 8:39 AM 11/12/2022 2:53 PM Care Teams Room Service Attendant Relationship Specialty Start Date End Date Raymond Wolff MD [address] [facility] [address] [place] [address] PCP - General Internal Medicine 11/21/23 Kathy Catherine MD [address] [place] [address] Consulting Physician Gastroenterology 05/07/24 Doris Pruett MD [address] [place] [address] Consulting Physician Dermatology 05/07/24 Mary Waters NP [address] [place] [address] Nurse Practitioner Nurse Practitioner 05/07/24
--- OUTSIDE RECORDS SUMMARY | 2024-07-18 03:03 | XMS_ITS | Clinical Summary ---
Author Organization [facility] Address [address] [facility] [place] [address] Care Team Providers Care Fruit Sorter Name Role Phone Unavailable Primary Care Provider Unavailabl e Source Comments [facility],non-owned Affiliates and Associated Physician Practices is amultiple site organization consisting of ambulatory clinics and hospital sitesin [place], [place], [place] and [place]. This disclosure is being madepursuant to the Care Everywhere program and may not contain all information available regarding this patient. Last updated 18.[facility] Allergies Active Allergy Reactions Criticality Noted Date [...] Comments Blood Pressure 122/80 08/06/2017 11:51 AM ORACLE APPLICATIONS DEVELOPER Pulse 112 08/06/2017 11:51 AM ORACLE APPLICATIONS DEVELOPER Temperature 37.7 ??C (99.8 ??F) 08/06/2017 11:[address] Respiratory Rate 16 08/06/2017 11:51 AM ORACLE APPLICATIONS DEVELOPER Oxygen Saturation 98% 08/06/2017 11:51 AM ORACLE APPLICATIONS DEVELOPER Inhaled Oxygen Concentration - - Weight 62.1 kg (137 lb) 08/06/2017 11:51 AM ORACLE APPLICATIONS DEVELOPER Height 162.6 cm (5' 4 ) 08/06/2017 11:51 AM ORACLE APPLICATIONS DEVELOPER Body Mass Index 23.52 08/06/2017 11:51 AM ORACLE APPLICATIONS DEVELOPER Plan of Treatment Health Maintenance Due Date [...]
--- OUTSIDE RECORDS SUMMARY | 2024-07-18 03:04 | XMS_ITS | Encounter Summary ---
Author Organization [facility] Address [address] [place] [address] Care Team Providers Care Community Service Worker Name Role Phone Raymond Wolff MD Primary Care Provider Encounter Details Date Type Department Care Team (Late st Contact Info) Description 12/16/2023 4:00 PM CDT Telemedicine [facility] [address] [place] [phone] Raymond Wolff MD [address] [facility] [address] [place] [address] Fatigue, unspecified type (Primary Dx); Screening for [...] which took place via Real-time video connection ([email or web address], Zoom or similar). Bethany Fowler is a 33 y.o. female reached out to discuss: thyroid concerns Visit involved the Patient My location at the time of the visit: [place], [place] Patient's location at the time of the visit: [place] Time the session started: 4:29 PM HPI [...] Screening for thyroid disorder - Thyroid Function [place]; Future Screening for lipid disorders - Lipid [...] (ABNORMAL) Lipid panel (12/17/2023 9:48 AM CDT) [facility] Cholesterol 232(H) 30 - 199 mg/dL Comment: [...] on 2018. Triglycerides 62 <=149 mg/dL [facility] Comment: Interpretive Data Ages < or [...] on 2018. HDL 72 >=40 mg/dL [facility] Comment: Interpretive Data Ages < or [...] 2018. LDL, calculated 148(H) <=129 mg/dL [facility] Comment: Interpretive Data Ages < or [...] revised on 2018. Non-HDL Cholesterol 160 mg/dL [facility] Comment: Interpretive Data Ages < or [...] last revised on 2018. Chol/HDL ratio 3 [facility] Blood 12/17/2023 9:48 AM CDT 12/17/2023 9:55 AM CDT Raymond Wolff MD LAB BLOOD ORDERABLES F inal Result Performing Organization Address [facility] Co de Phone Number [facility] [place] [address] * Thyroid Function [place] (12/17/2023 9:48 AM CDT) TSH 1.85 0.30 - 4.20 mcIUnit/mL Blood 12/17/2023 9:48 AM CDT 12/17/2023 9:55 AM CDT us Raymond Wolff MD LAB BLOOD ORDERABLES F inal Result Performing Organization Address [facility] Co de Phone Number [facility] [place] [address] documented in this encounter Visit Diagnoses Diagnosis Fatigue, unspecified type- Primary Screening for thyroid disorder Screening for lipid disorders documented in this encounter Care Teams Community Service Worker Relationship Specialty Start Date End Date Raymond Wolff MD [address] [address] PCP - General Internal Medicine 11/21/23 documented as of this encounter
--- OUTSIDE RECORDS SUMMARY | 2024-07-18 03:04 | XMS_ITS | Encounter Summary ---
Author Organization [facility] Healthcare Address [address] [place] [address] Care Team Providers Care Geothermal Sheet Metal Worker Name Role Phone Pedro Luis Arndt MD Primary Care Provider [phone] Reason for Visit * Reason Comments PRIVATE WEALTH ADVISOR Initial Evaluation [facility]SS * Diagnostic Imaging (Routine) - Closed Specialty Diagnoses / Procedures Referred By Nette cruz Referred To Contact Diagnoses Oropharyngeal dysphagia Procedures [place] Modified Barium Swallow W Video Kathy Catherine MD [address] [place] [address] Phone: tel: fax: [address] [address] Referral ID Status Reason Start Date Expiration Date Visits Re quested Visits Authorized [id number] Closed 11/25/2022 12/25/2023 1 1 Encounter Details Date Type Department Care Team (Late st Contact Info) Description 12/23/2022 1:00 PM CDT Therapy [facility] Speech Therapy [address] [place] [phone] Oropharyngeal dysphagia (Primary Dx) Social History [...] this encounter Progress Notes * Yamel Rice, PRIVATE WEALTH ADVISOR - 12/23/2022 1:00 PM CDT [facility] Speech-Language Pathology: Outpatient Modified Barium Swallow Study [...] if something is wrong with her swallow. Station Helper Used: NOT APPLICABLE Clinical Impression & Professional [...] phase documented in this encounter Care Teams Geothermal Sheet Metal Worker Relationship Specialty Start Date End Date Pedro Luis Arndt MD [address] [place] [address] PCP - General Family Medicine 09/03/22 11/20/23 documented as of this encounter
--- OUTSIDE RECORDS SUMMARY | 2024-07-18 03:04 | XMS_ITS | Encounter Summary ---
Author Organization [facility] Address [address] [place] [address] Phone Care Team Providers Care Clerk Manager Name Role Phone Raymond Wolff MD Primary Care Provider Encounter Details Date Type Department Care Team (Late st Contact Info) Description 04/23/2024 Immunization [facility] Occupational Health [address] [facility] 5th Floor [address] [place] [address] Deb Cardenas Social History Tobacco Use Types [...] 04/23/2024 documented in this encounter Care Teams Clerk Manager Relationship Specialty Start Date End Date Raymond Wolff MD [address] [address] PCP - General Internal Medicine 11/21/23 documented as of this encounter
--- OUTSIDE RECORDS SUMMARY | 2024-07-18 03:04 | XMS_ITS | Encounter Summary ---
Author Organization [facility] Healthcare Address [address] [place] [address] Care Team Providers Care Retail Wireless Sales Consultant Name Role Phone Pedro Luis Arndt MD Primary Care Provider [phone] Encounter Details Date Type Department Care Team (Late st Contact Info) Description 11/05/2022 Telephone [facility] Digestive Disease [place] [id number] [address] Marilin Schmitt, ROBERT Social History Tobacco Use [...] voicemail asking patient to return call to [facility]. GENERAL INSTRUCTIONS [x] [...] entire process. [x] Confirm patient has a school bus driver/custodian or responsible adult. Since you will be [...] for her EGD with Dr Catherine at [facility] to arrive at 8:30 am. Her sister will be her school bus driver/custodian. She knows not to eat or drink anything after 12 midnight. She would like another reminder call. documented in this encounter Plan of Treatment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 documented as of this encounter Visit Diagnoses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documented in this encounter Care Teams Retail Wireless Sales Consultant Relationship Specialty Start Date End Date Pedro Luis Arndt MD [address] [place] [address] PCP - General Family Medicine 09/03/22 11/20/23 documented as of this encounter
--- OUTSIDE RECORDS SUMMARY | 2024-07-18 03:04 | XMS_ITS | Encounter Summary ---
Author Organization [facility] Address [address] [place] [address] Care Team Providers Care Blueprint Duplicator Name Role Phone Raymond Wolff MD Primary Care Provider Encounter Details Date Type Department Care Team (Late st Contact Info) Description 11/21/2023 Orders Only [facility] [address] [facility] [address] [place] [phone] Raymond Wolff MD [address] [facility] [address] [place] [address] Attention deficit hyperactivity disorder (ADHD), combined type [...] documented as of this encounter Care Teams Blueprint Duplicator Relationship Specialty Start Date End Date Raymond Wolff MD [address] [address] PCP - General Internal Medicine 11/21/23 documented as of this encounter
--- OUTSIDE RECORDS SUMMARY | 2024-07-18 03:04 | XMS_ITS | Encounter Summary ---
Author Organization [facility] Healthcare Address [address] [place] [address] Care Team Providers Care Printed Circuit Board Reworker Name Role Phone Unavailable Primary Care Provider Unavailabl e Reason for Visit * Reason Onset Date Comments COVID-19 EVALUATION 03/29/2021 Encounter Details Date Type Department Care Team (Late st Contact Info) Description 03/29/2021 Telephone [facility] [address] Room [facility] (Third Floor) [place] [address] Kizzy Geiger, RN COVID-19 EVALUATION Social History [...] Vaccine related call? - No No Email: [email or web address] Employee/Student ID# [id number] Are you an employee or student? Employee Employee Employee Employer: [employer] Employer Comment - - MICHAEL Does your work require you to go into patient care areas (hospital or clinic)? No No No Employee Facility: [facility] (All Locations) [facility] (All Locations) [facility] (All Locations) Does your job primarily involve providing care for bone marrow transplant patients? 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 [...] Yes Yes Who provided the vaccine: - [facility] Covid Vaccine Who Provided - Pfizer - [...] or a delay in testing results. Provided [facility] number [phone] for her to report her testing results. Patient is getting tested at @2:40 at [facility] deferrs testing at /[facility] at this time. Provided [facility] number to call results: [phone] Script I Asymptomatic, Exposed but vaccinated (testing [...] these instructions. The email will come from [email or web address]; if you do not receive it, please check to see if your email ice cream server has automatically routed it to [email or web address]chilo documented in this encounter Plan of Treatment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 documented as of this encounter Visit Diagnoses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documented in this encounter
--- OUTSIDE RECORDS SUMMARY | 2024-07-18 03:04 | XMS_ITS | Encounter Summary ---
Author Organization [facility] Address [address] [place] [address] Phone Care Team Providers Care Manager File Name Role Phone Raymond Wolff MD Primary Care Provider Encounter Details Date Type Department Care Team (Late st Contact Info) Description 04/23/2024 Immunization [facility] Occupational Health [address] [facility] 5th Floor [address] [place] [address] Deb Cardenas Encounter for vaccination (Primary Dx) [...] 04/23/2024 documented in this encounter Care Teams Manager File Relationship Specialty Start Date End Date Raymond Wolff MD [address] [address] PCP - General Internal Medicine 11/21/23 documented as of this encounter
--- OUTSIDE RECORDS SUMMARY | 2024-07-18 03:04 | XMS_ITS | Encounter Summary ---
Author Organization [facility] Address [address] [address] Care Team Providers Care Net Washer Name Role Phone No, Physician Primary Care Provider [phone] Encounter Details Date Type Department Care Team (Late st Contact Info) Description 11/08/2021 Telephone [facility] Outpatient Center [address] [address] Tamiko [place] MA Social History [...] on filedocumented in this encounter Care Teams Net Washer Relationship Specialty Start Date End Date No, Physician PCP - General 04/26/21 09/02/22 documented as of this encounter
--- OUTSIDE RECORDS SUMMARY | 2024-07-18 03:04 | XMS_ITS | Encounter Summary ---
Author Organization [facility] Healthcare Address [address] [place] [address] Care Team Providers Care Jd Edwards Consultant Name Role Phone Unavailable Primary Care Provider Unavailabl e Encounter Details Date Type Department Care Team (Late st Contact Info) Description 03/01/2020 Telephone [facility] Healthcare [facility] [address] [facility] Room [address] (Third Floor) [place] [address] Melia Leonard NP [address] [place] [address] Social History Tobacco Use Types Packs/Day Years [...]
--- OUTSIDE RECORDS SUMMARY | 2024-07-18 03:04 | XMS_ITS | Encounter Summary ---
Author Organization [facility] Healthcare Address [address] [place] [address] Care Team Providers Care Fabrication Mig Welder Name Role Phone Pedro Luis Arndt MD Primary Care Provider [phone] Reason for Visit * Reason Comments Urinary Symptom For a week Encounter Details Date Type Department Care Team (Late st Contact Info) Description 10/11/2023 7:45 AM CDT Telemedicine [facility] Virtual Care [address] [place] [phone] Myesha Molina NP [address] [place] [address] Acute cystitis without hematuria (Primary Dx) Social [...] took place via real-time video connection with [facility]. During the visit, I was located at home and the patient was located at home in the state of [place]. The patient visit started at 0805 and [...] Primary documented in this encounter Care Teams Fabrication Mig Welder Relationship Specialty Start Date End Date Pedro Luis Arndt MD [address] [place] [address] PCP - General Family Medicine 09/03/22 11/20/23 documented as of this encounter
--- OUTSIDE RECORDS SUMMARY | 2024-07-18 03:04 | XMS_ITS | Encounter Summary ---
Author Organization [facility] Address [address] [place] [address] Phone Care Team Providers Care Neuropathologist Name Role Phone Pedro Luis Arndt MD Primary Care Provider [phone] Encounter Details Date Type Department Care Team (Latest Contact Info) Description 03/28/2023 9:30 AM CDT Office Visit [facility] Gastroenterology [address] [facility] [address] 12th [place] [address] [place] [address] Kathy Catherine MD [address] [place], [place] [id number] Oropharyngeal dysphagia (Primary Dx); Nausea Social History [...] OF MEDICINE DIVISION OF GASTROENTEROLOGY Clinic Address: [address] [place] [address], Suite , [place] [address] Mailing Address: [facility] Yary Motley [facility] [address], [place] [id number] Return Visit NAME: Bethany Fowler : 1990 [...] Allergies Allergen Reactions Vicks Dayquil Allergy Syncope Zzyoynosd-Mn-Tx-Acetaminophen Dizziness fainting Family History Problem Relation Age [...] esophagus. Biopsied. - Esophagogastric landmarks identified. - Mission-colored mucosa. - No gross lesions in the [...] placed in this encounter. Kathy Catherine MD Academic Support Coordinatorpuppet maker [address] [place] [address] catering assistant Academic office Rtc 6 months documented [...] 11/19/2023 added in this encounter Care Teams Neuropathologist Relationship Specialty Start Date End Date Pedro Luis Arndt MD [address] [place] [address] PCP - General Family Medicine 09/03/22 11/20/23 documented as of this encounter
--- OUTSIDE RECORDS SUMMARY | 2024-07-18 03:04 | XMS_ITS | Encounter Summary ---
Author Organization [facility] Healthcare Address [address] [place] [address] Care Team Providers Care Oil Burner Servicer And Installer Name Role Phone Pedro Luis Arndt MD Primary Care Provider [phone] Reason for Visit * Auth/Cert (Routine) Specialty Diagnoses / Procedures Referred By Contac t Referred To Contact Diagnoses Oropharyngeal dysphagia Oropharyngeal dysphagia [R13.12] Procedures [place] ESOPHAGOGASTRODUODENOSCOPY TRANSORAL DIAGNOSTIC ESOPHAGOGASTRODUODENOSCOPY Referral ID Status Reason Start Date Expiration Date Visits Re quested Visits Authorized [id number] 1 1 Encounter Details Date Type Department Care Team (Latest Contact Info) Description 11/12/2022 9:30 AM CDT - 11/12/2022 10:00 AM CDT Surgery [facility] [address] [facility] [address] [place] [address] Kathy Catherine MD [address] [facility] [address] [place] [address] ESOPHAGOGASTRODUODENOSCOPY BIOPSY Surgery Details Date/Time Status Location OR Service Patient Class Case Class Case Type Trauma Case? 11/12/2022 9:30 AM Posted [facility] GI 03 Gastroenterology Outpatient Elective Panel [...] Allergies Allergen Reactions Vicks Dayquil Allergy Syncope Nrunialxi-Yo-Ao-Acetaminophen Dizziness fainting Prior to Admission medications Medication Sig Start Date End Date Taking? Authorizing Provider dexmethylphenidate XR (FOCALIN XR) 20 mg 24 hr capsule Take by mouth daily 04/16/21 Yes Maxx Farias MD omeprazole (PriLOSEC) 20 mg capsule Take 1 capsule (20 mg total) by mouth daily Yes ProviderMaxx MD al & mag hydroxide with lzovukawowl-iwbcwgguzqcdbqp-ibccaiuup (MAGIC MOUTHWASH) suspension 1-1-1 Swish and swallow [...] Female Attending MD: Kathy Catherine M.D. Room: [facility]COPY ROOM 3 Note Status: Finalized Procedure: [...] esophagus. Biopsied. - Esophagogastric landmarks identified. - Dixon-colored mucosa. - No gross lesions in the [...] On: 11/12/2022 9:46 AM Recognized by the [employer] for promoting quality [...] biopsy) 11/12/2022 9:54 AM CDT Narrative PATHOLOGY [facility] - 11/14/2022 12:05 PM CDT EPIC results best viewed via link to PDF [facility] Jennifer [facility] [place] [address] Note to Patients: This report may contain [...] ??1990 (Age: 32) Address: ??[address] [place], [place] ??[address] [facility] #: ??[id number] Taken:11/12/2022 Received:11/12/2022 Reported: 11/14/2022 Patient Type: [facility] as part of an ongoing nurse quality program and in compliance with federally mandated [...] MD LAB PATHOLOGY ORDERABLES Final Result PATHOLOGY [facility] 3rd Floor [place], [place] [phone] * EGD (11/12/2022 9:46 AM CDT) Anatomical Region Laterality Modality Other Narrative Procedure Note Kathy Catherine MD - 11/12/2022 9:46 AM CDT [facility] [place] Patient Name: Myra Fowler Procedure Date: 11/12/2022 9:46 AM Date of : 1990 Admit Type: Outpatient Age: 32 Gender: Female Attending MD: Kathy Catherine M.D. Room: [facility] 3 Note Status: Finalized Procedure: [...] passed under direct vision. The GIF [id number] endoscope was introducedthrough the mouth, and advanced [...] entire esophagus.Biopsied. - Esophagogastric landmarks identified. - Dixon-colored mucosa. - No gross lesions in the [...] On: 11/12/2022 9:46 AM Recognized by the [employer] for promoting quality [...] 11/12/2022 documented in this encounter Care Teams Oil Burner Servicer And Installer Relationship Specialty Start Date End Date Pedro Luis Arndt MD [address] [place] [address] PCP - General Family Medicine 09/03/22 11/20/23 documented as of this encounter
--- OUTSIDE RECORDS SUMMARY | 2024-07-18 03:04 | XMS_ITS | Encounter Summary ---
Author Organization [facility] Healthcare Address [address] [place] [address] Care Team Providers Care Machine Tailer Name Role Phone No, Physician Primary Care Provider [phone] Reason for Visit * Reason Onset Date Comments COVID-19 EVALUATION 11/04/2021 Encounter Details Date Type Department Care Team (Late st Contact Info) Description 11/04/2021 Telephone [facility] [address] [place] [address] Room 3420 (Third Floor) [place] [address] Nataliya Bardales RN COVID-19 EVALUATION Social History [...] related call? - No No No Email: [email or web address] Employee/Student ID# [id number] Are you an employee or student? Employee Employee Employee Employee Employer: [employer] Employer Comment - - [employer] - Does your work require you to go into patient care areas (hospital or clinic)? No No No No Employee Facility: [facility] (All Locations) [facility] (All Locations) [facility] (All Locations) [facility] (All Locations) Does your job primarily involve providing care for bone marrow transplant patients? 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 Provided [facility] number [phone] for her to report her testing results. Patient is getting tested at @2:40 at [facility] deferrs testing at /[facility] at this time. Provided [facility] number to call results: [phone] - Script J (post-exposure script) for asymptomatic [...] setting. We will email you and your surgical garment assembly supervisor a table with guidance on work exclusion. It is up to you and your surgical garment assembly supervisor to adhere to this guidance. The email will come from [email or web address]; if you do not receive it, please check to see if your email beverage server has automatically routed it to [employer]. documented in this encounter Plan of Treatment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 documented as of this encounter Visit Diagnoses Diagnosis Exposure to confirmed case of COVID-19- Primary documented in this encounter Care Teams Machine Tailer Relationship Specialty Start Date End Date No, Physician PCP - General 04/26/21 09/02/22 documented as of this encounter
--- OUTSIDE RECORDS SUMMARY | 2024-07-18 03:04 | XMS_ITS | Encounter Summary ---
Author Organization [facility] Address [address] [facility] [address] [place] [address] Care Team Providers Care Shipping Team Leader Name Role Phone No, Physician Primary Care Provider [phone] Reason for Visit * Reason Comments Mouth Lesions Encounter Details Date Type Department Care Team (Late st Contact Info) Description 04/26/2021 10:30 AM CDT Office Visit [facility] Primary Care at [facility] [address] [place] [address] Karina Florentino, DRUM SANDER OFFBEARER [address] [address] Aphthous ulcer of mouth (Primary [...] Patient Instructions * Patient Instructions* Karina Florentino, DRUM SANDER OFFBEARER - 04/26/2021 10:30 AM CDT Prednisone daily for 5 days Magic mouthwash every 4 hours as needed for pain (Swish and Spit) If no improvement in 4-5 days follow up with PCP Patient Education Gingivostomatitis SALES APPRENTICE: Gingivostomatitis (GS) is a condition that causes [...] a viral infection. Manage your symptoms: ?? [place] your teeth at least 2 times each [...] ask them during your visits. ?? 2017 [employer] Information is for End User's use only and may not be sold, redistributed or otherwise used for commercial purposes. All illustrations and images included in CareNotes?? are the copyrighted property of [employer], [employer] or [employer]. The above information is an surgery aide only. It is not intended as [...] this encounter Progress Notes * Karina Florentino, DRUM SANDER OFFBEARER - 04/26/2021 10:30 AM CDT Subjective/Objective Patient [...] or tender. Nose: Nose normal. Mouth/Throat: Lips: [place]. Mouth: Mucous membranes are moist. Oral lesions [...] orders - al & mag hydroxide with ifvddwhxspe-ikmmupptzwdzgcc-gxefgkolg (MAGIC MOUTHWASH) suspension 1-1-1; Swish and swallow [...] 04/26/2021 documented in this encounter Care Teams Shipping Team Leader Relationship Specialty Start Date End Date No, Physician PCP - General 04/26/21 09/02/22 documented as of this encounter
--- OUTSIDE RECORDS SUMMARY | 2024-07-18 03:04 | XMS_ITS | Encounter Summary ---
Author Organization [facility] Address [address] [place] [address] Phone Care Team Providers Care Auto Dismantler Name Role Phone Pedro Luis Arndt MD Primary Care Provider [phone] Reason for Visit * Consultation (Routine) - Closed Specialty Diagnoses / Procedures Referred By Nette cruz Referred To Contact Gastroenterology Diagnoses Abdominal pain Nausea GERD without esophagitis Referral, Self [facility] (All Locations) Referral ID Status Reason Start Date Expiration Date V isits Requested Visits Authorized [id number] Closed Specialty Services Required 09/03/2022 10/03/2023 1 1 Encounter Details Date Type Department Care Team (Latest Contact Info) Description 09/27/2022 9:00 AM CDT Office Visit [facility] Gastroenterology [address] [facility] Advanced [facility] 12th [place] [address] [place] [address] Kathy Catherine MD [address] [place] [address] Oropharyngeal dysphagia (Primary Dx); Nausea Social History [...] OF MEDICINE DIVISION OF GASTROENTEROLOGY Clinic Address: [address] [place] [address], [address] [place] [address] Mailing Address: [facility] [address], [place] [address] [place] [address] Consult Note NAME: Bethany Fowler : 1990 [...] , Rfl: al & mag hydroxide with gbrfbtpkgge-uwltkaalyznnouc-eveqhjswr (MAGIC MOUTHWASH) suspension 1-1-1, Swish and swallow [...] Allergies Allergen Reactions Vicks Dayquil Allergy Syncope Jaginqaqv-Kv-Lj-Acetaminophen Dizziness fainting No family history on file. [...] clinic in 6 months Kathy Catherine MD Clinical Lab Technologisthand flesher [place] [address] [place] [address] hospital aides and assistants teacher Academic office documented in this encounter Plan [...] 09/27/2022 documented in this encounter Care Teams Auto Dismantler Relationship Specialty Start Date End Date Pedro Luis Arndt MD [address] [place] [address] PCP - General Family Medicine 09/03/22 11/20/23 documented as of this encounter
--- OUTSIDE RECORDS SUMMARY | 2024-07-18 03:04 | XMS_ITS | Referral Summary ---
Author Organization [facility] Virtual Care Address [address] [place] [address] Phone Care Team Providers Care Strap Buckler Machine Name Role Phone Raymond Wolff MD Primary Care Provider Kathy Catherine MD Unavailable [phone] Doris Pruett MD Unavailable [phone] Mary Waters NP Unavailable [phone] Encounters Date Type Department Care Team Description 07/02/2024 10:30 AM [facility] [address] [place] [phone] Raymond Wolff MD Nausea vomiting and diarrhea (Primary Dx); Gastroesophageal reflux disease without esophagitis 05/07/2024 1:10 PM CDT Lab [facility] Advanced Medicine ([facility]) [address] [place] [phone] Preventative health care; Screening for viral disease; Screening for diabetes mellitus; Screening for deficiency anemia; Screening for metabolic disorder 05/07/2024 11:00 AM CDT Office Visit [place] [id number] [address] Raymond Wolff MD Preventative health care (Primary Dx); Class 1 obesity without serious comorbidity with body mass index (BMI) of 30.0 to 30.9 in adult, unspecified obesity type; Attention deficit hyperactivity disorder (ADHD), combined type; Gastroesophageal reflux disease without esophagitis; Screening for metabolic disorder; Screening for deficiency anemia; Screening for diabetes mellitus; Screening for viral disease 04/23/[address] 5th [address] [place] [address] Deb Cardenas Encounter for vaccination (Primary Dx) 04/23/[address] 5th [address] [place] [address] Deb Cardenas from Last 3 Months Allergies [...] Name Administration Dates Next Due COVID-19 mRNA ([employer]) 0.3 m L (30 mcg) vaccine (12 [...] 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, 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 Not on [...] BLOOD ORDERABLES F inal Result [facility] [place] [address] * Differential, auto (05/07/2024 12:17 PM CDT) Neutrophil abs 4.1 1.5 - 6.5 K/cumm Imm gran abs 0.0 0.0 - 0.1 K/cumm [facility] Lymphocyte abs 3.0 0.8 - 3.3 K/cumm [facility] Monocyte abs 0.5 0.2 - 0.8 K/cumm [facility] Eosinophil abs 0.3 0.0 - 0.5 K/cumm [facility] Basophil abs 0.0 0.0 - 0.1 K/cumm [facility] Neutrophil pct 52.2 % [facility] Comment: Interpretive Data Percent cell count reference ranges are not reported, since discordance with absolute values may lead to misinterpretation of CBC data. Current Interpretive Data was last revised on 2017. Imm gran pct 0.1 % [facility] Comment: Interpretive Data Percent cell count reference ranges are not reported, since discordance with absolute values may lead to misinterpretation of CBC data. Current Interpretive Data was last revised on 2017. Lymphocyte pct 37.4 % [facility] Comment: Interpretive Data Percent cell count reference ranges are not reported, since discordance with absolute values may lead to misinterpretation of CBC data. Current Interpretive Data was last revised on 2017. Monocyte pct 5.7 % [facility] Comment: Interpretive Data Percent cell count reference ranges are not reported, since discordance with absolute values may lead to misinterpretation of CBC data. Current Interpretive Data was last revised on 2017. Eosinophil pct 4.2 % [facility] Comment: Interpretive Data Percent cell count reference ranges are not reported, since discordance with absolute values may lead to misinterpretation of CBC data. Current Interpretive Data was last revised on 2017. Basophil pct 0.4 % [facility] Comment: Interpretive Data Percent cell count reference ranges are not reported, since discordance with absolute values may lead to misinterpretation of CBC data. Current Interpretive Data was last revised on 2017. Blood 05/07/2024 12:1 7 PM CDT 05/07/2024 12:50 PM CDT Raymond Wolff MD LAB BLOOD ORDERABLES F inal Result [facility] [place] [address] * CBC with auto differential (05/07/2024 12:17 PM CDT) [facility] WBC 7.9 3.8 - 9.9 K/cumm Hgb 13.1 11.9 - 15.5 g/dL [facility] Hct 39.3 35.6 - 45.5 % [facility] Plt 311 150 - 400 K/cumm [facility] MPV 9.8 9.1 - 12.3 fL [facility] RBC 4.17 3.90 - 5.20 M/cumm [facility] MCV 94.2 81.3 - 96.4 fL [facility] MCH 31.4 27.1 - 33.3 pg [facility] MCHC 33.3 32.3 - 35.7 g/dL [facility] RDW CV 12.7 11.1 - 14.9 % [facility] RDW SD 43.9 35.7 - 48.1 fL [facility] NRBC abs 0.00 0.00 - 0.01 K/cumm [facility] Blood 05/07/2024 12:1 7 PM CDT 05/07/2024 12:50 PM CDT Raymond Wolff MD LAB BLOOD ORDERABLES F inal Result Performing Organization Address City/[facility]/ZIP Co de Phone Number [facility] [place] [address] * Hepatitis C antibody Blood (05/07/2024 12:17 PM CDT) [facility] Hep C Ab Nonreactive Nonreactive Comment:Antibodies to HCV no t detected. Does NOT exclude the possibility of recent exposure to HCV. Current interpretive data was last revised on 22 Blood 05/07/2024 12:1 7 PM CDT 05/07/2024 12:50 PM CDT Raymond Wolff MD LAB MICROBIOLOGY - GEN ERAL [place] [address] * Hepatitis B Surface Antigen Blood (05/07/2024 12:17 PM CDT) [facility] HepBsAg Nonreactive Nonreactive Blood 05/07/2024 12:1 7 PM CDT 05/07/2024 12:50 PM CDT Raymond Wolff MD LAB MICROBIOLOGY - GEN ERAL ORDERABLES Final Result Performing Organization Address City/[facility] [place] [address] * Hemoglobin A1c (05/07/2024 12:17 PM CDT) [facility] Hgb A1C 5.2 4.0 - 5.6 % Estimated Average Glucose 103 mg/dL [facility] Comment: The ADA recommends reporting an [...] BLOOD ORDERABLES F inal Result [facility] [place] [address] * Comprehensive metabolic panel (05/07/2024 12:17 PM CDT) Sodium 140 135 - 145 mmol/L Potassium, pl 4.1 3.3 - 4.9 mmol/L [facility] Chloride 105 97 - 110 mmol/L [facility] CO2 27 22 - 32 mmol/L [facility] Anion gap 8 2 - 15 mmol/L [facility] BUN 10 6 - 25 mg/dL [facility] Creatinine 0.81 0.60 - 1.10 mg/dL [facility] Glucose 78 70 - 199 mg/dL [facility] Comment: Interpretive Data Fasting glucose >/= [...] 9.2 8.5 - 10.3 mg/dL [facility] Bilirubin, total 0.4 0.1 - 1.2 mg/dL [facility] Protein, pl 7.6 6.5 - 8.5 g/dL [facility] Albumin 4.4 3.5 - 5.0 g/dL [facility] Alk phos 77 40 - 130 Units/L [facility] ALT 19 7 - 45 Units/L [facility] AST 26 10 - 45 Units/L [facility] Blood 05/07/2024 12:1 7 PM CDT 05/07/2024 12:50 PM CDT us Raymond Wolff MD LAB BLOOD ORDERABLES F inal Result [facility] [place] [address] from Last 3 Months Insurance EMPLOYEES EMPLOYEES EMPLOYEES [employer] Advance Directives For more information, please contact: [phone] * Full Code (Latest Code Status on File) Date Activated Date Inactivated Comments 11/12/2022 8:39 AM 11/12/2022 2:53 PM Care Teams Strap Buckler Machine Relationship Specialty Start Date End Date Raymond Wolff MD [address] [facility] [address] [place] [address] PCP - General Internal Medicine 11/21/23 Kathy Catherine MD [address] [place] [address] Consulting Physician Gastroenterology 05/07/24 Doris Pruett MD [address] [facility] [address] [place] [address] Consulting Physician Dermatology 05/07/24 Mary Waters NP [address] [place] [address] Nurse Practitioner Nurse Practitioner 05/07/24
--- OUTSIDE RECORDS SUMMARY | 2024-07-18 03:04 | XMS_ITS | Encounter Summary ---
Author Organization [facility] Healthcare Address [address] [place] [address] Care Team Providers Care Medicaid Analyst Name Role Phone Pedro Luis Arndt MD Primary Care Provider [phone] Encounter Details Date Type Department Care Team (Late st Contact Info) Description 10/23/2023 Patient Self-Triage [facility] HealthCare/ Physicians [facility] [place] [address] Mychart, Generic Provider [address] [place], [place] [id number] Social History Tobacco Use Types Packs/Day Years [...] on filedocumented in this encounter Care Teams Medicaid Analyst Relationship Specialty Start Date End Date Pedro Luis Arndt MD [address] [place] [address] PCP - General Family Medicine 09/03/22 11/20/23 documented as of this encounter
--- OUTSIDE RECORDS SUMMARY | 2024-07-18 03:04 | XMS_ITS | Encounter Summary ---
Author Organization [facility] Healthcare Address [address] [place] [address] Care Team Providers Care Event Attendant Name Role Phone Pedro Luis Arndt MD Primary Care Provider [phone] Reason for Visit * Auth/Cert (Routine) Specialty Diagnoses / Procedures Referred By Contac t Referred To Contact Diagnoses Oropharyngeal dysphagia Oropharyngeal dysphagia [R13.12] Procedures ME ESOPHAGOGASTRODUODENOSCOPY TRANSORAL DIAGNOSTIC ESOPHAGOGASTRODUODENOSCOPY Referral ID Status Reason Start Date Expiration Date Visits Re quested Visits Authorized [id number] 1 1 Encounter Details Date Type Department Care Team (Late st Contact Info) Description 11/12/2022 9:44 AM CDT Anesthesia Event [facility] Digestive Disease [place] [address] [facility] [address] [place] [address] Nataly Arriaza MD [address] [facility] [address] [place] [address] Anesthesia Record Procedure Summary Procedure Name Responsible [...] Procedure Summary Date: 11/12/22 Room / Location: [facility] ENDOSCOPY ROOM 3 / [facility] ENDOSCOPY Anesthesia Start: 943 Anesthesia Stop: 1002 [...] Reactions ??? Vicks Dayquil Allergy Syncope ??? Shkqkzaot-Mn-Yf-Acetaminophen Dizziness fainting Taking? Last Dose Start Date End Date Provider al & mag hydroxide with qxkmfmejskn-bgxnckdngjlxlko-wyolcvehi (MAGIC MOUTHWASH) suspension 1-1-1 Unknown 04/26/21 -- [...] Medication protocol when under care of a BRAKE ASSEMBLER Planned anesthesia: MAC Induction: Induction: intravenous. Postoperative Plan: Patient's planned disposition post procedure is Outpatient. Informed Consent: Discussed plan with BRAKE ASSEMBLER. Anesthesia plan and risks discussed with patient. [...] mL/hr documented in this encounter Care Teams Event Attendant Relationship Specialty Start Date End Date Pedro Luis Arndt MD [address] [place] [address] PCP - General Family Medicine 09/03/22 11/20/23 documented as of this encounter
--- OUTSIDE RECORDS SUMMARY | 2024-07-18 03:04 | XMS_ITS | Encounter Summary ---
Author Organization [facility] Address [address] [place] [address] Care Team Providers Care A Auxiliary Name Role Phone Raymond Wolff MD Primary Care Provider Reason for Referral * Consultation (Routine) - Pending Review Specialty Diagnoses / Procedures Referred By Contac t Referred To Contact Weight Management Diagnoses Overweight Raymond Wolff MD [address] [address] Phone: tel: fax: [facility] (All Locations) Referral ID Status Reason Start Date Expiration Date Visits Requested Visits Authorized [id number] Pending Review Specialty Services Required 02/20/2024 03/21/2025 1 1 Question Answer Please select the performing region: [facility] (All Locations) [167] # of visits: 1 Encounter Details Date Type Department Care Team (Late st Contact Info) Description 02/20/2024 9:45 AM CDT Office Visit [facility] [address] [place] [address] Raymond Wolff MD [address] [address] Overweight (Primary Dx); Fatigue, unspecified [...] day. She did weight loss program through [facility] last year and they recommended not going below this. She thinks she is at/just under 1200 calories about 100% of the time during the week. She is more like 1165-3820 calories on the weekends. She is more likely to eat breakfast and lunch on the weekends. She is using [employer] and uses a food scale she uses [...] her OCP and encouraged further discussion from CLIP LOADING MACHINE ADJUSTER. Reviewed thyroid levels and still think cortisol [...] type documented in this encounter Care Teams A Auxiliary Relationship Specialty Start Date End Date Raymond Wolff MD [address] [address] PCP - General Internal Medicine 11/21/23 documented as of this encounter
--- OUTSIDE RECORDS SUMMARY | 2024-07-18 03:04 | XMS_ITS | Encounter Summary ---
Author Organization [facility] Healthcare Address [address] [place] [address] Care Team Providers Care Tractor Operator Helper Name Role Phone Pedro Luis Arndt MD Primary Care Provider [phone] Reason for Visit * Auth/Cert (Routine) Specialty Diagnoses / Procedures Referred By Contac t Referred To Contact Diagnoses Oropharyngeal dysphagia Oropharyngeal dysphagia [R13.12] Procedures RI ESOPHAGOGASTRODUODENOSCOPY TRANSORAL DIAGNOSTIC ESOPHAGOGASTRODUODENOSCOPY Referral ID Status Reason Start Date Expiration Date Visits Re quested Visits Authorized [id number] 1 1 Encounter Details Date Type Department Care Team (Latest Contact Info) Description 11/12/2022 8:23 AM CDT - 11/12/2022 10:47 AM CDT Hospital Encounter [facility] Digestive Disease [place] [address] [facility] [address] [place] [address] Kathy Catherine MD [address] [facility] [address] [place] [address] Oropharyngeal dysphagia Discharge Disposition: Discharge to home [...] Allergies Allergen Reactions Vicks Dayquil Allergy Syncope Hsbcwkwwl-Qk-Cd-Acetaminophen Dizziness fainting Prior to Admission medications Medication Sig Start Date End Date Taking? Authorizing Provider dexmethylphenidate XR (FOCALIN XR) 20 mg 24 hr capsule Take by mouth daily 04/16/21 Yes Maxx Farias MD omeprazole (PriLOSEC) 20 mg capsule Take 1 capsule (20 mg total) by mouth daily Yes Maxx Farias MD al & mag hydroxide with mlmrtwemtgn-owespshurbkuzja-mhquclyxq (MAGIC MOUTHWASH) suspension 1-1-1 Swish and swallow 10 mL every 4 (four) hours as needed (for aphthous ulcers in mouth) Patient not taking: Reported on 09/27/2022 04/26/21 Karina Florentino, COLOR WEIGHER fluconazole (DIFLUCAN) 150 mg tablet 04/25/21 Maxx [...] Female Attending MD: Kathy Catherine M.D. Room: [facility] ENDOSCOPY ROOM 3 Note Status: Finalized [...] esophagus. Biopsied. - Esophagogastric landmarks identified. - [place]-colored mucosa. - No gross lesions in the [...] On: 11/12/2022 9:46 AM Recognized by the [place] [employer] for Gastrointestinal Endoscopy for promoting quality [...] biopsy) 11/12/2022 9:54 AM CDT Narrative PATHOLOGY [facility] - 11/14/2022 12:05 PM CDT EPIC results best viewed via link to PDF [facility] [place] [address] Note to Patients: This report may contain [...] Gender: ??F : ??1990 (Age: 32) Address: ??[address] [place] [address] ??[id number] Hospital #: ??[id number] Taken:11/12/2022 Received:11/12/2022 Reported: 11/14/2022 Patient Type: [facility] SDS ?? Service: Gastro Location: Physician(s): ??Kathy [...] Surgical Pathology and Flow Cytometry Departments at [facility] as part of an ongoing quality control technician program and in compliance with federally mandated [...] Surgical Pathology and Flow Cytometry Departments of [facility]. ??It has not been cleared or approved by the U. S. Food and Drug Administration. IMAGES AND SCANNED DOCUMENTS, IF INCLUDED, ONLY VIEWABLE IN PDF VERSION OF REPORT Kathy Catherine MD LAB PATHOLOGY ORDERABLES Final Result PATHOLOGY [facility] 3rd Floor [place], [place] [phone] * EGD (11/12/2022 9:46 AM CDT) Anatomical Region Laterality Modality Other Narrative Procedure Note Kathy Catherine MD - 11/12/2022 9:46 AM CDT [facility] Patient Name: Myra Fowler Procedure Date: 11/12/2022 9:46 AM Date of : 1990 Admit Type: Outpatient Age: 32 Gender: Female Attending MD: Kathy Catherine M.D. Room: [facility] ENDOSCOPY ROOM 3 Note Status: Finalized [...] entire esophagus.Biopsied. - Esophagogastric landmarks identified. - [place]-colored mucosa. - No gross lesions in the [...] On: 11/12/2022 9:46 AM Recognized by the [place] [employer] Gastrointestinal Endoscopy for promoting quality in endoscopy aKthy Catherine MD ENDOSCOPY PROCEDURES Final Res ult [...] 11/12/2022 documented in this encounter Care Teams Tractor Operator Helper Relationship Specialty Start Date End Date Pedro Luis Arndt MD [address] [place] [address] PCP - General Family Medicine 09/03/22 11/20/23 documented as of this encounter
--- OUTSIDE RECORDS SUMMARY | 2024-07-18 03:04 | XMS_ITS | Encounter Summary ---
Author Organization [facility] Healthcare Address [address] [place] [address] Care Team Providers Care Sandwich Hand Name Role Phone Pedro Luis Arndt MD Primary Care Provider [phone] Encounter Details Date Type Department Care Team (Late st Contact Info) Description 11/07/2022 Telephone [facility] Digestive Disease [place] [id number] [address] Marilin Schmitt RN Social History Tobacco Use [...] voicemail asking patient to return call to [facility]. GENERAL INSTRUCTIONS [x] Bring medication [...] entire process. [x] Confirm patient has a driver education instructor or responsible adult. Since you will be [...] EGD on 11/[address] Catherine at [facility] to arrive at 8:30 am. Her sister will be her driver education instructor. Shehas instructions and understands what to do. documented in this encounter Plan of Treatment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 documented as of this encounter Visit Diagnoses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documented in this encounter Care Teams Sandwich Hand Relationship Specialty Start Date End Date Pedro Luis Arndt MD [address] [place] [address] PCP - General Family Medicine 09/03/22 11/20/23 documented as of this encounter
--- OUTSIDE RECORDS SUMMARY | 2024-07-18 03:04 | XMS_ITS | Encounter Summary ---
Author Organization [facility] Address [address] [place] [address] Care Team Providers Care Rubber Thread Spooler Name Role Phone Raymond Wolff MD Primary Care Provider Kathy Catherine MD Unavailable [phone] Doris Pruett MD Unavailable [phone] Mary Waters NP Unavailable [phone] Reason for Visit * Reason Comments Preventative Care Encounter Details Date Type Department Care Team (Late st Contact Info) Description 05/07/2024 11:00 AM CDT Office Visit [facility] [address] [phone] Raymond Wolff MD [address] [id number] Preventative health care (Primary Dx); Class 1 [...] Job Start Date Job End Date 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 Discussed risks and [...] PM CDT 05/07/2024 12:50 PM CDT Result [facility] Raymond Wolff MD LAB MICROBIOLOGY - GEN ERAL ORDERABLES Final Result Performing Organization Address [facility] de Phone Number [facility] [place] [address] * Hepatitis B Surface Antigen Blood (05/07/2024 12:17 PM CDT) HepBsAg Nonreactive Nonreactive Blood 05/07/2024 12:1 7 PM CDT 05/07/2024 12:50 PM CDT Result [facility] Raymond Wolff MD LAB MICROBIOLOGY - GEN ERAL ORDERABLES Final Result Performing Organization Address [facility] de Phone Number [facility] [place] [address] * Hemoglobin A1c (05/07/2024 12:17 PM CDT) Pathologist [facility] Hgb A1C 5.2 4.0 - 5.6 % Estimated Average Glucose 103 mg/dL [facility] Comment: The ADA recommends reporting an [...] PM CDT 05/07/2024 12:51 PM CDT Result [facility] Raymond Wolff MD LAB BLOOD ORDERABLES F inal Result Performing Organization Address [facility] Co de Phone Number [facility] [place] [address] * CBC with auto differential (05/07/2024 12:17 PM CDT) [facility] WBC 7.9 3.8 - 9.9 K/cumm Hgb 13.1 11.9 - 15.5 g/dL [facility] Hct 39.3 35.6 - 45.5 % [facility] Plt 311 150 - 400 K/cumm [facility] MPV 9.8 9.1 - 12.3 fL [facility] RBC 4.17 3.90 - 5.20 M/cumm [facility] MCV 94.2 81.3 - 96.4 fL [facility] MCH 31.4 27.1 - 33.3 pg [facility] MCHC 33.3 32.3 - 35.7 g/dL [facility] RDW CV 12.7 11.1 - 14.9 % [facility] RDW SD 43.9 35.7 - 48.1 fL [facility] NRBC abs 0.00 0.00 - 0.01 K/cumm [facility] Blood 05/07/2024 12:1 7 PM CDT 05/07/2024 12:50 PM CDT us Raymond Wolff MD LAB BLOOD ORDERABLES F inal Result [facility] Department [place] [address] * Comprehensive metabolic panel (05/07/2024 12:17 PM CDT) [facility] Sodium 140 135 - 145 mmol/L Potassium, pl 4.1 3.3 - 4.9 mmol/L [facility] Chloride 105 97 - 110 mmol/L [facility] CO2 27 22 - 32 mmol/L [facility] Anion gap 8 2 - 15 mmol/L [facility] BUN 10 6 - 25 mg/dL [facility] Creatinine 0.81 0.60 - 1.10 mg/dL [facility] Glucose 78 70 - 199 mg/dL [facility] Comment: Interpretive Data Fasting glucose >/= [...] Calcium 9.2 8.5 - 10.3 mg/dL [facility] Bilirubin, total 0.4 0.1 - 1.2 mg/dL [facility] Protein, pl 7.6 6.5 - 8.5 g/dL [facility] Albumin 4.4 3.5 - 5.0 g/dL [facility] Alk phos 77 40 - 130 Units/L [facility] ALT 19 7 - 45 Units/L [facility] AST 26 10 - 45 Units/L [facility] Blood 05/07/2024 12:1 7 PM CDT 05/07/2024 12:50 PM CDT us Raymond Wolff MD LAB BLOOD ORDERABLES F inal Result [facility] Department [place] [address] documented in this encounter Visit Diagnoses Diagnosis [...] documented as of this encounter Care Teams Rubber Thread Spooler Relationship Specialty Start Date End Date Raymond Wolff MD [address] [facility] [address] [place] [address] PCP - General Internal Medicine 11/21/23 Kathy Catherine MD [address] [place] [address] Consulting Physician Gastroenterology 05/07/24 Doris Pruett MD [address] [facility] [address] [place] [address] Consulting Physician Dermatology 05/07/24 Mary Waters NP [address] [place] [address] Nurse Practitioner Nurse Practitioner 05/07/24 documented as of this encounter
--- OUTSIDE RECORDS SUMMARY | 2024-07-18 03:04 | XMS_ITS | Encounter Summary ---
Author Organization [facility] Address [address] [place] [address] Care Team Providers Care Management Manager Name Role Phone Raymond Wolff MD Primary Care Provider Kathy Catherine MD Unavailable [phone] Doris Pruett MD Unavailable [phone] Mary Waters NP Unavailable [phone] Encounter Details Date Type Department Care Team (Late st Contact Info) Description 07/02/2024 10:30 AM STONECUTTER Telemedicine [facility] [address] [facility] [address] [place] [facility] [place] [phone] Raymond Wolff MD [address] [address] Nausea vomiting and diarrhea (Primary Dx); Gastroesophageal [...] Industry 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, 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 N ot on file documented as of this encounter Ordered Prescriptions Prescription Sig Dispense Quantity Refills Last Filled Start Date End Date omeprazole (PriLOSEC) 20 mg capsuleIndications:G astroesophageal reflux disease without esophagitis Take 1 capsule (20 mg total) by mouth daily 30 capsule 1 07/02/2024 5 ondansetron ODT (ZOFRAN-ODT) 4 mg disintegrating tabletIndications:Na usea vomiting and diarrhea Take 1 tablet (4 mg total) by mouth every 8 (eight) hours as needed for nausea or vomiting 20 tablet 07/02/2024 documented in this encounter Progress Notes * Raymond Wolff MD - 07/02/2024 10:30 AM CST Telehealth/Telemedicine-VISIT This was a tele-medicine visit which took place via Real-time video connection ([employer], [employer] or similar). Bethany Fowler is a 34 y.o. female reached out to discuss: weight follow up Visit involved the Patient My location at the time of the visit: [place], [place] Patient's location at the time of the visit: [place] Time the session started: 10:46 AM HPI Bethany Fowler was last seen 05/07/24 for PHE. At that visit, we started zepbound for weight loss (weight in the office was 174 lbs). Today she notes that she had been doing fine with the weight loss medication. She now has had diarrhea for the last 2 days. She had has diarrhea every 2 hours. She feels nauseated, not hungry. She does not have a fever. She only has stomach issues. Her last injection was 06/28/24. Symptoms started on 06/30/24. She has had intermittent diarrhea since starting this medication but nothing like this.She is not aware of any known sick contacts; no one else with these symptoms. She is currently on 5mg zepbound and this was her 4th (on 06/28/24). She does not feel like her symptoms are improving. She is able to drink. She tried to go to urgent care but they did not offer IV fluids. She then went to the ER and waitedfor 3 hours but she did not to wait any longer and went home. Review of Systems All other systems reviewed [...] Diagnoses and all orders for this visit: Nausea vomiting and diarrhea (Primary) Comments: unclear etiology. could be tirzepatide vs viral or food poisoning. Reviewed supportive measures. wecan try zofran. discussed possible need for fluids. Plan to hold next injection and reassess. Orders: - ondansetron ODT (ZOFRAN-ODT) 4 mg disintegrating tablet; Take 1 tablet (4 mg total) by mouth every 8 (eight) hours as needed for nausea or vomiting Gastroesophageal reflux disease without esophagitis Comments: doing well with PPI, ok to continue Orders: - omeprazole (PriLOSEC) 20 mg capsule; Take 1 capsule (20 mg total) by mouth daily Time the session ended: 11:02 AM The patient has been informed that the [...] for any applicable copayments. Raymond Wolff MD ECUTTER documented in this encounter Plan of Treatment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 documented as of this encounter Visit Diagnoses Diagnosis Nausea vomiting and diarrhea- Primary Gastroesophageal reflux disease without esophagitis Esophageal reflux documented in this encounter Discontinued Medications Medication Sig Discontinue Reason Start Date End Da te omeprazole (PriLOSEC) 20 mg capsuleIndications:Gastr oesophageal reflux disease without esophagitis Take 1 capsule (20 mg total) by mouth daily Reorder 06/28/2024 07/02/2024 tirzepatide, weight loss, (Zepbound) 2.5 mg/0.5 mL pen injectorIndications:Clas s 1 obesity without serious comorbidity with body mass index (BMI) of 30.0 to 30.9 in adult, unspecified obesity type Inject 0.5 mL (2.5 mg total) under the skin every 7 days 05/10/2024 07/02/2024 documented as of this encounter Care Teams Management Manager Relationship Specialty Start Date End Date Raymond Wolff MD [address] [facility] [address] [place] [address] PCP - General Internal Medicine 11/21/23 Kathy Catherine MD [address] [place] [address] Consulting Physician Gastroenterology 05/07/24 Doris Pruett MD [address] [place] [address] Consulting Physician Dermatology 05/07/24 Mary Waters NP [address] [place] [address] Nurse Practitioner Nurse Practitioner 05/07/24 documented as of this encounter
--- OUTSIDE RECORDS SUMMARY | 2024-07-18 03:04 | XMS_ITS | Encounter Summary ---
Author Organization [facility] Healthcare Address [address] [place] [address] Care Team Providers Care Habitat Biologist Name Role Phone Unavailable Primary Care Provider Unavailabl e Reason for Visit * Reason Onset Date Comments COVID-19 EVALUATION 11/16/2020 Encounter Details Date Type Department Care Team (Late st Contact Info) Description 11/16/2020 Telephone [facility] [place] [id number] (Third Floor) [place] [address] Kizzy Geiger, RN COVID-19 EVALUATION Social History [...] 11/16/2020 Vaccine related call? - No Email: [email or web address] Employee/Student ID# [id number] Are you an employee or student? Employee Employee Employer: [employer] Does your work require you to go into patient care areas (hospital or clinic)? No No Employee Facility: [facility] (All Locations) [facility] (All Locations) Does your job primarily involve providing care for bone marrow transplant patients? 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 Provided [facility] [place] number [phone] for her to report her testing results. [...] Health will notify you and your manager planning when you can return to work. ??? Should your test result positive, [facility] will work with you to identify any close contacts you may have had at work. [facility] will then alert your work contacts directly; you do not have to. Your printing and stamping supervisor should consult with [facility] if they have any questions and before any communication with coworkers about a positive test. [facility] will help ensure that coworkers potentially at risk are notified and given appropriate advice without unnecessary disclosure of personal health information. ??? We will send you an email with self-quarantine instructions (see [facility] Guidance for At-Home Isolation: Employees). ??? You must follow any additional isolation or quarantine instructions provided to you from federal, state or local public health authorities. ??? You should let your printing and stamping supervisor know that you will not be coming to work. Although the Call Center will email your printing and stamping supervisor to confirm that you have been instructed not to come to work, it is still your responsibility to notify your printing and stamping supervisor as you would for any other work absence. You should receive an email from the call center with these instructions. The email will come from [email or web address]; if you do not receive it, please check to see if your email toll service observer has automatically routed it to [email or web address]. documented in this encounter Plan of Treatment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 documented as of this encounter Visit Diagnoses Diagnosis Nausea- Primary Nausea alone documented in this encounter Additional Health Concerns Infection Onset Date Last Indicated Resolved Time COVID: Suspected 11/16/2020 11/16/2020 11/30/2020 3:05 AM CDT documented as of this encounter
--- OUTSIDE RECORDS SUMMARY | 2024-07-18 03:04 | XMS_ITS | Encounter Summary ---
Author Organization [facility] Healthcare Address [address] [place] [address] Care Team Providers Care Raiser Helper Name Role Phone Raymond Wolff MD Primary Care Provider Encounter Details Date Type Department Care Team (Late st Contact Info) Description 12/17/2023 10:00 AM CDT Lab [facility] Advanced Medicine [facility] Advanced Medicine ([facility]) [address] [place] [id number] Screening for lipid disorders; Screening for thyroid [...] in this encounter Results * Thyroid Function [place] (12/17/2023 9:48 AM CDT) TSH 1.85 0.30 - 4.20 mcIUnit/mL Blood 12/17/2023 9:48 AM CDT 12/17/2023 9:55 AM CDT us Raymond Wolff MD LAB BLOOD ORDERABLES F inal Result [facility] One [facility] [place] [address] * (ABNORMAL) Lipid panel (12/17/2023 9:48 AM [...] revised on 2018. HDL 72 >=40 mg/dL [facility] Comment: Interpretive Data Ages < or [...] 2018. LDL, calculated 148(H) <=129 mg/dL [facility] Comment: Interpretive Data Ages < or [...] last revised on 2018. Chol/HDL ratio 3 [facility] Blood 12/17/2023 9:48 AM CDT 12/17/2023 9:55 AM CDT us Raymond Wolff MD LAB BLOOD ORDERABLES F inal Result [facility] One [facility] [place] [address] documented in this encounter Visit Diagnoses Diagnosis Screening for lipid disorders Screening for thyroid disorder documented in this encounter Care Teams Raiser Helper Relationship Specialty Start Date End Date Raymond Wolff MD [address] [address] PCP - General Internal Medicine 11/21/23 documented as of this encounter
--- OUTSIDE RECORDS SUMMARY | 2024-07-18 03:04 | XMS_ITS | Encounter Summary ---
Author Organization [facility] Healthcare Address [address] [place] [address] Care Team Providers Care Pharmacist Aide Name Role Phone No, Physician Primary Care Provider [phone] Encounter Details Date Type Department Care Team (Latest Contact Info) Description 11/04/2021 2:06 PM CDT - 11/04/2021 11:59 PM CDT Hospital Encounter [address] [address] Exposure to COVID-19 virus Discharge Disposition: Discharge [...] and NAAT . ??Testing performed by the [facility] Molecular Infectious Disease Laboratory. The 2018-Novel Coronavirus [...] GENERAL ORD ERABLES Edited Result - Final [facility] One [facility] Department [place] [address] documented in this encounter Visit Diagnoses Diagnosis Exposure to COVID-19 virus documented in this encounter Care Teams Pharmacist Aide Relationship Specialty Start Date End Date No, Physician PCP - General 04/26/21 09/02/22 documented as of this encounter
--- OUTSIDE RECORDS SUMMARY | 2024-07-18 03:04 | XMS_ITS | Encounter Summary ---
Author Organization [facility] Address [address] [place] [address] Care Team Providers Care Cigarette Examiner Name Role Phone Pedro Luis Arndt MD Primary Care Provider [phone] Encounter Details Date Type Department Care Team (Late st Contact Info) Description 11/19/2023 12:30 PM CDT Office Visit [facility] [address] [facility] [address] [place] [address] Raymond Wolff MD [address] [facility] [address] [place] [address] Attention deficit hyperactivity disorder (ADHD), combined type [...] 01/30/2024 added in this encounter Care Teams Cigarette Examiner Relationship Specialty Start Date End Date Pedro Luis Arndt MD [address] [place] [address] PCP - General Family Medicine 09/03/22 11/20/23 documented as of this encounter
--- OUTSIDE RECORDS SUMMARY | 2024-07-18 03:04 | XMS_ITS | Encounter Summary ---
Author Organization [facility] Medical Group Address [address] [place] [address] Care Team Providers Care Dairy And Food Laboratory Assistant Name Role Phone No, Physician Primary Care Provider [phone] Reason for Visit * Reason Comments COVID-19 EVALUATION Employee testing due to covid exposure Encounter Details Date Type Department Care Team (Latest Contact Info) Description 11/04/2021 2:00 PM CDT Clinical Support [facility] Outpatient Center [address] [address] Exposure to COVID-19 virus (Primary [...] AM CDT) COVID-19 RNA Not Detected [facility] Comment: Collection date/time has been modified to: 02:38:00. ??Previous collection date/time: 02:38:00. Interpretive Data Synonyms for this test include: PCR and NAAT . ??Testing performed by the [facility] Molecular Infectious Disease Laboratory. The 2019-Novel [...] CDT 11/05/2021 3:02 AM CDT Narrative [facility] - 11/07/2021 12:16 PM CDT Is the patient experiencing any symptoms consistent with COVID (eg. Fever, cough, shortness of breath)?->No What is the reason for testing?->Post-exposure testing required by a public health agency??asymptomatic (Batched) Marsha Conklin NP LAB MICROBIOLOGY - GENERAL ORD ERABLES Edited Result - Final [facility] One [facility] Department [place] [address] documented in this encounter Visit Diagnoses Diagnosis Exposure to COVID-19 virus- Primary Exposure to COVID-19 virus documented in this encounter Care Teams Dairy And Food Laboratory Assistant Relationship Specialty Start Date End Date No, Physician PCP - General 04/26/21 09/02/22 documented as of this encounter
--- OUTSIDE RECORDS SUMMARY | 2024-07-18 03:04 | XMS_ITS | Encounter Summary ---
Author Organization [facility] Healthcare Address [address] [place] [address] Care Team Providers Care Steel Erector Name Role Phone Raymond Wolff MD Primary Care Provider Kathy Catherine MD Unavailable [phone] Doris Pruett MD Unavailable [phone] Mary Waters NP Unavailable [phone] Encounter Details Date Type Department Care Team (Late st Contact Info) Description 05/07/2024 1:10 PM CDT Lab [facility] Advanced Medicine ([facility]) [address] [place] [address] Preventative health care; Screening for viral [...] Industry Job 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 Job End Date 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, 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 Not [...] MD LAB BLOOD ORDERABLES F inal Result [facility] One [facility] Department [place] [address] * Differential, auto (05/07/2024 12:17 PM CDT) Pathologist [facility] Neutrophil abs 4.1 1.5 - 6.5 K/cumm Imm gran abs 0.0 0.0 - 0.1 K/cumm [facility] Lymphocyte abs 3.0 0.8 - 3.3 K/cumm [facility] Monocyte abs 0.5 0.2 - 0.8 K/cumm [facility] Eosinophil abs 0.3 0.0 - 0.5 K/cumm [facility] Basophil abs 0.0 0.0 - 0.1 K/cumm [facility] Neutrophil pct 52.2 % [facility] Comment: Interpretive Data Percent cell count reference ranges are not reported, since discordance with absolute values may lead to misinterpretation of CBC data. Current Interpretive Data was last revised on 2017. Imm gran pct 0.1 % [facility] Comment: Interpretive Data Percent cell count reference ranges are not reported, since discordance with absolute values may lead to misinterpretation of CBC data. Current Interpretive Data was last revised on 2017. Lymphocyte pct 37.4 % [facility] Comment: Interpretive Data Percent cell count reference ranges are not reported, since discordance with absolute values may lead to misinterpretation of CBC data. Current Interpretive Data was last revised on 2017. Monocyte pct 5.7 % [facility] Comment: Interpretive Data Percent cell count reference ranges are not reported, since discordance with absolute values may lead to misinterpretation of CBC data. Current Interpretive Data was last revised on 2017. Eosinophil pct 4.2 % [facility] Comment: Interpretive Data Percent cell count reference ranges are not reported, since discordance with absolute values may lead to misinterpretation of CBC data. Current Interpretive Data was last revised on 2017. Basophil pct 0.4 % [facility] Comment: Interpretive Data Percent cell count reference ranges are not reported, since discordance with absolute values may lead to misinterpretation of CBC data. Current Interpretive Data was last revised on 2017. Blood 05/07/2024 12:1 7 PM CDT 05/07/2024 12:50 PM CDT us Raymond Wolff MD LAB BLOOD ORDERABLES F inal Result [facility] Department [place] [address] * Comprehensive metabolic panel (05/07/2024 12:17 PM CDT) Sodium 140 135 - 145 mmol/L Potassium, pl 4.1 3.3 - 4.9 mmol/L [facility] Chloride 105 97 - 110 mmol/L [facility] CO2 27 22 - 32 mmol/L [facility] Anion gap 8 2 - 15 mmol/L [facility] BUN 10 6 - 25 mg/dL [facility] Creatinine 0.81 0.60 - 1.10 mg/dL [facility] Glucose 78 70 - 199 mg/dL [facility] Comment: Interpretive Data Fasting glucose >/= 126 [...] 2022. Calcium 9.2 8.5 - 10.3 mg/dL [facility] Bilirubin, total 0.4 0.1 - 1.2 mg/dL [facility] Protein, pl 7.6 6.5 - 8.5 g/dL [facility] Albumin 4.4 3.5 - 5.0 g/dL [facility] Alk phos 77 40 - 130 Units/L [facility] ALT 19 7 - 45 Units/L [facility] AST 26 10 - 45 Units/L [facility] Blood 05/07/2024 12:1 7 PM CDT 05/07/2024 12:50 PM CDT Raymond Wolff MD LAB BLOOD ORDERABLES F inal Result [facility] Department [place] [address] * CBC with auto differential (05/07/2024 12:17 PM CDT) [facility] WBC 7.9 3.8 - 9.9 K/cumm Hgb 13.1 11.9 - 15.5 g/dL [facility] Hct 39.3 35.6 - 45.5 % [facility] Plt 311 150 - 400 K/cumm [facility] MPV 9.8 9.1 - 12.3 fL [facility] RBC 4.17 3.90 - 5.20 M/cumm [facility] MCV 94.2 81.3 - 96.4 fL [facility] MCH 31.4 27.1 - 33.3 pg [facility] MCHC 33.3 32.3 - 35.7 g/dL [facility] RDW CV 12.7 11.1 - 14.9 % [facility] RDW SD 43.9 35.7 - 48.1 fL [facility] NRBC abs 0.00 0.00 - 0.01 K/cumm [facility] Blood 05/07/2024 12:1 7 PM CDT 05/07/2024 12:50 PM CDT Raymond Wolff MD LAB BLOOD ORDERABLES F inal Result Performing Organization Address [facility] de Phone Number [facility] [email or web address] [address] * Hemoglobin A1c (05/07/2024 12:17 PM CDT) [facility] Hgb A1C 5.2 4.0 - 5.6 % Estimated Average Glucose 103 mg/dL [facility] Comment: The ADA recommends reporting an estimated [...] ORDERABLES F inal Result Performing Organization Address [facility] de Phone Number [facility] [place] [address] * Hepatitis B Surface Antigen Blood (05/07/2024 12:17 PM CDT) [facility] HepBsAg Nonreactive Nonreactive Blood 05/07/2024 12:1 7 PM CDT 05/07/2024 12:50 PM CDT us Raymond Wolff MD LAB MICROBIOLOGY - GEN ERAL ORDERABLES Final Result Performing Organization Address City/[facility] Co de Phone Number [facility] Department [place] [address] * Hepatitis C antibody Blood (05/07/2024 12:17 PM CDT) Hep C Ab Nonreactive Nonreactive Comment:Antibodies to HCV no t detected. Does NOT exclude the possibility of recent exposure to HCV. Current interpretive data was last revised on 22 Blood 05/07/2024 12:1 7 PM CDT 05/07/2024 12:50 PM CDT Raymond Wolff MD LAB MICROBIOLOGY - GEN ERAL ORDERABLES Final Result Performing Organization Address [facility] Co de Phone Number [facility] Department [place] [address] documented in this encounter Visit Diagnoses Diagnosis Preventative health care Routine general medical examination at a health care facility Screening for viral disease Special screening examination for unspecified viral disease Screening for diabetes mellitus Screening for deficiency anemia Screening for other and unspecified deficiency anemia Screening for metabolic disorder documented in this encounter Care Teams Steel Erector Relationship Specialty Start Date End Date Raymond Wolff MD [address] [facility] [address] [place] [address] PCP - General Internal Medicine 11/21/23 Kathy Catherine MD [address] [place] [address] Consulting Physician Gastroenterology 05/07/24 Doris Pruett MD [address] [facility] [address] [place] [address] Consulting Physician Dermatology 05/07/24 Mary Waters NP [address] [place] [address] Nurse Practitioner Nurse Practitioner 05/07/24 documented as of this encounter
--- OUTSIDE RECORDS SUMMARY | 2024-07-18 03:04 | XMS_ITS | Encounter Summary ---
Author Organization [facility] Healthcare Address [address] [place] [address] Care Team Providers Care Pellet Preparation Operator Name Role Phone Unavailable Primary Care Provider Unavailabl e Encounter Details Date Type Department Care Team (Late st Contact Info) Description 03/01/2020 Telephone [facility] [address] [place] [address] Room 3420 (Third Floor) [place] [address] Naima Dockery, WEAVER WIRE LOOM [address] [place] [address] Social History Tobacco Use Types Packs/Day Years [...] PM CDT Employee COVID-19 Screening 03/01/2020 Email: [email or web address] Employee/Student ID# [id number] Are you an employee or student? Employee Employer: [employer] Does your work require you to go into patient care areas (hospital or clinic)? No Employee Facility: [facility] (All Locations) Does your job primarily involve providing care for bone marrow transplant patients? 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 Email: [email or web address] ?? You should isolate yourself at home, avoid contact with any household members as much as possible, and stay in your home without leaving except for medical care. ?? You should perform active symptom monitoring: ?? You must record your temperature and any symptoms you may have twice a day (morning and evening)using the COVID-19 Symptom Log at: [email or web address]. If you donot have Internet access, use [...] for reassessment. ?? You should let your residence supervisor know that you will not be coming to work. Although the Call Center will email your residence supervisor to confirm that you have been instructed not to come to work, it is still your responsibility to notify your residence supervisor as you would for any other work absence. documented in this encounter Plan of Treatment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 documented as of this encounter Visit Diagnoses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documented in this encounter
--- OUTSIDE RECORDS SUMMARY | 2024-07-18 03:04 | XMS_ITS | Encounter Summary ---
Author Organization [facility] Healthcare Address [address] [place] [address] Care Team Providers Care Freight Representative Name Role Phone Pedro Luis Arndt MD Primary Care Provider [phone] Reason for Referral * Diagnostic Imaging (Routine) - Closed Specialty Diagnoses / Procedures Referred By Nette cruz Referred To Contact Diagnoses Oropharyngeal dysphagia Procedures [place] Modified Barium Swallow W Video Kathy Catherine MD [address] [address] Phone: tel: fax: [address] [address] Referral ID Status Reason Start Date Expiration Date Visits Re quested Visits Authorized [id number] Closed 11/25/2022 12/25/2023 1 1 Reason for Visit * Diagnostic Imaging (Routine) - Closed Specialty Diagnoses / Procedures Referred By Nette cruz Referred To Contact Diagnoses Oropharyngeal dysphagia Procedures [place] Modified Barium Swallow W Video Kathy Catherine MD [address] [place] [address] Phone: tel: fax: [address] [address] Referral ID Status Reason Start Date Expiration Date Visits Re quested Visits Authorized [id number] Closed 11/25/2022 12/25/2023 1 1 Encounter Details Date Type Department Care Team (Latest Contact Info) Description 12/23/2022 12:56 PM CDT - 12/23/2022 11:59 PM CDT Hospital Encounter [facility] Radiology [address] [place] [address] Oropharyngeal dysphagia Discharge Disposition: Discharge to home [...] mL documented in this encounter Care Teams Freight Representative Relationship Specialty Start Date End Date Pedro Luis Arndt MD [address] [place] [address] PCP - General Family Medicine 09/03/22 11/20/23 documented as of this encounter
--- OUTSIDE RECORDS SUMMARY | 2024-07-18 03:04 | XMS_ITS | Encounter Summary ---
Author Organization [facility] Address [address] [place] [address] Phone Care Team Providers Care Bisque Ware Dipper Name Role Phone Raymond Wolff MD Primary Care Provider Encounter Details Date Type Department Care Team (Late st Contact Info) Description 03/12/2024 1:00 PM CDT Office Visit [facility] Dermatology [address] [facility] [address] [place] [address] [employer], Doris Young MD [address] [facility] [address] [place] [address] Folliculitis (Primary Dx); Dermal nevus; [...] Laundry Treatment UV Protectant (for sale on [employer]), just with one laundry cycle with Sun [...] rash guards during outdoor activities. Check out: www.[employer] - sun protective clothing and hats with built in UV protection documented in this encounter Progress Notes * Leena Camp MD - 03/12/2024 1:00 PM CDT [facility] Dermatology Bethany Fowler : 1990 LAURA: [...] Lentigines documented in this encounter Care Teams Bisque Ware Dipper Relationship Specialty Start Date End Date Raymond Wolff MD [address] [address] PCP - General Internal Medicine 11/21/23 documented as of this encounter
--- OUTSIDE RECORDS SUMMARY | 2024-07-18 03:04 | XMS_ITS | Encounter Summary ---
Author Organization [facility] Address [address] [place] [address] Phone Care Team Providers Care Communications Editor Name Role Phone Pedro Luis Arndt MD Primary Care Provider [phone] Reason for Referral * Diagnostic Imaging (Routine) - Closed Specialty Diagnoses / Procedures Referred By Nette cruz Referred To Contact Diagnoses Oropharyngeal dysphagia Procedures [place] Modified Barium Swallow W Video Kathy Catherine MD [address] [place] [address] Phone: tel: fax: [address] [phone] Referral ID Status Reason Start Date Expiration Date Visits Re quested Visits Authorized [id number] Closed 11/25/2022 12/25/2023 1 1 Encounter Details Date Type Department Care Team (Late st Contact Info) Description 11/25/2022 Orders Only [facility] Gastroenterology [address] [facility] 12th [place] [address] [place] [address] Kathy Catherine MD [address] [place] [address] Oropharyngeal dysphagia (Primary Dx) Social [...] documented as of this encounter Care Teams Communications Editor Relationship Specialty Start Date End Date Pedro Luis Arndt MD [address] [place] [address] PCP - General Family Medicine 09/03/22 11/20/23 documented as of this encounter
--- OUTSIDE RECORDS SUMMARY | 2024-07-18 03:04 | XMS_ITS | Encounter Summary ---
Author Organization [facility] Address [address] [place] [address] Care Team Providers Care Slip Feeder Name Role Phone Raymond Wolff MD Primary Care Provider Encounter Details Date Type Department Care Team (Late st Contact Info) Description 11/21/2023 Telephone [facility] [address] [address] Pedro Luis Arndt MD [facility] [place] [address] Social History Tobacco Use Types Packs/Day Years [...] documented as of this encounter Care Teams Slip Feeder Relationship Specialty Start Date End Date Raymond Wolff MD [address] [address] PCP - General Internal Medicine 11/21/23 documented as of this encounter
== END 2024-07-11 09:43 | disposition home or self-care (01) ==
PROVIDERS: Emergency Medicine; Emergency Provider Emergency Medicine
DX: K52.9 Noninfective gastroenteritis and colitis, unspecified (principal); N39.0 Urinary tract infection, site not specified; F90.9 Attention-deficit hyperactivity disorder, unspecified type; Z20.822 Contact with and (suspected) exposure to COVID-19
CPT/HCPCS: 36415; 71045; 74177; 80053; 81001; 81025; 83605; 83690; 83735; 85025; 87086; 87637; 96361; 96372; 96374; 96375; 99284; J0500; J2405; J2470; J2550; J7030; Q9967